=== PATIENT | male | born 1940 | race Caucasian/White ===

== ENCOUNTER 2020-08-13 07:35 | Outpatient (REF) | payer MEDICARE, SELFPAY ==
[2020-08-13 09:31] LABS: INTERNATIONAL NORM RATIO 3.4 (0.9-1.1); Prothrombin Time 40.5 SEC (10.8-13.0)
== END 2020-08-13 07:36 | disposition home or self-care (01) ==
LOC: HO.HSHHMC 07:35
PROVIDERS: Visit Provider Internal Medicine Interventional Cardiology
DX: I48.91 Unspecified atrial fibrillation (principal)
CPT/HCPCS: 36415; 85610

== ENCOUNTER 2020-08-20 06:08 | Outpatient (REF) | payer MEDICARE, SELFPAY ==
[2020-08-20 10:22] LABS: INTERNATIONAL NORM RATIO 3.7 (0.9-1.1); Prothrombin Time 44.4 SEC (10.8-13.0)
== END 2020-08-20 06:09 | disposition home or self-care (01) ==
LOC: HO.HSHHMC 06:08
PROVIDERS: Visit Provider Internal Medicine Interventional Cardiology
DX: I48.91 Unspecified atrial fibrillation (principal)
CPT/HCPCS: 36415; 85610

== ENCOUNTER 2020-08-27 05:54 | Outpatient (REF) | payer MEDICARE, SELFPAY ==
[2020-08-27 09:55] LABS: INTERNATIONAL NORM RATIO 2.1 (0.9-1.1); Prothrombin Time 24.6 SEC (10.8-13.0)
== END 2020-08-27 05:55 | disposition home or self-care (01) ==
LOC: HO.HSHHMC 05:54
PROVIDERS: Visit Provider Internal Medicine Interventional Cardiology
DX: I48.91 Unspecified atrial fibrillation (principal)
CPT/HCPCS: 36415; 85610

== ENCOUNTER 2020-08-31 | Outpatient (REF) | payer MEDICARE, SELFPAY ==
[2020-08-31 09:45] LABS: Prothrombin Time 24.5 SEC (10.8-13.0)
== END 2020-08-31 00:01 | disposition home or self-care (01) ==
LOC: HO.HSHHMC
PROVIDERS: Visit Provider Internal Medicine Interventional Cardiology
DX: I48.91 Unspecified atrial fibrillation (principal)
CPT/HCPCS: 36415; 85610

== ENCOUNTER 2020-09-07 | Outpatient (REF) | payer MEDICARE, SELFPAY ==
[2020-09-07 09:32] LABS: INTERNATIONAL NORM RATIO 2.1 (0.9-1.1); Prothrombin Time 25.5 SEC (10.8-13.0)
== END 2020-09-07 00:01 | disposition home or self-care (01) ==
LOC: HO.HSHHMC
PROVIDERS: Visit Provider Internal Medicine Interventional Cardiology
DX: I48.91 Unspecified atrial fibrillation (principal); Z79.01 Long term (current) use of anticoagulants
CPT/HCPCS: 36415; 85610

== ENCOUNTER 2020-09-14 09:51 | Outpatient (REF) | payer MEDICARE, SELFPAY ==
[2020-09-14 11:03] LABS: INTERNATIONAL NORM RATIO 2.1 (0.9-1.1); Prothrombin Time 24.6 SEC (10.8-13.0)
== END 2020-09-14 09:52 | disposition home or self-care (01) ==
LOC: HO.HSHHMC 09:51
PROVIDERS: Visit Provider Internal Medicine Interventional Cardiology
DX: I48.91 Unspecified atrial fibrillation (principal)
CPT/HCPCS: 36415; 85610

== ENCOUNTER 2020-09-28 07:31 | Outpatient (REF) | payer MEDICARE, SELFPAY ==
[2020-09-28 08:56] LABS: INTERNATIONAL NORM RATIO 2.2 (0.9-1.1); Prothrombin Time 26.9 SEC (10.8-13.0)
== END 2020-09-28 07:32 | disposition home or self-care (01) ==
LOC: HO.HSHHMC 07:31
PROVIDERS: Visit Provider Internal Medicine Interventional Cardiology
DX: I48.91 Unspecified atrial fibrillation (principal)
CPT/HCPCS: 36415; 85610

== ENCOUNTER 2020-10-12 06:06 | Outpatient (REF) | payer MEDICARE, SELFPAY ==
[2020-10-12 10:58] LABS: INTERNATIONAL NORM RATIO 1.9 (0.9-1.1); Prothrombin Time 22.8 SEC (10.8-13.0)
== END 2020-10-12 06:07 | disposition home or self-care (01) ==
LOC: HO.HSHHMC 06:06
PROVIDERS: Visit Provider Internal Medicine Interventional Cardiology
DX: I48.91 Unspecified atrial fibrillation (principal)
CPT/HCPCS: 36415; 85610

== ENCOUNTER 2020-10-19 07:00 | Outpatient (REF) | payer MEDICARE, SELFPAY ==
[2020-10-19 09:14] LABS: INTERNATIONAL NORM RATIO 1.9 (0.9-1.1); Prothrombin Time 22.4 SEC (10.8-13.0)
== END 2020-10-19 07:01 | disposition home or self-care (01) ==
LOC: HO.HSHHMC 07:00
PROVIDERS: Visit Provider Internal Medicine Interventional Cardiology
DX: I48.91 Unspecified atrial fibrillation (principal)
CPT/HCPCS: 36415; 85610

== ENCOUNTER 2020-11-08 06:49 | Outpatient (REF) | payer MEDICARE, SELFPAY ==
[2020-11-08 09:16] LABS: Prothrombin Time 24.4 SEC (10.8-13.0)
== END 2020-11-08 06:50 | disposition home or self-care (01) ==
LOC: HO.HSHHMC 06:49
PROVIDERS: Visit Provider Internal Medicine Interventional Cardiology
DX: I48.91 Unspecified atrial fibrillation (principal)
CPT/HCPCS: 36415; 85610

== ENCOUNTER 2020-11-22 | Outpatient (REF) | payer MEDICARE, SELFPAY ==
[2020-11-22 11:23] LABS: INTERNATIONAL NORM RATIO 2.6 (0.9-1.1)
== END 2020-11-22 00:01 ==
LOC: HO.HSHHMC
PROVIDERS: Visit Provider Internal Medicine Interventional Cardiology
DX: I48.91 Unspecified atrial fibrillation (principal); Z79.01 Long term (current) use of anticoagulants
CPT/HCPCS: 36415; 85610

== ENCOUNTER 2020-11-30 07:15 | Outpatient (REF) | payer MEDICARE, SELFPAY ==
[2020-11-30 09:54] LABS: Prothrombin Time 23.5 SEC (10.8-13.0)
== END 2020-11-30 07:16 | disposition home or self-care (01) ==
LOC: HO.HSHHMC 07:15
PROVIDERS: Visit Provider Internal Medicine Interventional Cardiology
DX: I48.91 Unspecified atrial fibrillation (principal)
CPT/HCPCS: 36415; 85610

== ENCOUNTER 2020-12-14 08:57 | Outpatient (REF) | payer MEDICARE, SELFPAY ==
[2020-12-14 10:57] LABS: INTERNATIONAL NORM RATIO 1.9 (0.9-1.1); Prothrombin Time 22.6 SEC (10.8-13.0)
== END 2020-12-14 08:58 | disposition home or self-care (01) ==
LOC: HO.HSHHMC 08:57
PROVIDERS: Visit Provider Internal Medicine Interventional Cardiology
DX: I48.91 Unspecified atrial fibrillation (principal)
CPT/HCPCS: 36415; 85610

== ENCOUNTER 2020-12-22 07:35 | Outpatient (REF) | payer MEDICARE, SELFPAY ==
[2020-12-22 09:20] LABS: INTERNATIONAL NORM RATIO 2.9 (0.9-1.1); Prothrombin Time 34.6 SEC (10.8-13.0)
== END 2020-12-22 07:36 | disposition home or self-care (01) ==
LOC: HO.HSHHMC 07:35
PROVIDERS: Visit Provider Internal Medicine Interventional Cardiology
DX: I48.91 Unspecified atrial fibrillation (principal)
CPT/HCPCS: 36415; 85610

== ENCOUNTER 2020-12-29 05:53 | Outpatient (REF) | payer MEDICARE, SELFPAY ==
[2020-12-29 09:01] LABS: INTERNATIONAL NORM RATIO 3.2 (0.9-1.1); Prothrombin Time 38.4 SEC (10.8-13.0)
== END 2020-12-29 05:54 | disposition home or self-care (01) ==
LOC: HO.HSHHMC 05:53
PROVIDERS: Visit Provider Internal Medicine Interventional Cardiology
DX: I48.91 Unspecified atrial fibrillation (principal)
CPT/HCPCS: 36415; 85610

== ENCOUNTER 2021-01-05 | Outpatient (REF) | payer MEDICARE, SELFPAY ==
[2021-01-05 12:25] LABS: INTERNATIONAL NORM RATIO 2.5 (0.9-1.1); Prothrombin Time 29.9 SEC (10.8-13.0)
== END 2021-01-05 00:01 | disposition home or self-care (01) ==
LOC: HO.HSHHMC
PROVIDERS: Visit Provider Internal Medicine Interventional Cardiology
DX: I48.91 Unspecified atrial fibrillation (principal)
CPT/HCPCS: 36415; 85610

== ENCOUNTER 2021-01-06 07:05 | Outpatient (REF) | payer MEDICARE, SELFPAY | END 2021-01-06 07:06 | disposition home or self-care (01) | LOC: HO.HSHHMC 07:05 | PROVIDERS: Visit Provider Internal Medicine Interventional Cardiology | DX: Z13.89 Encounter for screening for other disorder (principal) ==

== ENCOUNTER 2021-01-12 05:48 | Outpatient (REF) | payer MEDICARE, SELFPAY ==
[2021-01-12 08:50] LABS: Prothrombin Time 35.9 SEC (10.8-13.0)
== END 2021-01-12 05:49 | disposition home or self-care (01) ==
LOC: HO.HSHHMC 05:48
PROVIDERS: Visit Provider Internal Medicine Interventional Cardiology
DX: I48.91 Unspecified atrial fibrillation (principal)
CPT/HCPCS: 36415; 85610

== ENCOUNTER 2021-01-19 05:42 | Outpatient (REF) | payer MEDICARE, SELFPAY ==
[2021-01-19 09:10] LABS: INTERNATIONAL NORM RATIO 2.4 (0.9-1.1); Prothrombin Time 28.5 SEC (10.8-13.0)
== END 2021-01-19 05:43 | disposition home or self-care (01) ==
LOC: HO.HSHHMC 05:42
PROVIDERS: Visit Provider Internal Medicine Interventional Cardiology
DX: I48.91 Unspecified atrial fibrillation (principal)
CPT/HCPCS: 36415; 85610

== ENCOUNTER 2021-02-02 06:38 | Outpatient (REF) | payer MEDICARE, SELFPAY ==
[2021-02-02 09:18] LABS: INTERNATIONAL NORM RATIO 2.9 (0.9-1.1); Prothrombin Time 34.7 SEC (10.8-13.0)
== END 2021-02-02 06:39 | disposition home or self-care (01) ==
LOC: HO.HSHHMC 06:38
PROVIDERS: Visit Provider Internal Medicine Interventional Cardiology
DX: I48.91 Unspecified atrial fibrillation (principal)
CPT/HCPCS: 36415; 85610

== ENCOUNTER 2021-02-16 07:07 | Outpatient (REF) | payer MEDICARE, SELFPAY ==
[2021-02-16 09:17] LABS: INTERNATIONAL NORM RATIO 3.6 (0.9-1.1); Prothrombin Time 43.3 SEC (10.8-13.0)
== END 2021-02-16 07:08 | disposition home or self-care (01) ==
LOC: HO.HSHHMC 07:07
PROVIDERS: Visit Provider Internal Medicine Interventional Cardiology
DX: I48.91 Unspecified atrial fibrillation (principal)
CPT/HCPCS: 36415; 85610

== ENCOUNTER 2021-02-22 05:51 | Outpatient (REF) | payer MEDICARE, SELFPAY | END 2021-02-22 05:52 | disposition home or self-care (01) | LOC: HO.HSH 05:51 | PROVIDERS: Visit Provider Internal Medicine Interventional Cardiology | DX: Z13.89 Encounter for screening for other disorder (principal) ==

== ENCOUNTER 2021-02-24 07:47 | Outpatient (REF) | payer MEDICARE, SELFPAY ==
[2021-02-24 13:16] LABS: INTERNATIONAL NORM RATIO 3.1 (0.9-1.1); Prothrombin Time 37.5 SEC (10.8-13.0)
== END 2021-02-24 07:48 | disposition home or self-care (01) ==
LOC: HO.LHD 07:47
PROVIDERS: Visit Provider Internal Medicine Interventional Cardiology
DX: I48.91 Unspecified atrial fibrillation (principal)
CPT/HCPCS: 36415; 85610

== ENCOUNTER 2021-03-04 06:50 | Outpatient (REF) | payer MEDICARE, SELFPAY ==
[2021-03-04 11:24] LABS: INTERNATIONAL NORM RATIO 2.6 (0.9-1.1); Prothrombin Time 31.2 SEC (10.8-13.0)
== END 2021-03-04 06:51 | disposition home or self-care (01) ==
LOC: HO.LHD 06:50
PROVIDERS: Visit Provider Internal Medicine Interventional Cardiology
DX: I48.91 Unspecified atrial fibrillation (principal)
CPT/HCPCS: 36415; 85610

== ENCOUNTER 2021-03-18 06:36 | Outpatient (REF) | payer MEDICARE, SELFPAY ==
[2021-03-18 10:10] LABS: INTERNATIONAL NORM RATIO 3.9 (0.9-1.1); Prothrombin Time 47.4 SEC (10.8-13.0)
== END 2021-03-18 06:37 | disposition home or self-care (01) ==
LOC: HO.HSHHMC 06:36
PROVIDERS: Visit Provider Internal Medicine Interventional Cardiology
DX: Z13.89 Encounter for screening for other disorder (principal)
CPT/HCPCS: 36415; 85610

== ENCOUNTER 2021-03-21 07:12 | Outpatient (REF) | payer MEDICARE, SELFPAY ==
[2021-03-21 10:56] LABS: INTERNATIONAL NORM RATIO 3.8 (0.9-1.1); Prothrombin Time 45.9 SEC (10.8-13.0)
== END 2021-03-21 07:13 | disposition home or self-care (01) ==
LOC: HO.LHD 07:12
PROVIDERS: Visit Provider Internal Medicine Interventional Cardiology
DX: I48.91 Unspecified atrial fibrillation (principal); Z79.01 Long term (current) use of anticoagulants
CPT/HCPCS: 36415; 85610

== ENCOUNTER 2021-03-29 01:32 | Outpatient (REF) | payer MEDICARE, SELFPAY ==
[2021-03-29 10:15] LABS: INTERNATIONAL NORM RATIO 4.8 (0.9-1.1); Prothrombin Time 58.2 SEC (10.8-13.0)
== END 2021-03-29 01:33 | disposition home or self-care (01) ==
LOC: HO.LHD 01:32
PROVIDERS: Visit Provider Internal Medicine Interventional Cardiology
DX: I48.91 Unspecified atrial fibrillation (principal)
CPT/HCPCS: 36415; 85610

== ENCOUNTER 2021-03-31 01:05 | Outpatient (REF) | payer MEDICARE, SELFPAY | END 2021-03-31 01:06 | disposition home or self-care (01) | LOC: HO.LHD 01:05 | PROVIDERS: Visit Provider Internal Medicine Interventional Cardiology | DX: Z13.89 Encounter for screening for other disorder (principal) ==

== ENCOUNTER 2021-04-04 06:09 | Outpatient (REF) | payer MEDICARE, SELFPAY ==
[2021-04-04 10:16] LABS: Prothrombin Time 68.2 SEC (10.8-13.0)
[2021-04-04 10:19] LABS: INTERNATIONAL NORM RATIO 5.6 (0.9-1.1)
== END 2021-04-04 06:10 | disposition home or self-care (01) ==
LOC: HO.LHD 06:09
PROVIDERS: Visit Provider Internal Medicine Interventional Cardiology
DX: I48.91 Unspecified atrial fibrillation (principal)
CPT/HCPCS: 36415; 85610

== ENCOUNTER 2021-04-06 07:13 | Outpatient (REF) | payer MEDICARE, SELFPAY ==
[2021-04-06 11:23] LABS: INTERNATIONAL NORM RATIO 3.9 (0.9-1.1); Prothrombin Time 47.2 SEC (10.8-13.0)
== END 2021-04-06 07:14 | disposition home or self-care (01) ==
LOC: HO.LHD 07:13
PROVIDERS: Internal Medicine Interventional Cardiology; Visit Provider Family Medicine
DX: I48.91 Unspecified atrial fibrillation (principal)
CPT/HCPCS: 36415; 85610

== ENCOUNTER 2021-04-08 03:47 | Outpatient (REF) | payer MEDICARE, SELFPAY ==
[2021-04-08 10:42] LABS: INTERNATIONAL NORM RATIO 1.9 (0.9-1.1); Prothrombin Time 23.1 SEC (10.8-13.0)
== END 2021-04-08 03:48 | disposition home or self-care (01) ==
LOC: HO.LHD 03:47
PROVIDERS: Visit Provider Internal Medicine Interventional Cardiology
DX: I48.91 Unspecified atrial fibrillation (principal)
CPT/HCPCS: 36415; 85610

== ENCOUNTER 2021-04-13 00:20 | Outpatient (REF) | payer MEDICARE, SELFPAY ==
[2021-04-13 10:44] LABS: INTERNATIONAL NORM RATIO 1.9 (0.9-1.1); Prothrombin Time 22.7 SEC (10.8-13.0)
== END 2021-04-13 00:21 | disposition home or self-care (01) ==
LOC: HO.LHD 00:20
PROVIDERS: Visit Provider Internal Medicine Interventional Cardiology
DX: I48.91 Unspecified atrial fibrillation (principal)
CPT/HCPCS: 36415; 85610

== ENCOUNTER 2021-04-20 06:20 | Outpatient (REF) | payer MEDICARE, SELFPAY ==
[2021-04-20 09:33] LABS: INTERNATIONAL NORM RATIO 2.5 (0.9-1.1); Prothrombin Time 29.9 SEC (10.8-13.0)
== END 2021-04-20 06:21 | disposition home or self-care (01) ==
LOC: HO.HSHHMC 06:20
PROVIDERS: Visit Provider Internal Medicine Interventional Cardiology
DX: I48.91 Unspecified atrial fibrillation (principal)
CPT/HCPCS: 36415; 85610

== ENCOUNTER 2021-04-27 08:14 | Outpatient (REF) | payer MEDICARE, SELFPAY ==
[2021-04-27 10:38] LABS: INTERNATIONAL NORM RATIO 2.8 (0.9-1.1); Prothrombin Time 33.3 SEC (10.8-13.0)
== END 2021-04-27 08:15 | disposition home or self-care (01) ==
LOC: HO.HSHHMC 08:14
PROVIDERS: Visit Provider Internal Medicine Interventional Cardiology
DX: I48.91 Unspecified atrial fibrillation (principal)
CPT/HCPCS: 36415; 85610

== ENCOUNTER 2021-05-11 | Outpatient (REF) | payer MEDICARE, SELFPAY ==
[2021-05-11 08:36] LABS: INTERNATIONAL NORM RATIO 3.7 (0.9-1.1); Prothrombin Time 44.8 SEC (10.8-13.0)
== END 2021-05-11 00:01 | disposition home or self-care (01) ==
LOC: HO.HSHHMC
PROVIDERS: Visit Provider Internal Medicine Interventional Cardiology
DX: I48.91 Unspecified atrial fibrillation (principal)
CPT/HCPCS: 36415; 85610

== ENCOUNTER 2021-05-18 | Outpatient (REF) | payer MEDICARE, SELFPAY ==
[2021-05-18 08:51] LABS: INTERNATIONAL NORM RATIO 2.8 (0.9-1.1); Prothrombin Time 32.2 SEC (9.9-13.0)
== END 2021-05-18 00:01 | disposition home or self-care (01) ==
LOC: HO.HSHHMC
PROVIDERS: Visit Provider Internal Medicine Interventional Cardiology
DX: I48.91 Unspecified atrial fibrillation (principal)
CPT/HCPCS: 36415; 85610

== ENCOUNTER 2021-05-25 | Outpatient (REF) | payer MEDICARE, SELFPAY ==
[2021-05-25 11:43] LABS: INTERNATIONAL NORM RATIO 2.8 (0.9-1.1); Prothrombin Time 32.8 SEC (9.9-13.0)
== END 2021-05-25 00:01 | disposition home or self-care (01) ==
LOC: HO.HSHHMC
PROVIDERS: Visit Provider Internal Medicine Interventional Cardiology
DX: I48.91 Unspecified atrial fibrillation (principal)
CPT/HCPCS: 36415; 85610

== ENCOUNTER 2021-06-01 | Outpatient (REF) | payer MEDICARE, SELFPAY ==
[2021-06-01 10:55] LABS: INTERNATIONAL NORM RATIO 2.8 (0.9-1.1); Prothrombin Time 32.5 SEC (9.9-13.0)
== END 2021-06-01 00:01 | disposition home or self-care (01) ==
LOC: HO.HSHHMC
PROVIDERS: Visit Provider Internal Medicine Interventional Cardiology
DX: I48.91 Unspecified atrial fibrillation (principal)
CPT/HCPCS: 36415; 85610

== ENCOUNTER 2021-06-15 | Outpatient (REF) | payer MEDICARE, SELFPAY ==
[2021-06-15 11:03] LABS: INTERNATIONAL NORM RATIO 2.9 (0.9-1.1); Prothrombin Time 33.2 SEC (9.9-13.0)
== END 2021-06-15 00:01 | disposition home or self-care (01) ==
LOC: HO.HSHHMC
PROVIDERS: Visit Provider Internal Medicine Interventional Cardiology
DX: I48.91 Unspecified atrial fibrillation (principal)
CPT/HCPCS: 36415; 85610

== ENCOUNTER 2021-06-29 05:00 | Outpatient (REF) | payer MEDICARE, SELFPAY ==
[2021-06-29 11:25] LABS: INTERNATIONAL NORM RATIO 2.7 (0.9-1.1); Prothrombin Time 31.3 SEC (9.9-13.0)
== END 2021-06-29 05:01 | disposition home or self-care (01) ==
LOC: HO.HSHHMC 05:00
PROVIDERS: Visit Provider Internal Medicine Interventional Cardiology
DX: I48.91 Unspecified atrial fibrillation (principal)
CPT/HCPCS: 36415; 85610

== ENCOUNTER 2021-07-13 05:00 | Outpatient (REF) | payer MEDICARE, SELFPAY ==
[2021-07-13 12:02] LABS: INTERNATIONAL NORM RATIO 2.8 (0.9-1.1); Prothrombin Time 32.8 SEC (9.9-13.0)
== END 2021-07-13 05:01 ==
LOC: HO.HSHHMC 05:00
PROVIDERS: Visit Provider Internal Medicine Interventional Cardiology
DX: I48.91 Unspecified atrial fibrillation (principal)
CPT/HCPCS: 36415; 85610

== ENCOUNTER 2021-07-27 11:32 | Outpatient (REF) | payer MEDICARE, SELFPAY ==
[2021-07-27 11:04] LABS: INTERNATIONAL NORM RATIO 2.9 (0.9-1.1)
== END 2021-07-27 11:33 | disposition home or self-care (01) ==
LOC: HO.HSHHMC 11:32
PROVIDERS: Visit Provider Internal Medicine Interventional Cardiology
DX: I48.91 Unspecified atrial fibrillation (principal)
CPT/HCPCS: 36415; 85610

== ENCOUNTER 2021-08-10 13:27 | Outpatient (REF) | payer MEDICARE, SELFPAY ==
[2021-08-10 11:48] LABS: INTERNATIONAL NORM RATIO 2.7 (0.9-1.1); Prothrombin Time 31.4 SEC (9.9-13.0)
== END 2021-08-10 13:28 | disposition home or self-care (01) ==
LOC: HO.LHD 13:27
PROVIDERS: Visit Provider Internal Medicine Interventional Cardiology
DX: I48.91 Unspecified atrial fibrillation (principal)
CPT/HCPCS: 36415; 85610

== ENCOUNTER 2021-08-24 12:21 | Outpatient (REF) | payer MEDICARE, SELFPAY ==
[2021-08-24 11:20] LABS: INTERNATIONAL NORM RATIO 2.7 (0.9-1.1); Prothrombin Time 31.5 SEC (9.9-13.0)
== END 2021-08-24 12:22 | disposition home or self-care (01) ==
LOC: HO.LHD 12:21
PROVIDERS: Visit Provider Internal Medicine Interventional Cardiology
DX: I48.91 Unspecified atrial fibrillation (principal); Z79.01 Long term (current) use of anticoagulants
CPT/HCPCS: 36415; 85610

== ENCOUNTER 2021-09-07 11:27 | Outpatient (REF) | payer MEDICARE, SELFPAY ==
[2021-09-07 11:05] LABS: INTERNATIONAL NORM RATIO 3.1 (0.9-1.1); Prothrombin Time 36.5 SEC (9.9-13.0)
== END 2021-09-07 11:28 | disposition home or self-care (01) ==
LOC: HO.HSHHMC 11:27
PROVIDERS: Visit Provider Internal Medicine Interventional Cardiology
DX: I48.91 Unspecified atrial fibrillation (principal)
CPT/HCPCS: 36415; 85610

== ENCOUNTER 2021-09-14 13:34 | Outpatient (REF) | payer MEDICARE, SELFPAY ==
[2021-09-14 11:03] LABS: INTERNATIONAL NORM RATIO 3.1 (0.9-1.1); Prothrombin Time 36.3 SEC (9.9-13.0)
== END 2021-09-14 13:35 | disposition home or self-care (01) ==
LOC: HO.LHD 13:34
PROVIDERS: Visit Provider Internal Medicine Interventional Cardiology
DX: I48.91 Unspecified atrial fibrillation (principal)
CPT/HCPCS: 36415; 85610

== ENCOUNTER → 2021-09-28 10:16 | Outpatient (BNVA) | payer MEDICARE, SELFPAY | PROVIDERS: PCP Internal Medicine Interventional Cardiology; Visit Provider Internal Medicine | DX: I48.20 Chronic atrial fibrillation, unspecified (principal); Z51.81 Encounter for therapeutic drug level monitoring; Z79.01 Long term (current) use of anticoagulants | CPT/HCPCS: 85610; 99202 ==

== ENCOUNTER → 2021-10-12 09:45 | Outpatient (BNVA) | payer MEDICARE, SELFPAY | PROVIDERS: PCP Internal Medicine Interventional Cardiology; Visit Provider Internal Medicine | DX: I48.20 Chronic atrial fibrillation, unspecified (principal); Z51.81 Encounter for therapeutic drug level monitoring; Z79.01 Long term (current) use of anticoagulants | CPT/HCPCS: 85610; 99211 ==

== ENCOUNTER → 2021-11-01 09:27 | Outpatient (BNVA) | payer MEDICARE, SELFPAY | PROVIDERS: PCP Internal Medicine Interventional Cardiology; Visit Provider Internal Medicine | DX: I48.20 Chronic atrial fibrillation, unspecified (principal); Z51.81 Encounter for therapeutic drug level monitoring; Z79.01 Long term (current) use of anticoagulants | CPT/HCPCS: 85610; 99211 ==

== ENCOUNTER → 2021-11-23 09:27 | Outpatient (BNVA) | payer MEDICARE, SELFPAY | PROVIDERS: PCP Internal Medicine; Visit Provider Internal Medicine | DX: I48.20 Chronic atrial fibrillation, unspecified (principal); Z51.81 Encounter for therapeutic drug level monitoring; Z79.01 Long term (current) use of anticoagulants | CPT/HCPCS: 85610; 99211 ==

== ENCOUNTER → 2021-12-19 09:36 | Outpatient (BNVA) | payer MEDICARE, SELFPAY | PROVIDERS: PCP Internal Medicine; Visit Provider Internal Medicine | DX: I48.20 Chronic atrial fibrillation, unspecified (principal); Z51.81 Encounter for therapeutic drug level monitoring; Z79.01 Long term (current) use of anticoagulants | CPT/HCPCS: 85610; 99211 ==

== ENCOUNTER 2022-01-16 09:29 | Outpatient (REF) | payer MEDICARE, SELFPAY ==
[2022-01-16 09:54] LABS: MANUAL DIFF FLAG NO
[2022-01-16 10:25] LABS: Basophils Absolute Auto 0.1 X10*3/uL (0.0-0.2); Basophils Percent Auto 0.6 % (0-2); Eosinophils Percent Auto 0.5 % (0-4); Hemoglobin 13.7 g/dl (14.0-18.0); Imm Gran Abs Auto 0.03 X10*3/uL (0.00-0.03); Imm Gran Pct Auto 0.4 % (0.0-0.4); Lymphocytes Absolute Auto 1.7 X10*3/uL (1.2-4.9); Lymphocytes Percent Auto 20.7 % (20-40); Mean Corpuscular HGB Conc 34.3 g/dl (31.0-36.0); Mean Corpuscular Hemoglobin 32.3 pg (27.0-33.0); Mean Corpuscular Volume 94.3 fL (80.0-98.0); Mean Platelet Volume 10.5 fL (9.4-12.4); Monocytes Absolute Auto 1.1 X10*3/uL (0.1-1.2); Monocytes Percent Auto 13.5 % (2-11); Neutrophils Absolute Auto 5.2 x10*3/uL (2.0-8.3); Neutrophils Percent Auto 64.3 % (45-73); Platelet Count 225 X10*3/uL (160-400); Red Blood Count 4.24 X10*6/uL (4.60-5.80); White Blood Count 8.2 X10*3/uL (4.8-10.8)
[2022-01-16 10:36] LABS: Estimated Average Glucose 108 mg/dL; Hemoglobin A1c % 5.4 %
[2022-01-16 11:04] LABS: Alanine Aminotransferase 28 U/L (0-40); Albumin Level 4.1 g/dL (3.5-5.0); Alkaline Phosphatase 64 U/L (39-117); Anion Gap 13 (12-20); Aspartate Amino Transferase 27 U/L (5-37); Bilirubin Total 0.8 mg/dL (0.0-1.0); Blood Urea Nitrogen 13 mg/dL (9-16); Calcium 10.1 mg/dL (8.4-10.2); Carbon Dioxide 30 mmol/L (22-29); Chloride 95 mmol/L (96-108); Cholesterol 178 mg/dL; Estimated Glomerular Filt Rate 58; Glucose Random 100 mg/dL (60-115); HDL Cholesterol 83 mg/dL; LDL Cholesterol Calculated 87 mg/dl; Potassium 4.5 mmol/L (3.3-5.1); Sodium 133 mmol/L (135-145); Total Protein 7.1 g/dL (6.5-8.0); Triglycerides 41 mg/dL
[2022-01-16 11:16] LABS: Free T4 (Free Thyroxine) 1.18 ng/dL (0.71-1.85); Thyroid Stimulating Hormone 0.94 uIU/mL (0.32-4.0)
[2022-01-16 11:47] LABS: Folate 6.4 ng/mL (> or = 4.0); Vitamin B12 327 pg/mL (200-900)
== END 2022-01-16 09:30 | disposition home or self-care (01) ==
LOC: HO.LAB 09:29
PROVIDERS: PCP Internal Medicine; Visit Provider Internal Medicine
DX: I48.20 Chronic atrial fibrillation, unspecified (principal); E78.00 Pure hypercholesterolemia, unspecified; I10 Essential (primary) hypertension; R73.02 Impaired glucose tolerance (oral); Z51.81 Encounter for therapeutic drug level monitoring; Z79.01 Long term (current) use of anticoagulants
CPT/HCPCS: 36415; 80053; 80061; 82607; 82746; 83036; 84439; 84443; 85025; 85610; 99211

== ENCOUNTER → 2022-01-30 09:48 | Outpatient (BNVA) | payer MEDICARE, SELFPAY | PROVIDERS: PCP Internal Medicine; Visit Provider Internal Medicine | DX: I48.20 Chronic atrial fibrillation, unspecified (principal); Z79.01 Long term (current) use of anticoagulants; Z51.81 Encounter for therapeutic drug level monitoring | CPT/HCPCS: 85610; 99211 ==

== ENCOUNTER → 2022-03-13 09:36 | Outpatient (BNVA) | payer MEDICARE, SELFPAY | PROVIDERS: PCP Internal Medicine; Visit Provider Internal Medicine | DX: I48.20 Chronic atrial fibrillation, unspecified (principal); Z79.01 Long term (current) use of anticoagulants; Z51.81 Encounter for therapeutic drug level monitoring | CPT/HCPCS: 85610; 99211 ==

== ENCOUNTER 2022-05-24 09:12 | Emergency (ER) | payer MEDICARE, SELFPAY ==
--- NOTE | ~2022-05-24 | XR_ITS ---
EXAMINATION: XR KNEE, LEFT CLINICAL INFORMATION: Pain left knee COMPARISON: None TECHNIQUE: Four views of the left knee. FINDINGS: There is mild reduction in the medial and patellofemoral compartment joint space. Minimal periarticular spurring seen in the medial compartment. There is mild suprapatellar joint effusion. No acute fracture, loose bodies or bony erosive changes seen. 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 Suspect mild suprapatellar joint effusion.
[2022-05-24 09:17] VITALS: BP 165/75; PULSE 86; RESP 16; TEMP 36.8; O2SAT 97; BMI 31.0
--- NOTE | 2022-05-24 10:01 | ED.GENADULT ---
HPI - General Adult General Chief complaint: Extremity Injury, Lower Stated complaint: fall left leg pain Time Seen by Provider: 05/24/22 10:01 Source: patient and family () Mode of arrival: ambulatory Limitations: no limitations History of Present Illness HPI narrative: Patient is an 82 year old male presenting to the emergency department today with left knee pain. Patient states that he fell a week ago and has been having worsening left knee pain ever since. Patient states that he is able to walk on it and move it without issue. Patient denies hitting his head in the incident. Patient denies any loss of consciousness in the incident. Patient denies any numbness, tingling, dizziness, lightheadedness, abdominal pain, nausea, vomiting, fever, chills, blurry vision, double vision, loss of vision, chest pain, difficulty breathing, shortness of breath, back pain, night sweats, pain with urination, increased urinary frequency, increased urinary urgency, blood in his urine or stool, syncope or a near syncopal episode, bowel incontinence, bladder incontinence, bowel retention, bladder retention, or any other complaints at this time. Patient states that he does drink a lot of beer every day. Onset (ago): week(s) (1) Location: left and lower extremity Radiation: non-radiation Severity: mild Severity scale (1-10): 2 Quality: dull Pain Consistency: constant Relieving factors: none Exacerbating factors: none Associated symptoms: denies other symptoms Treatments prior to arrival: none Related Data Home Medications Medication Instructions Recorded Confirmed amlodipine 10 mg tablet 10 mg PO DAILY 09/28/21 04/28/22 benazepril 40 mg tablet 40 mg PO DAILY 09/28/21 04/28/22 chlorthalidone 25 mg tablet 25 mg PO DAILY 09/28/21 04/28/22 Previous Rx's Medication Instructions Recorded warfarin 5 mg tablet 5 mg PO DAILY #90 tabs 09/28/21 Allergies Allergy/AdvReac Type Severity Reaction Status Date / Time No Known Allergies Allergy Mild Verified 04/28/22 10:50 Review of Systems Constitutional: Constitutional: Reports no additional constitutional complaints, Denies chills, Denies fever(s) and Denies night sweats Eyes: Eyes: Reports no additional eye complaints, Denies blurry vision, Denies change in vision, Denies diplopia, Denies eye discharge, Denies loss of vision and Denies eye pain ENT: Denies dizziness Cardiovascular: Cardiovascular: Reports no additional cardiovascular complaints, Denies chest pain, Denies lightheadedness, Denies Loss of Consciousness and Denies dyspnea Respiratory: Respiratory: Reports no additional respiratory complaints and Denies dyspnea Gastrointestinal: Gastrointestinal: Reports no additional gastrointestinal complaints, Denies abdominal pain, Denies melena, Denies hematochezia, Denies change in bowel habits and Denies change in stool character Genitourinary: Genitourinary: Reports no additional male genitourinary complaints, Denies hematuria, Denies oliguria, Denies difficulty urinating, Denies dysuria, Denies urinary frequency, Denies urinary hesitancy, Denies urinary incontinence and Denies urinary urgency Musculoskeletal: Musculoskeletal: Reports no additional musculoskeletal complaints, Denies numbness and Denies tingling Comments: left knee pain Neurologic: Denies dizziness, Denies loss of vision, Denies numbness and Denies tingling Psychiatric: Psychiatric: Reports no additional psychiatric complaints Endocrine: Endocrine: Reports no additional endocrine complaints Hematologic/Lymphatic: Hematologic/Lymphatic: Reports no additional hematologic/lymphatic complaints Allergic/Immunologic: Allergic/Immunologic: Reports no additional allergic/immunologic complaints ON LICENSE OF [facility] Past Medical History Attestation statement: The following information was validated with the patient. Source: old records reviewed Medical History Chronic atrial fibrillation Hypertension Impaired glucose tolerance Obesity (BMI 30.0-34.9) Social History Social History Housing: House Housing Other:: LIVES WITH SPOUSE Alcohol intake: current Alcohol intake frequency: other (DRINKS DAILY/BEER- 8-9 DAILY) Patient Tobacco Use Status: Never used Tobacco e-Cigarette/Vaping Use: Never Used Second Hand Smoke Exposure: No Advance Directives: Yes Advance Directives Information Provided: Yes Advance Directives on File: No Advance Directives Date on File: 08/26/20 Current occupational status: retired Current occupation: RETIRED Current occupational exposures/hazards: No Cognitive needs: No Hearing needs: No Vision needs: Yes Physical Exam ED Vital Signs: Vital Signs - 24 hr 05/24/22 09:17 Temperature 98.2 F Pulse Rate 86 Respiratory Rate 16 Blood Pressure 165/75 H Pulse Oximetry 97 Oxygen Delivery Method Room Air BMI result Body Mass Index 31.0 Const General: cooperative, no acute distress, alert and awake Nutritional Appearance: well nourished Orientation/consciousness: patient oriented x3 Limitations: no limitations HENMT Head: Yes normal to inspection and Yes atraumatic Ears: hearing grossly normal bilaterally and external ears normal General nose exam: Normal external nose present, no nasal discharge noted and no epistaxis Face and sinus: Yes normal facial exam, No abrasion and No laceration Mouth: Normal oral and palatal mucosa present, no drooling and no muffled voice Eyes General: appearance normal, both eyes and all related structures Periorbital: periorbital findings normal Eyelids: Yes eyelids normal Conjunctivae: conjunctivae normal Pupils: Equal, round and reactive pupils present EOM: EOMs intact bilaterally Neck Neck: Yes normal visual inspection, Yes full ROM and Yes no lymphadenopathy Chest Chest palpation & inspection: normal inspection of the chest Resp Effort & Inspection: normal respiratory effort and able to speak in complete sentences Auscultation: clear to auscultation bilaterally Cardio Rate: regular rate Rhythm: regular rhythm GI Inspection: Yes normal to inspection Neuro General: patient oriented x3 and moves all extremities Cranial nerves: Yes Equal, round and reactive pupils present Cognition (Neuro): normal cognition Motor exam (neuro): 5/5 motor strength present throughout Sensory Exam: Normal double simultaneous stimulation for sensation Coordination: [id number] test normal Extrem Other: mild erythema and warmth present to the left knee, no tenderness to palpation, no streaking redness General: Yes full ROM and Yes capillary refill normal Psych Appearance: grossly normal Mental Status: mental status grossly normal Affect: normal affect Attitude: cooperative Thought process: Normal thought process present Thought content: Normal thought content present Insight: Good insight present (Psych) Medical Decision Making [facility] Narrative Medical decision making narrative: Patient is an 82 year old male presenting to the emergency department today with left knee pain. Patient's physical exam showed mild erythema and swelling to the left knee but was otherwise unremarkable. There was no streaking redness. Patient's ROM, circulation, strength, and sensation were present and normal to the left lower extremity. Patient did not have any tenderness to palpation of the knee. Patient's left knee x-ray was negative for any acute fracture. Due to the patient's history of excessive beer drinking and his clinical presentation, I believe this patient is suffering from an acute gout vs. arthritic flare. Patient is currently anticoagulated with warfarin and thus, will not be given or started on NSAIDs. I explained my physical exam findings as well as all test results to the patient and the patient's . I answered all questions asked by the patient and the patient's . I stressed the importance of the patient taking his medication as prescribed. I stressed the importance of the patient following up with his primary care provider. I stressed the importance of the patient returning to the emergency department immediately if his symptoms were to worsen or if he were to develop any dizziness, shortness of breath, difficulty breathing, chest pain, blurry vision, loss of vision, nausea, vomiting, abdominal pain, fever, chills, back pain, or any other complaints. Patient and the patient's verbalized agreement and understanding with this treatment plan and discharge. Differential Diagnosis Differential Diagnosis: gout, arthritis Medical Records Medical records reviewed: Yes I reviewed the patient's medical records. Imaging Data Left knee x-ray: Attestation: I personally reviewed and interpreted this imaging study as follows: My impression: No acute process. Radiologist's impression: EXAMINATION: XR KNEE, LEFT CLINICAL INFORMATION: Pain left knee? COMPARISON: None? TECHNIQUE: Four views of the left knee. FINDINGS: There is mild reduction in the medial and patellofemoral compartment joint space. Minimal periarticular spurring seen in the medial compartment. There is mild suprapatellar joint effusion. No acute fracture, loose bodies or bony erosive changes seen.? 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 ? Suspect mild suprapatellar joint effusion. Dictated By: Marlon Huerta MD Signed By: Electronically signed by Marlon Huerta MD 05/24/22 1021 Discharge Plan Discharge Clinical Impression: Gout Patient Disposition: Home, Self-Care Instructions: Gout (ED) Additional Instructions: Decrease your daily alcohol intake. Follow up with your primary care provider. If pain persists, follow up with an orthopedic provider. Return to the emergency department immediately if your symptoms worsen or if you develop any dizziness, shortness of breath, difficulty breathing, chest pain, blurry vision, loss of vision, nausea, vomiting, abdominal pain, fever, chills, back pain, or any other complaints. Prescriptions: No Action warfarin 5 mg tablet 5 mg PO DAILY Qty: 90 0RF Protocol: Dose Management Condition: Sunday ( One) Dose/Route: 5 mg Instruction: 1 x 5 mg tablet Condition: Sunday Dose/Route: 5 mg Instruction: 1 x 5 mg tablet Condition: Sunday Dose/Route: 5 mg Instruction: 1 x 5 mg tablet Condition: Sunday Dose/Route: 5 mg Instruction: 1 x 5 mg tablet Condition: Dose/Route: 2.5 mg Instruction: 0.5 x 5 mg tablets Condition: Sunday Dose/Route: 5 mg Instruction: 1 x 5 mg tablet Condition: Sunday Dose/Route: 5 mg Instruction: 1 x 5 mg tablet Condition: Sunday ( Two) Dose/Route: 5 mg Instruction: 1 x 5 mg tablet Condition: Sunday Dose/Route: 5 mg Instruction: 1 x 5 mg tablet Condition: Sunday Dose/Route: 5 mg Instruction: 1 x 5 mg tablet Condition: Sunday Dose/Route: 5 mg Instruction: 1 x 5 mg tablet Condition: Dose/Route: 2.5 mg Instruction: 0.5 x 5 mg tablets Condition: Sunday Dose/Route: 5 mg Instruction: 1 x 5 mg tablet Condition: Sunday Dose/Route: 5 mg Instruction: 1 x 5 mg tablet Protocol Text: Adjustment Start Date: Sunday03/13/22 INR Value: 1.8 INR Date: 03/13/22 Recheck Date: 03/27/22 Additional Instructions: INR today is a little low, take 5 mg today and all days except for 2.5mg balance greens and reds in diet amlodipine 10 mg tablet 10 mg PO DAILY benazepril 40 mg tablet 40 mg PO DAILY chlorthalidone 25 mg tablet 25 mg PO DAILY Referrals: [facility] [Provider Group] (If pain persists, follow up with an orthopedic provider. ) Fausto Boogie MD [Primary Care Provider] - (Follow up with your primary care provider. ) Interventions: ED Discharge Assessment Last Done: 05/24/22 10:49 Discharge Date/Time: 05/24/22 10:49 Print Language: French
== END 2022-05-24 10:49 | disposition home or self-care (01) ==
PROVIDERS: Emergency Provider Emergency Medicine; PCP Internal Medicine
DX: M10.9 Gout, unspecified (principal); M25.462 Effusion, left knee; I48.20 Chronic atrial fibrillation, unspecified; I10 Essential (primary) hypertension; E66.9 Obesity, unspecified; Z68.31 Body mass index [BMI] 31.0-31.9, adult; Z79.01 Long term (current) use of anticoagulants
CPT/HCPCS: 73564; 99282; 99283

== ENCOUNTER 2022-08-01 14:09 | Outpatient (REF) | payer MEDICARE, SELFPAY ==
[2022-08-01 14:42] LABS: MANUAL DIFF FLAG NO
[2022-08-01 15:01] LABS: Basophils Absolute Auto 0.1 X10*3/uL (0.0-0.2); Basophils Percent Auto 0.8 % (0-2); Eosinophils Absolute Auto 0.1 X10*3/uL (0.0-0.4); Eosinophils Percent Auto 1.4 % (0-4); Hematocrit 40.3 % (42.0-52.0); Hemoglobin 13.7 g/dl (14.0-18.0); Imm Gran Abs Auto 0.03 X10*3/uL (0.00-0.03); Imm Gran Pct Auto 0.3 % (0.0-0.4); Lymphocytes Absolute Auto 2.2 X10*3/uL (1.2-4.9); Lymphocytes Percent Auto 24.1 % (20-40); Mean Corpuscular Hemoglobin 31.9 pg (27.0-33.0); Mean Corpuscular Volume 93.9 fL (80.0-98.0); Mean Platelet Volume 10.2 fL (9.4-12.4); Monocytes Percent Auto 11.3 % (2-11); Neutrophils Absolute Auto 5.7 x10*3/uL (2.0-8.3); Neutrophils Percent Auto 62.1 % (45-73); Platelet Count 316 X10*3/uL (160-400); Red Blood Count 4.29 X10*6/uL (4.60-5.80); Red Cell Distribution Width 12.5 % (11.0-16.0); White Blood Count 9.2 X10*3/uL (4.8-10.8)
[2022-08-01 15:47] LABS: Alanine Aminotransferase 68 U/L (0-40); Albumin Level 3.8 g/dL (3.5-5.0); Alkaline Phosphatase 114 U/L (39-117); Anion Gap 14 (12-20); Aspartate Amino Transferase 57 U/L (5-37); Bilirubin Total 0.4 mg/dL (0.0-1.0); Blood Urea Nitrogen 22 mg/dL (9-16); Calcium 9.3 mg/dL (8.4-10.2); Carbon Dioxide 27 mmol/L (22-29); Chloride 98 mmol/L (96-108); Estimated Glomerular Filt Rate > 60; Glucose Random 91 mg/dL (60-115); Potassium 4.1 mmol/L (3.3-5.1); Sodium 135 mmol/L (135-145); Total Protein 6.9 g/dL (6.5-8.0); Uric Acid 6.4 mg/dL (3.4-7.0)
== END 2022-08-01 14:10 | disposition home or self-care (01) ==
LOC: HO.LAB 14:09
PROVIDERS: PCP Internal Medicine; Visit Provider Nurse Practitioner Family
DX: M10.9 Gout, unspecified (principal); I10 Essential (primary) hypertension; R79.89 Other specified abnormal findings of blood chemistry; I48.20 Chronic atrial fibrillation, unspecified; Z51.81 Encounter for therapeutic drug level monitoring; Z79.01 Long term (current) use of anticoagulants
CPT/HCPCS: 36415; 80053; 84550; 85025; 85610; 99211

== ENCOUNTER 2022-08-07 12:34 | Outpatient (REF) | payer MEDICARE, SELFPAY ==
[2022-08-07 14:06] LABS: Appearance Urine Clear; Color Urine Yellow; Glucose Urine UA Negative (Negative); Leukocyte Esterase Urine Negative (Negative); Nitrite Urine Negative (Negative); Urine Blood Negative (Negative); Urine Ketones Negative (Negative); Urine Protein Negative (Neg-Trace)
== END 2022-08-07 12:35 | disposition home or self-care (01) ==
LOC: HO.LNP 12:34
PROVIDERS: Visit Provider Nurse Practitioner Family
DX: R35.0 Frequency of micturition (principal)
CPT/HCPCS: 81003

== ENCOUNTER → 2022-08-17 11:12 | Outpatient (BNVA) | payer MEDICARE, SELFPAY | PROVIDERS: PCP Internal Medicine; Visit Provider Internal Medicine | DX: I48.20 Chronic atrial fibrillation, unspecified (principal); Z79.01 Long term (current) use of anticoagulants; Z51.81 Encounter for therapeutic drug level monitoring | CPT/HCPCS: 85610; 99211 ==

== ENCOUNTER 2022-08-24 11:29 | Outpatient (REF) | payer MEDICARE, SELFPAY ==
[2022-08-24 13:27] LABS: Alanine Aminotransferase 16 U/L (0-40); Albumin Level 4.2 g/dL (3.5-5.0); Alkaline Phosphatase 84 U/L (39-117); Aspartate Amino Transferase 16 U/L (5-37); Bilirubin Direct 0.2 mg/dL (0.0-0.5); Bilirubin Total 0.5 mg/dL (0.0-1.0); Total Protein 7.2 g/dL (6.5-8.0)
[2022-08-25 08:30] LABS: HBc Num1 0.06 S/CO (0.00-0.79); HBsAGNum1 0.19 S/CO (0.00-0.99); Hepatitis B Core Antibody Nonreactive (Nonreactive); Hepatitis B Surface Antigen Negative (Negative); ~HepC Num1 0.07 S/CO (0.00-0.79); ~Hepatitis B Surface Antibody NONREACTIVE (Nonreactive); ~Hepatitis C Antibody Nonreactive (Nonreactive)
== END 2022-08-24 11:30 | disposition home or self-care (01) ==
LOC: HO.LAB 11:29
PROVIDERS: Absent Provider Internal Medicine; PCP Internal Medicine; Visit Provider Internal Medicine
DX: I48.20 Chronic atrial fibrillation, unspecified (principal); R79.89 Other specified abnormal findings of blood chemistry; Z51.81 Encounter for therapeutic drug level monitoring; Z79.01 Long term (current) use of anticoagulants
CPT/HCPCS: 36415; 80076; 85610; 86704; 86706; 86803; 87340; 99211

== ENCOUNTER → 2022-09-07 09:53 | Outpatient (BNVA) | payer MEDICARE, SELFPAY | PROVIDERS: PCP Internal Medicine; Visit Provider Internal Medicine | DX: I48.20 Chronic atrial fibrillation, unspecified (principal); Z79.01 Long term (current) use of anticoagulants; Z51.81 Encounter for therapeutic drug level monitoring | CPT/HCPCS: 85610; 99211 ==

== ENCOUNTER 2022-09-08 07:56 | Outpatient (REF) | payer MEDICARE, SELFPAY ==
--- NOTE | ~2022-09-08 | US_ITS ---
EXAMINATION: US ABDOMEN COMPLETE CLINICAL INFORMATION: Other specified abnormal findings of blood chemistry. COMPARISON: None TECHNIQUE: Real-time imaging of the abdominal viscera. FINDINGS: PANCREAS: Obscured by shadowing from overlying bowel gas. ABDOMINAL AORTA: The proximal, mid, and distal segments are normal in caliber. INFERIOR VENA CAVA: Visualized portions are normal. LIVER: Limited evaluation due to high positioning of the liver resulting in shadowing from the adjacent diaphragm/lung. The liver is normal in size. The liver contour is normal. Parenchymal echogenicity is normal. No focal hepatic lesion. There is no intrahepatic biliary duct dilatation seen. GALLBLADDER: Normal. The gallbladder is physiologically distended without evidence of stones, sludge, polyps, wall thickening or pericholecystic fluid. COMMON BILE DUCT: Not visualized due to shadowing from overlying bowel gas. RIGHT KIDNEY: There is a simple cyst in the interpolar region measuring 1.6 cm, for which no imaging follow-up is routinely recommended. No hydronephrosis or renal calculi. The kidney measures 12.1 cm in maximum dimension. LEFT KIDNEY: There is a simple cyst in the interpolar region measuring up to 2.5 cm, for which no imaging follow-up is routinely recommended. No hydronephrosis or renal calculi. The kidney measures 13.4 cm in maximum dimension. SPLEEN: Normal. The spleen measures 9.4 cm in maximum dimension. FREE FLUID: None. US/US abdomen complete IMPRESSION: Limited evaluation as above with no discrete significant abnormality. If clinically deemed appropriate, correlation with cross-sectional imaging could be obtained to further characterize the liver, which is not completely visualized in this examination.
== END 2022-09-08 07:57 | disposition home or self-care (01) ==
LOC: HO.US 07:56
PROVIDERS: PCP Internal Medicine; Visit Provider Internal Medicine
DX: R79.89 Other specified abnormal findings of blood chemistry (principal)
CPT/HCPCS: 76700

== ENCOUNTER → 2022-09-19 10:12 | Outpatient (BNVA) | payer MEDICARE, SELFPAY | PROVIDERS: PCP Internal Medicine; Visit Provider Internal Medicine | DX: I48.20 Chronic atrial fibrillation, unspecified (principal); Z79.01 Long term (current) use of anticoagulants; Z51.81 Encounter for therapeutic drug level monitoring | CPT/HCPCS: 85610; 99211 ==

== ENCOUNTER → 2022-09-20 07:37 | Outpatient (REF) | payer MEDICARE, SELFPAY ==
--- NOTE | 2022-09-20 07:40 | CA_ITS ---
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 Normal LV systolic function with mild LVH 2. At least moderately dilated left atrium 3. [id number] aortic stenosis 4. Moderate mitral calcification with mild mitral regurgitation 5. Moderately dilated ascending aorta at least at 4.7 cm 6. Upper limits of normal RV systolic pressure 7. No gross pericardial effusion Findings Left Ventricle Normal left ventricular size and systolic function. There is mildly increased left ventricular wall thickness. The visually estimated ejection fraction is between 60-65%. Diastolic function is indeterminate on the basis of available data. There is moderate septal asymmetric hypertrophy. Right Ventricle Normal right ventricular cavity size. There is normal right ventricular systolic function. Atria The left atrium is moderately dilated. Interatrial shunt cannot be excluded. The right atrium is mildly dilated. Aortic Valve There is mild calcification of the aortic valve. There is mild thickening of the aortic valve. There is mild to moderate aortic valve stenosis. The mean gradient is 15 mmHg. The aortic valve area is 1.35 cm2. There is no aortic valve regurgitation. Mitral Valve There is moderate anterior and severe posterior mitral leaflet thickening. There is moderate mitral annular calcification. There is mild mitral valve regurgitation. There is no mitral valve stenosis. Pulmonic Valve The pulmonic valve was not well visualized. Tricuspid Valve Likely normal tricuspid valve structure and function. There is mild tricuspid valve regurgitation. The right ventricular systolic pressure is normal. Normal right atrial pressure. There is no evidence of pulmonary hypertension. Great Vessels The pulmonary artery was not well visualized. There is moderate dilatation of the ascending aorta measuring 4.70 cm. Venous The inferior vena cava is normal in size and collapses greater than 50% with inspiration. Pericardium/Pleural There is no evidence of pericardial effusion. Prior Study Comparison Changes noted compared to prior study dated: 01/22/2020. ascending aorta is measured to be moderately dilated on this study. Consider dedicated imaging with chest CTA Measurements 2D Linear Measurements IVSd: 1.56 0.6-0.9/0.6-1.0 cm LVIDd: 4.55 3.9-5.3/4.2-5.9 cm LVIDd Index: 2.23 2.4-3.2/2.2-3.1 cm/m2 LVIDs: 3.41 2.0-3.6 cm LVPWd: 1.25 0.7-1.1 cm LA Diam: 5.60 2.7-3.8/3.0-4.0 cm LAIDs Index: 2.75 1.5-2.3 cm/m2 LV Mass: 316.67 67-162/88-224 g LV Mass Index: 155.23 43-95/49-115 g/m2 LVOT Diam: 2.00 3.0+(-)1.3 cm 2D Systolic Function EF 4C: 67.90 >55% EF 2C: 63.10 >55% EF BiP: 65.10 >55% Mitral Valve MV VTI: 0.43 MV Pk Alok: 1.54 MV Mn Alok: 0.92 MV Pk Grad: 9.00 MV Mn Grad: 4.00 MV Pk E: 1.50 MV Decel Time: 296.00 E'Lateral: 5.11 E'Medial: 4.03 E/E' Med: 37.20 E/E' Lat: 29.40 PHT: 87.00 MVA PHT: 2.53 MVA Continuity: 1.77 Decel Pat[place]: 5.07 Aortic Valve AoV Pk Alok: 2.69 AoV Mn Alok: 1.84 AoV VTI: 0.56 AoV Pk Grad: 29.00 Aov Mn Grad: 15.00 MALENA Cont.VTI: 1.35 MALENA Planim: 1.35 AI Pk Alok: 3.56 AI Patillas: 1.69 LVOT LVOT Pk Alok: 1.09 LVOT Mn Alok: 0.66 LVOT VTI: 0.24 LVOT Pk Grad: 5.00 LVOT Mn Grad: 2.00 LVOT Diam: 2.00 LVOT Area: 3.14 Diastolic Function MV Pk E: 1.50 E'Medial: 4.03 E/E' Med: 37.20 E' Laterial: 5.11 E/E' Lat: 29.40 Right Ventricle TAPSE (mm): 16.90 TVS' Alok: 9.36 Tricuspid Valve TR Pk Alok: 2.97 TR Pk Grad: 35.00 RA Press: 3.00 RVSP: 38.00 Great Vessels Aorta Sinus of Valsalva: 3.94 2.0-3.[address] [place]: 3.25 1.7-3.4 cm Ao Asc: 4.70 2.1-3.4 cm Updated in Other Vendor System with Status of Final Madhav Loredo MD electronically signed on 09/21/2022 9:11:44 AM with status of Final
== END ==
LOC: HO.CARD 07:37
PROVIDERS: Visit Provider Internal Medicine
DX: I48.20 Chronic atrial fibrillation, unspecified (principal)
CPT/HCPCS: 93306

== ENCOUNTER → 2022-10-04 10:42 | Outpatient (BNVA) | payer MEDICARE, SELFPAY | PROVIDERS: PCP Internal Medicine; Visit Provider Internal Medicine | DX: I48.20 Chronic atrial fibrillation, unspecified (principal); Z79.01 Long term (current) use of anticoagulants; Z51.81 Encounter for therapeutic drug level monitoring | CPT/HCPCS: 85610; 99211 ==

== ENCOUNTER 2022-10-18 11:00 | Outpatient (RCR) | payer MEDICARE, SELFPAY ==
--- NOTE | 2022-11-15 15:17 | MHC.PT.DC ---
[facility] [place] Office [place] Office [place] Office [address] Maranda Moore [address] [phone] F: [phone] F: [phone] F: [phone] F: [phone] Physical Therapy Discharge Report Diagnosis: UNSTEADINESS ON FEET Date of Surgery: Date of Evaluation: 09/07/22 Date of Discharge: 10/20/22 Treatments to Date: 7 Cancellations to Date: 0 No Shows to Date: 0 Discharge Status: Improved Function Independent with HEP Discharge Summary: At this time, Paul feels that he has made good gains in PT and is independent with his HEP. His gait has improved although he still ambulates with wide FARRUKH and shortened stride length. There are moments especially after sit to stand where he does demonstrate LOB and if symptoms were to worsen I would recommend possible assistive deice. Electronically signed by: Eve Scott PT DPT Please sign and return to therapist. Thank you for your referral.
== END 2022-11-15 15:16 | disposition home or self-care (01) ==
LOC: HO.PT 11:00
PROVIDERS: PCP Internal Medicine; Visit Provider Nurse Practitioner Family
DX: R26.81 Unsteadiness on feet (principal)
CPT/HCPCS: 97110; 97112; 97162; 97530

== ENCOUNTER → 2022-10-19 09:53 | Outpatient (BNVA) | payer MEDICARE, SELFPAY | PROVIDERS: PCP Internal Medicine; Visit Provider Internal Medicine | DX: I48.20 Chronic atrial fibrillation, unspecified (principal); Z79.01 Long term (current) use of anticoagulants; Z51.81 Encounter for therapeutic drug level monitoring | CPT/HCPCS: 85610; 99211 ==

== ENCOUNTER 2022-10-24 13:48 | Outpatient (REF) | payer MEDICARE, SELFPAY ==
--- NOTE | ~2022-10-24 | XR_ITS ---
EXAMINATION: XR hand LT min 3V CLINICAL INFORMATION: Gout COMPARISON: None TECHNIQUE: 4 views of the hand FINDINGS: No fracture or dislocation. Degenerative changes of the first interphalangeal and distal interphalangeal joints worst involving the fifth interphalangeal joint where there is moderate loss of joint space. Nonspecific change in the lunate and distal ulna. Possible subtle periarticular cortical erosion along the base of the first proximal phalanx. Atherosclerotic vascular calcification. XR/XR hand LT min 3V IMPRESSION: Possible subtle periarticular cortical erosion along the base of the first proximal phalanx, which can be seen in the setting of erosive arthropathy such as gout. Degenerative changes of the first interphalangeal and distal interphalangeal joints worst involving the fifth interphalangeal joint where there is moderate loss of joint space. Nonspecific change in the lunate and distal ulna.
== END 2022-10-24 13:49 | disposition home or self-care (01) ==
LOC: HO.XRAY 13:48
PROVIDERS: Absent Provider Internal Medicine; PCP Internal Medicine; Visit Provider Internal Medicine
DX: R07.2 Precordial pain (principal); M19.032 Primary osteoarthritis, left wrist; I48.20 Chronic atrial fibrillation, unspecified; I35.0 Nonrheumatic aortic (valve) stenosis; I34.81 Nonrheumatic mitral (valve) annulus calcification; I77.810 Thoracic aortic ectasia; I10 Essential (primary) hypertension; I25.10 Atherosclerotic heart disease of native coronary artery without angina pectoris; M10.9 Gout, unspecified
CPT/HCPCS: 73130; 93005; 99202

== ENCOUNTER → 2022-11-02 10:00 | Outpatient (BNVA) | payer MEDICARE, SELFPAY | PROVIDERS: PCP Internal Medicine; Visit Provider Internal Medicine | DX: I48.20 Chronic atrial fibrillation, unspecified (principal); Z79.01 Long term (current) use of anticoagulants; Z51.81 Encounter for therapeutic drug level monitoring | CPT/HCPCS: 85610; 99211 ==

== ENCOUNTER → 2022-11-09 09:26 | Outpatient (REF) | payer MEDICARE, SELFPAY ==
--- NOTE | ~2022-11-09 | NM_ITS ---
Myocardial perfusion study Indication: Precordial chest pain to evaluate for myocardial ischemia Technique: The patient was brought in for a Lexiscan perfusion study on 11/09/2022. Patient performed low-level exercise and was injected 0.4 mg of Lexiscan intravenously. Within a minute of injection, 30 mCi of sestamibi was given intravenously. Images were obtained using the SPECT gamma camera interlaced with the gating device. Images were obtained in supine position. Resting perfusion study was performed on 11/10/2022. Patient was administered 30 mCi of sestamibi intravenously at rest. Images were then obtained in supine position. Images obtained with and without CT attenuation. Total DLP 96 mGy-cm. Images were processed with the software and compared side to side in short axis, horizontal long axis and vertical long axis views. Findings: The stress perfusion study showed non attenuated images show minimal thinning of the basal inferior wall of the LV myocardium otherwise normal myocardial perfusion. Attenuation corrected images show normal uptake of radiotracer in all segments of LV myocardium. The gated study shows normal LV systolic function with calculated LVEF of 74%. LV cavity is normal in size. The gated study shows normal systolic wall thickening and contraction of segments. Resting study shows non attenuated images show mildly reduced uptake in the basal inferior and basal inferior wall of the LV myocardium. Attenuation corrected images show normal uptake of radiotracer in all segments of LV myocardium. Gating at rest reveals normal systolic wall motion with ejection fraction at 74%. The findings are consistent with normal myocardial perfusion. NM/NM cardiolite stress test Impression: 1. Myocardial perfusion imaging study shows normal myocardial perfusion 2. Gated LVEF is 74% 3. Transient ischemic dilatation not present EKG is nondiagnostic for ischemia
--- NOTE | 2022-11-09 10:10 | HM_ITS ---
* Total monitoring time 3 days. * Underlying rhythm is atrial fibrillation. Average ventricular rate 64/Min. Range 42 to 92/min. * About 6% the time, rate less than 60/Min. No tachycardia episodes. * Occasional PVCs with minimal burden. * Two episodes of NSVT; longest 10 beats. * No AV blocks. * No patient marker. No clear symptoms mentioned in diary. MTDD
--- NOTE | 2022-11-09 10:38 | CA_ITS ---
Acquisition Time: 2022-11-09 09:46:58 Total Exercise Time: 00:02:00 Test Indications: AFIB Medications: SEE CHART Protocol: LEXISCAN Max HR: 077 BPM 55% of Pred: 138 BPM Max BP: 142/070 mmHG Max Work Load: 1.0 METS Pharmacological stress test with Lexiscan injection, while sitting and kicking his legs, without anginal symptoms, without arrythmia, with normotensive response to injection, with nondiagnostic EKG for ischemia. Nuclear images pending. Test reviewed with Dr Loredo. Referred By: Gregg Major Overread By: NURYS PARK
== END ==
LOC: HO.CARD 09:26
PROVIDERS: PCP Internal Medicine; Visit Provider Internal Medicine
DX: R07.2 Precordial pain (principal); I48.20 Chronic atrial fibrillation, unspecified
CPT/HCPCS: 78452; 93017; 93242; A9500; J0280; J2785

== ENCOUNTER → 2022-11-16 09:49 | Outpatient (BNVA) | payer MEDICARE, SELFPAY | PROVIDERS: PCP Internal Medicine; Visit Provider Internal Medicine | DX: I48.20 Chronic atrial fibrillation, unspecified (principal); Z79.01 Long term (current) use of anticoagulants; Z51.81 Encounter for therapeutic drug level monitoring | CPT/HCPCS: 85610; 99211 ==

== ENCOUNTER → 2022-11-30 09:47 | Outpatient (BNVA) | payer MEDICARE, SELFPAY | PROVIDERS: PCP Internal Medicine; Visit Provider Internal Medicine | DX: I48.20 Chronic atrial fibrillation, unspecified (principal); Z79.01 Long term (current) use of anticoagulants; Z51.81 Encounter for therapeutic drug level monitoring | CPT/HCPCS: 85610; 99211 ==

== ENCOUNTER → 2022-12-08 16:21 | Outpatient (BNVA) | payer MEDICARE, SELFPAY | PROVIDERS: PCP Internal Medicine; Visit Provider Internal Medicine | DX: Z79.01 Long term (current) use of anticoagulants (principal) ==

== ENCOUNTER → 2022-12-21 10:00 | Outpatient (BNVA) | payer MEDICARE, SELFPAY | PROVIDERS: PCP Internal Medicine; Visit Provider Internal Medicine | DX: I48.20 Chronic atrial fibrillation, unspecified (principal); Z79.01 Long term (current) use of anticoagulants; Z51.81 Encounter for therapeutic drug level monitoring | CPT/HCPCS: 85610; 99211 ==

== ENCOUNTER → 2023-01-04 10:07 | Outpatient (BNVA) | payer MEDICARE, SELFPAY | PROVIDERS: PCP Internal Medicine; Visit Provider Internal Medicine | DX: I48.20 Chronic atrial fibrillation, unspecified (principal); Z79.01 Long term (current) use of anticoagulants; Z51.81 Encounter for therapeutic drug level monitoring | CPT/HCPCS: 85610; 99211 ==

== ENCOUNTER 2023-01-18 07:17 | Outpatient (REF) | payer MEDICARE, SELFPAY ==
[2023-01-18 07:29] LABS: MANUAL DIFF FLAG NO
[2023-01-18 07:40] LABS: Basophils Absolute Auto 0.1 X10*3/uL (0.0-0.2); Basophils Percent Auto 0.6 % (0-2); Eosinophils Absolute Auto 0.2 X10*3/uL (0.0-0.4); Eosinophils Percent Auto 1.9 % (0-4); Hematocrit 42.2 % (42.0-52.0); Hemoglobin 14.4 g/dl (14.0-18.0); Imm Gran Abs Auto 0.05 X10*3/uL (0.00-0.03); Imm Gran Pct Auto 0.6 % (0.0-0.4); Lymphocytes Absolute Auto 2.3 X10*3/uL (1.2-4.9); Lymphocytes Percent Auto 26.6 % (20-40); Mean Corpuscular HGB Conc 34.1 g/dl (31.0-36.0); Mean Corpuscular Hemoglobin 32.1 pg (27.0-33.0); Monocytes Absolute Auto 0.9 X10*3/uL (0.1-1.2); Monocytes Percent Auto 10.9 % (2-11); Neutrophils Absolute Auto 5.1 x10*3/uL (2.0-8.3); Neutrophils Percent Auto 59.4 % (45-73); Platelet Count 207 X10*3/uL (160-400); Red Blood Count 4.49 X10*6/uL (4.60-5.80); Red Cell Distribution Width 14.4 % (11.0-16.0); White Blood Count 8.6 X10*3/uL (4.8-10.8)
[2023-01-18 08:20] LABS: Alanine Aminotransferase 12 U/L (0-40); Albumin Level 4.1 g/dL (3.5-5.0); Alkaline Phosphatase 54 U/L (39-117); Anion Gap 11 (12-20); Aspartate Amino Transferase 15 U/L (5-37); Bilirubin Total 0.7 mg/dL (0.0-1.0); Blood Urea Nitrogen 27 mg/dL (9-16); Calcium 9.2 mg/dL (8.4-10.2); Carbon Dioxide 27 mmol/L (22-29); Chloride 104 mmol/L (96-108); Cholesterol 230 mg/dL; Estimated Glomerular Filt Rate 50; Glucose Random 98 mg/dL (60-115); HDL Cholesterol 62 mg/dL; LDL Cholesterol Calculated 154 mg/dl; Potassium 4.2 mmol/L (3.3-5.1); Sodium 138 mmol/L (135-145); Total Protein 6.8 g/dL (6.5-8.0); Triglycerides 72 mg/dL
[2023-01-18 08:50] LABS: Folate 7.3 ng/mL (> or = 4.0); Free T4 (Free Thyroxine) 1.18 ng/dL (0.71-1.85); Thyroid Stimulating Hormone 1.53 uIU/mL (0.32-4.0); Vitamin B12 254 pg/mL (200-900)
[2023-01-18 09:37] LABS: Estimated Average Glucose 111 mg/dL; Hemoglobin A1c % 5.5 %
== END 2023-01-18 07:18 | disposition home or self-care (01) ==
LOC: HO.LAB 07:17
PROVIDERS: PCP Internal Medicine; Visit Provider Internal Medicine
DX: R73.02 Impaired glucose tolerance (oral) (principal); E78.00 Pure hypercholesterolemia, unspecified
CPT/HCPCS: 36415; 80053; 80061; 82607; 82746; 83036; 84439; 84443; 85025

== ENCOUNTER → 2023-01-25 09:55 | Outpatient (BNVA) | payer MEDICARE, SELFPAY | PROVIDERS: PCP Internal Medicine; Visit Provider Internal Medicine | DX: I48.20 Chronic atrial fibrillation, unspecified (principal); Z79.01 Long term (current) use of anticoagulants; Z51.81 Encounter for therapeutic drug level monitoring | CPT/HCPCS: 85610; 99211 ==

== ENCOUNTER → 2023-02-22 09:06 | Outpatient (BNVA) | payer MEDICARE, SELFPAY | PROVIDERS: PCP Internal Medicine; Visit Provider Internal Medicine | DX: I48.20 Chronic atrial fibrillation, unspecified (principal); Z51.81 Encounter for therapeutic drug level monitoring; Z79.01 Long term (current) use of anticoagulants | CPT/HCPCS: 85610; 99211 ==

== ENCOUNTER → 2023-03-15 12:42 | Outpatient (BNVA) | payer MEDICARE, SELFPAY | PROVIDERS: PCP Internal Medicine; Referring Provider Internal Medicine; Visit Provider Internal Medicine | DX: I48.20 Chronic atrial fibrillation, unspecified (principal); I77.810 Thoracic aortic ectasia; I35.0 Nonrheumatic aortic (valve) stenosis; I34.81 Nonrheumatic mitral (valve) annulus calcification; I10 Essential (primary) hypertension; Z79.01 Long term (current) use of anticoagulants; Z79.899 Other long term (current) drug therapy | CPT/HCPCS: 99212 ==

== ENCOUNTER → 2023-03-22 13:27 | Outpatient (BNVA) | payer MEDICARE, SELFPAY | PROVIDERS: PCP Internal Medicine; Visit Provider Internal Medicine | DX: I48.20 Chronic atrial fibrillation, unspecified (principal); Z79.01 Long term (current) use of anticoagulants; Z51.81 Encounter for therapeutic drug level monitoring | CPT/HCPCS: 85610; 99211 ==

== ENCOUNTER → 2023-03-29 08:02 | Outpatient (REF) | payer MEDICARE, SELFPAY ==
--- NOTE | 2023-03-29 08:05 | CA_ITS ---
Transthoracic Echocardiogram Patient (Last, First, Middle): Paul Grande C Gender: Male Date of : 1940 Age: 83 Procedure Date: 03/29/2023 Procedure Type: Transthoracic Echocardiogram Location: OP Height: 175.26 cm Weight: 89.81 kg BSA: 2.06 m2 Heart Rate: bpm BP: 140 / 78 mmHg Md Do Resident [facility]: TO Referring MD: Gregg Major MD Symptoms: I77.810 - Thoracic aortic ectasia Study Quality: Fair ECG Rhythm: Atrial Fibrillation Conclusions: - The left ventricular systolic function is normal. The calculated ejection fraction is 67% by biplane method. - There is severely increased left ventricular wall thickness. - The left atrium is severely dilated. - There is mild to moderate aortic valve stenosis. - There is severe mitral annular calcification. - There is moderate dilatation of the ascending aorta measuring 4.70 cm. Findings Left Ventricle Normal left ventricular cavity size. There is severely increased left ventricular wall thickness. The left ventricular systolic function is normal. The calculated ejection fraction is 67% by biplane method. There is no evidence of regional wall motion abnormalities. Diastolic function is indeterminate on the basis of available data. Right Ventricle Normal right ventricular cavity size. There is mildly decreased right ventricular systolic function. Atria The left atrium is severely dilated. The right atrium is normal in size. Aortic Valve There is moderate calcification of the aortic valve. There is mild to moderate aortic valve stenosis. The peak aortic velocity is 3.18 m/s with a calculated peak gradient of 40 mmHg. The mean gradient is 23 mmHg. The aortic valve area is 1.44 cm2. There is mild aortic valve regurgitation. Mitral Valve There is severe mitral annular calcification. There is no mitral valve regurgitation. Possible mild mitral stenosis. Pulmonic Valve The pulmonic valve is likely normal. Tricuspid Valve There is mild tricuspid valve regurgitation. There is no evidence of pulmonary hypertension. Great Vessels The aortic arch is normal in size. There is moderate dilatation of the ascending aorta measuring 4.70 cm. Venous The inferior vena cava is normal in size and collapses greater than 50% with inspiration. Pericardium/Pleural There is no evidence of pericardial effusion. Prior Study Comparison No significant change compared to prior study dated: 09/20/2022. Measurements 2D Linear Measurements IVSd: 2.36 0.6-0.9/0.6-1.0 cm LVIDd: 3.69 3.9-5.3/4.2-5.9 cm LVIDd Index: 1.79 2.4-3.2/2.2-3.1 cm/m2 LVIDs: 2.42 2.0-3.6 cm LVPWd: 1.55 0.7-1.1 cm LV Mass: 404.28 67-162/88-224 g LV Mass Index: 196.25 43-95/49-115 g/m2 LVOT Diam: 2.40 3.0+(-)1.3 cm 2D Systolic Function EF 4C: 67.90 >55% EF 2C: 67.00 >55% EF BiP: 66.70 >55% Mitral Valve MV Pk E: 1.72 MV Decel Time: 284.00 E'Lateral: 4.13 E'Medial: 3.81 E/E' Med: 45.10 E/E' Lat: 41.60 PHT: 83.00 MVA PHT: 2.65 Decel Ziebach: 6.05 Aortic Valve AoV Pk Alok: 3.18 AoV Mn Alok: 2.23 AoV VTI: 0.73 AoV Pk Grad: 40.00 Aov Mn Grad: 23.00 MALENA Cont.VTI: 1.44 AI Pk Alok: 4.11 AI Ziebach: 2.76 LVOT LVOT Pk Alok: 1.00 LVOT Mn Alok: 0.67 LVOT VTI: 0.23 LVOT Pk Grad: 4.00 LVOT Mn Grad: 2.00 LVOT Diam: 2.40 LVOT Area: 4.52 Diastolic Function MV Pk E: 1.72 E'Medial: 3.81 E/E' Med: 45.10 E' Laterial: 4.13 E/E' Lat: 41.60 Right Ventricle TAPSE (mm): 14.20 TVS' Alok: 8.74 Tricuspid Valve TR Pk Alok: 2.69 TR Pk Grad: 29.00 RA Press: 3.00 RVSP: 32.00 Great Vessels Aorta Sinus of Valsalva: 4.09 2.0-3.[address] Ridge: 2.99 1.7-3.4 cm Ao Asc: 4.70 2.1-3.4 cm Ao Arch: 3.20 Updated in Other Vendor System with Status of Final Gregg Major MD electronically signed on 03/29/2023 2:04:07 PM with status of Final
== END ==
LOC: HO.CARD 08:02
PROVIDERS: PCP Internal Medicine; Visit Provider Internal Medicine
DX: I77.810 Thoracic aortic ectasia (principal)
CPT/HCPCS: 93306

== ENCOUNTER → 2023-04-06 10:52 | Outpatient (BNVA) | payer MEDICARE, SELFPAY | PROVIDERS: PCP Internal Medicine; Visit Provider Internal Medicine | DX: I48.20 Chronic atrial fibrillation, unspecified (principal); Z79.01 Long term (current) use of anticoagulants; Z51.81 Encounter for therapeutic drug level monitoring | CPT/HCPCS: 85610; 99211 ==

== ENCOUNTER → 2023-05-03 09:56 | Outpatient (BNVA) | payer MEDICARE, SELFPAY | PROVIDERS: PCP Internal Medicine; Visit Provider Internal Medicine | DX: I48.20 Chronic atrial fibrillation, unspecified (principal); Z79.01 Long term (current) use of anticoagulants; Z51.81 Encounter for therapeutic drug level monitoring | CPT/HCPCS: 85610; 99211 ==

== ENCOUNTER 2023-05-31 09:58 | Outpatient (AMB) | payer MEDICARE, SELFPAY ==
[2023-05-31 10:04] LABS: Prothrombin Time Whole Bld POC 39.3 sec (11.1-13.5); ~PT, ~INR - Anti Coag Clinic 3.3 (0.9-1.1)
--- NOTE | 2023-05-31 10:10 | MHC.OFFVISCO ---
Intake Intake Visit Reasons: Anticoagulation Allergies No Known Allergies Allergy (Mild, Verified 05/31/23 09:58) Medication List - Last Reconciled 05/31/23 by Claire Ha RN amlodipine 10 mg PO DAILY benazepril 40 mg PO DAILY 90 days chlorthalidone 25 mg PO DAILY 90 days colchicine 0.6 mg PO DAILY gabapentin 200 mg (2 x 100 mg) PO BEDTIME 90 days warfarin 5 mg See Protocol PO DAILY Nursing Note Amb to ACS accomp by , feeling well Medications and supplements reviewed No changes in health, diet, medications, or supplements Denies any unusual signs and symptoms of bruising, bleeding Denies any new Chest pain, SOB, or clotting INR:3.3 above therapeutic range Nutritional guidance given: greens today then balance greens and reds in diet Dose: already took warfarin today so decrease dose tomorrow to 2.5mg then continue usual dosing on Sunday ( 2.5mg x 2 days and 5mg x 5 days) F/U INR: 4 weeks Patient verbalizes understanding of instructions given with accurate read back/ teach back of dosing Anti-Coag Initial Assessment Social Hx Patient Tobacco Use Status: Never used Tobacco alcohol intake: current Alcohol intake frequency: 0-2 drinks per day (DRINKS DAILY/BEER- 8-9 DAILY) Cardiovascular Hx: HTN and Arrhythmias Cancer HX: No Psych. 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
== END 2023-05-31 10:17 | disposition home or self-care (01) ==
LOC: HO.ACS 09:58
PROVIDERS: PCP Internal Medicine; Visit Provider Internal Medicine
DX: Z79.01 Long term (current) use of anticoagulants (principal)

== ENCOUNTER → 2023-05-31 09:58 | Outpatient (BNVA) | payer MEDICARE, SELFPAY | PROVIDERS: PCP Internal Medicine; Visit Provider Internal Medicine | DX: I48.20 Chronic atrial fibrillation, unspecified (principal); Z79.01 Long term (current) use of anticoagulants; Z51.81 Encounter for therapeutic drug level monitoring | CPT/HCPCS: 85610; 99211 ==

== ENCOUNTER 2023-06-28 10:04 | Outpatient (AMB) | payer MEDICARE, SELFPAY ==
--- NOTE | 2023-06-28 10:20 | MHC.OFFVISCO ---
Intake Intake Visit Reasons: Anticoagulation Allergies No Known Allergies Allergy (Mild, Verified 06/28/23 10:11) Medication List - Last Reconciled 06/28/23 by Ni Link RN amlodipine 10 mg PO DAILY benazepril 40 mg PO DAILY 90 days chlorthalidone 25 mg PO DAILY 90 days colchicine (gout) 0.6 mg PO DAILY warfarin 5 mg See Protocol PO DAILY Nursing Note INR: 3.0 in therapeutic range Medications and supplements reviewed No changes in health, diet, medications, or supplements, Denies any signs and symptoms of bleeding or bruising or clotting. Bleeding, bruising, clotting discussed Nutritional guidance given keep eating a mix - may need more greens while eating more reds Dose: 2.5mg x 2 days/ 5mg x 5 days F/U INR: 1 month Patient verbalizes understanding of instructions given Anti-Coag Initial Assessment Social Hx Patient Tobacco Use Status: Never used Tobacco alcohol intake: current Alcohol intake frequency: 0-2 drinks per day (DRINKS DAILY/BEER- 8-9 DAILY) Cardiovascular Hx: HTN and Arrhythmias Cancer HX: No Psych. 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
[2023-06-28 10:27] LABS: Prothrombin Time Whole Bld POC 36.3 sec (11.1-13.5)
== END 2023-06-28 10:24 | disposition home or self-care (01) ==
LOC: HO.ACS 10:04
PROVIDERS: PCP Internal Medicine; Visit Provider Internal Medicine
DX: Z79.01 Long term (current) use of anticoagulants (principal)

== ENCOUNTER → 2023-06-28 10:04 | Outpatient (BNVA) | payer MEDICARE, SELFPAY | PROVIDERS: PCP Internal Medicine; Visit Provider Internal Medicine | DX: I48.20 Chronic atrial fibrillation, unspecified (principal); Z79.01 Long term (current) use of anticoagulants; Z51.81 Encounter for therapeutic drug level monitoring | CPT/HCPCS: 85610; 99211 ==

== ENCOUNTER 2023-07-25 11:00 | Outpatient (RCR) | payer MEDICARE, SELFPAY ==
--- NOTE | 2023-07-25 14:49 | MHC.PT.EP ---
[facility] [place] [facility] [place] Office [place] Office [address] Maranda Moore [address] [phone] F: [phone] F: [phone] F: [phone] F: [phone] Physical Therapy Plan of Care Date of Evaluation: 07/25/23 Date of Surgery: n/a Diagnosis: Pain in left ankle and joints of left foot Pain in unspecified ankle and joints of unspecified foot Assessment: Pt is a pleasant 83yo M who presents to PT with B foot pain and unsteadiness on feet. He reports he feels his foot pain is related to his toenails. Upon assessment, pts toe nails are very overgrown and I strongly encouraged him to follow up with a high school music director. Pt presents to PT with current impairments in pain, decreased LE strength, decreased balance/proprioception, and impaired gait. He is limited functionally by prolonged standing, prolonged walking, and stair navigation. He is an excellent candidate for skilled PT to address current impairments to facilitate return to PLOF. He is recommended to be seen 2x/week for 4 weeks and will be reassessed at that time. Frequency and Duration: The patient will be seen 2x/week for 4 weeks Short Term Goals: Pt will be I with HEP to promote self management of symptoms Pt will improve B quad strength to at least 4+/5 B Retirement Goals: Pt will achieve full knee extension strength B to assist with standing and walking Pt will tolerate standing and walking > 20 min with improved gait mechanics without LOB Pt will demonstrate improvements in function as evidenced by statistically significant improvement in LEFI outcome measure Treatment Plan: Modalities to reduce pain, spasms and effusion. Manual therapy to restore motion and function. Therapeutic exercise to improve strength and flexibility. Neuromuscular re-education for posture and balance. Therapeutic activities to return to functional activities of daily living. Electronically signed by: Simi Murrieta, PT, DPT Please sign and return to therapist. Thank you for your referral.
--- NOTE | 2023-08-28 16:35 | MHC.PT.DC ---
[facility] [place] Office [place] Office [place] Office [address] Maranda Moore [address] [phone] F: [phone] F: [phone] F: [phone] F: [phone] Physical Therapy Discharge Report Diagnosis: Pain in left ankle and joints of left foot Pain in unspecified ankle and joints of unspecified foot Date of Surgery: n/a Date of Evaluation: 07/25/23 Date of Discharge: 08/28/23 Treatments to Date: 1 Cancellations to Date: No Shows to Date: Discharge Status: Discharge Summary: Pt was evaluated on 07/25/23. At PT evaluation, pt reported he felt like his foot pain was related to his toe nails. Upon assessment on initial PT evaluation, pts toe nails were very overgrown and I strongly encouraged him to follow up with a desktop publishing specialist. Pts called after initial PT evaluation cancelling his physical therapy appointments until he sees the doctor for his foot. Pt is being D/C from skilled PT as he has not attended or called to schedule in > 30 days. Pt current level of function unknown at this time Electronically signed by: Simi Murrieta, PT, DPT Please sign and return to therapist. Thank you for your referral.
== END 2023-08-28 16:35 | disposition home or self-care (01) ==
LOC: HO.PT 11:00
PROVIDERS: PCP Internal Medicine; Visit Provider Internal Medicine
DX: M25.572 Pain in left ankle and joints of left foot (principal)
CPT/HCPCS: 97162

== ENCOUNTER 2023-07-26 11:29 | Outpatient (AMB) | payer MEDICARE, SELFPAY ==
[2023-07-26 11:35] LABS: Prothrombin Time Whole Bld POC 45.3 sec (11.1-13.5); ~PT, ~INR - Anti Coag Clinic 3.8 (0.9-1.1)
--- NOTE | 2023-07-26 11:43 | MHC.OFFVISCO ---
Intake Intake Visit Reasons: Anticoagulation Allergies No Known Allergies Allergy (Mild, Verified 07/26/23 11:29) Medication List - Last Reconciled 07/26/23 by Ni Link RN amlodipine 10 mg PO DAILY benazepril 40 mg PO DAILY 90 days chlorthalidone 25 mg PO DAILY 90 days colchicine (gout) 0.6 mg PO DAILY warfarin 5 mg See Protocol PO DAILY Nursing Note INR 3.9 out of therapeutic range HAS BEEN TRENDING HIGHER ? SUMMER DIET Medications and supplements reviewed Patient status: WELL NO CHANGES Medications or supplements: NO CHANGES Diet: HAS BEEN EATING TOMATOES AND SUMMER FOODS THAT RAISE THE INR Denies any signs and symptoms of bleeding or clotting or unusual bruising Bleeding, bruising, clotting discussed Nutritional guidance given: GREENS TODAY AND WEEKLY Dose: DECREASE FOR NOW - ALREADY TOOK TODAY DECREASE TOMORROW 2.5MG THEN 2.5MG MWF/ 5MG X 4 DAYS F/U INR Date : 2 WEEKS TO SEE FULL RESULT ?? Patient verbalizing understanding of instructions given. Anti-Coag Initial Assessment Social Hx Patient Tobacco Use Status: Never used Tobacco alcohol intake: current Alcohol intake frequency: 0-2 drinks per day (DRINKS DAILY/BEER- 8-9 DAILY) Cardiovascular Hx: HTN and Arrhythmias Cancer HX: No Psych. Illness/Depression: No Coding Level of Care Code Est Patient Level 1 Diagnoses Current use of anticoagulant therapy Z79.01 Results AMB INR Fingerstick AMB INR Fingerstick 3.9 Last Edit by Ni Link RN on 07/26/23 11:38 MANUAL ENTRY Assessment & Plan Assessment & Plan (1) Current use of anticoagulant therapy: Code(s): Z79.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
== END 2023-07-26 11:45 | disposition home or self-care (01) ==
LOC: HO.ACS 11:29
PROVIDERS: PCP Internal Medicine; Visit Provider Internal Medicine
DX: Z79.01 Long term (current) use of anticoagulants (principal)

== ENCOUNTER → 2023-07-26 11:29 | Outpatient (BNVA) | payer MEDICARE, SELFPAY | PROVIDERS: PCP Internal Medicine; Visit Provider Internal Medicine | DX: I48.20 Chronic atrial fibrillation, unspecified (principal); Z79.01 Long term (current) use of anticoagulants; Z51.81 Encounter for therapeutic drug level monitoring | CPT/HCPCS: 85610; 99211 ==

== ENCOUNTER 2023-08-09 09:41 | Outpatient (AMB) | payer MEDICARE, SELFPAY ==
--- NOTE | 2023-08-09 09:46 | MHC.OFFVISCO ---
Intake Intake Visit Reasons: Anticoagulation Allergies No Known Allergies Allergy (Mild, Verified 08/09/23 09:42) Medication List - Last Reconciled 08/09/23 by Aislinn Gutierrez RN amlodipine 10 mg PO DAILY benazepril 40 mg PO DAILY 90 days chlorthalidone 25 mg PO DAILY 90 days colchicine (gout) 0.6 mg PO DAILY warfarin 5 mg See Protocol PO DAILY Nursing Note INR 3.1-? out of therapeutic range Medications and supplements reviewed Patient status: no c.o Medications or supplements: no changes Diet: same Denies any signs and symptoms of bleeding or clotting or unusual bruising Bleeding, bruising, clotting discussed Nutritional guidance given: eat greens to lower inr pt present for visit. consistent greens 2-3 times per week enc Dose: 2.5mg x3, 5mg x 4 F/U INR Date : pt req 3 weeks? Patient verbalizing understanding of instructions given. Anti-Coag Initial Assessment Social Hx Patient Tobacco Use Status: Never used Tobacco alcohol intake: current Alcohol intake frequency: 0-2 drinks per day (DRINKS DAILY/BEER- 8-9 DAILY) Cardiovascular Hx: HTN and Arrhythmias Cancer HX: No Psych. Illness/Depression: No Coding Level of Care Code Est Patient Level 1 Diagnoses Current use of anticoagulant therapy Z79.01 Assessment & Plan Assessment & Plan (1) Current use of anticoagulant therapy: Code(s): Z79.01 - half-way (current) use of anticoagulants Category: Medical
[2023-08-09 09:47] LABS: Prothrombin Time Whole Bld POC 37.7 sec (11.1-13.5); ~PT, ~INR - Anti Coag Clinic 3.1 (0.9-1.1)
== END 2023-08-09 09:53 | disposition home or self-care (01) ==
LOC: HO.ACS 09:41
PROVIDERS: PCP Internal Medicine; Visit Provider Internal Medicine
DX: Z79.01 Long term (current) use of anticoagulants (principal)

== ENCOUNTER → 2023-08-09 09:41 | Outpatient (BNVA) | payer MEDICARE, SELFPAY | PROVIDERS: PCP Internal Medicine; Visit Provider Internal Medicine | DX: I48.20 Chronic atrial fibrillation, unspecified (principal); Z79.01 Long term (current) use of anticoagulants; Z51.81 Encounter for therapeutic drug level monitoring | CPT/HCPCS: 85610; 99211 ==

== ENCOUNTER 2023-08-30 10:03 | Outpatient (AMB) | payer MEDICARE, SELFPAY ==
--- NOTE | 2023-08-30 10:10 | MHC.OFFVISCO ---
Intake Intake Visit Reasons: Anticoagulation Allergies No Known Allergies Allergy (Mild, Verified 08/30/23 10:04) Medication List - Last Reconciled 08/30/23 by Aislinn Gutierrez RN amlodipine 10 mg PO DAILY benazepril 40 mg PO DAILY 90 days chlorthalidone 25 mg PO DAILY 90 days colchicine (gout) 0.6 mg PO DAILY warfarin 5 mg See Protocol PO DAILY Nursing Note INR: 2.4- in therapeutic range 2-3 Medications and supplements reviewed- no changes No changes in health, diet, medications, or supplements, Denies any signs and symptoms of bleeding or bruising or clotting. Bleeding, bruising, clotting discussed Nutritional guidance given Dose: 2.5mg x 3, 5mg x 4 F/U INR: 4 weeks Patient and verbalizes understanding of instructions given Anti-Coag Initial Assessment Social Hx Patient Tobacco Use Status: Never used Tobacco alcohol intake: current Alcohol intake frequency: 0-2 drinks per day (DRINKS DAILY/BEER- 8-9 DAILY) Cardiovascular Hx: HTN and Arrhythmias Cancer HX: No Psych. Illness/Depression: No Coding Level of Care Code Est Patient Level 1 Diagnoses Current use of anticoagulant therapy Z79.01 Assessment & Plan Assessment & Plan (1) Current use of anticoagulant therapy: Code(s): Z79.01 - retirement (current) use of anticoagulants Category: Medical
[2023-08-30 10:11] LABS: Prothrombin Time Whole Bld POC 28.2 sec (11.1-13.5); ~PT, ~INR - Anti Coag Clinic 2.4 (0.9-1.1)
== END 2023-08-30 10:23 | disposition home or self-care (01) ==
LOC: HO.ACS 10:03
PROVIDERS: PCP Internal Medicine; Visit Provider Internal Medicine
DX: Z79.01 Long term (current) use of anticoagulants (principal)

== ENCOUNTER → 2023-08-30 10:03 | Outpatient (BNVA) | payer MEDICARE, SELFPAY | PROVIDERS: PCP Internal Medicine; Visit Provider Internal Medicine | DX: I48.20 Chronic atrial fibrillation, unspecified (principal); Z79.01 Long term (current) use of anticoagulants; Z51.81 Encounter for therapeutic drug level monitoring | CPT/HCPCS: 85610; 99211 ==

== ENCOUNTER 2023-09-27 09:45 | Outpatient (AMB) | payer MEDICARE, SELFPAY ==
--- NOTE | 2023-09-27 09:50 | MHC.OFFVISCO ---
Intake Intake Visit Reasons: Anticoagulation Allergies No Known Allergies Allergy (Mild, Verified 09/27/23 09:47) Medication List - Last Reconciled 09/27/23 by Aislinn Gutierrez RN amlodipine 10 mg PO DAILY benazepril 40 mg PO DAILY 90 days chlorthalidone 25 mg PO DAILY 90 days colchicine (gout) 0.6 mg PO DAILY warfarin 5 mg See Protocol PO DAILY Nursing Note INR: 2.3- in therapeutic range of 2-3 Medications and supplements reviewed- no changes No changes in health, diet, medications, or supplements, Denies any signs and symptoms of bleeding or bruising or clotting. Bleeding, bruising, clotting discussed Nutritional guidance given Dose: 2.5mg x 3, 5mg x 4 F/U INR: 4 weeks Patient verbalizes understanding of instructions given Anti-Coag Initial Assessment Social Hx Patient Tobacco Use Status: Never used Tobacco alcohol intake: current Alcohol intake frequency: 0-2 drinks per day (DRINKS DAILY/BEER- 8-9 DAILY) Cardiovascular Hx: HTN and Arrhythmias Cancer HX: No Psych. 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
[2023-09-27 13:35] LABS: Prothrombin Time Whole Bld POC 28.1 sec (11.1-13.5); ~PT, ~INR - Anti Coag Clinic 2.3 (0.9-1.1)
== END 2023-09-27 10:06 | disposition home or self-care (01) ==
LOC: HO.ACS 09:45
PROVIDERS: PCP Internal Medicine; Visit Provider Internal Medicine
DX: Z79.01 Long term (current) use of anticoagulants (principal)

== ENCOUNTER → 2023-09-27 09:45 | Outpatient (BNVA) | payer MEDICARE, SELFPAY | PROVIDERS: PCP Internal Medicine; Visit Provider Internal Medicine | DX: I48.20 Chronic atrial fibrillation, unspecified (principal); Z79.01 Long term (current) use of anticoagulants; Z51.81 Encounter for therapeutic drug level monitoring | CPT/HCPCS: 85610; 99211 ==

== ENCOUNTER 2023-10-03 07:39 | Outpatient (REF) | payer MEDICARE, SELFPAY ==
[2023-10-03 08:19] LABS: Estimated Average Glucose 105 mg/dL; Hemoglobin A1c % 5.3 % (<6.0)
[2023-10-03 08:57] LABS: Alanine Aminotransferase 14 U/L (0-40); Albumin Level 4.1 g/dL (3.5-5.0); Alkaline Phosphatase 60 U/L (39-117); Anion Gap 12 (12-20); Aspartate Amino Transferase 15 U/L (5-37); Bilirubin Total 0.5 mg/dL (0.0-1.0); Blood Urea Nitrogen 12 mg/dL (9-16); Calcium 9.6 mg/dL (8.4-10.2); Carbon Dioxide 28 mmol/L (22-29); Chloride 100 mmol/L (96-108); Cholesterol 196 mg/dL (<200); Estimated Glomerular Filt Rate > 60; Glucose Random 85 mg/dL (60-115); HDL Cholesterol 70 mg/dL (>40); LDL Cholesterol Calculated 114 mg/dL (<100); Sodium 136 mmol/L (135-145); Total Protein 7.3 g/dL (6.5-8.0); Triglycerides 64 mg/dL (<150); Uric Acid 7.5 mg/dL (3.4-7.0)
[2023-10-03 09:18] LABS: Folate 9.3 ng/mL (> or = 4.0); Vitamin B12 620 pg/mL (200-900)
== END 2023-10-03 07:40 | disposition home or self-care (01) ==
LOC: HO.LAB 07:39
PROVIDERS: PCP Internal Medicine; Visit Provider Internal Medicine
DX: I25.10 Atherosclerotic heart disease of native coronary artery without angina pectoris (principal); N28.9 Disorder of kidney and ureter, unspecified; R73.02 Impaired glucose tolerance (oral); E78.00 Pure hypercholesterolemia, unspecified
CPT/HCPCS: 36415; 80053; 80061; 82607; 82746; 83036; 84550

== ENCOUNTER 2023-10-25 09:42 | Outpatient (AMB) | payer MEDICARE, SELFPAY ==
--- NOTE | 2023-10-25 09:57 | MHC.OFFVISCO ---
Intake Intake Visit Reasons: Anticoagulation Allergies No Known Allergies Allergy (Mild, Verified 10/25/23 09:45) Medication List - Last Reconciled 10/25/23 by Ni Link RN amlodipine 10 mg PO DAILY benazepril 40 mg PO DAILY 90 days chlorthalidone 25 mg PO DAILY 90 days colchicine 0.6 mg PO DAILY warfarin 5 mg See Protocol PO DAILY Nursing Note INR: 1.6 OUT OF therapeutic range Medications and supplements reviewed HAD COVID AND HE MAY HAVE MISSED A DOSE , Denies any signs and symptoms of bleeding or bruising or clotting. Bleeding, bruising, clotting discussed Nutritional guidance given - AVOID GREENS X 2 DAYS Dose: BOOSTER DOSE X 1 DAY - 5MG X 5 DAYS THIS WEEK THEN RESUME USUAL DOSE 5MG X 4 DAYS/ 2.5MG X 3 DAYS F/U INR: 2 WEEKS Patient verbalizes understanding of instructions given Anti-Coag Initial Assessment Social Hx Patient Tobacco Use Status: Never used Tobacco alcohol intake: current Alcohol intake frequency: 0-2 drinks per day (DRINKS DAILY/BEER- 8-9 DAILY) Cardiovascular Hx: HTN and Arrhythmias Cancer HX: No Psych. 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
[2023-10-25 10:19] LABS: ~PT, ~INR - Anti Coag Clinic 1.6 (0.9-1.1)
== END 2023-10-25 09:59 | disposition home or self-care (01) ==
LOC: HO.ACS 09:42
PROVIDERS: PCP Internal Medicine; Visit Provider Internal Medicine
DX: Z79.01 Long term (current) use of anticoagulants (principal)

== ENCOUNTER → 2023-10-25 09:42 | Outpatient (BNVA) | payer MEDICARE, SELFPAY | PROVIDERS: PCP Internal Medicine; Visit Provider Internal Medicine | DX: I25.10 Atherosclerotic heart disease of native coronary artery without angina pectoris (principal); I35.0 Nonrheumatic aortic (valve) stenosis; I77.810 Thoracic aortic ectasia; I48.20 Chronic atrial fibrillation, unspecified; Z79.01 Long term (current) use of anticoagulants; Z51.81 Encounter for therapeutic drug level monitoring | CPT/HCPCS: 85610; 93005; 99211; 99212 ==

== ENCOUNTER 2023-10-25 12:56 | Outpatient (AMB) | payer MEDICARE, SELFPAY ==
--- NOTE | 2023-10-25 12:59 | A.OFFVIS_ITS ---
Intake Vital Signs 10/25/23 13:00 Height 5 ft 9 in Weight 188 lb 4.396 oz BMI 27.8 BP 110/60 Blood Pressure Location Lt brachial Position Sitting Intake Visit Reasons: R/S 7 month follow up Intake Note: 7 mth f/up pt its feeling fine Recreation Activities Coordinator Required: No Accompanied by: Spouse Allergies No Known Allergies Allergy (Mild, Verified 10/25/23 09:45) Medication List - Last Reconciled 10/25/23 by Isa Pineda NP amlodipine 10 mg PO DAILY benazepril 40 mg PO DAILY 90 days chlorthalidone 25 mg PO DAILY 90 days warfarin 5 mg See Protocol PO DAILY HPI HPI Comments History of Present Illness Details 83-year-old male presents today for a fo llow-up. He has a medical history of aortic stenosis, HTN, atrial fibrillation, and ASCVD. He reports he has been doing well. He still drinks about 4 beers. He denies any chest pain, shortess of breath, bleeding issues, palpitations, headache, syncope, or swelling. [facility] Medical History Gout Impaired glucose tolerance Obesity (BMI 30.0-34.9) Chronic atrial fibrillation Hypertension Surgical History No pertinent past surgical history Family History Father No problems noted. Mother No problems noted. Social History Housing: House Housing Other:: LIVES WITH SPOUSE Alcohol intake: current Alcohol intake frequency: 3 or more drinks per day (DRINKS DAILY/BEER- 8-9 DAILY) Comment: 4/day Patient Tobacco Use Status: Never used Tobacco e-Cigarette/Vaping Use: Never Used Second Hand Smoke Exposure: No Advance Directives Date on File: 08/26/20 Current occupational status: retired Current occupation: RETIRED Current occupational exposures/hazards: No Cognitive needs: No Hearing needs: No Vision needs: Yes Review of Systems Const Denies chills, Denies fatigue, Denies fever(s), Denies frequent falls, Denies weakness, Denies weight gain and Denies weight loss ENT Denies dizziness Card Denies chest pain, Denies leg edema, Denies lightheadedness, Denies palpitations, Denies dyspnea and Denies dyspnea on exertion Resp Denies cough, Denies dyspnea and Denies dyspnea on exertion GI Denies hematochezia Musc Denies abnormal gait, Denies muscle weakness, Denies numbness, Denies radiating pain into limb and Denies tingling Neuro Denies abnormal gait, Denies dizziness, Denies frequent falls, Denies numbness, Denies tingling and Denies weakness Endo Denies fatigue and Denies palpitations Physical Exam Vital Signs: Last Vital Signs BP 110/60 10/25/23 13:00 BMI result Body Mass Index 27.8 Const General: healthy appearing and no acute distress Orientation/consciousness: patient oriented x3 HEENT Other: Unremarkable Head: Yes normal to inspection Eyes General: appearance normal, both eyes and all related structures Neck Neck: Yes normal visual inspection Chest Chest palpation & inspection: normal inspection of the chest Resp Effort & Inspection: normal respiratory effort Auscultation: clear to auscultation bilaterally Cardio Jugular venous distension: no JVD Palpation: normal PMI Rate: regular rate Rhythm: regular rhythm Heart sounds: S1 normal heart sound present, no click, no gallops, Murmur heart sound present systolic at the right sternal border and no rubs GI Inspection: Yes normal to inspection Palpation (GI): Soft to palpation Back/Spine/Pelvis Other: unremarkable Skin General skin exam: no rashes or lesions noted Neuro General: patient oriented x3 Extrem General: Yes normal to inspection Psych Appearance: grossly normal Mental Status: mental status grossly normal Office Procedures EKG Details: EKG today atrial fibrillation rate 77 bpm. LVH. cannot exclude old septal infarct; lateral infarct downsloping ST with T inversion.No significant changes [id number], Complete Results AMB INR Fingerstick AMB INR Fingerstick 1.6 Last Edit by Ni Link RN on 10/25/23 09:52 MANUAL ENTRY Assessment & Plan Assessment & Plan (1) Atherosclerotic cardiovascular disease: Code(s): I25.10 - Atherosclerotic heart disease of [place] coronary artery without angina pectoris (2) Aortic stenosis: Comment: Echocardiogram September 2022 1.35 sq cm March 2023 1.44 Code(s): I35.0 - Nonrheumatic aortic (valve) stenosis (3) Ascending aorta dilatation: Comment: September 2022 4.7 cm March 2023 4.7 Code(s): I77.810 - Thoracic aortic ectasia Plan Will update echocardiogram to assess aortic stenosis and ascending aortic dilatation. Blood pressure within goal. Continue medications as presently prescribed. Report any new or worsening symptoms. Orders: Orders CA echo transthoracic complete Today I34.81 - Nonrheumatic mitral (valve) annulus calcification, I35.0 - Nonrheumatic aortic (valve) stenosis, I77.810 - Thoracic aortic ectasia Coding Level of Care Code Est Pt Level 3 (96943) Diagnoses Atherosclerotic cardiovascular disease I25.10 Aortic stenosis I35.0 Ascending aorta dilatation I77.810 CPT Codes EKG - CPT: [id number], Complete ([id number])
[2023-10-25 13:00] VITALS: BP 110/60; BMI 27.8
== END 2023-10-25 13:38 | disposition home or self-care (01) ==
PROVIDERS: PCP Internal Medicine; Visit Provider Nurse Practitioner
DX: I25.10 Atherosclerotic heart disease of native coronary artery without angina pectoris (principal); I35.0 Nonrheumatic aortic (valve) stenosis; I77.810 Thoracic aortic ectasia
CPT/HCPCS: 93010; 99213

== ENCOUNTER 2023-11-01 15:43 | Outpatient (AMB) | payer MEDICARE, SELFPAY ==
[2023-11-01 15:48] VITALS: BP 122/68; PULSE 79; O2SAT 99; BMI 27.8
--- NOTE | 2023-11-01 15:48 | A.OFFPC_ITS ---
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 Patient was just seen by the central communications specialist advise repeat echocardiogram for both the aortic stenosis and ascending aorta dilatation good blood pressure continue with medication [facility] Medical History (Updated 11/01/23 @ 16:29 by Fausto Boogie MD) Urinary frequency Hypercholesterolemia Gout Impaired glucose tolerance Obesity (BMI 30.0-34.9) Chronic atrial fibrillation Hypertension Surgical History No pertinent past surgical history Family History Father No problems noted. Mother No problems noted. Social History Housing: House Housing Other:: LIVES WITH SPOUSE Alcohol intake: current Alcohol intake frequency: 3 or more drinks per day (DRINKS DAILY/BEER- 8-9 DAILY) Comment: 4/day Patient Tobacco Use Status: Never used Tobacco e-Cigarette/Vaping Use: Never Used Second Hand Smoke Exposure: No Advance Directives Date on File: 08/26/20 Current occupational status: retired Current occupation: RETIRED Current occupational exposures/hazards: No Cognitive needs: No Hearing needs: No Vision needs: Yes Questionnaire Thrive Questionnaire Date Thrive assessed: 01/05/23 AUDIT C Alcohol Use Questionnaire (AUDIT-C) 1. How often do you have a drink containing alcohol?: 4 or more times a week 2. How many drinks containing alcohol do you have on a typical day when you are drinking?: 7 to 9 3. How often do you have six or more drinks on one occasion?: Weekly Total Score: 10 Score Reviewed/Action Taken: Yes BLAS-7 AMB Questionnaire BLAS-7 Date BLAS - 7 assessed: 01/05/23 Source: Developed by Drs. Carlos Schwarz, Mary Anne Benson, Bal Duron and colleagues, with an educational aakash from [employer]. Physical exam (Primary Care) Vital Signs: Last Vital Signs Pulse 79 11/01/23 15:48 BP 122/68 11/01/23 15:48 Pulse Ox 99 11/01/23 15:48 Oxygen Delivery Method Room Air 11/01/23 15:48 BMI result Body Mass Index 27.8 Tobacco/Smoking Status: Tobacco use Status Tobacco use date assessed 11/01/23 11/01/23 15:49 Patient Tobacco Use Status Never used Tobacco 11/01/23 15:49 e-Cigarette/Vaping Use Never Used 11/01/23 15:49 Thrive Assessment: Date of Thrive Assessment Date Thrive assessed 01/05/23 11/01/23 15:49 Const General: alert; No acute distress Eyes Conjunctivae: conjunctivae normal Resp Auscultation: clear to auscultation bilaterally Cardio Other: Systolic blowing murmur noted Rate: regular rate Rhythm: regular rhythm GI Inspection: Yes normal to inspection Extrem General: Yes normal to inspection and No edema Assessment and Plan Assessment & Plan (1) Hypertension: Code(s): I10 - Essential (primary) hypertension Plan: Continue with blood pressure medication. Decrease salt intake and exercise patient on amlodipine 10 mg once a day benazepril 40 mg a day and chlorthalidone 25 mg once a day (2) Chronic atrial fibrillation: Code(s): I48.20 - Chronic atrial fibrillation, unspecified Plan: Continue with anticoagulation (3) Impaired glucose tolerance: Code(s): R73.02 - Impaired glucose tolerance (oral) Plan: Decrease the amount of carbohydrate intake, pasta, bread, rice and potatoes are all sugar and that is aside from all the sweet stuff, remember that fruits are good but they are Sweet also. (4) Overweight (BMI 25.0-29.9): Code(s): E66.3 - Overweight Plan: Diet and exercise (5) Ascending aorta dilatation: Comment: September 2022 4.7 cm March 2023 4.7 Code(s): I77.810 - Thoracic aortic ectasia Plan: New echocardiogram requested by Cardiology (6) Aortic stenosis: Comment: Echocardiogram September 2022 1.35 sq cm March 2023 1.44 Code(s): I35.0 - Nonrheumatic aortic (valve) stenosis Plan: You echocardiogram requested by Cardiology (7) Atherosclerotic cardiovascular disease: Code(s): I25.10 - Atherosclerotic heart disease of [place] coronary artery without angina pectoris Plan: Control the cholesterol, weight, blood pressure, on anticoagulation presently (8) Hypercholesterolemia: Code(s): E78.00 - Pure hypercholesterolemia, unspecified (9) Hypercholesterolemia: Code(s): E78.00 - Pure hypercholesterolemia, unspecified (10) Urinary frequency: Code(s): R35.0 - Frequency of micturition Orders: Orders Comprehensive Met. Panel 3 Months E78.00 - Pure hypercholesterolemia, unspecified US bladder Today R35.0 - Frequency of micturition Lipid Panel 3 Months E78.00 - Pure hypercholesterolemia, unspecified UA CC w/rflx Micro + Cult Today R30.0 - Dysuria, R35.0 - Frequency of micturition Medications: New atorvastatin 10 mg PO DAILY 30 tabs 0RF E78.00 - Pure hypercholesterolemia, unspecified Coding Level of Care Code Est Pt Level 4 (11339) Diagnoses Hypertension I10 Chronic atrial fibrillation I48.20 Impaired glucose tolerance R73.02 Overweight (BMI 25.0-29.9) E66.3 Ascending aorta dilatation I77.810 Aortic stenosis I35.0 Atherosclerotic cardiovascular disease I25.10 Hypercholesterolemia E78.00 Urinary frequency R35.0
== END 2023-11-01 16:34 | disposition home or self-care (01) ==
PROVIDERS: PCP Internal Medicine; Visit Provider Internal Medicine
DX: I10 Essential (primary) hypertension (principal); I48.20 Chronic atrial fibrillation, unspecified; I77.810 Thoracic aortic ectasia; R73.02 Impaired glucose tolerance (oral); E66.3 Overweight; I35.0 Nonrheumatic aortic (valve) stenosis; I25.10 Atherosclerotic heart disease of native coronary artery without angina pectoris; E78.00 Pure hypercholesterolemia, unspecified; R35.0 Frequency of micturition
CPT/HCPCS: 99214

== ENCOUNTER 2023-11-08 09:31 | Outpatient (AMB) | payer MEDICARE, SELFPAY ==
--- NOTE | 2023-11-08 09:40 | MHC.OFFVISCO ---
Intake Intake Visit Reasons: Anticoagulation Allergies No Known Allergies Allergy (Mild, Verified 11/08/23 09:36) Medication List - Last Reconciled 11/08/23 by Aislinn Gutierrez RN amlodipine 10 mg PO DAILY atorvastatin 10 mg PO DAILY benazepril 40 mg PO DAILY 90 days chlorthalidone 25 mg PO DAILY 90 days warfarin 5 mg See Protocol PO DAILY Nursing Note INR 1.8-?? out of therapeutic range of 2-3 Medications and supplements reviewed Patient status: no c.o, denies missed dose Medications or supplements: atorvastatin 10mg daily- no interaction with warfarin per micromedex Diet: same Denies any signs and symptoms of bleeding or clotting or unusual bruising Bleeding, bruising, clotting discussed Nutritional guidance given: no greens for 2 days, eat a red today Dose: already took 5mg today, take 5mg tomm then increase weekly dose 2.5mg x 2, 5mg x 5 F/U INR Date : 2 weeks?? Patient verbalizing understanding of instructions given. Anti-Coag Initial Assessment Social Hx Patient Tobacco Use Status: Never used Tobacco alcohol intake: current Alcohol intake frequency: 3 or more drinks per day (DRINKS DAILY/BEER- 8-9 DAILY) Cardiovascular Hx: HTN and Arrhythmias Cancer HX: No Psych. Illness/Depression: No Coding Level of Care Code Est Patient Level 1 Diagnoses Current use of anticoagulant therapy Z79.01 Assessment & Plan Assessment & Plan (1) Current use of anticoagulant therapy: Code(s): Z79.01 - long-term (current) use of anticoagulants Category: Medical
[2023-11-08 09:41] LABS: Prothrombin Time Whole Bld POC 22.2 sec (11.1-13.5); ~PT, ~INR - Anti Coag Clinic 1.8 (0.9-1.1)
== END 2023-11-08 09:46 | disposition home or self-care (01) ==
LOC: HO.ACS 09:31
PROVIDERS: PCP Internal Medicine; Visit Provider Internal Medicine
DX: Z79.01 Long term (current) use of anticoagulants (principal)

== ENCOUNTER → 2023-11-08 09:31 | Outpatient (BNVA) | payer MEDICARE, SELFPAY | PROVIDERS: PCP Internal Medicine; Visit Provider Internal Medicine | DX: I48.20 Chronic atrial fibrillation, unspecified (principal); Z51.81 Encounter for therapeutic drug level monitoring; Z79.01 Long term (current) use of anticoagulants | CPT/HCPCS: 85610; 99211 ==

== ENCOUNTER → 2023-11-22 08:00 | Outpatient (REF) | payer MEDICARE, SELFPAY ==
--- NOTE | 2023-11-22 08:03 | CA_ITS ---
Transthoracic Echocardiogram Patient (Last, First, Middle): Paul Grande C Gender: Male Date of : 1940 Age: 83 Procedure Date: 11/22/2023 Procedure Type: Transthoracic Echocardiogram Location: OP Height: 175.26 cm Weight: 85.28 kg BSA: 2.01 m2 Heart Rate: 79 bpm BP: 124 / 70 mmHg Bead Wrapper: SB Referring MD: Isa Pineda [employer]ANT SUPERINTENDENT Binder Sorter: Madhav Loredo MD Symptoms: I35.0 - Nonrheumatic aortic (valve) stenosis Study Quality: Fair but adequate ECG Rhythm: Atrial Fibrillation Conclusions: - 1. Normal LV ejection fraction of 60-65% with mild LVH with elevated filling pressures 2. At least moderately dilated left atrium 3. Moderate aortic stenosis 4. Upper limits of normal RV systolic pressure 5. Moderately dilated ascending aorta at 4.6 cm 6. No gross pericardial effusion Findings Left Ventricle Normal left ventricular size and systolic function. There is mildly increased left ventricular wall thickness. The visually estimated ejection fraction is between 60-65%. Elevated filling pressures. there is severe focal hypertrophy of the basal septum Right Ventricle Mildly increased right ventricular cavity size. Atria The left atrium is moderately dilated. Interatrial shunt cannot be excluded. The right atrium is mildly dilated. Aortic Valve There is moderate calcification of the aortic valve. There is moderate aortic valve stenosis. The peak aortic gradient is 35 mmHg.The mean gradient is 19 mmHg. The aortic valve area is 1.35 cm2. Mitral Valve There is moderate anterior and posterior mitral leaflet thickening. There is moderate anterior and moderate posterior mitral annular calcification. There is moderate mitral annular calcification. There is trace mitral valve regurgitation. There is no mitral valve stenosis. Pulmonic Valve The pulmonic valve was not well visualized. Tricuspid Valve Likely normal tricuspid valve structure and function. There is mild tricuspid valve regurgitation. The right ventricular systolic pressure is 35 mmHg. Normal right atrial pressure. There is no evidence of pulmonary hypertension. Great Vessels The pulmonary artery was not well visualized. There is moderate dilatation of the ascending aorta measuring 4.60 cm. Venous The inferior vena cava is normal in size and collapses greater than 50% with inspiration. Pericardium/Pleural There is no evidence of pericardial effusion. Prior Study Comparison Changes noted compared to prior study dated: 03/29/2023. Aortic stenosis is of moderate severity Measurements 2D Linear Measurements IVSd: 1.45 0.6-0.9/0.6-1.0 cm LVIDd: 5.16 3.9-5.3/4.2-5.9 cm LVIDd Index: 2.57 2.4-3.2/2.2-3.1 cm/m2 LVPWd: 1.14 0.7-1.1 cm LA Diam: 5.40 2.7-3.8/3.0-4.0 cm LAIDs Index: 2.69 1.5-2.3 cm/m2 LV Mass: 341.22 67-162/88-224 g LV Mass Index: 169.76 43-95/49-115 g/m2 LVOT Diam: 2.20 3.0+(-)1.3 cm 2D Systolic Function EF 4C: 70.70 >55% EF 2C: 54.80 >55% EF BiP: 63.10 >55% Mitral Valve MV VTI: 0.38 MV Pk Alok: 1.59 MV Mn Alok: 1.09 MV Pk Grad: 10.00 MV Mn Grad: 5.00 MV Pk E: 1.62 MV Decel Time: 248.00 E'Lateral: 4.85 E'Medial: 3.93 E/E' Med: 41.20 E/E' Lat: 33.40 PHT: 73.00 MVA PHT: 3.01 MVA Continuity: 2.27 Decel [place]: 6.59 Aortic Valve AoV Pk Alok: 2.96 AoV Mn Alok: 2.03 AoV VTI: 0.57 AoV Pk Grad: 35.00 Aov Mn Grad: 19.00 MALENA Cont.VTI: 1.35 AI Pk Alok: 4.29 AI [place]: 3.32 LVOT LVOT Pk Alok: 1.05 LVOT Mn Alok: 0.72 LVOT VTI: 0.23 LVOT Pk Grad: 4.00 LVOT Mn Grad: 2.00 LVOT Diam: 2.20 LVOT Area: 3.80 Diastolic Function MV Pk E: 1.62 E'Medial: 3.93 E/E' Med: 41.20 E' Laterial: 4.85 E/E' Lat: 33.40 Right Ventricle TAPSE (mm): 11.20 Tricuspid Valve TR Pk Alok: 2.83 TR Pk Grad: 32.00 RA Press: 3.00 RVSP: 35.00 Great Vessels Aorta Sinus of Valsalva: 3.90 2.0-3.5 cm Ao Asc: 4.60 2.1-3.4 cm Pulmonary Valve PV Pk Alok: 1.12 Peak PV Grad: 5.00 Updated in Other Vendor System with Status of Final Madhav Loredo MD electronically signed on 11/22/2023 2:44:01 PM with status of Final
== END ==
LOC: HO.CARD 08:00
PROVIDERS: PCP Internal Medicine; Visit Provider Nurse Practitioner
DX: I48.20 Chronic atrial fibrillation, unspecified (principal); I35.0 Nonrheumatic aortic (valve) stenosis; I34.81 Nonrheumatic mitral (valve) annulus calcification; I77.810 Thoracic aortic ectasia; Z51.81 Encounter for therapeutic drug level monitoring; Z79.01 Long term (current) use of anticoagulants
CPT/HCPCS: 85610; 93306; 99211

== ENCOUNTER → 2023-11-22 08:03 | Outpatient (BNV) | payer MEDICARE, SELFPAY | PROVIDERS: PCP Internal Medicine; Visit Provider Internal Medicine Cardiovascular Disease | DX: I35.0 Nonrheumatic aortic (valve) stenosis (principal) | CPT/HCPCS: 93306 ==

== ENCOUNTER 2023-11-22 08:56 | Outpatient (AMB) | payer MEDICARE, SELFPAY ==
--- NOTE | 2023-11-22 09:35 | MHC.OFFVISCO ---
Intake Intake Visit Reasons: Anticoagulation Allergies No Known Allergies Allergy (Mild, Verified 11/22/23 09:30) Medication List - Last Reconciled 11/22/23 by Aislinn Gutierrez RN amlodipine 10 mg PO DAILY atorvastatin 10 mg PO DAILY benazepril 40 mg PO DAILY 90 days chlorthalidone 25 mg PO DAILY 90 days warfarin 5 mg See Protocol PO DAILY Nursing Note INR 1.6-?? out of therapeutic range of 2-3, pt denies missed dose Medications and supplements reviewed Patient status: pt states drinking less etoh Medications or supplements: no changes Diet: appetite good Denies any signs and symptoms of bleeding or clotting or unusual bruising Bleeding, bruising, clotting discussed Nutritional guidance given: no greens for 2 days, no reds for 2 days Dose: take 5mg today , increase weekly dosing F/U INR Date : 1 week? Patient verbalizing understanding of instructions given. Anti-Coag Initial Assessment Social Hx Patient Tobacco Use Status: Never used Tobacco alcohol intake: current Alcohol intake frequency: 3 or more drinks per day (DRINKS DAILY/BEER- 8-9 DAILY) Cardiovascular Hx: HTN and Arrhythmias Cancer HX: No Psych. 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
[2023-11-23 08:52] LABS: Prothrombin Time Whole Bld POC 19.5 sec (11.1-13.5); ~PT, ~INR - Anti Coag Clinic 1.6 (0.9-1.1)
== END 2023-11-22 10:28 | disposition home or self-care (01) ==
LOC: HO.ACS 08:56
PROVIDERS: PCP Internal Medicine; Visit Provider Internal Medicine
DX: Z79.01 Long term (current) use of anticoagulants (principal)

== ENCOUNTER 2023-11-30 14:40 | Outpatient (AMB) | payer MEDICARE, SELFPAY ==
[2023-11-30 14:51] LABS: Prothrombin Time Whole Bld POC 29.4 sec (11.1-13.5); ~PT, ~INR - Anti Coag Clinic 2.4 (0.9-1.1)
--- NOTE | 2023-11-30 14:54 | MHC.OFFVISCO ---
Intake Intake Visit Reasons: Anticoagulation Allergies No Known Allergies Allergy (Mild, Verified 11/30/23 14:44) Medication List - Last Reconciled 11/30/23 by Ni Link RN amlodipine 10 mg PO DAILY atorvastatin 10 mg PO DAILY benazepril 40 mg PO DAILY 90 days chlorthalidone 25 mg PO DAILY 90 days warfarin 5 mg See Protocol PO DAILY Nursing Note INR: 2.4 in therapeutic range Medications and supplements reviewed stopped drinking ETOH - he verbalized it himself No changes in health, diet, medications, or supplements, Denies any signs and symptoms of bleeding or bruising or clotting. Bleeding, bruising, clotting discussed Nutritional guidance given Dose: 5mg x 6 days/ 2.5mg x 1 day F/U INR: 1 week Patient verbalizes understanding of instructions given Anti-Coag Initial Assessment Social Hx Patient Tobacco Use Status: Never used Tobacco alcohol intake: current Alcohol intake frequency: 3 or more drinks per day (DRINKS DAILY/BEER- 8-9 DAILY) Cardiovascular Hx: HTN and Arrhythmias Cancer HX: No Psych. Illness/Depression: No Coding Level of Care Code Est Patient Level 1 Diagnoses Current use of anticoagulant therapy Z79.01 Results AMB INR Fingerstick AMB INR Fingerstick 2.4 Last Edit by Ni Link RN on 11/30/23 14:51 manual entry Assessment & Plan Assessment & Plan (1) Current use of anticoagulant therapy: Code(s): Z79.01 - residential (current) use of anticoagulants Category: Medical
== END 2023-11-30 14:58 | disposition home or self-care (01) ==
LOC: HO.ACS 14:40
PROVIDERS: PCP Internal Medicine; Visit Provider Internal Medicine
DX: Z79.01 Long term (current) use of anticoagulants (principal)

== ENCOUNTER → 2023-11-30 14:40 | Outpatient (BNVA) | payer MEDICARE, SELFPAY | PROVIDERS: PCP Internal Medicine; Visit Provider Internal Medicine | DX: I48.20 Chronic atrial fibrillation, unspecified (principal); Z79.01 Long term (current) use of anticoagulants; Z51.81 Encounter for therapeutic drug level monitoring | CPT/HCPCS: 85610; 99211 ==

== ENCOUNTER 2023-12-05 08:17 | Outpatient (AMB) | payer MEDICARE, SELFPAY ==
[2023-12-05 08:35] LABS: Prothrombin Time Whole Bld POC 32.9 sec (11.1-13.5); ~PT, ~INR - Anti Coag Clinic 2.7 (0.9-1.1)
--- NOTE | 2023-12-05 08:49 | MHC.OFFVISCO ---
Intake Intake Visit Reasons: Anticoagulation Allergies No Known Allergies Allergy (Mild, Verified 12/05/23 08:32) Medication List - Last Reconciled 12/05/23 by Kaye Busch RN amlodipine 10 mg PO DAILY atorvastatin 10 mg PO DAILY benazepril 40 mg PO DAILY 90 days chlorthalidone 25 mg PO DAILY 90 days warfarin 5 mg See Protocol PO DAILY Nursing Note NO CP,SOB,DIET/MED CHANGES,FALLS OR SX OF BLEEDING. CONTINUE PRESENT DOSE AND FOLLOW-UP ON 12/20. GOOD UNDERSTANDING OF DOSINJG INSTR. Anti-Coag Initial Assessment Social Hx Patient Tobacco Use Status: Never used Tobacco alcohol intake: current Alcohol intake frequency: 3 or more drinks per day (DRINKS DAILY/BEER- 8-9 DAILY) Cardiovascular Hx: HTN and Arrhythmias Cancer HX: No Psych. Illness/Depression: No Coding Level of Care Code Est Patient Level 1 Diagnoses Current use of anticoagulant therapy Z79.01 Results AMB INR Fingerstick AMB INR Fingerstick 2.7 Last Edit by Kaye Busch RN on 12/05/23 08:35 Assessment & Plan Assessment & Plan (1) Current use of anticoagulant therapy: Code(s): Z79.01 - buttermaker (current) use of anticoagulants Category: Medical
== END 2023-12-05 08:51 | disposition home or self-care (01) ==
LOC: HO.ACS 08:17
PROVIDERS: PCP Internal Medicine; Visit Provider Internal Medicine
DX: Z79.01 Long term (current) use of anticoagulants (principal)

== ENCOUNTER → 2023-12-05 08:17 | Outpatient (BNVA) | payer MEDICARE, SELFPAY | PROVIDERS: PCP Internal Medicine; Visit Provider Internal Medicine | DX: I48.20 Chronic atrial fibrillation, unspecified (principal); Z79.01 Long term (current) use of anticoagulants; Z51.81 Encounter for therapeutic drug level monitoring | CPT/HCPCS: 85610; 99211 ==

== ENCOUNTER 2023-12-20 13:01 | Outpatient (AMB) | payer MEDICARE, SELFPAY ==
[2023-12-20 13:10] LABS: Prothrombin Time Whole Bld POC 39.2 sec (11.1-13.5); ~PT, ~INR - Anti Coag Clinic 3.3 (0.9-1.1)
--- NOTE | 2023-12-20 13:11 | MHC.OFFVISCO ---
Intake Intake Visit Reasons: Anticoagulation Allergies No Known Allergies Allergy (Mild, Verified 12/20/23 13:04) Medication List - Last Reconciled 12/20/23 by Ni Link RN amlodipine 10 mg PO DAILY atorvastatin 10 mg PO DAILY benazepril 40 mg PO DAILY 90 days chlorthalidone 25 mg PO DAILY 90 days warfarin 5 mg See Protocol PO DAILY Nursing Note INR: 3.3 in therapeutic range Medications and supplements reviewed pt was away for a week, while away he had a few beers, and ate differently and now has possible gout flare up to call with name of med- only takes prn gout - not on med list currently Denies any signs and symptoms of bleeding or bruising or clotting. Bleeding, bruising, clotting discussed Nutritional guidance given - cooked greens today Dose: keep same 2.5mg thur/ 5mg x 6 days F/U INR: 1 week due to possible gout med Patient verbalizes understanding of instructions given Anti-Coag Initial Assessment Social Hx Patient Tobacco Use Status: Never used Tobacco alcohol intake: current Alcohol intake frequency: 3 or more drinks per day (DRINKS DAILY/BEER- 8-9 DAILY) Cardiovascular Hx: HTN and Arrhythmias Cancer HX: No Psych. 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
== END 2023-12-20 13:43 | disposition home or self-care (01) ==
LOC: HO.ACS 13:01
PROVIDERS: PCP Internal Medicine; Visit Provider Internal Medicine
DX: Z79.01 Long term (current) use of anticoagulants (principal)

== ENCOUNTER → 2023-12-20 13:01 | Outpatient (BNVA) | payer MEDICARE, SELFPAY | PROVIDERS: PCP Internal Medicine; Visit Provider Internal Medicine | DX: I48.20 Chronic atrial fibrillation, unspecified (principal); Z79.01 Long term (current) use of anticoagulants; Z51.81 Encounter for therapeutic drug level monitoring | CPT/HCPCS: 85610; 99211 ==

== ENCOUNTER 2023-12-27 09:13 | Outpatient (AMB) | payer MEDICARE, SELFPAY ==
--- NOTE | 2023-12-27 09:20 | MHC.OFFVISCO ---
Intake Intake Visit Reasons: Anticoagulation Allergies No Known Allergies Allergy (Mild, Verified 12/27/23 09:15) Medication List - Last Reconciled 12/27/23 by Claire Posada RN amlodipine 10 mg PO DAILY atorvastatin 10 mg PO DAILY benazepril 40 mg PO DAILY 90 days chlorthalidone 25 mg PO DAILY 90 days warfarin 5 mg See Protocol PO DAILY Nursing Note INR: 2.3 in therapeutic range Medications and supplements reviewed No changes in health, diet, medications, or supplements, Denies any signs and symptoms of bleeding or bruising or clotting. Bleeding, bruising, clotting discussed Nutritional guidance given Dose: CONT SAME 2.5MG x1 DAY AND 5MG ALL OTHER DAYS F/U INR: 1 MONTH Patient verbalizes understanding of instructions given Anti-Coag Initial Assessment Social Hx Patient Tobacco Use Status: Never used Tobacco alcohol intake: current Alcohol intake frequency: 3 or more drinks per day (DRINKS DAILY/BEER- 8-9 DAILY) Cardiovascular Hx: HTN and Arrhythmias Cancer HX: No Psych. Illness/Depression: No Questionnaires HAS-BLED Does the patient had uncontrolled Hypertension?: No Does the patient have renal disease?: No Does the patient have liver disease?: No Does the patient have a history of stroke?: No Has the patient had major bleeding or predisposition to bleeding?: No Does the patient have labile INRs?: No Is the patient over 65 years of age?: Yes Is the patient on medications that gives them a predisposition to bleeding?: Yes Does the patient use alcohol?: No HAS-BLED Score: 2 CHADSVASC Age: 75 or over Gender: Male Does the patient have a history of CHF?: Yes Does the patient have a history of Hypertension?: Yes Does the patient have a history of Stroke/TIA/Thromboembolism?: No Does the patient have a history of Vascular Disease (prior HI, PAD or aortic plaque)?: Yes Does the patient have a history of Diabetes?: No CHADS VACS Score: 5 [place] Prediction Score Rsk VTE Active Cancer: No Previous VTE, excluding superficial vein thrombosis: No Reduced mobility: No Already known Thrombophilic Condition: Yes With-in last month Trauma and/or Surgery: No Elderly 70 year or older: Yes Heart and/or Respiratory Failure: Yes Acute Myocardial infarction and/or Ischemic Stroke: No Acute Infection and/or Rheumatologic Disorder: No Obesity (BMI 30 or greater): Yes Ongoing Hormonal Treatment: No Score: 6 [place] Score less than 4; Low Risk of VTE [place] Score 4 or greater; High Risk of VTE Coding Level of Care Code Est Patient Level 1 Diagnoses Current use of anticoagulant therapy Z79.01 Results AMB INR Fingerstick AMB INR Fingerstick 2.3 Last Edit by Claire Posada RN on 12/27/23 09:19 INTERFACE DELAY Assessment & Plan Assessment & Plan (1) Current use of anticoagulant therapy: Code(s): Z79.01 - prison (current) use of anticoagulants Category: Medical
[2024-01-01 07:52] LABS: ~PT, ~INR - Anti Coag Clinic 2.3 (0.9-1.1)
== END 2023-12-27 09:49 | disposition home or self-care (01) ==
LOC: HO.ACS 09:13
PROVIDERS: PCP Internal Medicine; Visit Provider Internal Medicine
DX: Z79.01 Long term (current) use of anticoagulants (principal)

== ENCOUNTER → 2023-12-27 09:13 | Outpatient (BNVA) | payer MEDICARE, SELFPAY | PROVIDERS: PCP Internal Medicine; Visit Provider Internal Medicine | DX: I48.20 Chronic atrial fibrillation, unspecified (principal); Z79.01 Long term (current) use of anticoagulants; Z51.81 Encounter for therapeutic drug level monitoring | CPT/HCPCS: 85610; 99211 ==

== ENCOUNTER 2024-01-03 10:51 | Outpatient (REF) | payer MEDICARE, SELFPAY ==
--- NOTE | ~2024-01-03 | US_ITS ---
EXAMINATION: US PELVIS LIMITED (BLADDER) CLINICAL INFORMATION: Frequency of micturition. COMPARISON: Ultrasound abdomen complete 09/08/2022. TECHNIQUE: Real-time imaging of the bladder. FINDINGS: BLADDER: Well distended. Bilateral ureteral jets are demonstrated. Prevoid bladder volume is 436.5 mL. Postvoid bladder volume is 206 mL. ADDITIONAL FINDINGS: Diffuse thickening and irregularity of the bladder wall. Small right bladder diverticulum. Enlarged prostate with volume approximately 33 mL. US/US bladder IMPRESSION: Small right bladder diverticulum. Diffuse thickening and irregularity of the bladder wall. Enlarged prostate.
== END 2024-01-03 10:52 | disposition home or self-care (01) ==
LOC: HO.US 10:51
PROVIDERS: PCP Internal Medicine; Visit Provider Internal Medicine
DX: R35.0 Frequency of micturition (principal)
CPT/HCPCS: 76857

== ENCOUNTER 2024-01-17 13:15 | Outpatient (AMB) | payer MEDICARE, SELFPAY ==
--- NOTE | 2024-01-17 13:17 | MHC.OFFVIS ---
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: Demonstrator Knitting Present Allergies No Known Allergies Allergy (Mild, Verified 01/17/24 13:20) Medication List - Last Reconciled 01/17/24 by Giovanna Batista NP-C amlodipine 10 mg PO DAILY atorvastatin 10 mg PO DAILY benazepril 40 mg PO DAILY 90 days hydrochlorothiazide 25 mg PO DAILY tamsulosin 0.4 mg PO BEDTIME warfarin 5 mg See Protocol PO DAILY HPI 2 month f/u after ECHO HPI Details Harjinder is an 83-year-old male with past medical history of hypertension, chronic AFib, CAD, aortic stenosis, mitral regurgitation, thoracic aorta ectasia who presents for follow-up after recent echocardiogram. Today he reports he has been feeling well with no concerning symptoms. He denies chest discomfort at rest or with activity. No shortness of breath, palpitations, lightheadedness, presyncope, syncope, PND, orthopnea or edema. He did have a fall for unknown reason but does recall hitting the floor and did not sustained any injuries. He does not believe he lost consciousness. is present. [facility] Medical History Urinary frequency Hypercholesterolemia Gout Impaired glucose tolerance Obesity (BMI 30.0-34.9) Chronic atrial fibrillation Hypertension Surgical History No pertinent past surgical history Family History Father No problems noted. Mother No problems noted. Social History Housing: House Housing Other:: LIVES WITH SPOUSE Alcohol intake: current Alcohol intake frequency: 3 or more drinks per day (DRINKS DAILY/BEER- 8-9 DAILY) Comment: 4/day Patient Tobacco Use Status: Never used Tobacco e-Cigarette/Vaping Use: Never Used Second Hand Smoke Exposure: No Advance Directives Date on File: 10/15/20 Current occupational status: retired Current occupation: RETIRED Current occupational exposures/hazards: No Cognitive needs: No Hearing needs: No Vision needs: Yes Review of Systems Const All systems reviewed & are unremarkable except as noted in HPI and below ENT Denies dizziness Card Denies chest pain, Denies chest pain at rest, Denies chest pain with activity, Denies rapid heart rate, Denies pedal edema, Denies edema, Denies leg edema, Denies lightheadedness, Denies palpitations, Denies dyspnea, Denies dyspnea on exertion and Denies orthopnea Resp Denies cough, Denies dyspnea and Denies dyspnea on exertion GI Denies hematochezia and Denies change in stool character Musc Denies abnormal gait, Denies limited range of motion, Denies muscle cramps, Denies muscle weakness, Denies numbness, Denies radiating pain into limb, Denies stiffness and Denies tingling Neuro Denies abnormal gait, Denies dizziness, Denies numbness and Denies tingling Endo Denies palpitations Physical Exam Vital Signs: Last Vital Signs Pulse 75 01/17/24 13:18 BP 114/64 01/17/24 13:18 BMI result Body Mass Index 28.5 Const General: cooperative, healthy appearing, comfortable and no acute distress Orientation/consciousness: patient oriented x3 Neck Neck: Yes normal visual inspection Resp Effort & Inspection: normal respiratory effort Auscultation: clear to auscultation bilaterally, no crackles, no rales, no rhonchi and no wheezes Cardio Jugular venous distension: no JVD Rate: regular rate Rhythm: regular rhythm Heart sounds: S1 normal heart sound present, Murmur heart sound present (holosystolic murmur, 3/6 right and left sternal border) and no rubs Neuro General: patient oriented x3 Extrem General: Yes normal to inspection, No no pedal edema and No calf tenderness Psych Appearance: grossly normal Mental Status: mental status grossly normal Speech and movement: Normal speech and movement present Assessment & Plan Assessment & Plan (1) Aortic stenosis: Comment: Echocardiogram September 2022 1.35 sq cm March 2023 1.44 Code(s): I35.0 - Nonrheumatic aortic (valve) stenosis Plan: Known history of aortic stenosis, dilated ascending aorta. Echocardiogram done 11/22/2023 shows moderate aortic stenosis with mean gradient 19 mmHg, aortic valve area 1.35 centimeter sq. He does have a loud systolic murmur on examination which does sound like it could be severe. He has no cardinal signs of severe aortic stenosis. He did have 1 fall for unclear reason. will call if he has any recurrent episodes. Diagnosis of aortic stenosis reviewed with them in detail and they state understanding. Plan for repeat echocardiogram in 6 months followed by cardiology follow-up visit. (2) Ascending aorta dilatation: Comment: September 2022 4.7 cm March 2023 4.7 Code(s): I77.810 - Thoracic aortic ectasia Plan: History of thoracic aorta ectasia. Echocardiogram done 03/29/2023 shows ascending aorta 4.7 cm. Echocardiogram done 11/22/2023 shows ascending aorta 4.6 cm. Repeat echo being planned for evaluation of his aortic valve. Will recheck ascending aorta at that time. Continue with good blood pressure control. (3) Mitral annular calcification: Code(s): I34.81 - Nonrheumatic mitral (valve) annulus calcification Plan: Recent echo does show moderate anterior and posterior mitral leaflet thickening and calcification. Moderate mitral annular calcification. Trace MR and no mitral stenosis. Reviewed with patient (4) Atherosclerotic cardiovascular disease: Code(s): I25.10 - Atherosclerotic heart disease of [place] coronary artery without angina pectoris Plan: Reported history of atherosclerotic cardiovascular disease. No reports of anginal sounding symptoms. Nuclear stress test done 11/09/2022 showed normal myocardial perfusion imaging. Recent echo as above with no reported wall motion abnormality and with normal EF. Continue atorvastatin and he is not on aspirin as he is on Coumadin. (5) Hypertension: Code(s): I10 - Essential (primary) hypertension Plan: Well controlled at this time. No med changes made (6) Hypercholesterolemia: Code(s): E78.00 - Pure hypercholesterolemia, unspecified Plan: Watson LDL goal less than 70. Labs done on 10/03/2023 shows LDL 114. It looks like atorvastatin 10 mg daily was ordered in November. Being followed by his PCP. (7) Chronic atrial fibrillation: Code(s): I48.20 - Chronic atrial fibrillation, unspecified Plan: History of chronic atrial fibrillation. Heart rate is controlled at this time. He denies any issues with heart palpitations. He has not requiring rate slowing medications. He is on Coumadin for anticoagulation. INR goal 2-3. He follows with the [facility] anticoagulation [facility]. (8) Current use of anticoagulant therapy: Code(s): Z79.01 - prison (current) use of anticoagulants Plan: On Coumadin Plan Time spent on chart review, documentation, interview and assessment Orders: Orders CA echo transthoracic complete 07/14/24 I34.81 - Nonrheumatic mitral (valve) annulus calcification, I35.0 - Nonrheumatic aortic (valve) stenosis, I77.810 - Thoracic aortic ectasia Coding Level of Care Code Est Pt Level 4 (32707) Diagnoses Aortic stenosis I35.0 Ascending aorta dilatation I77.810 Mitral annular calcification I34.81 Atherosclerotic cardiovascular disease I25.10 Hypertension I10 Hypercholesterolemia E78.00 Chronic atrial fibrillation I48.20 Current use of anticoagulant therapy Z79.01 Time Spent (min) 30
[2024-01-17 13:18] VITALS: BP 114/64; PULSE 75; BMI 28.5
== END 2024-01-17 14:21 | disposition home or self-care (01) ==
PROVIDERS: PCP Internal Medicine; Visit Provider Nurse Practitioner Family
DX: I35.0 Nonrheumatic aortic (valve) stenosis (principal); I77.810 Thoracic aortic ectasia; I34.81 Nonrheumatic mitral (valve) annulus calcification; I25.10 Atherosclerotic heart disease of native coronary artery without angina pectoris; I10 Essential (primary) hypertension; E78.00 Pure hypercholesterolemia, unspecified; I48.20 Chronic atrial fibrillation, unspecified; Z79.01 Long term (current) use of anticoagulants
CPT/HCPCS: 99214

== ENCOUNTER → 2024-01-17 13:15 | Outpatient (BNVA) | payer MEDICARE, SELFPAY | PROVIDERS: PCP Internal Medicine; Visit Provider Nurse Practitioner Family | DX: I35.0 Nonrheumatic aortic (valve) stenosis (principal); I77.810 Thoracic aortic ectasia; I34.81 Nonrheumatic mitral (valve) annulus calcification; I25.10 Atherosclerotic heart disease of native coronary artery without angina pectoris; I10 Essential (primary) hypertension; I48.20 Chronic atrial fibrillation, unspecified; E78.00 Pure hypercholesterolemia, unspecified; Z79.01 Long term (current) use of anticoagulants | CPT/HCPCS: 99212 ==

== ENCOUNTER 2024-01-24 09:20 | Outpatient (AMB) | payer MEDICARE, SELFPAY ==
--- NOTE | 2024-01-24 09:37 | MHC.OFFVISCO ---
Intake Intake Visit Reasons: Anticoagulation Allergies No Known Allergies Allergy (Mild, Verified 01/24/24 09:25) Medication List - Last Reconciled 01/24/24 by Ni Link RN amlodipine 10 mg PO DAILY atorvastatin 10 mg PO DAILY benazepril 40 mg PO DAILY 90 days hydrochlorothiazide 25 mg PO DAILY tamsulosin 0.4 mg PO BEDTIME warfarin 5 mg See Protocol PO DAILY Nursing Note INR: 2.1 in therapeutic range Medications and supplements reviewed No changes in health, diet, medications, or supplements, Denies any signs and symptoms of bleeding or bruising or clotting. Bleeding, bruising, clotting discussed Nutritional guidance given Dose: 2.5MG X 1 DAY/ 5MG X 6 DAYS F/U INR: 1 MONTH Patient verbalizes understanding of instructions given Anti-Coag Initial Assessment Social Hx Patient Tobacco Use Status: Never used Tobacco alcohol intake: current Alcohol intake frequency: 3 or more drinks per day (DRINKS DAILY/BEER- 8-9 DAILY) Cardiovascular Hx: HTN and Arrhythmias Cancer HX: No Psych. 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
[2024-01-24 10:30] LABS: ~PT, ~INR - Anti Coag Clinic 2.1 (0.9-1.1)
== END 2024-01-24 09:39 | disposition home or self-care (01) ==
LOC: HO.ACS 09:20
PROVIDERS: PCP Internal Medicine; Visit Provider Internal Medicine
DX: Z79.01 Long term (current) use of anticoagulants (principal)

== ENCOUNTER → 2024-01-24 09:20 | Outpatient (BNVA) | payer MEDICARE, SELFPAY | PROVIDERS: PCP Internal Medicine; Visit Provider Internal Medicine | DX: I48.20 Chronic atrial fibrillation, unspecified (principal); Z79.01 Long term (current) use of anticoagulants; Z51.81 Encounter for therapeutic drug level monitoring | CPT/HCPCS: 85610; 99211 ==

== ENCOUNTER 2024-02-07 09:41 | Outpatient (AMB) | payer MEDICARE, SELFPAY ==
[2024-02-07 09:45] VITALS: BP 110/62; PULSE 82; O2SAT 98; BMI 28.2
--- NOTE | 2024-02-07 09:45 | A.OFFPC_ITS ---
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: No Allergies No Known Allergies Allergy (Mild, Verified 02/07/24 09:46) Tobacco use date assessed: 02/07/24 Fall risk assessment: No Falls in past year Last assessed Fall Risk: 02/07/24 Dental Screening Dental Screen Date: 02/07/24 Did you have a dental visit in the last 12 months?: No Did you have a dental problem in the last 6 months where you did not have access to dental care?: No HPI 3mth f/u HPI Details 83-year-old overweight male with atrial fibrillation hypertension impaired glucose tolerance ascending aorta dilatation aortic stenosis coronary artery disease hypercholesterolemia coming in for follow-up. Last seen in October 2023. Aortic stenosis last echocardiogram March 2023 left atrium severely dilated moderate aortic stenosis and ascending aorta dilatation. Patient recently seen by cardiology January 16 moderate aortic stenosis at 1.35 sq cm no signs had 1 fall recently repeat echocardiogram in 6 months. And so will monitor also the for the ascending aorta dilatation. Nuclear stress test October 2022 normal myocardial perfusion. LDL ideal less than 70. September blood work 114 patient has had frequency and the ultrasound of the bladder done showing enlarged prostate to 33 cc and a large post void bladder volume. 12/2023 passed out - , no signs , no cp, no sob PFSH Medical History Urinary frequency Hypercholesterolemia Gout Impaired glucose tolerance Obesity (BMI 30.0-34.9) Chronic atrial fibrillation Hypertension Surgical History No pertinent past surgical history Family History Father No problems noted. Mother No problems noted. Social History Housing: House Housing Other:: LIVES WITH SPOUSE Alcohol intake: current Alcohol intake frequency: 3 or more drinks per day (DRINKS DAILY/BEER- 8-9 DAILY) Comment: 4/day Patient Tobacco Use Status: Never used Tobacco e-Cigarette/Vaping Use: Never Used Second Hand Smoke Exposure: No Advance Directives Date on File: 08/26/20 Current occupational status: retired Current occupation: RETIRED Current occupational exposures/hazards: No Cognitive needs: No Hearing needs: No Vision needs: Yes Questionnaire Thrive Questionnaire Date Thrive assessed: 02/07/24 I am a: Patient What is your living situation today?: I have a steady place to live Within the past 12 months, did the food you bought not last and you didn't have the money to get more?: Never true Within the past 12 months, did you worry whether your food would run out before you got money to buy more?: Never true Do you have trouble paying for medicines?: No Do you have trouble getting transportation to medical appointments?: No Do you have trouble paying your heating and electricity bill?: No Do you have trouble taking care of your child, family member or friend?: No Do you have trouble with day-to-day activities such as bathing, preparing meals, shopping, managing finances, etc.?: No Are you currently unemployed and looking for a job?: No Are you interested in more education?: No Please select the resources that you would like help with: None Currently or been in a relationship where the following occur: no concerns reported THRIVE Score: 0 AUDIT C Alcohol Use Questionnaire (AUDIT-C) 1. How often do you have a drink containing alcohol?: 4 or more times a week 2. How many drinks containing alcohol do you have on a typical day when you are drinking?: 7 to 9 3. How often do you have six or more drinks on one occasion?: Weekly Total Score: 10 Score Reviewed/Action Taken: Yes BLAS-7 AMB Questionnaire BLAS-7 Date BLAS - 7 assessed: 02/07/24 Source: Developed by Drs. Carlos Schwarz, Mary Anne Benson, Bal Duron and colleagues, with an educational aakash from [employer]. Physical exam (Primary Care) Vital Signs: Last Vital Signs Pulse 82 02/07/24 09:45 BP 110/62 02/07/24 09:45 Pulse Ox 98 02/07/24 09:45 Oxygen Delivery Method Room Air 02/07/24 09:45 BMI result Body Mass Index 28.2 Tobacco/Smoking Status: Tobacco use Status Tobacco use date assessed 02/07/24 02/07/24 09:46 Patient Tobacco Use Status Never used Tobacco 02/07/24 09:46 e-Cigarette/Vaping Use Never Used 02/07/24 09:46 Thrive Assessment: Date of Thrive Assessment Date Thrive assessed 02/07/24 02/07/24 09:46 Currently or been in a relationship where the following occur: no concerns reported Const General: alert; No acute distress Eyes Conjunctivae: conjunctivae normal Resp Auscultation: clear to auscultation bilaterally Cardio Rate: regular rate Rhythm: regular rhythm GI Inspection: Yes normal to inspection Extrem General: Yes normal to inspection and No edema Assessment and Plan Assessment & Plan (1) BPH (benign prostatic hyperplasia): Comment: December 2023 Code(s): N40.0 - Benign prostatic hyperplasia without lower urinary tract symptoms Plan: Patient has tamsulosin for the urinary retention for BPH and has a schedule with Urology in February (2) Hypercholesterolemia: Code(s): E78.00 - Pure hypercholesterolemia, unspecified Plan: Avoid fried foods, chicken skin, eggs, butter margarine, pastries and meat. Be it pork or beef they have a lot of cholesterol on atorvastatin 10 LDL goal of less than 70.. Will increase atorvastatin 20 mg once a day and retest cholesterol in 3 months (3) Atherosclerotic cardiovascular disease: Code(s): I25.10 - Atherosclerotic heart disease of [place] coronary artery without angina pectoris Plan: Control the cholesterol, weight, blood pressure, continue with anticoagulation (4) Aortic stenosis: Comment: Echocardiogram September 2022 1.35 sq cm March 2023 1.November 1.35 Code(s): I35.0 - Nonrheumatic aortic (valve) stenosis Plan: Patient is being followed up for aortic stenosis echocardiogram requested in 6 months (5) Ascending aorta dilatation: Comment: September 2022 4.7 cm March 2023 4.18 November 2023 4.6 Code(s): I77.810 - Thoracic aortic ectasia Plan: Echocardiogram in 6 months (6) Overweight (BMI 25.0-29.9): Code(s): E66.3 - Overweight Plan: Diet and exercise (7) Impaired glucose tolerance: Code(s): R73.02 - Impaired glucose tolerance (oral) Plan: Decrease the amount of carbohydrate intake, pasta, bread, rice and potatoes are all sugar and that is aside from all the sweet stuff, remember that fruits are good but they are Sweet also. (8) Chronic atrial fibrillation: Code(s): I48.20 - Chronic atrial fibrillation, unspecified Plan: Continue with anticoagulation patient has had Holter done last 2021 (9) Hypertension: Code(s): I10 - Essential (primary) hypertension Plan: Continue with blood pressure medication. Decrease salt intake and exercise presently on amlodipine 10 mg once a day benazepril 40 mg once a day and hydr ochlorothiazide 25 mg once a day (10) Syncope: Comment: ? TIA Code(s): R55 - Syncope and collapse Plan: Aortic stenosis and ascending aorta dilatation being monitored. Will order for carotid ultrasound. Orders: Orders Comprehensive Met. Panel 3 Months E78.00 - Pure hypercholesterolemia, unspecified Lipid Panel 3 Months E78.00 - Pure hypercholesterolemia, unspecified US carotid duplex BI Today R55 - Syncope and collapse Medications: Changed From atorvastatin 10 mg PO DAILY 30 tabs 3RF E78.00 - Pure hypercholesterolemia, unspecified To atorvastatin 20 mg PO DAILY 30 tabs 3RF E78.00 - Pure hypercholesterolemia, unspecified Coding Level of Care Code Est Pt Level 4 (97313) Diagnoses BPH (benign prostatic hyperplasia) N40.0 Hypercholesterolemia E78.00 Atherosclerotic cardiovascular disease I25.10 Aortic stenosis I35.0 Ascending aorta dilatation I77.810 Overweight (BMI 25.0-29.9) E66.3 Impaired glucose tolerance R73.02 Chronic atrial fibrillation I48.20 Hypertension I10 Syncope R55
== END 2024-02-07 10:53 | disposition home or self-care (01) ==
PROVIDERS: PCP Internal Medicine; Visit Provider Internal Medicine
DX: N40.0 Benign prostatic hyperplasia without lower urinary tract symptoms (principal); I77.810 Thoracic aortic ectasia; I48.20 Chronic atrial fibrillation, unspecified; E78.00 Pure hypercholesterolemia, unspecified; I25.10 Atherosclerotic heart disease of native coronary artery without angina pectoris; I35.0 Nonrheumatic aortic (valve) stenosis; E66.3 Overweight; R73.02 Impaired glucose tolerance (oral); I10 Essential (primary) hypertension; R55 Syncope and collapse
CPT/HCPCS: 99214

== ENCOUNTER 2024-02-21 09:16 | Outpatient (AMB) | payer MEDICARE, SELFPAY ==
[2024-02-21 09:38] LABS: Prothrombin Time Whole Bld POC 37.5 sec (11.1-13.5); ~PT, ~INR - Anti Coag Clinic 3.1 (0.9-1.1)
--- NOTE | 2024-02-21 09:42 | MHC.OFFVISCO ---
Intake Intake Visit Reasons: Anticoagulation Allergies No Known Allergies Allergy (Mild, Verified 02/21/24 09:31) Medication List - Last Reconciled 02/21/24 by Ni Link RN amlodipine 10 mg PO DAILY atorvastatin 20 mg PO DAILY benazepril 40 mg PO DAILY 90 days colchicine PO hydrochlorothiazide 25 mg PO DAILY tamsulosin 0.4 mg PO BEDTIME warfarin 5 mg See Protocol PO DAILY Nursing Note INR: 3.1 ALMOST in therapeutic range Medications and supplements reviewed No changes in health, diet, medications, or supplements, Denies any signs and symptoms of bleeding or bruising or clotting. Bleeding, bruising, clotting discussed Nutritional guidance given- REMEMBER WEEKLY GREENS - HAVING CABBAGE TODAY Dose: 2.5MG THUR/ 5MG X 6 DAYS F/U INR: 4 WEEKS Patient verbalizes understanding of instructions given Anti-Coag Initial Assessment Social Hx Patient Tobacco Use Status: Never used Tobacco alcohol intake: current Alcohol intake frequency: 3 or more drinks per day (DRINKS DAILY/BEER- 8-9 DAILY) Cardiovascular Hx: HTN and Arrhythmias Cancer HX: No Psych. Illness/Depression: No Coding Level of Care Code Est Patient Level 1 Diagnoses Current use of anticoagulant therapy Z79.01 Assessment & Plan Assessment & Plan (1) Current use of anticoagulant therapy: Code(s): Z79.01 - roasterman (current) use of anticoagulants Category: Medical
== END 2024-02-21 09:44 | disposition home or self-care (01) ==
LOC: HO.ACS 09:16
PROVIDERS: PCP Internal Medicine; Visit Provider Internal Medicine
DX: Z79.01 Long term (current) use of anticoagulants (principal)

== ENCOUNTER → 2024-02-21 09:16 | Outpatient (BNVA) | payer MEDICARE, SELFPAY | PROVIDERS: PCP Internal Medicine; Visit Provider Internal Medicine | DX: I48.20 Chronic atrial fibrillation, unspecified (principal); Z79.01 Long term (current) use of anticoagulants; Z51.81 Encounter for therapeutic drug level monitoring | CPT/HCPCS: 85610; 99211 ==

== ENCOUNTER 2024-02-28 10:33 | Outpatient (REF) | payer MEDICARE, SELFPAY ==
--- NOTE | ~2024-02-28 | US_ITS ---
EXAMINATION: US EXTRACRANIAL CAROTID DUPLEX, BILATERAL CLINICAL INFORMATION: Syncope and collapse COMPARISON: None available. TECHNIQUE: Real-time ultrasound and Doppler techniques (integrating B-mode 2-D vascular images, Doppler spectral analysis and color-flow Doppler imaging) were utilized to interrogate the extracranial carotid arteries, the vertebral arteries and proximal subclavian arteries bilaterally. The degree of stenosis is determined by criteria similar to NASCET. FINDINGS: Right Side: 1. There is moderate atherosclerotic plaque seen in the bifurcation/proximal ICA region. 2. The common carotid artery PSV proximally is 63 cm/s and distally 74 cm/s. 3. The proximal internal carotid artery velocities are 67 cm/s systolic and 8 cm/s diastolic. 4. The proximal external carotid artery PSV is 90 cm/s. 5. The vertebral artery shows antegrade flow. 6. The subclavian artery waveforms are normal. Left Side: 1. There is mild atherosclerotic plaque seen in the bifurcation/proximal ICA region. 2. The common carotid artery PSV proximally is 86 cm/s and distally 71 cm/s. 3. The proximal internal carotid artery velocities are 41 cm/s systolic and 10 cm/s diastolic. 4. The proximal external carotid artery PSV is 74 cm/s. 5. The vertebral artery shows antegrade flow. 6. The subclavian artery waveforms are normal. US/US carotid duplex BI IMPRESSION: 1. RIGHT: Minimal, non-hemodynamically significant stenosis of the proximal right internal carotid artery corresponding to a 0-49% stenosis by velocity criteria. 2. LEFT: Minimal, non-hemodynamically significant stenosis of the proximal left internal carotid artery corresponding to a 0-49% stenosis by velocity criteria.
== END 2024-02-28 10:34 | disposition home or self-care (01) ==
LOC: HO.US 10:33
PROVIDERS: PCP Internal Medicine; Visit Provider Internal Medicine
DX: R55 Syncope and collapse (principal)
CPT/HCPCS: 93880

== ENCOUNTER 2024-03-06 10:59 | Outpatient (AMB) | payer MEDICARE, SELFPAY ==
--- NOTE | 2024-03-06 11:11 | A.OFFVIS_ITS ---
Intake Visit Reasons: BPH w/out LUTS Intake Note: NEW Patient presents today to established treatment for BPH: Meds- Tamsulosin Allergies to Antibiotic- No Known Allergies Blood Thinner- None Post Void Residual: 185 mL Boarding House Manager Required: No Accompanied by: Significant Other Allergies No Known Allergies Allergy (Mild, Verified 03/27/24 10:41) Medication List - Last Reconciled 03/06/24 by Refugio Sepulveda MD amlodipine 10 mg PO DAILY atorvastatin 20 mg PO DAILY benazepril 40 mg PO DAILY 90 days colchicine PO hydrochlorothiazide 25 mg PO DAILY tamsulosin 0.4 mg PO BEDTIME warfarin 5 mg See Protocol PO DAILY HPI Comments Details: Harjinder is an 84-year-old male who is here as a new patient evaluation due to obstructive BPH symptoms. He complains of urinary frequency and hesitancy. His PCP ordered a bladder ultrasound on 01/03/24 which noted a large postvoid residual and diffuse bladder wall thickening, right bladder diverticulum. Estimated prostate volume 33 mL. The patient is on tamsulosin. I have discussed office cystoscopy and evaluation of upper tracts with renal ultrasound. Urinalysis: Leukocytes negative blood negative. Bladder scan Post Void Residual: 185 mL 01/03/2024--pelvic/bladder ultrasound--Prevoid bladder volume is 436.5 mL. Postvoid bladder volume is 206 mL. Diffuse thickening and irregularity of the bladder wall. Small right bladder diverticulum. Enlarged prostate with volume approximately 33 mL. [facility] Medical History Urinary frequency Hypercholesterolemia Gout Impaired glucose tolerance Obesity (BMI 30.0-34.9) Chronic atrial fibrillation Hypertension Surgical History No pertinent past surgical history Family History Father No problems noted. Mother No problems noted. Social History Housing: House Housing Other:: LIVES WITH SPOUSE Alcohol intake: current Alcohol intake frequency: 3 or more drinks per day (DRINKS DAILY/BEER- 8-9 DAILY) Comment: 4/day Patient Tobacco Use Status: Never used Tobacco e-Cigarette/Vaping Use: Never Used Second Hand Smoke Exposure: No Advance Directives Date on File: 08/26/20 Current occupational status: retired Current occupation: RETIRED Current occupational exposures/hazards: No Cognitive needs: No Hearing needs: No Vision needs: Yes Review of Systems Const All systems reviewed & are unremarkable except as noted in HPI and below Reports no additional complaints Eyes Reports no additional complaints ENT Reports no additional complaints Card Reports no additional complaints Resp Reports no additional complaints GI Reports no additional complaints Reports as per HPI Musc Reports no additional complaints Skin/Breast Reports system reviewed and no additional complaints, except as documented Neuro Reports no additional complaints Psych Reports no additional complaints Endo Reports no additional complaints Charlie/Lymph Reports no additional complaints Aller/Immun Reports no additional complaints Physical Exam Const General: healthy appearing, no acute distress and well developed Orientation/consciousness: patient oriented x3 HEENT Head: Yes normocephalic and Yes atraumatic Eyes Conjunctivae: conjunctivae normal Neck Neck: Yes normal visual inspection Chest Chest palpation & inspection: normal inspection of the chest Resp Effort & Inspection: normal respiratory effort Cardio Rate: regular rate GI Inspection: Yes normal to inspection Palpation (GI): Soft to palpation Skin General skin exam: no rashes or lesions noted Neuro General: patient oriented x3 Extrem General: No pedal edema Psych Appearance: grossly normal Affect: normal affect Office Procedures Post Void Residual Post Residual Void Post Void Residual (PVR): 185 [id number] Void Residual by ultrasound Results AMB Urinalysis, Automated UA Leukoctes 0 Don/uL Last Edit by ELBERT Moeller on 03/06/24 11:15 UA Nitrite Negative Last Edit by ELBERT Moeller on 03/06/24 11:15 UA Urobilinogen 0.2 mg/dL Last Edit by ELBERT Moeller on 03/06/24 11:1 5 UA Protein 0 mg/dL Last Edit by ELBETR Moeller on 03/06/24 11:15 UA pH 6.0 Last Edit by Ana Ireland, A on 03/06/24 11:15 UA Blood 0 Surjit/uL Last Edit by Ana Ireland, A on 03/06/24 11:15 UA Specific [place] 1.010 Last Edit by Ana Ireland, RMA on 03/06/24 11: 15 UA Ketone Negative Last Edit by Ana Ireland, A on 03/06/24 11:15 UA Bilirubin 0 mg/dL Last Edit by Ana Ireland, A on 03/06/24 11:15 UA Glucose 0 mg/dL Last Edit by Ana Ireland, A on 03/06/24 11:15 Results Reviewed Results Reviewed: Laboratory Last Values Urine pH (Auto) 6.0 03/06/24 11:02 Specific [place] (Auto) 1.010 03/06/24 11:02 Urine Protein (Auto) 0 mg/dL 03/06/24 11:02 Glucose (UA)(Auto) 0 mg/dL 03/06/24 11:02 Urine Ketones (Auto) Negative 03/06/24 11:02 Urine Blood (Auto) 0 Surjit/uL 03/06/24 11:02 Urine Nitrite (Auto) Negative 03/06/24 11:02 Urine Bilirubin (Auto) 0 mg/dL 03/06/24 11:02 Urine Urobilinogen (Auto) 0.2 mg/dL 03/06/24 11:02 Leukocyte Esterase (Auto) 0 Don/uL 03/06/24 11:02 Date of Service: 01/03/24 EXAMINATION: US PELVIS LIMITED (BLADDER) CLINICAL INFORMATION: Frequency of micturition. COMPARISON: Ultrasound abdomen complete 09/08/2022. TECHNIQUE: Real-time imaging of the bladder. FINDINGS: BLADDER: Well distended. Bilateral ureteral jets are demonstrated. Prevoid bladder volume is 436.5 mL. Postvoid bladder volume is 206 mL. ADDITIONAL FINDINGS: Diffuse thickening and irregularity of the bladder wall. Small right bladder diverticulum. Enlarged prostate with volume approximately 33 mL. IMPRESSION: Small right bladder diverticulum. Diffuse thickening and irregularity of the bladder wall. Enlarged prostate. Assessment & Plan Assessment & Plan (1) Urinary frequency: Code(s): R35.0 - Frequency of micturition Category: Medical (2) BPH (benign prostatic hyperplasia): Code(s): N40.0 - Benign prostatic hyperplasia without lower urinary tract symptoms Category: Medical (3) Incomplete bladder emptying: Code(s): R33.9 - Retention of urine, unspecified Category: Medical Plan fu office cystoscopy,renal ultrasound prior Orders: Orders AMB Post Void Residual by ultrasound 03/06/24 N39.8 - Other specified disorders of urinary system AMB Urinalysis Automated 03/06/24 Z13.9 - Encounter for screening, unspecified Patient Instructions: The patient had an opportunity to ask questions regarding treatment plan. The patient expressed understanding and agreement with the above treatment plan. The patient is aware they should contact our office by phone for worsening of their current condition or the appearance of new symptoms. Compliance is encouraged with any medications and followup testing that is ordered. It is a privilege to be allowed the opportunity to participate in the urologic care of your patient. If you have any questions or concerns regarding treatment for the above conditions please do not hesitate to contact me. The office telephone contact is [phone]. This note is constructed in part using voice recognition software. While every effort has been made to ensure accuracy offset duplicating machine operator errors may have been included. Yours sincerely, Refugio Sepulveda MD Coding Level of Care Code New Pt Level 4 (71113) Diagnoses Urinary frequency R35.0 BPH (benign prostatic hyperplasia) N40.0 Incomplete bladder emptying R33.9 CPT Codes Post Residual Void - PVR CPT Code: 16935-Pygi Void Residual by ultrasound ([id number])
== END 2024-03-06 11:44 | disposition home or self-care (01) ==
PROVIDERS: PCP Internal Medicine; Visit Provider Urology
DX: R35.0 Frequency of micturition (principal); N40.0 Benign prostatic hyperplasia without lower urinary tract symptoms; R33.9 Retention of urine, unspecified
CPT/HCPCS: 99204

== ENCOUNTER → 2024-03-06 10:59 | Outpatient (BNVA) | payer MEDICARE, SELFPAY | PROVIDERS: PCP Internal Medicine; Visit Provider Urology | DX: N40.1 Benign prostatic hyperplasia with lower urinary tract symptoms (principal); R35.0 Frequency of micturition; R33.8 Other retention of urine; N39.8 Other specified disorders of urinary system | CPT/HCPCS: 51798; 81003; 99202 ==

== ENCOUNTER 2024-03-20 09:14 | Outpatient (AMB) | payer MEDICARE, SELFPAY ==
[2024-03-20 09:22] LABS: Prothrombin Time Whole Bld POC 48.5 sec (11.1-13.5)
--- NOTE | 2024-03-20 09:45 | MHC.OFFVISCO ---
Intake Intake Visit Reasons: Anticoagulation Allergies No Known Allergies Allergy (Mild, Verified 03/20/24 09:16) Medication List - Last Reconciled 03/20/24 by Claire Posada RN amlodipine 10 mg PO DAILY atorvastatin 20 mg PO DAILY benazepril 40 mg PO DAILY 90 days colchicine PO hydrochlorothiazide 25 mg PO DAILY tamsulosin 0.4 mg PO BEDTIME warfarin 5 mg See Protocol PO DAILY Nursing Note INR 4.0?out of therapeutic range of 2-3 Medications and supplements reviewed: no changes Patient status: well Medications or supplements: no changes Diet: pt's usual diet Denies any signs and symptoms of bleeding or clotting or unusual bruising Bleeding, bruising, clotting discussed Nutritional guidance given: to have a serving of greens today to Lower the INR Dose: hold tomorrow's dose (pt already took today's dose), then resume usual dose of 5mg X 6 days and 2.5mg X 1 day F/U INR Date : 1 week?? Patient verbalizing understanding of instructions given. Anti-Coag Initial Assessment Social Hx Patient Tobacco Use Status: Never used Tobacco alcohol intake: current Alcohol intake frequency: 3 or more drinks per day (DRINKS DAILY/BEER- 8-9 DAILY) Cardiovascular Hx: HTN and Arrhythmias Cancer HX: No Psych. Illness/Depression: No Coding Level of Care Code Est Patient Level 1 Diagnoses Current use of anticoagulant therapy Z79.01 Results AMB INR Fingerstick AMB INR Fingerstick 4.0 Last Edit by Claire Posada RN on 03/20/24 09:22 interface delay Assessment & Plan Assessment & Plan (1) Current use of anticoagulant therapy: Code(s): Z79.01 - retirement (current) use of anticoagulants Category: Medical
== END 2024-03-20 09:48 | disposition home or self-care (01) ==
LOC: HO.ACS 09:14
PROVIDERS: PCP Internal Medicine; Visit Provider Internal Medicine
DX: Z79.01 Long term (current) use of anticoagulants (principal)

== ENCOUNTER → 2024-03-20 09:14 | Outpatient (BNVA) | payer MEDICARE, SELFPAY | PROVIDERS: PCP Internal Medicine; Visit Provider Internal Medicine | DX: I48.20 Chronic atrial fibrillation, unspecified (principal); Z79.01 Long term (current) use of anticoagulants; Z51.81 Encounter for therapeutic drug level monitoring | CPT/HCPCS: 85610; 99211 ==

== ENCOUNTER 2024-03-27 10:41 | Outpatient (AMB) | payer MEDICARE, SELFPAY ==
[2024-03-27 10:46] LABS: Prothrombin Time Whole Bld POC 29.9 sec (11.1-13.5); ~PT, ~INR - Anti Coag Clinic 2.5 (0.9-1.1)
--- NOTE | 2024-03-27 10:47 | MHC.OFFVISCO ---
Intake Intake Visit Reasons: Anticoagulation Allergies No Known Allergies Allergy (Mild, Verified 03/27/24 10:41) Medication List - Last Reconciled 03/27/24 by Claire Ha RN amlodipine 10 mg PO DAILY atorvastatin 20 mg PO DAILY benazepril 40 mg PO DAILY 90 days colchicine PO hydrochlorothiazide 25 mg PO DAILY tamsulosin 0.4 mg PO BEDTIME warfarin 5 mg See Protocol PO DAILY Nursing Note Amb to [facility] accomp by , feeling well, had elevateted INR last week (4.0 unknown cause) Medications and supplements reviewed No changes in health, diet, medications, or supplements, Denies any signs and symptoms of bleeding or bruising or clotting. INR: 2.5 in therapeutic range continue usual dosing 5mg x 6 days and 2.5mg x 1 day Nutritional guidance given balance greens and reds in diet and be consistent F/U INR: as scheduled 04/17/24 Patient and verbalizes understanding of instructions given Anti-Coag Initial Assessment Social Hx Patient Tobacco Use Status: Never used Tobacco alcohol intake: current Alcohol intake frequency: 3 or more drinks per day (DRINKS DAILY/BEER- 8-9 DAILY) Cardiovascular Hx: HTN and Arrhythmias Cancer HX: No Psych. Illness/Depression: No Coding Level of Care Code Est Patient Level 1 Diagnoses Current use of anticoagulant therapy Z79.01 Time Spent (min) 15 Assessment & Plan Assessment & Plan (1) Current use of anticoagulant therapy: Code(s): Z79.01 - nursing home (current) use of anticoagulants Category: Medical
== END 2024-03-27 10:54 | disposition home or self-care (01) ==
LOC: HO.ACS 10:41
PROVIDERS: PCP Internal Medicine; Visit Provider Internal Medicine
DX: Z79.01 Long term (current) use of anticoagulants (principal)

== ENCOUNTER → 2024-03-27 10:41 | Outpatient (BNVA) | payer MEDICARE, SELFPAY | PROVIDERS: PCP Internal Medicine; Visit Provider Internal Medicine | DX: I48.20 Chronic atrial fibrillation, unspecified (principal); Z51.81 Encounter for therapeutic drug level monitoring; Z79.01 Long term (current) use of anticoagulants | CPT/HCPCS: 85610; 99211 ==

== ENCOUNTER 2024-04-17 08:57 | Outpatient (AMB) | payer MEDICARE, SELFPAY ==
--- NOTE | 2024-04-17 09:16 | MHC.OFFVISCO ---
Intake Intake Visit Reasons: Anticoagulation Allergies No Known Allergies Allergy (Mild, Verified 04/17/24 09:26) Medication List - Last Reconciled 04/17/24 by Ni Link RN amlodipine 10 mg PO DAILY atorvastatin 20 mg PO DAILY benazepril 40 mg PO DAILY 90 days colchicine PO hydrochlorothiazide 25 mg PO DAILY tamsulosin 0.4 mg PO BEDTIME warfarin 5 mg See Protocol PO DAILY Nursing Note INR: 2.5 in therapeutic range Medications and supplements reviewed No changes in health, diet, medications, or supplements, Denies any signs and symptoms of bleeding or bruising or clotting. Bleeding, bruising, clotting discussed Nutritional guidance given Dose: KEEP SAME DOSE 2.5MG X 1 DAY/ 5MG X 6 DAYS F/U INR: 4 WEEKS Patient verbalizes understanding of instructions given Anti-Coag Initial Assessment Social Hx Patient Tobacco Use Status: Never used Tobacco alcohol intake: current Alcohol intake frequency: 3 or more drinks per day (DRINKS DAILY/BEER- 8-9 DAILY) Cardiovascular Hx: HTN and Arrhythmias Cancer HX: No Psych. Illness/Depression: No Coding Level of Care Code Est Patient Level 1 Diagnoses Current use of anticoagulant therapy Z79.01 Results AMB INR Fingerstick AMB INR Fingerstick 2.5 Last Edit by Ni Link RN on 04/17/24 09:28 MANUAL ENTRY Assessment & Plan Assessment & Plan (1) Current use of anticoagulant therapy: Code(s): Z79.01 - keno terminal operator (current) use of anticoagulants Category: Medical
[2024-04-17 09:25] LABS: Prothrombin Time Whole Bld POC 30.3 sec (11.1-13.5); ~PT, ~INR - Anti Coag Clinic 2.5 (0.9-1.1)
== END 2024-04-17 09:37 | disposition home or self-care (01) ==
LOC: HO.ACS 08:57
PROVIDERS: PCP Internal Medicine; Visit Provider Internal Medicine
DX: Z79.01 Long term (current) use of anticoagulants (principal)

== ENCOUNTER → 2024-04-17 08:57 | Outpatient (BNVA) | payer MEDICARE, SELFPAY | PROVIDERS: PCP Internal Medicine; Visit Provider Internal Medicine | DX: I48.20 Chronic atrial fibrillation, unspecified (principal); Z79.01 Long term (current) use of anticoagulants; Z51.81 Encounter for therapeutic drug level monitoring | CPT/HCPCS: 85610; 99211 ==

== ENCOUNTER 2024-04-24 09:01 | Outpatient (REF) | payer MEDICARE, SELFPAY ==
--- NOTE | ~2024-04-24 | US_ITS ---
EXAMINATION: US RETROPERITONEAL LIMITED (RENAL ONLY) CLINICAL INFORMATION: Benign prostatic hyperplasia without lower urinary tract symptoms. COMPARISON: Ultrasound abdomen 09/08/2022. TECHNIQUE: Real-time imaging of the kidneys. FINDINGS: RIGHT KIDNEY: 11.7 x 5.1 x 5.5 cm (SAG x AP x TRV). The kidney is normal in size, contour, and echogenicity. Renal cortical thickness is normal. No renal calculi or hydronephrosis. A benign 1.0 cm Bosniak class I renal cyst is noted which requires no additional imaging or follow up. No solid renal masses are seen. LEFT KIDNEY: 13.2 x 5.5 x 5.1 cm (SAG x AP x TRV). The kidney is normal in size, contour, and echogenicity. Renal cortical thickness is normal. No renal calculi or hydronephrosis. A benign 2.9 cm septated Bosniak class II renal cyst is noted which requires no additional imaging or follow up. No solid renal masses are seen. US/US renal BI IMPRESSION: Negative exam.
== END 2024-04-24 09:02 | disposition home or self-care (01) ==
LOC: HO.US 09:01
PROVIDERS: PCP Internal Medicine; Visit Provider Urology
DX: N40.0 Benign prostatic hyperplasia without lower urinary tract symptoms (principal); R35.0 Frequency of micturition
CPT/HCPCS: 76775

== ENCOUNTER 2024-05-08 10:33 | Outpatient (AMB) | payer MEDICARE, SELFPAY ==
--- NOTE | 2024-05-08 10:36 | A.OFFVIS_ITS ---
Intake Visit Reasons: cysto/US Intake Note: Paul is a 84 year old male who presents today for a cysto/US. Allergies No Known Allergies Allergy (Mild, Verified 05/08/24 10:36) HPI Comments Details: 05/08/24--Here for cystoscopy. Cystoscopy findings enlarged prostate trilobar, multiple diverticuli, no suspicious bladder lesions. We will start finasteride 5 mg daily. continue tamsulosin. Renal US reviewed--04/24/24. Review of chart: 03/06/24--Harjinder is an 84-year-old male who is here as a new patient evaluation due to obstructive BPH symptoms. He complains of urinary frequency and hesitancy. His PCP ordered a bladder ultrasound on 01/03/24 which noted a large postvoid residual and diffuse bladder wall thickening, right bladder diverticulum. Estimated prostate volume 33 mL. The patient is on tamsulosin. I have discussed office cystoscopy and evaluation of upper tracts with renal ultrasound. Urinalysis: Leukocytes negative blood negative. Bladder scan Post Void Residual: 185 mL 01/03/2024--pelvic/bladder ultrasound--Prevoid bladder volume is 436.5 mL. Postvoid bladder volume is 206 mL. Diffuse thickening and irregularity of the bladder wall. Small right bladder diverticulum. Enlarged prostate with volume approximately 33 mL. [facility] Medical History Urinary frequency Hypercholesterolemia Gout Impaired glucose tolerance Obesity (BMI 30.0-34.9) Chronic atrial fibrillation Hypertension Surgical History No pertinent past surgical history Family History Father No problems noted. Mother No problems noted. Social History Housing: House Housing Other:: LIVES WITH SPOUSE Alcohol intake: current Alcohol intake frequency: 3 or more drinks per day (DRINKS DAILY/BEER- 8-9 DAILY) Comment: 4/day Patient Tobacco Use Status: Never used Tobacco e-Cigarette/Vaping Use: Never Used Second Hand Smoke Exposure: No Advance Directives Date on File: 08/26/20 Current occupational status: retired Current occupation: RETIRED Current occupational exposures/hazards: No Cognitive needs: No Hearing needs: No Vision needs: Yes Review of Systems Const All systems reviewed & are unremarkable except as noted in HPI and below Reports no additional complaints Eyes Reports no additional complaints ENT Reports no additional complaints Card Reports no additional complaints Resp Reports no additional complaints GI Reports no additional complaints Reports as per HPI Musc Reports no additional complaints Skin/Breast Reports system reviewed and no additional complaints, except as documented Neuro Reports no additional complaints Psych Reports no additional complaints Endo Reports no additional complaints Charlie/Lymph Reports no additional complaints Aller/Immun Reports no additional complaints Office Procedures Cystoscopy Consent Discussed risk and benefit or proposed procedure with the patient. Information consent for procedure given to the patient. Discussed technical aspects, risks, benefits and alternatives in full. Addressed all of the patient's questions and concerns regarding the procedure. The patient demonstrated knowledge and understanding. They wish to proceed with this procedure. Preparation The patient was prepped in the usual manner. A catalogue compiler was present and in the room. Genitalia was prepped with betadine solution in a sterile manner. Lidocaine Jelly 2% was placed into the urethra and 16Fr flexible Olympus cystoscope was inserted into the meatus after adequate lubrication. Procedure Time out per protocol performed. Bladder Inspection Bladder Inspection: The bladder was inspected in its entirety with utilization retroflexion displaying: Tumor(s): no suspicious lesions noted Trabeculation: present, moderate, multiple diverticuli Mucosal Erthema: NA Orifices: normal shape and position Urethra: normal Cystoscopy findings: prostatic urethra -trilobar obstruction, bulbous urethra WNL, no suspicious bladder lesions visualized [id number] DISPOSABLE SCOPE URO-G FLEXIBLE SCOPE Procedure code (CPT) selection complete Office Meds lidocaine HCl 2 % mucosal jelly in applicator Performing Provider: Refugio Sepulveda MD Performing Location: [facility] Administered by: Ethan Yung RN on 05/08/24 11:00 Dose Route Admin Location Dispensed Lot Number Expiration Date [facility] Pipe Stripper 10 mL intra-urethral 10 mL naproxen 500 mg tablet Performing Provider: Refugio Sepulveda MD Performing Location: [facility] Administered by: Ethan Yung RN on 05/08/24 11:00 Dose Route Admin Location Dispensed Lot Number Expiration Date [employer]DC Pipe Stripper 500 mg PO 1 tab ciprofloxacin HCl 500 mg tablet Performing Provider: Refugio Sepulveda MD [facility] Administered by: Ethan Yung RN on 05/08/24 11:06 Dose Route Admin Location Dispensed Lot Number Expiration Date NDC Pipe Stripper 500 mg PO 1 tab Results AMB Urinalysis, Automated UA Leukoctes 0 Don/uL Last Edit by [employer] on 05/08/24 11:46 UA Nitrite Negative Last Edit by [employer] on 05/08/24 11:46 UA Urobilinogen 0.2 mg/dL Last Edit by [employer] on 05/08/24 11:46 UA Protein 0 mg/dL Last Edit by [employer] on 05/08/24 11:46 UA pH 6.0 Last Edit by Brandyce Bress on 05/08/24 11:46 UA Blood 0 Surjit/uL Last Edit by [employer] on 05/08/24 11:46 UA Specific [place] 1.020 Last Edit by [employer] on 05/08/24 11:46 UA Ketone Negative Last Edit by [employer] on 05/08/24 11:46 UA Bilirubin 0 mg/dL Last Edit by [employer] on 05/08/24 11:46 UA Glucose 250 mg/dL Last Edit by Brandyce Bress on 05/08/24 11:46 Results Reviewed Results Reviewed: Laboratory Last Values Urine pH (Auto) 6.0 05/08/24 11:45 Specific [place] (Auto) 1.020 05/08/24 11:45 Urine Protein (Auto) 0 mg/dL 05/08/24 11:45 Glucose (UA)(Auto) 250 mg/dL 05/08/24 11:45 Urine Ketones (Auto) Negative 05/08/24 11:45 Urine Blood (Auto) 0 Surjit/uL 05/08/24 11:45 Urine Nitrite (Auto) Negative 05/08/24 11:45 Urine Bilirubin (Auto) 0 mg/dL 05/08/24 11:45 Urine Urobilinogen (Auto) 0.2 mg/dL 05/08/24 11:45 Leukocyte Esterase (Auto) 0 Don/uL 05/08/24 11:45 Reviewed Renal US films: 04/24/24--bilateral renal cysts, official inspector watch assembly pending. Date of Service: 01/03/24 EXAMINATION: US PELVIS LIMITED (BLADDER) CLINICAL INFORMATION: Frequency of micturition. COMPARISON: Ultrasound abdomen complete 09/08/2022. TECHNIQUE: Real-time imaging of the bladder. FINDINGS: BLADDER: Well distended. Bilateral ureteral jets are demonstrated. Prevoid bladder volume is 436.5 mL. Postvoid bladder volume is 206 mL. ADDITIONAL FINDINGS: Diffuse thickening and irregularity of the bladder wall. Small right bladder diverticulum. Enlarged prostate with volume approximately 33 mL. IMPRESSION: Small right bladder diverticulum. Diffuse thickening and irregularity of the bladder wall. Enlarged prostate. Assessment & Plan Assessment & Plan (1) Urinary frequency: Code(s): R35.0 - Frequency of micturition Category: Medical (2) BPH (benign prostatic hyperplasia): Code(s): N40.0 - Benign prostatic hyperplasia without lower urinary tract symptoms Category: Medical (3) Incomplete bladder emptying: Code(s): R33.9 - Retention of urine, unspecified Category: Medical Plan Continue tamsulosin, start proscar 5 mg daily Orders: Orders AMB Cystoscopy Today N40.0 - Benign prostatic hyperplasia without lower urinary tract symptoms, R33.9 - Retention of urine, unspecified AMB Urinalysis Automated Today Z13.9 - Encounter for screening, unspecified Medications: New finasteride (Proscar) 5 mg PO DAILY 90 days 90 tabs 3RF for enlarged prostate Refilled tamsulosin 0.4 mg PO BEDTIME 90 caps 2RF Patient Instructions: The patient had an opportunity to ask questions regarding treatment plan. The patient expressed understanding and agreement with the above treatment plan. The patient is aware they should contact our office by phone for worsening of their current condition or the appearance of new symptoms. Compliance is encouraged with any medications and followup testing that is ordered. It is a privilege to be allowed the opportunity to participate in the urologic care of your patient. If you have any questions or concerns regarding treatment for the above conditions please do not hesitate to contact me. The office telephone contact is [phone]. This note is constructed in part using voice recognition software. While every effort has been made to ensure accuracy inspector watch assembly errors may have been included. Yours sincerely, Refugio Sepulveda MD Coding Level of Care Code Est Pt Level 4 (75466) Diagnoses Urinary frequency R35.0 BPH (benign prostatic hyperplasia) N40.0 Incomplete bladder emptying R33.9 CPT Codes Cystoscopy - CPT: 72548-Vtskoxbrod ([id number])
== END 2024-05-08 11:23 | disposition home or self-care (01) ==
PROVIDERS: PCP Internal Medicine; Visit Provider Urology
DX: R35.0 Frequency of micturition (principal); N40.0 Benign prostatic hyperplasia without lower urinary tract symptoms; R33.9 Retention of urine, unspecified; Z13.9 Encounter for screening, unspecified
CPT/HCPCS: 52000; 99214

== ENCOUNTER → 2024-05-08 10:33 | Outpatient (BNVA) | payer MEDICARE, SELFPAY | PROVIDERS: PCP Internal Medicine; Visit Provider Urology | DX: R35.0 Frequency of micturition (principal); N40.0 Benign prostatic hyperplasia without lower urinary tract symptoms; N32.3 Diverticulum of bladder; R33.9 Retention of urine, unspecified | CPT/HCPCS: 52000; 81003; 99212 ==

== ENCOUNTER 2024-05-14 15:58 | Observation (INO) | payer MEDICARE, SELFPAY ==
--- NOTE | ~2024-05-14 | CT_ITS ---
EXAMINATION: CT ANGIOGRAM CHEST CLINICAL INFORMATION: Chest pain. Aneurysm follow-up COMPARISON: None. TECHNIQUE: Multiple axial images were obtained through the chest after the administration of 70 mL of intravenous Omnipaque. Images were evaluated on independent dedicated 3-D workstation and 3-D images were reconstructed with concurrent radiologist supervision and subsequently interpreted. This CT examination was performed using dose optimization techniques as appropriate, variously including the following: *Automated exposure control. *Adjustment of mA and/or kV according to patient size (this includes techniques or standardized protocols for targeted exams where dose is matched to indication/reason for exam, i.e., extremities or head). *Use of iterative reconstruction technique. DLP: 356 mGy-cm. FINDINGS: VASCULAR: Thoracic Aorta: The ascending aorta is enlarged measuring 4.7 x 4.9 cm on this nongated study. Atherosclerotic plaque is prominent in the distal aortic arch and descending thoracic aorta. Subclavian Arteries: Patent Carotid and Vertebral Arteries: Patent and normal in caliber Abdominal Aorta: Normal in caliber. Extensive atherosclerotic plaque. Pulmonary arteries: Patent, normal caliber without evidence of large, central pulmonary embolus All vascular measurements obtained from 3-D reconstructed images are detailed in PACS. NON-VASCULAR: Lungs: The lungs are clear with no evidence of inflammation or nodules. Mediastinum: Small pericardial effusion. Thrombus within the left atrial appendage. Severe coronary artery calcification. At the inferior apex of the left ventricle is a hyperenhancing structure measuring 1.2 x 0.9 cm. Chest Wall/Axilla: Unremarkable. Upper Abdomen: Unremarkable Osseous Structures: Multilevel degenerative changes throughout the thoracic spine. CT/CT angio chest aorta IMPRESSION: 1. Ascending aortic aneurysm measuring 4.7 x 4.9 cm. 2. Thrombus within the left atrial appendage. 3. At the inferior apex of the left ventricle is a hyperenhancing structure measuring 1.2 x 0.9 cm. This could represent a focal left ventricular aneurysm or a coronary artery pseudoaneurysm. Motion artifact on this nongated study makes evaluation difficult. Recommend cardiac CTA with noncon, arterial, and venous phases or cardiac MRI for further evaluation. 4. Severe coronary artery calcification. This critical result was discussed with Dr. West on 05/15/2024 5:03 PM, and it was ascertained that the content and urgency of the report was understood at the time of direct communication.
--- NOTE | ~2024-05-14 | XR_ITS ---
EXAMINATION: XR CHEST CLINICAL INFORMATION: Chest pain COMPARISON: None available. TECHNIQUE: Frontal view of the chest was obtained. FINDINGS: Lungs clear. Heart and pulmonary vessels are normal. No congestive change. XR/XR chest 1V IMPRESSION: No active disease.
--- NOTE | 2024-05-14 16:01 | ECG_ITS ---
Test Reason : CHEST PAIN Blood Pressure : / mmHG Vent. Rate : 075 BPM Atrial Rate : 086 BPM P-R Int : 000 ms QRS Dur : 148 ms QT Int : 438 ms P-R-T Axes : 000 -43 094 degrees QTc Int : 489 ms Atrial fibrillation Left axis deviation Right bundle branch block Abnormal ECG When compared with ECG of 22-JUL-2013 15:28, Right bundle branch block is now Present Criteria for Septal infarct are no longer Present Referred By: Generic ED Physician Electronically Signed By:ELMER HUSTON
[2024-05-14 16:06] VITALS: BP 136/75; PULSE 75; RESP 20; TEMP 36.4; O2SAT 99; BMI 27.9
--- NOTE | 2024-05-14 16:06 | ED_ITS ---
HPI - General Adult General Chief complaint: Chest Pain Stated complaint: Chest pain Time Seen by Provider: 05/14/24 17:07 History of Present Illness ED Provider: Dr. Min HPI narrative: 84 y/o M patient; PMH atrial fibrillation on Warfarin, HTN, gout, ascending aorta 4.7cm, mild to moderate aortic stenosis; presents from home reporting 3 - 4 days of constant non-radiating left-sided chest pain without associated symptoms such as difficulty breathing, lightheadedness/dizziness, syncope. The patient denies prior similar symptoms. He states nothing changed today but his returned home for the week and on learning his symptoms brought him to the emergency department. He denies change with exertion. He reports mild non- productive coughing but otherwise denies any other symptoms. Cardiology: Dr. Major ECHO 11/2023: Normal EF 60 - 65%, mild LVH with elevated filling pressures, moderately dilated left atrium, moderate aortic stenosis, moderately dilated ascending aorta 4.6cm Related Data Home Medications ?Medication ?Instructions ?Recorded ?Confirmed colchicine PO 01/24/24 04/17/24 Previous Rx's ?Medication ?Instructions ?Recorded warfarin 5 mg tablet 5 mg PO DAILY #90 tabs 04/02/23 benazepril 40 mg tablet 40 mg PO DAILY 90 days #90 tabs 01/13/24 hydrochlorothiazide 25 mg tablet 25 mg PO DAILY #90 tabs 01/15/24 atorvastatin 20 mg tablet 20 mg PO DAILY #30 tabs 02/07/24 amlodipine 10 mg tablet 10 mg PO DAILY #90 tabs 03/15/24 finasteride 5 mg tablet (Proscar) 5 mg PO DAILY for enlarged 05/08/24 prostate 90 days #90 tabs tamsulosin 0.4 mg capsule 0.4 mg PO BEDTIME #90 caps 05/08/24 Allergies Allergy/AdvReac Type Severity Reaction Status Date / Time No Known Allergies Allergy Mild Verified 05/14/24 16:09 Review of Systems 2 Review of Systems: Yes all other systems are reviewed and are negative Neurologic: Denies Sensory deficit (Neuro) [facility] Past Medical History Attestation statement: The following information was validated with the patient. Source: old records reviewed Medical History Urinary frequency Hypercholesterolemia Gout Impaired glucose tolerance Obesity (BMI 30.0-34.9) Chronic atrial fibrillation Hypertension Surgical History No pertinent past surgical history Family History Family History Father No problems noted. Mother No problems noted. Social History Social History Housing: House Housing Other:: LIVES WITH SPOUSE Alcohol intake: current Alcohol intake frequency: 3 or more drinks per day Alcohol type: beer Comment: 4/day Patient Tobacco Use Status: Never used Tobacco Smoked in Last 30 Days: No e-Cigarette/Vaping Use: Never Used Second Hand Smoke Exposure: No Use of substances other than those prescribed or required for medical reasons: No Any prior treatment program specific to substance use: No Advance Directives: Yes Advance Directives on File: Yes Advance Directives Date on File: 08/26/20 Current occupational status: retired Current occupation: RETIRED Current occupational exposures/hazards: No Cognitive needs: No Hearing needs: No Vision needs: Yes Physical Exam ED Vital Signs: Vital Signs - 24 hr 05/14/24 16:06 05/14/24 17:37 05/14/24 19:40 Temperature 97.5 F 98.0 F Pulse Rate 75 82 67 Respiratory Rate 20 17 17 Blood Pressure 136/75 149/73 H 125/68 Pulse Oximetry 99 98 96 Oxygen Delivery Method Room Air Room Air Room Air BMI result Body Mass Index 27.9 Patient is afebrile and hemodynamically stable. Const General: cooperative Orientation/consciousness: patient oriented x3 HENMT Head: Yes normal to inspection and Yes atraumatic Eyes General: appearance normal, both eyes and all related structures Pupils: Equal, round and reactive pupils present EOM: EOMs intact bilaterally Neck Neck: Yes normal visual inspection, Yes full ROM, Yes supple and No tender Chest Chest palpation & inspection: normal inspection of the chest and normal palpation of entire chest wall Resp Effort & Inspection: normal respiratory effort, able to speak in complete sentences, no cough and no respiratory distress Auscultation: clear to auscultation bilaterally Cardio Rate: regular rate Rhythm: abnormal rhythm Peripheral pulses: Peripheral pulses 2+ throughout GI Inspection: Yes normal to inspection, No Abdominal wall edema and No distended Palpation (GI): Soft to palpation, not firm, nontender, no guarding and not rigid Auscultation: normal bowel sounds General: Yes no CVA tenderness Back/Spine/Pelvis Back: no CVA tenderness Neuro General: patient oriented x3 Cranial nerves: Yes Equal, round and reactive pupils present Motor exam (neuro): 5/5 motor strength present throughout Sensory Exam: No Sensory deficit (Neuro) Course Course Course Narrative: This is an RME done by BRUCE Navarro: Additional HPI, ROS, PE not included below will be deferred to primary provider. 84 yo m hx of BPH, afib on warfarin, renal insufficiency, HTN presents w/ left sided constant cp X 3 days. Patient denies radiation of pain. Patient doesnt have dizziness, sob, nausea, vomiting, fevers, chills. Last INR 5 weeks ago 2.5' Appearance: Alert.? Oriented X3.? No acute cardiopulmonary distress distress.? Head: Normocephalic, atraumatic, no step-offs or deformities CVS: Pulses normal.? Respiratory: No respiratory distress.? Abdomen: Soft and nontender.? Skin: ? Normal skin color. Extremities: 5/5 strength to bilateral upper and lower extremities Back: No midline tenderness, no C-spine tenderness, full range of motion, No CVA tenderness bilaterally Neuro: Oriented X 3.? No motor deficit.? No sensory deficit. Reevaluation(s) Reevaluation #1: Patient is afebrile and hemodynamically stable. CXR unremarkable. Initial troponin negative. BNP 279 - no prior available for comparison. Repeat troponin flat. Patient still endorsing active chest pain. Discussed with cardiology who recommend admission. Provided ASA 324mg PO. Plan: Admit to hospitalist Condition: Stable Medical Decision Making Lab Data 05/14/24 17:35 05/14/24 17:00 Labs: Lab Results 05/14/24 05/14/24 05/14/24 Range/Units 16:59 17:00 17:35 WBC 11.9 H (4.8-10.8) X10*3/uL RBC 4.28 L (4.60-5.80) X10*6/uL Hgb 13.7 L (14.0-18.0) g/dl Hct 38.7 L (42.0-52.0) % MCV 90.4 (80.0-98.0) fL MCH 32.0 (27.0-33.0) pg MCHC 35.4 (31.0-36.0) g/dl RDW 13.2 (11.0-16.0) % Plt Count 149 L D (160-400) X10*3/uL MPV 11.4 (9.4-12.4) fL Immature Gran % (Auto) 0.3 (0.0-0.4) % Neut % (Auto) 82.5 H (45-73) % Lymph % (Auto) 10.0 L (20-40) % [place] % (Auto) 6.5 (2-11) % Eos % (Auto) 0.4 (0-4) % Baso % (Auto) 0.3 (0-2) % Lymph # (Auto) 1.2 (1.2-4.9) X10*3/uL [place] # (Auto) 0.8 (0.1-1.2) X10*3/uL Eos # (Auto) 0.1 (0.0-0.4) X10*3/uL Baso # (Auto) 0.0 (0.0-0.2) X10*3/uL Abs Immat Gran (auto) 0.04 H (0.00-0.03) X10*3/uL Absolute Neuts (auto) 9.8 H (2.0-8.3) x10*3/uL Absolute Nucleated RBC 0.000 (0.0-0.012) X10*3/uL Nucleated RBC % (auto) 0.0 (0.0-0.2) /100WBC PT 37.1 H (11.1-13.3) SEC INR 3.0 H (0.9-1.1) Sodium 134 L (135-145) mmol/L Potassium 5.0 (3.3-5.1) mmol/L Chloride 102 (96-108) mmol/L Carbon Dioxide 25 (22-29) mmol/L Anion Gap 12 (12-20) BUN 20 H (9-16) mg/dL Creatinine 1.13 (0.5-1.4) mg/dL Estim Creat Clear Calc 52.8 Estimated GFR > 60 Random Glucose 128 H (60-115) mg/dL Calcium 10.1 (8.4-10.2) mg/dL Magnesium 2.2 (1.6-2.6) mg/dL Total Bilirubin 0.6 (0.0-1.0) mg/dL AST 19 (5-37) U/L ALT 18 (0-40) U/L Alkaline Phosphatase 75 (39-117) U/L Troponin I High Sens 4.8 (<3.5-35.0) ng/L B-Natriuretic Peptide 279 H (<100) pg/mL Total Protein 7.3 (6.5-8.0) g/dL Albumin 4.3 (3.5-5.0) g/dL Lipase 16 (8-78) U/L Influenza Type A (PCR) (Negative) Influenza Type B (PCR) (Negative) RSV RNA Qual (PCR) (Negative) SARS-CoV-2 RNA (RT-PCR) (Negative) 05/14/24 05/14/24 Range/Units 18:09 19:02 WBC (4.8-10.8) X10*3/uL RBC (4.60-5.80) X10*6/uL Hgb (14.0-18.0) g/dl Hct (42.0-52.0) % MCV (80.0-98.0) fL MCH (27.0-33.0) pg MCHC (31.0-36.0) g/dl RDW (11.0-16.0) % Plt Count (160-400) X10*3/uL MPV (9.4-12.4) fL Immature Gran % (Auto) (0.0-0.4) % Neut % (Auto) (45-73) % Lymph % (Auto) (20-40) % [place] % (Auto) (2-11) % Eos % (Auto) (0-4) % Baso % (Auto) (0-2) % Lymph # (Auto) (1.2-4.9) X10*3/uL [place] # (Auto) (0.1-1.2) X10*3/uL Eos # (Auto) (0.0-0.4) X10*3/uL Baso # (Auto) (0.0-0.2) X10*3/uL Abs Immat Gran (auto) (0.00-0.03) X10*3/uL Absolute Neuts (auto) (2.0-8.3) x10*3/uL Absolute Nucleated RBC (0.0-0.012) X10*3/uL Nucleated RBC % (auto) (0.0-0.2) /100WBC PT (11.1-13.3) SEC INR (0.9-1.1) Sodium (135-145) mmol/L Potassium (3.3-5.1) mmol/L Chloride (96-108) mmol/L Carbon Dioxide (22-29) mmol/L Anion Gap (12-20) BUN (9-16) mg/dL Creatinine (0.5-1.4) mg/dL Estim Creat Clear Calc Estimated GFR Random Glucose (60-115) mg/dL Calcium (8.4-10.2) mg/dL Magnesium (1.6-2.6) mg/dL Total Bilirubin (0.0-1.0) mg/dL AST (5-37) U/L ALT (0-40) U/L Alkaline Phosphatase (39-117) U/L Troponin I High Sens 5.4 (<3.5-35.0) ng/L B-Natriuretic Peptide (<100) pg/mL Total Protein (6.5-8.0) g/dL Albumin (3.5-5.0) g/dL Lipase (8-78) U/L Influenza Type A (PCR) NEGATIVE (Negative) Influenza Type B (PCR) NEGATIVE (Negative) RSV RNA Qual (PCR) NEGATIVE (Negative) SARS-CoV-2 RNA (RT-PCR) NEGATIVE (Negative) Independent Interpretation I performed an independent interpretation of an: EKG Interpretation: A fib 75BPM with RBBB, new since 10/2023. Radiology Impression Discussion of test interpretation with radiology: I have reviewed the radiologist's reading. Radiologist Impression: EXAMINATION: XR CHEST CLINICAL INFORMATION: Chest pain COMPARISON: None available. TECHNIQUE: Frontal view of the chest was obtained. FINDINGS: Lungs clear. Heart and pulmonary vessels are normal. No congestive change. XR/XR chest 1V IMPRESSION: No active disease. Discharge Plan Discharge Clinical Impression: Chest pain Patient Disposition: Admitted As Inpatient Prescriptions: No Action warfarin 5 mg tablet 5 mg PO DAILY Qty: 90 3RF Protocol: Dose Management Condition: Sunday (Week One) Dose/Route: 5 mg Instruction: 1 x 5 mg tablet Condition: Sunday Dose/Route: 5 mg Instruction: 1 x 5 mg tablet Condition: Sunday Dose/Route: 5 mg Instruction: 1 x 5 mg tablet Condition: Sunday Dose/Route: 5 mg Instruction: 1 x 5 mg tablet Condition: Dose/Route: 2.5 mg Instruction: 0.5 x 5 mg tablets Condition: Sunday Dose/Route: 5 mg Instruction: 1 x 5 mg tablet Condition: Sunday Dose/Route: 5 mg Instruction: 1 x 5 mg tablet Condition: Sunday (Week Two) Dose/Route: 5 mg Instruction: 1 x 5 mg tablet Condition: Sunday Dose/Route: 5 mg Instruction: 1 x 5 mg tablet Condition: Sunday Dose/Route: 5 mg Instruction: 1 x 5 mg tablet Condition: Sunday Dose/Route: 5 mg Instruction: 1 x 5 mg tablet Condition: Dose/Route: 2.5 mg Instruction: 0.5 x 5 mg tablets Condition: Sunday Dose/Route: 5 mg Instruction: 1 x 5 mg tablet Condition: Sunday Dose/Route: 5 mg Instruction: 1 x 5 mg tablet Protocol Text: Adjustment Start Date: 04/17/24 INR Value: 2.5 INR Date: 03/27/24 Recheck Date: 05/17/24 Additional Instructions: REVIEW FOOD LIST WEEKLY, EAT A MIX OF FRUITS AND VEGETABLES benazepril 40 mg tablet 40 mg PO DAILY 90 Days Qty: 90 2RF hydrochlorothiazide 25 mg tablet 25 mg PO DAILY Qty: 90 2RF amlodipine 10 mg tablet 10 mg PO DAILY Qty: 90 0RF atorvastatin 20 mg tablet 20 mg PO DAILY Qty: 30 3RF colchicine PO Patient Comments: pt states he takes if prn gout flare up finasteride [Proscar] 5 mg tablet 5 mg PO DAILY 90 Days Qty: 90 3RF tamsulosin 0.4 mg capsule 0.4 mg PO BEDTIME Qty: 90 2RF Print Language: [place]
[2024-05-14 17:24] LABS: Alanine Aminotransferase 18 U/L (0-40); Albumin Level 4.3 g/dL (3.5-5.0); Alkaline Phosphatase 75 U/L (39-117); Anion Gap 12 (12-20); Aspartate Amino Transferase 19 U/L (5-37); Bilirubin Total 0.6 mg/dL (0.0-1.0); Blood Urea Nitrogen 20 mg/dL (9-16); Calcium 10.1 mg/dL (8.4-10.2); Carbon Dioxide 25 mmol/L (22-29); Chloride 102 mmol/L (96-108); Creatinine Clr Calc Pharmacy 52.8; Estimated Glomerular Filt Rate > 60; Glucose Random 128 mg/dL (60-115); Magnesium 2.2 mg/dL (1.6-2.6); Sodium 134 mmol/L (135-145); Total Protein 7.3 g/dL (6.5-8.0)
[2024-05-14 17:28] LABS: Troponin-I High Sensitivity 4.8 ng/L (<3.5-35.0)
[2024-05-14 17:37] VITALS: BP 149/73; PULSE 82; RESP 17; O2SAT 98
[2024-05-14 17:48] LABS: Basophils Percent Auto 0.3 % (0-2); Eosinophils Absolute Auto 0.1 X10*3/uL (0.0-0.4); Eosinophils Percent Auto 0.4 % (0-4); Hematocrit 38.7 % (42.0-52.0); Hemoglobin 13.7 g/dl (14.0-18.0); Imm Gran Abs Auto 0.04 X10*3/uL (0.00-0.03); Imm Gran Pct Auto 0.3 % (0.0-0.4); Lymphocytes Absolute Auto 1.2 X10*3/uL (1.2-4.9); Mean Corpuscular HGB Conc 35.4 g/dl (31.0-36.0); Mean Corpuscular Volume 90.4 fL (80.0-98.0); Mean Platelet Volume 11.4 fL (9.4-12.4); Monocytes Absolute Auto 0.8 X10*3/uL (0.1-1.2); Monocytes Percent Auto 6.5 % (2-11); Neutrophils Absolute Auto 9.8 x10*3/uL (2.0-8.3); Neutrophils Percent Auto 82.5 % (45-73); Platelet Count 149 X10*3/uL (160-400); Red Blood Count 4.28 X10*6/uL (4.60-5.80); Red Cell Distribution Width 13.2 % (11.0-16.0); White Blood Count 11.9 X10*3/uL (4.8-10.8)
[2024-05-14 17:55] LABS: Lipase 16 U/L (8-78)
[2024-05-14 18:12] LABS: B Type Natriuretic Peptide 279 pg/mL (<100)
[2024-05-14 18:23] LABS: Prothrombin Time 37.1 SEC (11.1-13.3)
[2024-05-14 18:56] LABS: Influenza A PCR NEGATIVE (Negative); Influenza B PCR NEGATIVE (Negative); Resp Syncy Virus RNA Qual PCR NEGATIVE (Negative); SARS COV2 PCR INHOUSE NEGATIVE (Negative)
[2024-05-14 19:30] LABS: Troponin-I High Sensitivity 5.4 ng/L (<3.5-35.0)
[2024-05-14 19:40] VITALS: BP 125/68; PULSE 67; RESP 17; TEMP 36.7; O2SAT 96
--- NOTE | 2024-05-14 19:45 | PC.NURSE ---
this rn assumed care of pt, pt a&ox4, respirations even and unlabored. pt denies chest pain at this time. no acute distress noted. pt normal sinus on tele 68-72 bpm.
[2024-05-14 20:00] VITALS: BP 125/68; PULSE 71; RESP 17; TEMP 36.7; O2SAT 98
[2024-05-14] MEDS: Aspirin 81 MG TAB.CHEW 324 MG PO (20:04)
--- NOTE | 2024-05-14 20:05 | PC.NURSE ---
Gali BARRERA at bedside, pt medicated per mar tolerated well.
--- NOTE | 2024-05-14 20:26 | PHA.MEDREC ---
Pharmacy Consult ? Medication Reconciliation Pharmacy has completed the medication reconciliation. Confirmed medications with PA at bedside. She confirmed the patients warfarin 5mg dose at once daily and she stated he took it this morning.
--- NOTE | 2024-05-14 20:44 | PM.IMHP ---
History of Present Illness Date of Service: 05/14/24 Attending physician on admission: Gerard Sosa Chief Complaint: chest pain 84-year-old male with history of chronic atrial fibrillation anticoagulated with Coumadin, hyperlipidemia, hypertension, BPH, gait instability presented to the ED earlier today for evaluation of nonradiating left-sided chest pain occurring both at rest but slightly worse with exertion that started earlier today. He also states that for the last few days, has had dyspnea on exertion. Denies any lightheadedness, palpitations, near-syncope, syncope. He feels the pain is musculoskeletal in nature but the pain is not reproducible to palpation. Denies any recent illness, fevers, chills, abdominal pain, nausea, vomiting, diarrhea. Does have chronic dry cough at baseline that has not worsened. Since arrival, vital signs are stable. He has a mild leukocytosis of 11.9, mild normocytic anemia with H/H 13.7/38.7%. PT 30 7.1, INR 3.0. Renal function baseline, electrolyte levels normal except for mild hyponatremia of 134. BNP 279. Initial troponin 4.8, repeat 5.4. Negative for COVID-19, RSV, influenza. Chest x-ray unremarkable. EKG shows atrial fibrillation, rate 75 with right bundle branch block, no acute ischemic changes. In the ED, has been given 324 mg aspirin. Review of Systems Review of Systems: Yes all other systems are reviewed and are negative [facility] Medical History Urinary frequency Hypercholesterolemia Gout Impaired glucose tolerance Obesity (BMI 30.0-34.9) Chronic atrial fibrillation Hypertension Family History Father No problems noted. Mother No problems noted. Surgical History No pertinent past surgical history Social History Housing: House Housing Other:: LIVES WITH SPOUSE Alcohol intake: current Alcohol intake frequency: 3 or more drinks per day Alcohol type: beer Comment: 4/day Patient Tobacco Use Status: Never used Tobacco Smoked in Last 30 Days: No e-Cigarette/Vaping Use: Never Used Second Hand Smoke Exposure: No Use of substances other than those prescribed or required for medical reasons: No Any prior treatment program specific to substance use: No Advance Directives: Yes Advance Directives on File: Yes Advance Directives Date on File: 08/26/20 Current occupational status: retired Current occupation: RETIRED Current occupational exposures/hazards: No Cognitive needs: No Hearing needs: No Vision needs: Yes Meds Allergies Allergy/AdvReac Type Severity Reaction Status Date / Time No Known Allergies Allergy Mild Verified 05/14/24 16:09 Home Medications ?Medication ?Instructions ?Recorded ?Confirmed ?Last Taken ?Type colchicine 0.6 mg tablet 0.6 mg PO NEEDED PRN Gout Attack 05/14/24 05/14/24 Unknown History cyanocobalamin (vitamin B-12) 1,000 mcg PO DAILY 05/14/24 05/14/24 05/14/24 History 1,000 mcg tablet (Vitamin B-12) Physical Exam Vital Signs and Narrative: Vital Signs: Last Vital Signs Temp 98.1 F 05/14/24 20:00 Pulse 71 05/14/24 20:00 Resp 17 05/14/24 20:00 BP 125/68 05/14/24 20:00 Pulse Ox 98 05/14/24 20:00 O2 Del Method Room Air 05/14/24 20:00 BMI result Body Mass Index 27.9 Constitutional - Awake and Alert, No apparent distress Eyes - PERRLA, EOMI Cardiovascular - S1S2, irregulaly irregular, normal rate, loud V/ systolic murmur, No edema Respiratory - Normal lung expansion, Normal respiratory effort, No respiratory distress, CTA bilaterally Gastrointestinal - NT / ND; +BS; No rebound or guarding Extremities - no calf tenderness bilaterally, no swelling Skin - Warm/Dry Neurological - Alert & oriented x3 Psychological - Appropriate affect Results Labs 05/14/24 17:35 05/14/24 17:00 Labs: Laboratory Results - last 24 hr 05/14/24 05/14/24 05/14/24 16:59 17:00 17:35 MCV 90.4 MCH 32.0 MCHC 35.4 RDW 13.2 Plt Count 149 L D MPV 11.4 Immature Gran % (Auto) 0.3 Neut % (Auto) 82.5 H Lymph % (Auto) 10.0 L [place] % (Auto) 6.5 Eos % (Auto) 0.4 Baso % (Auto) 0.3 Lymph # (Auto) 1.2 [place] # (Auto) 0.8 Eos # (Auto) 0.1 Baso # (Auto) 0.0 Abs Immat Gran (auto) 0.04 H Absolute Neuts (auto) 9.8 H Absolute Nucleated RBC 0.000 Nucleated RBC % (auto) 0.0 PT 37.1 H INR 3.0 H Anion Gap 12 Estim Creat Clear Calc 52.8 Estimated GFR > 60 Random Glucose 128 H Calcium 10.1 Magnesium 2.2 Total Bilirubin 0.6 AST 19 ALT 18 Alkaline Phosphatase 75 Troponin I High Sens 4.8 B-Natriuretic Peptide 279 H Total Protein 7.3 Albumin 4.3 Lipase 16 Influenza Type A (PCR) Influenza Type B (PCR) RSV RNA Qual (PCR) SARS-CoV-2 RNA (RT-PCR) 05/14/24 05/14/24 18:09 19:02 MCV MCH MCHC RDW Plt Count MPV Immature Gran % (Auto) Neut % (Auto) Lymph % (Auto) [place] % (Auto) Eos % (Auto) Baso % (Auto) Lymph # (Auto) [place] # (Auto) Eos # (Auto) Baso # (Auto) Abs Immat Gran (auto) Absolute Neuts (auto) Absolute Nucleated RBC Nucleated RBC % (auto) PT INR Anion Gap Estim Creat Clear Calc Estimated GFR Random Glucose Calcium Magnesium Total Bilirubin AST ALT Alkaline Phosphatase Troponin I High Sens 5.4 B-Natriuretic Peptide Total Protein Albumin Lipase Influenza Type A (PCR) NEGATIVE Influenza Type B (PCR) NEGATIVE RSV RNA Qual (PCR) NEGATIVE SARS-CoV-2 RNA (RT-PCR) NEGATIVE Imaging Radiologist's Impressions: Impressions Chest X-Ray 05/14/24 16:14 IMPRESSION: No active disease. Assessment and Plan (1) Chest pain: Status: Acute (2) Aortic stenosis: Status: Acute Plan 84-year-old male with history of chronic atrial fibrillation anticoagulated with Coumadin, hyperlipidemia, hypertension, BPH, gait instability to be observed for chest pain #Acute chest pain w/ [place] -Trops WNL and flat, EKG without acute ischemic changes. No evidence of acute volume overload -?stable angina with ?severe aortic stenosis -last echo 12/05 showed normal LV systolic function with EF 60-65% with mild LVH and elevated filling pressures. There is moderate aortic stenosis at that time an upper limit of normal RV systolic pressure with moderately dilated ascending aorta at 4.6 cm -given ASA 324 mg in the ED, continue 81 mg daily -continue coumadin -repeat echo ordered -cardiology consult -monitor on telemetry #Chronic atrial fibrillation-rate controlled -continue Coumadin, INR therapeutic. Monitor daily -not on rate control medication # hypertension -continue hydrochlorothiazide, benazepril, amlodipine -he does have chronic cough, ACEI may need to be reevalauted outpt #HLD -statin #BPH -continue finasteride DVT prophylaxis-Coumadin Quality Stroke Does the patient have a stroke diagnosis?: No VTE Prior VTE?: No VTE Risk Level:: Medical - moderate - high VTE Device Contraindication: Treatment Not Indicated VTE Drug Contraindication: N/A - Med Ordered
[2024-05-14] MEDS: Tamsulosin HCL 0.4 MG CAPSULE PO (21:42)
--- NOTE | 2024-05-14 21:43 | PC.NURSE ---
pt medicated per mar, tolerated well with water.
[2024-05-14 22:00] VITALS: BP 116/67; PULSE 71; RESP 12; TEMP 36.6; O2SAT 95
--- NOTE | 2024-05-14 22:38 | MHC.EDTECH ---
vital signs checked, pt sleeping, call within reach.
[2024-05-14 23:54] VITALS: BP 139/72; PULSE 61; RESP 20; TEMP 36.4; O2SAT 98
[2024-05-15] VITALS: BMI 27.6
--- NOTE | 2024-05-15 02:49 | PC.NURSE ---
pt in possession of $359 dollars per belongings list. pt acknowledges money in his possession and states he wishes to keep the money in the pocket of his shorts that he chooses to wear instead of hospital pants
[2024-05-15 04:00] VITALS: BP 117/58; PULSE 70; RESP 20; TEMP 36.3; O2SAT 96
[2024-05-15 06:51] LABS: MANUAL DIFF FLAG NO
[2024-05-15 06:59] LABS: Basophils Percent Auto 0.4 % (0-2); Eosinophils Absolute Auto 0.1 X10*3/uL (0.0-0.4); Eosinophils Percent Auto 1.6 % (0-4); Hematocrit 39.3 % (42.0-52.0); Hemoglobin 13.7 g/dl (14.0-18.0); Imm Gran Abs Auto 0.04 X10*3/uL (0.00-0.03); Imm Gran Pct Auto 0.4 % (0.0-0.4); Lymphocytes Absolute Auto 1.3 X10*3/uL (1.2-4.9); Lymphocytes Percent Auto 14.9 % (20-40); Mean Corpuscular HGB Conc 34.9 g/dl (31.0-36.0); Mean Corpuscular Hemoglobin 31.6 pg (27.0-33.0); Mean Corpuscular Volume 90.8 fL (80.0-98.0); Mean Platelet Volume 10.6 fL (9.4-12.4); Monocytes Absolute Auto 0.9 X10*3/uL (0.1-1.2); Monocytes Percent Auto 10.3 % (2-11); Neutrophils Absolute Auto 6.5 x10*3/uL (2.0-8.3); Neutrophils Percent Auto 72.4 % (45-73); Platelet Count 142 X10*3/uL (160-400); Red Blood Count 4.33 X10*6/uL (4.60-5.80); Red Cell Distribution Width 13.1 % (11.0-16.0)
[2024-05-15 07:04] LABS: INTERNATIONAL NORM RATIO 2.8 (0.9-1.1); Prothrombin Time 33.5 SEC (11.1-13.3)
[2024-05-15 07:32] LABS: Troponin-I High Sensitivity 6.7 ng/L (<3.5-35.0)
[2024-05-15 07:41] VITALS: BP 140/73; PULSE 72; RESP 18; TEMP 36.1; O2SAT 94
[2024-05-15 08:02] LABS: Anion Gap 13 (12-20); Blood Urea Nitrogen 16 mg/dL (9-16); Calcium 9.1 mg/dL (8.4-10.2); Carbon Dioxide 26 mmol/L (22-29); Chloride 103 mmol/L (96-108); Creatinine Clr Calc Pharmacy 53.3; Estimated Glomerular Filt Rate > 60; Glucose Random 100 mg/dL (60-115); Sodium 138 mmol/L (135-145)
[2024-05-15] MEDS: hydroCHLOROthiazide 25 MG TABLET PO (08:29)
[2024-05-15] MEDS: Cyanocobalamin (Vitamin B-12) 1,000 MCG TABLET 1000 MCG PO (08:29)
[2024-05-15] MEDS: Finasteride 5 MG TABLET PO (08:29)
[2024-05-15] MEDS: Atorvastatin Calcium 20 MG TABLET PO (08:29)
[2024-05-15] MEDS: 0.9 % Sodium Chloride Flush 3 ML SYRINGE IVFLUSH ×3 (08:29→19:23)
[2024-05-15] MEDS: Aspirin Enteric Coated 81 MG TABLET.DR PO (08:29)
[2024-05-15] MEDS: lisinopriL 40 MG TABLET PO (08:29)
[2024-05-15] MEDS: amLODIPine Besylate 10 MG TABLET PO (08:29)
[2024-05-15 08:42] LABS: Potassium 3.8 mmol/L (3.3-5.1)
--- NOTE | 2024-05-15 09:12 | MHC.CM.PN ---
JEYSON 05/15/24, EMR REVIEWED, PT ADMITTED TO OBS W/CHEST PAIN, CM MET W/PT AND PT'S AT BEDSIDE, PT A&O AND ANSWERS ALL QUESTIONS, PT IS INDEP W/CARE, DENIES USE OF DME/SERVICES, PT'S GOAL FOR DC IS HOME, PT OPEN TO [facility] IF NEEDED. PT VERIFIES PCP ON FILE IS CORRECT AND HCP IS PT'S [facility] [phone] AND CM HAS REQUESTED [facility] COPY IN PRIOR TO PT'S DC.
--- NOTE | 2024-05-15 09:57 | P.PNIM_ITS ---
Subjective Subjective Date of Service: 05/15/24 Interval History: chest pain reproducible Physical Exam 2 Vital Signs: Vital Signs: Last Vital Signs Temp 97.0 F 05/15/24 07:41 Pulse 72 05/15/24 07:41 Resp 18 05/15/24 07:41 BP 140/73 H 05/15/24 07:41 Pulse Ox 94 05/15/24 07:41 O2 Del Method Room Air 05/15/24 07:41 BMI result Body Mass Index 27.6 General: AO X 3, no acute distress Resp: CTA bilateral, no accessory muscles used CVS: S1,S2,RRR, murmur GI: soft, non tender, non distended Neuro: motor grossly intact, alert Psych: appropriate affect, appropriate insight Objective Data Active Medications Acetaminophen (Acetaminophen 325 Mg Tablet) 650 mg PO Q6H PRN PRN Reason: Pain, Mild (Pain Scale 1-3), fever or headache Amlodipine Besylate (Amlodipine Besylate 10 Mg Tablet) 10 mg PO DAILY [facility]; Protocol Last Admin: 05/15/24 08:29 Dose: 10 mg Documented By: MARKUS Aspirin (Aspirin Enteric Coated 81 Mg Tablet.) 81 mg PO DAILY [facility] Last Admin: 05/15/24 08:29 Dose: 81 mg Documented By: MARKUS Atorvastatin Calcium (Atorvastatin Calcium 20 Mg Tablet) 20 mg PO DAILY [facility] Last Admin: 05/15/24 08:29 Dose: 20 mg Documented By: MARKUS Calcium Carbonate (Calcium Carbonate 750 Mg Tab.Chew) 750 mg PO Q4H PRN PRN Reason: Heartburn Colchicine (Colchicine 0.6 Mg Tablet) 0.6 mg PO BID PRN PRN Reason: Gout Attack Cyanocobalamin (Cyanocobalamin (Vitamin B-12) 1,000 Mcg Tablet) 1,000 mcg PO DAILY [facility] Last Admin: 05/15/24 08:29 Dose: 1,000 mcg Documented By: MARKUS Finasteride (Finasteride 5 Mg Tablet) 5 mg PO DAILY [facility] Last Admin: 05/15/24 08:29 Dose: 5 mg Documented By: MARKUS Hydrochlorothiazide (Hydrochlorothiazide 25 Mg Tablet) 25 mg PO DAILY [facility]; Protocol Last Admin: 05/15/24 08:29 Dose: 25 mg Documented By: MARKUS Lisinopril (Lisinopril 40 Mg Tablet) 40 mg PO DAILY [facility] Last Admin: 05/15/24 08:29 Dose: 40 mg Documented By: MARKUS Magnesium Hydroxide (Milk Of Magnesia 30 Ml Oral.Susp) 30 ml PO DAILY PRN PRN Reason: Constipation Melatonin (Melatonin 3 Mg Tablet) 6 mg PO BEDTIME PRN PRN Reason: Insomnia Sodium Chloride (0.9 % Sodium Chloride Flush 3 Ml Syringe) 3 ml IVFLUSH QSHIFT [facility] Last Admin: 05/15/24 08:29 Dose: 3 ml Documented By: MARKUS Tamsulosin HCl (Tamsulosin Hcl 0.4 Mg Capsule) 0.4 mg PO BEDTIME [facility] Last Admin: 05/14/24 21:42 Dose: 0.4 mg Documented By: JOSY Warfarin Sodium (Warfarin Sodium 5 Mg Tablet) 5 mg PO DAILY@1800 [facility] Labs 05/15/24 06:33 05/15/24 06:33 Labs: Laboratory Results - last 24 hr 05/14/24 05/14/24 05/14/24 16:59 17:00 17:35 MCV 90.4 MCH 32.0 MCHC 35.4 RDW 13.2 Plt Count 149 L D MPV 11.4 Immature Gran % (Auto) 0.3 Neut % (Auto) 82.5 H Lymph % (Auto) 10.0 L [place] % (Auto) 6.5 Eos % (Auto) 0.4 Baso % (Auto) 0.3 Lymph # (Auto) 1.2 [place] # (Auto) 0.8 Eos # (Auto) 0.1 Baso # (Auto) 0.0 Abs Immat Gran (auto) 0.04 H Absolute Neuts (auto) 9.8 H Absolute Nucleated RBC 0.000 Nucleated RBC % (auto) 0.0 PT 37.1 H INR 3.0 H Anion Gap 12 Estim Creat Clear Calc 52.8 Estimated GFR > 60 Random Glucose 128 H Calcium 10.1 Magnesium 2.2 Total Bilirubin 0.6 AST 19 ALT 18 Alkaline Phosphatase 75 Troponin I High Sens 4.8 B-Natriuretic Peptide 279 H Total Protein 7.3 Albumin 4.3 Lipase 16 Influenza Type A (PCR) Influenza Type B (PCR) RSV RNA Qual (PCR) SARS-CoV-2 RNA (RT-PCR) 05/14/24 05/14/24 05/15/24 18:09 19:02 06:33 MCV 90.8 MCH 31.6 MCHC 34.9 RDW 13.1 Plt Count 142 L MPV 10.6 Immature Gran % (Auto) 0.4 Neut % (Auto) 72.4 Lymph % (Auto) 14.9 L [place] % (Auto) 10.3 Eos % (Auto) 1.6 Baso % (Auto) 0.4 Lymph # (Auto) 1.3 [place] # (Auto) 0.9 Eos # (Auto) 0.1 Baso # (Auto) 0.0 Abs Immat Gran (auto) 0.04 H Absolute Neuts (auto) 6.5 Absolute Nucleated RBC 0.000 Nucleated RBC % (auto) 0.0 PT 33.5 H INR 2.8 H Anion Gap 13 Estim Creat Clear Calc 53.3 Estimated GFR > 60 Random Glucose 100 Calcium 9.1 D Magnesium Total Bilirubin AST ALT Alkaline Phosphatase Troponin I High Sens 5.4 6.7 B-Natriuretic Peptide Total Protein Albumin Lipase Influenza Type A (PCR) NEGATIVE Influenza Type B (PCR) NEGATIVE RSV RNA Qual (PCR) NEGATIVE SARS-CoV-2 RNA (RT-PCR) NEGATIVE Assessment and Plan (1) Chest pain: Status: Acute Plan 84M PMH chronic afib, hld, htn, bph, , aortic anuerysm, presented with chest pain Acute chest pain Likely musculoskeletal, due to history of dilated ascending aortic aneurysm will check CT angio of aorta Cardiology following Follow-up echo to evaluate aortic stenosis Chronic atrial fibrillation Continue Coumadin Hypotension Amlodipine, KIMI inhibitor, hydrochlorothiazide BPH Finasteride dvt prophylaxis - coumadin full code reason for continued hospitalization: echo pending Quality Stroke Does the patient have a stroke diagnosis?: No VTE Prior VTE?: No VTE Risk Level:: Medical - moderate - high VTE Device Contraindication: Treatment Not Indicated VTE Drug Contraindication: N/A - Med Ordered
--- NOTE | 2024-05-15 10:21 | PM.CNCAR ---
History of Present Illness History of Present Illness Date of Service: 05/15/24 Chief complaint: chest pain Narrative: This is a cardiology consultation regarding chest pain. Patient is generally followed up in our clinic. He has a history of chronic atrial fibrillation, ascending aortic aneurysm and aortic stenosis. Not known to have any coronary disease myocardial infarction. 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 Since that time, the pain has been consistent and essentially ongoing for the last 4 days with no changes. Nothing clearly exertional and he states when he walks at does stairs it just feels the same. No other symptoms. He has been admitted for further evaluation because of comorbidities. Review of Systems Review of Systems: Yes all other systems are reviewed and are negative Constitutional: Constitutional: Reports as per HPI and Reports no additional constitutional complaints Eyes: Eyes: Reports as per HPI and Denies no additional eye complaints ENT: Denies system reviewed and no additional complaints, except as documented and Reports as per HPI Cardiovascular: Cardiovascular: Reports as per HPI, Reports no additional cardiovascular complaints, Denies acrocyanosis, Denies cool extremities, Reports chest pain, Denies leg edema, Denies lightheadedness, Denies palpitations and Denies dyspnea Respiratory: Respiratory: Reports as per HPI, Denies no additional respiratory complaints and Denies dyspnea Gastrointestinal: Gastrointestinal: Reports as per HPI and Denies no additional gastrointestinal complaints Genitourinary: Genitourinary: Reports no additional male genitourinary complaints and Reports as per HPI Musculoskeletal: Musculoskeletal: Reports no additional musculoskeletal complaints and Reports as per HPI Integumentary/Breasts: Skin/Breast: Reports system reviewed and no additional complaints, except as docu Neurologic: Reports system reviewed and no additional complaints, except as documented and Reports as per HPI Psychiatric: Psychiatric: Reports no additional psychiatric complaints and Reports as per HPI Endocrine: Endocrine: Reports no additional endocrine complaints, Reports as per HPI and Denies palpitations Hematologic/Lymphatic: Hematologic/Lymphatic: Reports no additional hematologic/lymphatic complaints and Reports as per HPI Allergic/Immunologic: Allergic/Immunologic: Reports no additional allergic/immunologic complaints and Reports as per HPI [facility] Past Medical History Medical History Urinary frequency Hypercholesterolemia Gout Impaired glucose tolerance Obesity (BMI 30.0-34.9) Chronic atrial fibrillation Hypertension Family History Family History Father No problems noted. Mother No problems noted. Surgical History Surgical History No pertinent past surgical history Social History Social History Household Members: Spouse Housing: House Housing Other:: LIVES WITH SPOUSE Alcohol intake: current Alcohol intake frequency: 3 or more drinks per day Alcohol type: beer Comment: 4/day Patient Tobacco Use Status: Never used Tobacco e-Cigarette/Vaping Use: Never Used Second Hand Smoke Exposure: No Advance Directives Date on File: 08/26/20 service: Yes Current occupational status: retired Current occupation: RETIRED Current occupational exposures/hazards: No Cognitive needs: No Hearing needs: No Vision needs: Yes Meds Allergies Allergy/AdvReac Type Severity Reaction Status Date / Time No Known Allergies Allergy Mild Verified 05/14/24 16:09 Active Medications: Current Medications Acetaminophen (Acetaminophen 325 Mg Tablet) 650 mg PO Q6H PRN PRN Reason: Pain, Mild (Pain Scale 1-3), fever or headache Amlodipine Besylate (Amlodipine Besylate 10 Mg Tablet) 10 mg PO DAILY [facility]; Protocol Last Admin: 05/15/24 08:29 Dose: 10 mg Aspirin (Aspirin Enteric Coated 81 Mg Tablet.) 81 mg PO DAILY [facility] Last Admin: 05/15/24 08:29 Dose: 81 mg Atorvastatin Calcium (Atorvastatin Calcium 20 Mg Tablet) 20 mg PO DAILY [facility] Last Admin: 05/15/24 08:29 Dose: 20 mg Calcium Carbonate (Calcium Carbonate 750 Mg Tab.Chew) 750 mg PO Q4H PRN PRN Reason: Heartburn Colchicine (Colchicine 0.6 Mg Tablet) 0.6 mg PO BID PRN PRN Reason: Gout Attack Cyanocobalamin (Cyanocobalamin (Vitamin B-12) 1,000 Mcg Tablet) 1,000 mcg PO DAILY [facility] Last Admin: 05/15/24 08:29 Dose: 1,000 mcg Finasteride (Finasteride 5 Mg Tablet) 5 mg PO DAILY [facility] Last Admin: 05/15/24 08:29 Dose: 5 mg Hydrochlorothiazide (Hydrochlorothiazide 25 Mg Tablet) 25 mg PO DAILY [facility]; Protocol Last Admin: 05/15/24 08:29 Dose: 25 mg Lisinopril (Lisinopril 40 Mg Tablet) 40 mg PO DAILY [facility] Last Admin: 05/15/24 08:29 Dose: 40 mg Magnesium Hydroxide (Milk Of Magnesia 30 Ml Oral.Susp) 30 ml PO DAILY PRN PRN Reason: Constipation Melatonin (Melatonin 3 Mg Tablet) 6 mg PO BEDTIME PRN PRN Reason: Insomnia Sodium Chloride (0.9 % Sodium Chloride Flush 3 Ml Syringe) 3 ml IVFLUSH QSHIFT [facility] Last Admin: 05/15/24 08:29 Dose: 3 ml Tamsulosin HCl (Tamsulosin Hcl 0.4 Mg Capsule) 0.4 mg PO BEDTIME [facility] Last Admin: 05/14/24 21:42 Dose: 0.4 mg Warfarin Sodium (Warfarin Sodium 5 Mg Tablet) 5 mg PO DAILY@1800 [facility] Home Medications ?Medication ?Instructions ?Recorded ?Confirmed ?Last Taken ?Type colchicine 0.6 mg tablet 0.6 mg PO NEEDED PRN Gout Attack 05/14/24 05/14/24 Unknown History cyanocobalamin (vitamin B-12) 1,000 mcg PO DAILY 05/14/24 05/14/24 05/14/24 History 1,000 mcg tablet (Vitamin B-12) Physical Exam Vital Signs: Vital Signs: Last Vital Signs Temp 97.0 F 05/15/24 07:41 Pulse 72 05/15/24 07:41 Resp 18 05/15/24 07:41 BP 140/73 H 05/15/24 07:41 Pulse Ox 94 05/15/24 07:41 O2 Del Method Room Air 05/15/24 07:41 BMI result Body Mass Index 27.6 Const: General: comfortable and no acute distress Orientation/consciousness: patient oriented x3 HEENT: Other: Unremarkable Head: Yes normal to inspection Neck: Neck: Yes normal visual inspection Chest: Chest palpation & inspection: normal inspection of the chest Resp: Auscultation: clear to auscultation bilaterally Cardio: Palpation: normal PMI Heart sounds: S1 normal heart sound present, S2 abnormal, no gallops, Murmur heart sound present systolic III/ and at the right sternal border and no rubs GI: Palpation (GI): Soft to palpation Back/Spine/Pelvis: Other: unremarkable Skin: General skin exam: no rashes or lesions noted Neuro: General: patient oriented x3 Extrem: General: Yes normal to inspection Psych: Mental Status: mental status grossly normal Objective Labs and Meds 05/15/24 06:33 05/15/24 06:33 Lab results: Laboratory Results - last 24 hr 05/14/24 05/14/24 05/14/24 16:59 17:00 17:35 WBC 11.9 H RBC 4.28 L Hgb 13.7 L Hct 38.7 L MCV 90.4 MCH 32.0 MCHC 35.4 RDW 13.2 Plt Count 149 L D MPV 11.4 Immature Gran % (Auto) 0.3 Neut % (Auto) 82.5 H Lymph % (Auto) 10.0 L [place] % (Auto) 6.5 Eos % (Auto) 0.4 Baso % (Auto) 0.3 Lymph # (Auto) 1.2 [place] # (Auto) 0.8 Eos # (Auto) 0.1 Baso # (Auto) 0.0 Abs Immat Gran (auto) 0.04 H Absolute Neuts (auto) 9.8 H Absolute Nucleated RBC 0.000 Nucleated RBC % (auto) 0.0 PT 37.1 H INR 3.0 H Sodium 134 L Potassium 5.0 Chloride 102 Carbon Dioxide 25 Anion Gap 12 BUN 20 H Creatinine 1.13 Estim Creat Clear Calc 52.8 Estimated GFR > 60 Random Glucose 128 H Calcium 10.1 Magnesium 2.2 Total Bilirubin 0.6 AST 19 ALT 18 Alkaline Phosphatase 75 Troponin I High Sens 4.8 B-Natriuretic Peptide 279 H Total Protein 7.3 Albumin 4.3 Lipase 16 Influenza Type A (PCR) Influenza Type B (PCR) RSV RNA Qual (PCR) SARS-CoV-2 RNA (RT-PCR) 05/14/24 05/14/24 05/15/24 18:09 19:02 06:33 WBC 9.0 RBC 4.33 L Hgb 13.7 L Hct 39.3 L MCV 90.8 MCH 31.6 MCHC 34.9 RDW 13.1 Plt Count 142 L MPV 10.6 Immature Gran % (Auto) 0.4 Neut % (Auto) 72.4 Lymph % (Auto) 14.9 L [place] % (Auto) 10.3 Eos % (Auto) 1.6 Baso % (Auto) 0.4 Lymph # (Auto) 1.3 [place] # (Auto) 0.9 Eos # (Auto) 0.1 Baso # (Auto) 0.0 Abs Immat Gran (auto) 0.04 H Absolute Neuts (auto) 6.5 Absolute Nucleated RBC 0.000 Nucleated RBC % (auto) 0.0 PT 33.5 H INR 2.8 H Sodium 138 Potassium 3.8 D Chloride 103 Carbon Dioxide 26 Anion Gap 13 BUN 16 Creatinine 1.03 Estim Creat Clear Calc 53.3 Estimated GFR > 60 Random Glucose 100 Calcium 9.1 D Magnesium Total Bilirubin AST ALT Alkaline Phosphatase Troponin I High Sens 5.4 6.7 B-Natriuretic Peptide Total Protein Albumin Lipase Influenza Type A (PCR) NEGATIVE Influenza Type B (PCR) NEGATIVE RSV RNA Qual (PCR) NEGATIVE SARS-CoV-2 RNA (RT-PCR) NEGATIVE ECG Interpretation: EKG with atrial fibrillation with the right bundle-branch block pattern. Leftward axis. In previous EKG, right bundle-branch block is not seen. Of note, ST changes look better compared to last EKG. Imaging Radiologist's impression: Impressions Chest X-Ray 05/14/24 16:14 IMPRESSION: No active disease. Assessment and Plan (1) Chest pain: Status: Acute (2) Aortic stenosis: Status: Acute (3) Ascending aortic aneurysm: Status: Acute (4) Chronic atrial fibrillation: Status: Acute Plan Unremarkable troponin levels. Last echocardiogram from November with LVEF of 60-65%; moderate aortic stenosis with moderate ascending aortic aneurysm at 4.6 cm. Myocardial perfusion imaging study from 2021 was unremarkable. Overall, somewhat atypical sounding chest pain but known cardiac issues as discussed above. Obtain chest CTA to assess aortic aneurysm. Repeat echocardiogram. Plan after the above are reviewed. Discussed with Dr. West. Procedures Date of Service Date of Service: 05/15/24
[2024-05-15] MEDS: iohexoL 350 MG/ML 100 ML INFUS..BTL 70 ML IV (11:27)
[2024-05-15 11:44] VITALS: BP 109/59; PULSE 76; RESP 18; TEMP 36.2; O2SAT 97
[2024-05-15 15:29] VITALS: BP 111/59; PULSE 77; RESP 20; TEMP 36.3; O2SAT 96
[2024-05-15] MEDS: Warfarin Sodium 5 MG TABLET PO (17:41)
[2024-05-15] MEDS: Tamsulosin HCL 0.4 MG CAPSULE PO (19:22)
[2024-05-15 19:30] VITALS: BP 120/68; PULSE 73; RESP 19; TEMP 36.6; O2SAT 97
[2024-05-15 23:27] VITALS: BP 98/61; PULSE 82; RESP 19; TEMP 36.6; O2SAT 98
[2024-05-16 04:00] VITALS: BP 113/61; PULSE 71; RESP 19; TEMP 36.3; O2SAT 96
[2024-05-16 06:35] LABS: INTERNATIONAL NORM RATIO 2.7 (0.9-1.1); Prothrombin Time 33.4 SEC (11.1-13.3)
--- NOTE | 2024-05-16 07:00 | CA_ITS ---
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 The visually estimated ejection fraction is >70%. - There is severe septal asymmetric hypertrophy. - The left atrium is severely dilated. - There is moderate to severe aortic valve stenosis. Findings Left Ventricle Normal left ventricular cavity size. The left ventricular systolic function is hyperdynamic. The visually estimated ejection fraction is >70%. There is no evidence of regional wall motion abnormalities. Diastolic function is indeterminate on the basis of available data. There is severe septal asymmetric hypertrophy. Right Ventricle Mildly increased right ventricular cavity size. There is normal right ventricular systolic function. Atria The left atrium is severely dilated. The right atrium is mildly dilated. Aortic Valve There is severe calcification of the aortic valve. There is moderate to severe aortic valve stenosis. The peak aortic velocity is 3.70 m/s with a calculated peak gradient of 55 mmHg. The mean gradient is 33 mmHg. The aortic valve area is 1.05 cm2. There is mild aortic valve regurgitation. Mitral Valve There is mild mitral annular calcification. There is trace mitral valve regurgitation. There is no mitral valve stenosis. Pulmonic Valve The pulmonic valve is likely normal. Tricuspid Valve There is mild tricuspid valve regurgitation. There is no evidence of pulmonary hypertension. Great Vessels There is moderate dilatation of the ascending aorta measuring 4.50 cm. Venous The inferior vena cava is normal in size and collapses greater than 50% with inspiration. Pericardium/Pleural There is a small loculated pericardial effusion overlying the left ventricle. Prior Study Comparison Changes noted compared to prior study dated: 11/22/2023. Progression of aortic stenosis. Measurements 2D Linear Measurements IVSd: 1.54 0.6-0.9/0.6-1.0 cm LVIDd: 4.33 3.9-5.3/4.2-5.9 cm LVIDd Index: 2.17 2.4-3.2/2.2-3.1 cm/m2 LVIDs: 2.63 2.0-3.6 cm LVPWd: 1.08 0.7-1.1 cm LV Mass: 264.70 67-162/88-224 g LV Mass Index: 132.35 43-95/49-115 g/m2 LVOT Diam: 2.20 3.0+(-)1.3 cm 2D Systolic Function EF 4C: 72.10 >55% Mitral Valve MV VTI: 0.46 MV Pk Alok: 1.57 MV Mn Alok: 0.78 MV Pk Grad: 10.00 MV Mn Grad: 4.00 MV Pk E: 1.47 MV Decel Time: 281.00 E'Lateral: 5.12 E'Medial: 4.06 E/E' Med: 36.20 E/E' Lat: 28.70 PHT: 82.00 MVA PHT: 2.68 MVA Continuity: 1.85 Decel Finney: 5.26 Aortic Valve AoV Pk Alok: 3.70 AoV Mn Alok: 2.69 AoV VTI: 0.80 AoV Pk Grad: 55.00 Aov Mn Grad: 33.00 MALENA Cont.VTI: 1.05 AI Pk Alok: 3.74 AI Finney: 2.26 LVOT LVOT Pk Alok: 1.00 LVOT Mn Alok: 0.68 LVOT VTI: 0.22 LVOT Pk Grad: 4.00 LVOT Mn Grad: 2.00 LVOT Diam: 2.20 LVOT Area: 3.80 Diastolic Function MV Pk E: 1.47 E'Medial: 4.06 E/E' Med: 36.20 E' Laterial: 5.12 E/E' Lat: 28.70 Right Ventricle TAPSE (mm): 13.50 TVS' Alok: 9.25 Tricuspid Valve TR Pk Alok: 2.55 TR Pk Grad: 26.00 RA Press: 3.00 RVSP: 29.00 Great Vessels Aorta Sinus of Valsalva: 3.98 2.0-3.5 cm Ao Asc: 4.50 2.1-3.4 cm Ao Arch: 3.50 Updated in Other Vendor System with Status of Final Gregg Major MD electronically signed on 05/16/2024 3:06:46 PM with status of Final
[2024-05-16 07:29] VITALS: BP 121/65; PULSE 74; RESP 18; TEMP 36.1; O2SAT 97
[2024-05-16] MEDS: Cyanocobalamin (Vitamin B-12) 1,000 MCG TABLET 1000 MCG PO (07:50)
[2024-05-16] MEDS: 0.9 % Sodium Chloride Flush 3 ML SYRINGE IVFLUSH (07:50)
[2024-05-16] MEDS: Aspirin Enteric Coated 81 MG TABLET.DR PO (07:51)
[2024-05-16] MEDS: Atorvastatin Calcium 20 MG TABLET PO (07:51)
[2024-05-16] MEDS: hydroCHLOROthiazide 25 MG TABLET PO (07:52)
[2024-05-16] MEDS: Finasteride 5 MG TABLET PO (07:53)
[2024-05-16] MEDS: lisinopriL 40 MG TABLET PO (07:53)
[2024-05-16] MEDS: amLODIPine Besylate 10 MG TABLET PO (07:53)
--- NOTE | 2024-05-16 10:03 | PM.PNCARD ---
Subjective Subjective Date of Service: 05/16/24 Interval history: He states he is feeling better. Overall feels okay. Review of Systems Review of Systems Yes all other systems are reviewed and are negative Constitutional: Reports as per HPI and Reports no additional constitutional complaints Eyes: Reports as per HPI and Denies no additional eye complaints Denies system reviewed and no additional complaints, except as documented and Reports as per HPI Cardiovascular: Reports as per HPI, Reports no additional cardiovascular complaints, Denies acrocyanosis, Denies cool extremities, Denies chest pain, Denies leg edema, Denies lightheadedness, Denies palpitations and Denies dyspnea Respiratory: Reports as per HPI, Denies no additional respiratory complaints and Denies dyspnea Gastrointestinal: Reports as per HPI and Denies no additional gastrointestinal complaints Genitourinary: Reports no additional male genitourinary complaints and Reports as per HPI Musculoskeletal: Reports no additional musculoskeletal complaints and Reports as per HPI Skin/Breast: Reports system reviewed and no additional complaints, except as docu Reports system reviewed and no additional complaints, except as documented and Reports as per HPI Psychiatric: Reports no additional psychiatric complaints and Reports as per HPI Endocrine: Reports no additional endocrine complaints, Reports as per HPI and Denies palpitations Hematologic/Lymphatic: Reports no additional hematologic/lymphatic complaints and Reports as per HPI Allergic/Immunologic: Reports no additional allergic/immunologic complaints and Reports as per HPI Physical Exam Vital Signs: Last Vital Signs Temp 97.0 F 05/16/24 07:29 Pulse 74 05/16/24 07:29 Resp 18 05/16/24 07:29 BP 121/65 05/16/24 07:29 Pulse Ox 97 05/16/24 07:29 O2 Del Method Room Air 05/16/24 07:29 BMI result Body Mass Index 27.6 Const General: comfortable and no acute distress Orientation/consciousness: patient oriented x3 HEENT Other: Unremarkable Head: Yes normal to inspection Neck Neck: Yes normal visual inspection Chest Chest palpation & inspection: normal inspection of the chest Resp Auscultation: clear to auscultation bilaterally Cardio Palpation: normal PMI Heart sounds: S1 normal heart sound present, S2 abnormal, no gallops, Murmur heart sound present systolic III/ and at the right sternal border and no rubs GI Palpation (GI): Soft to palpation Back/Spine/Pelvis Other: unremarkable Skin General skin exam: no rashes or lesions noted Neuro General: patient oriented x3 Extrem General: Yes normal to inspection Psych Mental Status: mental status grossly normal Objective Labs and Meds 05/15/24 06:33 05/15/24 06:33 Lab results: Laboratory Results - last 24 hr 05/16/24 06:14 Hold Purple Top SEE NOTE PT 33.4 H INR 2.7 H Imaging Radiologist's impression: Impressions Chest CTA 05/15/24 11:30 IMPRESSION: 1. Ascending aortic aneurysm measuring 4.7 x 4.9 cm. 2. Thrombus within the left atrial appendage. 3. At the inferior apex of the left ventricle is a hyperenhancing structure measuring 1.2 x 0.9 cm. This could represent a focal left ventricular aneurysm or a coronary artery pseudoaneurysm. Motion artifact on this nongated study makes evaluation difficult. Recommend cardiac CTA with noncon, arterial, and venous phases or cardiac MRI for further evaluation. 4. Severe coronary artery calcification. This critical result was discussed with Dr. West on 05/15/2024 5:03 PM, and it was ascertained that the content and urgency of the report was understood at the time of direct communication. Progress Note: A&P Assessment and plan (1) Chest pain: Status: Acute (2) Aortic stenosis: Status: Acute (3) Ascending aortic aneurysm: Status: Acute (4) Chronic atrial fibrillation: Status: Acute Plan Unremarkable troponin levels. Last echocardiogram from November with LVEF of 60-65%; moderate aortic stenosis with moderate ascending aortic aneurysm at 4.6 cm. Myocardial perfusion imaging study from [address] completed yesterday. Ascending aortic size 4.7/4.9 cm. Description of thrombus in the left atrial appendage. 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 Coronary artery calcifications. There is no acute aortic pathology to explain the chest pain. With regard to the question of left atrial appendage thrombus, he is already on adequate anticoagulation and do not think there is anything else to do. The small LV aneurysm itself again does not have any specific clinical implication at this time. He is again on anticoagulation and that may be continued. Await echocardiogram. Will follow-up. Time Spent With Patient Time: Total time managing care of this patient today ____ minutes. Progress Note: Quality Stroke Does the patient have a stroke diagnosis?: No Procedures Date of Service Date of Service: 05/16/24
--- NOTE | 2024-05-16 10:33 | P.DS_ITS ---
DS: Providers Provider Date of Service: 05/16/24 Date of admission: 05/14/24 20:49 Primary care physician: Fausto Boogie MD Consults: 05/14/24 20:49 Consult to Cardiology Routine Consulting Provider: [facility] [place] [facility] Reason for consultation: chest pain, V/ systolic murmur DS: Diagnosis Discharge Diagnosis (1) Chest pain: Status: Acute (2) Aortic stenosis: Status: Acute (3) Ascending aortic aneurysm: Status: Acute (4) Chronic atrial fibrillation: Status: Acute DS: Summary Hospital Course Hospital Course: from initial hpi: 84-year-old male with history of chronic atrial fibrillation anticoagulated with Coumadin, hyperlipidemia, hypertension, BPH, gait instability presented to the ED earlier today for evaluation of nonradiating left-sided chest pain occurring both at rest but slightly worse with exertion that started earlier today. He also states that for the last few days, has had dyspnea on exertion. Denies any lightheadedness, palpitations, near-syncope, syncope. He feels the pain is musculoskeletal in nature but the pain is not reproducible to palpation. Denies any recent illness, fevers, chills, abdominal pain, nausea, vomiting, diarrhea. Does have chronic dry cough at baseline that has not worsened. Since arrival, vital signs are stable. He has a mild leukocytosis of 11.9, mild normocytic anemia with H/H 13.7/38.7%. PT 30 7.1, INR 3.0. Renal function baseline, electrolyte levels normal except for mild hyponatremia of 134. BNP 279. Initial troponin 4.8, repeat 5.4. Negative for COVID-19, RSV, influenza. Chest x-ray unremarkable. EKG shows atrial fibrillation, rate 75 with right bundle branch block, no acute ischemic changes. In the ED, has been given 324 mg aspirin. hospital course: Patient was admitted for chest pain, likely musculoskeletal, was seen by Cardiology recommended CT angiogram of the aorta which showed known aneurysm of 4.7 cm x 4.9 cm, also showed left atrial appendage thrombus, and left apical abnormality, possible ventricular or coronary aneurysm, echo was done which showed normal EF, stable anuerysm, mod-severe , plan is from cardiac cath early next week, will need to hold coumadin and bridge with lovenox. For chronic atrial fibrillation was continued on Coumadin, for hypertension was continued on amlodipine, KIMI inhibitor, hydrochlorothiazide. For BPH was continued on finasteride. Patient is feeling better will be discharged home. Time Attestation Discharge Coordination Time (in mins): 33 Quality: Safe Use of Opioids Does Pt have an Active Cancer Diagnosis on the Problem List?: No Quality: Stroke Does the patient have a stroke diagnosis?: No Physical Exam Vital Signs: Vital Signs: Last Vital Signs Temp 97.0 F 05/16/24 07:29 Pulse 74 05/16/24 07:29 Resp 18 05/16/24 07:29 BP 121/65 05/16/24 07:29 Pulse Ox 97 05/16/24 07:29 O2 Del Method Room Air 05/16/24 07:29 BMI result Body Mass Index 27.6 Const: General: comfortable and no acute distress Orientation/consciousness: patient oriented x3 HEENT: Other: Unremarkable Head: Yes normal to inspection Neck: Neck: Yes normal visual inspection Chest: Chest palpation & inspection: normal inspection of the chest Resp: Auscultation: clear to auscultation bilaterally Cardio: Palpation: normal PMI Heart sounds: S1 normal heart sound present, S2 abnormal, no gallops, Murmur heart sound present systolic III/ and at the right sternal border and no rubs GI: Palpation (GI): Soft to palpation Back/Spine/Pelvis: Other: unremarkable Skin: General skin exam: no rashes or lesions noted Neuro: General: patient oriented x3 Extrem: General: Yes normal to inspection Psych: Mental Status: mental status grossly normal DS: Data Data Completed and Pending Labs on day of discharge: Laboratory Results - last 24 hr 05/16/24 06:14 Hold Purple Top SEE NOTE PT 33.4 H INR 2.7 H Discharge Plan Discharge Anticipated Discharge Date/Time: 05/16/24 10:32 Patient Disposition: Home, Self-Care Discharge Diagnosis: chest pain (likely muscoloskeletal), aortic aneurysm, left atrial appendage thrombus, aortic stenosis Referrals: Po,Fausto Spears MD [Primary Care Provider] - 1 Week Discharge Medications: New enoxaparin 80 mg/0.8 mL syringe 80 mg subcut Q12H Qty: 8 1RF Rx Instructions: start when directed by hide and skin classer based on INR findings on 05/19/24, hold morning of catheterization Continued benazepril 40 mg tablet 40 mg PO DAILY 90 Days Qty: 90 2RF hydrochlorothiazide 25 mg tablet 25 mg PO DAILY Qty: 90 2RF amlodipine 10 mg tablet 10 mg PO DAILY Qty: 90 0RF colchicine 0.6 mg Tablet 0.6 mg PO NEEDED PRN (Reason: Gout Attack) cyanocobalamin (vitamin B-12) [Vitamin B-12] 1,000 mcg Tablet 1,000 mcg PO DAILY atorvastatin 20 mg tablet 20 mg PO DAILY Qty: 30 3RF finasteride [Proscar] 5 mg tablet 5 mg PO DAILY 90 Days Qty: 90 3RF tamsulosin 0.4 mg capsule 0.4 mg PO BEDTIME Qty: 90 2RF Held warfarin 5 mg tablet 5 mg PO DAILY Qty: 90 3RF Hold Instructions: Resume on 05/20/24. Protocol: Dose Management Condition: Sunday (Week One) Dose/Route: 5 mg Instruction: 1 x 5 mg tablet Condition: Sunday Dose/Route: 5 mg Instruction: 1 x 5 mg tablet Condition: Sunday Dose/Route: 5 mg Instruction: 1 x 5 mg tablet Condition: Sunday Dose/Route: 5 mg Instruction: 1 x 5 mg tablet Condition: Dose/Route: 2.5 mg Instruction: 0.5 x 5 mg tablets Condition: Sunday Dose/Route: 5 mg Instruction: 1 x 5 mg tablet Condition: Sunday Dose/Route: 5 mg Instruction: 1 x 5 mg tablet Condition: Sunday (Week Two) Dose/Route: 5 mg Instruction: 1 x 5 mg tablet Condition: Sunday Dose/Route: 5 mg Instruction: 1 x 5 mg tablet Condition: Sunday Dose/Route: 5 mg Instruction: 1 x 5 mg tablet Condition: Sunday Dose/Route: 5 mg Instruction: 1 x 5 mg tablet Condition: Dose/Route: 2.5 mg Instruction: 0.5 x 5 mg tablets Condition: Sunday Dose/Route: 5 mg Instruction: 1 x 5 mg tablet Condition: Sunday Dose/Route: 5 mg Instruction: 1 x 5 mg tablet Protocol Text: Adjustment Start Date: 04/17/24 INR Value: 2.5 INR Date: 03/27/24 Recheck Date: 05/17/24 Additional Instructions: REVIEW FOOD LIST WEEKLY, EAT A MIX OF FRUITS AND VEGETABLES Discharge Orders: Discharge Order (Routine); Ordered 05/16/24 Ordered By: Sajan West Diet: Advance to usual diet Activity on Discharge: As tolerated Stand Alone Forms: Patient Portal Discharge page Print Language: Greek Other Ambulatory Orders: ~PT, ~INR - Anti Coag Clinic (Routine) Timeframe: 20240519 Location: None Selected Ordered By: Sajan West Prothrombin Time INR (Routine) Timeframe: 20240519 Facility: [facility] - Location: Laboratory Ordered By: Sajan West Care Plan Goals: follow anuerysm and aortic valve Health Concerns: anuerysm, aortic valve stenosis, left atrial appendage thrombus Plan of Treatment: plan for cardiac cath next week stop coumadin for now. get INR on sunday morning (walk in) based on results likely to start bridging with lovenox injections on sunday will also need to bridge back onto coumadin after catheterization Assessment: see above
[2024-05-16 11:11] VITALS: BP 134/70; PULSE 83; RESP 20; TEMP 36.1; O2SAT 99
[2024-05-16 15:52] VITALS: BP 110/66; PULSE 83; RESP 16; TEMP 36.6; O2SAT 98
--- NOTE | 2024-05-16 15:52 | MHC.CM.PN ---
Pt is medically cleared for discharge home self-care, pts will transport him home.
== END 2024-05-16 16:24 | disposition home or self-care (01) ==
LOC: HO.ED 19:58 → HO.EDOVER 20:54 → HO.IMC 22:34
PROVIDERS: Physician Assistant; Student in an Organized Health Care Education/Training Program; Admitting Provider Physician Assistant; Emergency Provider Emergency Medicine; PCP Internal Medicine; Visit Provider Internal Medicine
DX: I71.21 Aneurysm of the ascending aorta, without rupture (principal); I51.3 Intracardiac thrombosis, not elsewhere classified; I35.0 Nonrheumatic aortic (valve) stenosis; I48.20 Chronic atrial fibrillation, unspecified; M10.9 Gout, unspecified; I10 Essential (primary) hypertension; E78.5 Hyperlipidemia, unspecified; N40.0 Benign prostatic hyperplasia without lower urinary tract symptoms; R07.9 Chest pain, unspecified; R06.00 Dyspnea, unspecified; I95.9 Hypotension, unspecified; Z79.01 Long term (current) use of anticoagulants; Z79.899 Other long term (current) drug therapy; Z03.818 Encounter for observation for suspected exposure to other biological agents ruled out
CPT/HCPCS: 0241U; 36415; 71045; 71275; 80048; 80053; 83690; 83735; 83880; 84484; 85025; 85610; 93005; 93306; 99222; 99285; Q9957; Q9967

== ENCOUNTER 2024-05-14 20:49 | Outpatient (BNV) | payer MEDICARE, SELFPAY | END 2024-05-16 07:00 | PROVIDERS: Admitting Provider Physician Assistant; Emergency Provider Emergency Medicine; PCP Internal Medicine; Visit Provider Internal Medicine | DX: I35.2 Nonrheumatic aortic (valve) stenosis with insufficiency (principal); I35.8 Other nonrheumatic aortic valve disorders; I42.2 Other hypertrophic cardiomyopathy | CPT/HCPCS: 93306 ==

== ENCOUNTER → 2024-05-14 20:49 | Outpatient (BNV) | payer MEDICARE, SELFPAY | PROVIDERS: Admitting Provider Physician Assistant; Emergency Provider Emergency Medicine; PCP Internal Medicine; Visit Provider Physician Assistant | DX: R07.9 Chest pain, unspecified (principal); I35.0 Nonrheumatic aortic (valve) stenosis | CPT/HCPCS: 99223; 99232; 99239 ==

== ENCOUNTER → 2024-05-14 20:49 | Outpatient (BNV) | payer MEDICARE, SELFPAY | PROVIDERS: Admitting Provider Physician Assistant; Emergency Provider Emergency Medicine; PCP Internal Medicine; Visit Provider Internal Medicine | DX: R07.9 Chest pain, unspecified (principal); I35.0 Nonrheumatic aortic (valve) stenosis; I71.21 Aneurysm of the ascending aorta, without rupture; I48.20 Chronic atrial fibrillation, unspecified | CPT/HCPCS: 93010; 99223; 99233 ==

== ENCOUNTER 2024-05-19 08:31 | Outpatient (REF) | payer MEDICARE, SELFPAY ==
[2024-05-19 09:06] LABS: Prothrombin Time 24.7 SEC (11.1-13.3); Prothrombin Time 24.9 SEC (11.1-13.3)
== END 2024-05-19 08:32 | disposition home or self-care (01) ==
LOC: HO.LAB 08:31
PROVIDERS: PCP Internal Medicine; Referring Provider Internal Medicine; Visit Provider Internal Medicine
DX: Z79.01 Long term (current) use of anticoagulants (principal); I25.10 Atherosclerotic heart disease of native coronary artery without angina pectoris
CPT/HCPCS: 36415; 85610

== ENCOUNTER 2024-05-21 10:39 | Outpatient (AMB) | payer MEDICARE, SELFPAY ==
--- NOTE | 2024-05-21 10:55 | MHC.OFFVISCO ---
Intake Intake Visit Reasons: Anticoagulation Allergies No Known Allergies Allergy (Mild, Verified 05/21/24 10:41) Medication List - Last Reconciled 05/21/24 by Ni Link RN amlodipine 10 mg PO DAILY atorvastatin 20 mg PO DAILY benazepril 40 mg PO DAILY 90 days colchicine 0.6 mg PO NEEDED PRN cyanocobalamin (vitamin B-12) (Vitamin B-12) 1,000 mcg PO DAILY enoxaparin 80 mg (0.8 mL) subcut Q12H finasteride (Proscar) 5 mg PO DAILY 90 days hydrochlorothiazide 25 mg PO DAILY tamsulosin 0.4 mg PO BEDTIME warfarin 5 mg See Protocol PO DAILY Nursing Note FROM 05/19/24 T/C with Dr Major regarding pt Admitted for chest pain, somewhat atypical but he has multiple findings-aortic aneurysm, aortic stenosis, coronary disease, appendage thrombus he was going to have a cardiac cath and warfarin was held x 2 days but due to his condition the procedure will be done at a later time- possibly 1-[address] Major INR 2.0 today, his warfarin was held x 2 days and starting on lovneox today. he will be on lovenox today and tomorrow and will stop lovenox when INR greater than 2.0, resuming warfarin at usual dose and recheck INR wed 05/21/24 can stop lovenox when INR greater than 2.0. Call to pt Anna regarding plan of care and instructions she verbalizes understanding of instructions given. Pt is on lovenox due to his cardiac condition and to make sure INR remains 2.0 or greater. INR: 2.9 in therapeutic range Medications and supplements reviewed will stop lovenox and f/u INR 1 week, pt states level of pain is 1 feels it more when he coughs Denies any signs and symptoms of bleeding or bruising or clotting. Bleeding, bruising, clotting discussed Nutritional guidance given -resume usual diet a mix of fruits and vegetables Dose: 2.5mg x 1 day/ 5mg x 6 days F/U INR: 1 week Patient verbalizes understanding of instructions given Anti-Coag Initial Assessment Social Hx Patient Tobacco Use Status: Never used Tobacco alcohol intake: current Alcohol intake frequency: 3 or more drinks per day Cardiovascular Hx: HTN and Arrhythmias Cancer HX: No Psych. Illness/Depression: No Coding Level of Care Code Est Patient Level 1 Diagnoses Current use of anticoagulant therapy Z79.01 Results AMB INR Fingerstick AMB INR Fingerstick 2.9 Last Edit by Ni Link RN on 05/21/24 10:52 MANUAL ENTRY NO INTERFACING Assessment & Plan Assessment & Plan (1) Current use of anticoagulant therapy: Code(s): Z79.01 - [facility] (current) use of anticoagulants Category: Medical Medications: Discontinued enoxaparin start when directed by rail car repairman based on INR findings on 05/19/24, hold morning of catheterization Discontinued Reason: Patient Completed Course 80 mg See Protocol subcut Q12H 8 mL 1RF
[2024-05-21 11:03] LABS: Prothrombin Time Whole Bld POC 35.1 sec (11.1-13.5); ~PT, ~INR - Anti Coag Clinic 2.9 (0.9-1.1)
== END 2024-05-21 10:59 | disposition home or self-care (01) ==
LOC: HO.ACS 10:39
PROVIDERS: PCP Internal Medicine; Visit Provider Internal Medicine
DX: Z79.01 Long term (current) use of anticoagulants (principal)

== ENCOUNTER → 2024-05-21 10:39 | Outpatient (BNVA) | payer MEDICARE, SELFPAY | PROVIDERS: PCP Internal Medicine; Visit Provider Internal Medicine | DX: I48.20 Chronic atrial fibrillation, unspecified (principal); Z79.01 Long term (current) use of anticoagulants; Z51.81 Encounter for therapeutic drug level monitoring | CPT/HCPCS: 85610; 99211 ==

== ENCOUNTER 2024-05-28 09:01 | Outpatient (AMB) | payer MEDICARE, SELFPAY ==
--- NOTE | 2024-05-28 09:02 | MHC.OFFVIS ---
Vital Signs 05/28/24 09:04 Height 5 ft 9 in Weight 183 lb 6.793 oz BMI 27.1 BP 104/52 L Blood Pressure Location Lt brachial Position Sitting Pulse 62 Pulse Source Pulse Oximeter Intake Visit Reasons: [facility] [place] discharge follow up Title Vehicle Service Attendant Required: No Accompanied by: Spouse Allergies No Known Allergies Allergy (Mild, Verified 05/21/24 10:41) Medication List - Last Reconciled 05/28/24 by Gregg Major MD amlodipine 10 mg PO DAILY atorvastatin 20 mg PO DAILY benazepril 40 mg PO DAILY 90 days colchicine 0.6 mg PO NEEDED PRN cyanocobalamin (vitamin B-12) (Vitamin B-12) 1,000 mcg PO DAILY finasteride (Proscar) 5 mg PO DAILY 90 days hydrochlorothiazide 25 mg PO DAILY tamsulosin 0.4 mg PO BEDTIME warfarin 5 mg See Protocol PO DAILY HPI Comments Details: Paul returns for follow-up regarding various issues including aortic aneurysm, atrial fibrillation among others. He was recently admitted to the hospital with chest pain that happened in the setting of cutting some bushes. Not clear if it is musculoskeletal. Nothing clearly exertional. Any case, he underwent a CT chest and that showed ascending aortic aneurysm as well as a question of left atrial appendage thrombus. I discussed with the radiologist who reported it and he stated that he needs another more dedicated CT to clarify this issue. Patient himself states he feels fine. He still gets some random chest pains but nothing clearly exertional. Overall, very atypical for angina. With regard to the atrial fibrillation, longstanding issue and he does not really feel anything. He has not on any specific medications for that. Only anticoagulation. Of note, on discussing with INRs clinic, he has really not had any major subtherapeutic levels. Hence not clear if the appendage thrombus issue is even true or not. [facility] Medical History Urinary frequency Hypercholesterolemia Gout Impaired glucose tolerance Obesity (BMI 30.0-34.9) Chronic atrial fibrillation Hypertension Surgical History No pertinent past surgical history Family History Father No problems noted. Mother No problems noted. Social History Household Members: Spouse Housing: House Housing Other:: LIVES WITH SPOUSE Alcohol intake: current Alcohol intake frequency: 3 or more drinks per day Alcohol type: beer Comment: 4/day Patient Tobacco Use Status: Never used Tobacco e-Cigarette/Vaping Use: Never Used Second Hand Smoke Exposure: No Advance Directives Date on File: 08/26/20 service: Yes Current occupational status: retired Current occupation: RETIRED Current occupational exposures/hazards: No Cognitive needs: No Hearing needs: No Vision needs: Yes Review of Systems Const Denies chills, Denies fatigue, Denies fever(s), Denies weight gain and Denies weight loss ENT Denies dizziness Card Denies chest pain, Denies leg edema, Denies lightheadedness, Denies palpitations, Denies dyspnea on exertion, Denies orthopnea and Denies other Resp Denies cough and Denies dyspnea on exertion GI Denies hematochezia and Denies change in stool character Musc Denies abnormal gait, Denies muscle weakness, Denies numbness, Denies radiating pain into limb and Denies tingling Neuro Denies abnormal gait, Denies dizziness, Denies numbness and Denies tingling Endo Denies fatigue and Denies palpitations Physical Exam Vital Signs: Last Vital Signs Pulse 62 05/28/24 09:04 BP 104/52 L 05/28/24 09:04 BMI result Body Mass Index 27.1 Const General: comfortable and no acute distress Orientation/consciousness: patient oriented x3 HEENT Other: Unremarkable Head: Yes normal to inspection Neck Neck: Yes normal visual inspection Chest Chest palpation & inspection: normal inspection of the chest Resp Auscultation: clear to auscultation bilaterally Cardio Palpation: normal PMI Heart sounds: S1 normal heart sound present, S2 abnormal, no gallops, Murmur heart sound present systolic III/ and at the right sternal border and no rubs GI Palpation (GI): Soft to palpation Back/Spine/Pelvis Other: unremarkable Skin General skin exam: no rashes or lesions noted Neuro General: patient oriented x3 Extrem General: Yes normal to inspection Psych Mental Status: mental status grossly normal Assessment & Plan Assessment & Plan (1) Chronic atrial fibrillation: Code(s): I48.20 - Chronic atrial fibrillation, unspecified Category: Medical Plan: Stable. Not on any rate or rhythm control medications. Otherwise, continue warfarin. (2) Ascending aorta dilatation: Comment: Code(s): I77.810 - Thoracic aortic ectasia Category: Medical Plan: In the chest CT, measurement is 4.7/4.9 cm. We discussed about the findings today. (3) Aortic stenosis: Comment: Echocardiogram September 2022 1.35 sq cm March 2023 1.November 1.35 Code(s): I35.0 - Nonrheumatic aortic (valve) stenosis Category: Medical Qualifiers: Cardiac valve disease etiology: nonrheumatic Qualified Code(s): I35.0 - Nonrheumatic aortic (valve) stenosis Plan: In the echocardiogram, mean gradient across aortic valve 33 mm Hg, peak 55 mm Hg and calculated valve area 1.05 sq cm. Hyperdynamic LVEF. Severe septal hypertrophy. Overall, thought to be moderate to severe aortic stenosis. No overt symptoms. Eventually, TAVR. (4) Hypertension: Code(s): I10 - Essential (primary) hypertension Category: Medical Plan: Stable. On amlodipine and benazepril. (5) Thrombus of left atrial appendage: Code(s): I51.3 - Intracardiac thrombosis, not elsewhere classified Category: Medical Plan: Discussed with Dr. Massey, over the CTA. He recommends a more dedicated study to assess this further including arterial/delayed phases. Plan Overall, plan is to proceed with a diagnostic catheterization once the left atrial appendage thrombus issue resolved. For this reason, we will obtain a CT scan above as recommended. Then potentially diagnostic catheterization. Upon discussing with Dr. Rivas, issue isstroke risk from interruption of anticoagulation. In that case, we will keep him on Lovenox till the previous night and probably do with the case as 1st case in the morning and then resume anticoagulation as soon as possible with Lovenox bridge. That may be the safest option and we discussed this issue in depth today with patient . Stroke risk from the procedure extensively discussed. Any case, we will await the CT chest before any further plans about catheterization. The chest pain itself is very atypical and seems very random. Orders: Orders Basic Metabolic Panel Today I51.3 - Intracardiac thrombosis, not elsewhere classified CT angio chest aorta Today I51.3 - Intracardiac thrombosis, not elsewhere classified Coding Level of Care Code Est Pt Level 4 (43919) Diagnoses Chronic atrial fibrillation I48.20 Ascending aorta dilatation I77.810 Nonrheumatic aortic valve stenosis I35.0 Cardiac valve disease etiology: nonrheumatic Hypertension I10 Thrombus of left atrial appendage I51.3
[2024-05-28 09:04] VITALS: BP 104/52; PULSE 62; BMI 27.1
== END 2024-05-28 09:42 | disposition home or self-care (01) ==
PROVIDERS: PCP Internal Medicine; Visit Provider Internal Medicine
DX: I48.20 Chronic atrial fibrillation, unspecified (principal); I77.810 Thoracic aortic ectasia; I35.0 Nonrheumatic aortic (valve) stenosis; I10 Essential (primary) hypertension; I51.3 Intracardiac thrombosis, not elsewhere classified
CPT/HCPCS: 99214

== ENCOUNTER → 2024-05-28 09:01 | Outpatient (BNVA) | payer MEDICARE, SELFPAY | PROVIDERS: PCP Internal Medicine; Visit Provider Internal Medicine | DX: I48.20 Chronic atrial fibrillation, unspecified (principal); I77.810 Thoracic aortic ectasia; I35.0 Nonrheumatic aortic (valve) stenosis; I10 Essential (primary) hypertension; I51.3 Intracardiac thrombosis, not elsewhere classified; Z79.01 Long term (current) use of anticoagulants; Z79.899 Other long term (current) drug therapy | CPT/HCPCS: 99212 ==

== ENCOUNTER 2024-06-12 09:58 | Outpatient (AMB) | payer MEDICARE, SELFPAY ==
--- NOTE | 2024-06-12 10:01 | A.OFFPC_ITS ---
Vital Signs 06/12/24 10:02 Height 5 ft 9 in Weight 185 lb 0.8 oz BMI 27.3 BP 100/58 L Blood Pressure Location Lt brachial Position Sitting Pulse 63 Pulse Source Pulse Oximeter Pulse Oximetry (%) 98 Oxygen Delivery Method Room Air Intake Visit Reasons: Cholesterol Allergies No Known Allergies Allergy (Mild, Verified 06/12/24 10:05) Medication List - Last Reconciled 06/12/24 by Melissa Lovett PA-C amlodipine 10 mg PO DAILY atorvastatin 20 mg PO DAILY benazepril 40 mg PO DAILY 90 days colchicine 0.6 mg PO NEEDED PRN cyanocobalamin (vitamin B-12) (Vitamin B-12) 1,000 mcg PO DAILY finasteride (Proscar) 5 mg PO DAILY 90 days hydrochlorothiazide 25 mg PO DAILY tamsulosin 0.4 mg PO BEDTIME warfarin 5 mg See Protocol PO DAILY Tobacco use date assessed: 02/07/24 Fall risk assessment: No Falls in past year Last assessed Fall Risk: 06/12/24 Dental Screening Dental Screen Date: 02/07/24 HPI Cholesterol HPI Details 84-year-old male with past medical histo ry of atrial fibrillation on anticoagulation, impaired glucose tolerance, aortic stenosis, BPH last seen by Dr. Boogie 01/2024 coming in for follow up on cholesterol.? At his last visit his cholesterol was found to be elevated and atorvastatin was increased from 10 mg to 20 mg.? In review of the notes, patient was seen by Cardiology 05/2024 who recommended a diagnostic catheterization once left atrial thrombus resolved we will need to obtain a CT angio.?Patient was seen as [facility] 05/14/2024 for chest pain found to have left atrial appendage thrombus consulted Cardiology and discharged home. Patient states he is doing well today and has no acute concerns. Has a CT angio scheduled for Sunday for better visualization of possible clot versus artifact on previous imaging. He is scheduled to follow up with Cardiology after this imaging is completed. He has not completed his blood work for his cholesterol levels. [facility] Medical History Urinary frequency Hypercholesterolemia Gout Impaired glucose tolerance Obesity (BMI 30.0-34.9) Chronic atrial fibrillation Hypertension Surgical History No pertinent past surgical history Family History Father No problems noted. Mother No problems noted. Social History Household Members: Spouse Housing: House Housing Other:: LIVES WITH SPOUSE Alcohol intake: current Alcohol intake frequency: 3 or more drinks per day Alcohol type: beer Comment: 4/day Patient Tobacco Use Status: Never used Tobacco e-Cigarette/Vaping Use: Never Used Second Hand Smoke Exposure: No Advance Directives Date on File: 08/26/20 service: Yes Current occupational status: retired Current occupation: RETIRED Current occupational exposures/hazards: No Cognitive needs: No Hearing needs: No Vision needs: Yes Questionnaire Thrive Questionnaire Date Thrive assessed: 05/15/24 AUDIT C Alcohol Use Questionnaire (AUDIT-C) 1. How often do you have a drink containing alcohol?: 4 or more times a week 2. How many drinks containing alcohol do you have on a typical day when you are drinking?: 7 to 9 3. How often do you have six or more drinks on one occasion?: Weekly Total Score: 10 Score Reviewed/Action Taken: Yes BLAS-7 AMB Questionnaire BLAS-7 Date BLAS - 7 assessed: 02/07/24 Source: Developed by Drs. Carlos Schwarz, Mary Anne Benson, Bal Duron and colleagues, with an educational aakash from [employer]. Review of Systems Const Denies body aches, Denies chills, Denies fever(s), Denies headache(s) and Denies poor appetite Eyes Reports no additional complaints ENT Denies dysphagia, Denies dizziness, Denies headache(s) and Denies odynophagia Card Denies chest pain, Denies syncope, Denies edema, Denies irregular heart rhythm, Denies lightheadedness and Denies dyspnea Resp Denies cough and Denies dyspnea GI Denies abdominal pain, Denies constipation, Denies dysphagia, Denies diarrhea, Denies nausea, Denies odynophagia and Denies vomiting Reports no additional complaints Musc Reports no additional complaints and Denies abnormal gait Skin/Breast Reports system reviewed and no additional complaints, except as documented Neuro Denies abnormal gait, Denies dizziness, Denies syncope and Denies headache(s) Psych Reports no additional complaints Physical exam (Primary Care) Vital Signs: Last Vital Signs Pulse 63 06/12/24 10:02 BP 100/58 L 06/12/24 10:02 Pulse Ox 98 06/12/24 10:02 Oxygen Delivery Method Room Air 06/12/24 10:02 BMI result Body Mass Index 27.3 Tobacco/Smoking Status: Tobacco use Status Tobacco use date assessed 02/07/24 06/12/24 10:06 Patient Tobacco Use Status Never used Tobacco 06/12/24 10:06 e-Cigarette/Vaping Use Never Used 06/12/24 10:06 Thrive Assessment: Date of Thrive Assessment Date Thrive assessed 05/15/24 06/12/24 10:06 Const General: cooperative, healthy appearing, comfortable and no acute distress Orientation/consciousness: patient oriented x3 HENMT Head: Yes normocephalic Ears: hearing grossly normal bilaterally General nose exam: Normal external nose present Eyes General: appearance normal, both eyes and all related structures Conjunctivae: conjunctivae normal Neck Neck: Yes full ROM and Yes no lymphadenopathy Resp Effort & Inspection: normal respiratory effort Auscultation: clear to auscultation bilaterally, no crackles, no rales, no rhonchi and no wheezes Cardio Rate: regular rate Rhythm: regular rhythm Skin General skin exam: no rashes or lesions noted Neuro General: patient oriented x3 Gait exam (Neuro): Normal gait present Extrem General: Yes normal to inspection, Yes full ROM and No edema Psych Affect: normal affect Attitude: cooperative Insight: Good insight present (Psych) Judgement: Good judgement present (Psych) Assessment and Plan Assessment & Plan (1) Hypercholesterolemia: Code(s): E78.00 - Pure hypercholesterolemia, unspecified Plan: Avoid fried foods, chicken skin, eggs, butter margarine, pastries and meat. Be it pork or beef they have a lot of cholesterol on atorvastatin 10 LDL goal of less than 70. Presently on atorvastatin 20 mg. Cholesterol labs were not done and patient was reminded to have these done. We will follow up in 3 months for annual wellness visit and re-evaluate lipids of the time or sooner if levels are elevated. (2) Atherosclerotic cardiovascular disease: Code(s): I25.10 - Atherosclerotic heart disease of [place] coronary artery without angina pectoris Plan: Control the cholesterol, weight, blood pressure, and continue with anticoagulation (3) Impaired glucose tolerance: Code(s): R73.02 - Impaired glucose tolerance (oral) Plan: Decrease the amount of carbohydrates such as pasta, bread, rice, and potatoes and limit the amount of sweets. Although fruits are generally healthy they should be eaten in moderation as they are still high in sugar. (4) Chronic atrial fibrillation: Code(s): I48.20 - Chronic atrial fibrillation, unspecified Plan: Continue with anticoagulation patient has had Holter done last 2021 and continue to follow up with Cardiology. (5) Hypertension: Code(s): I10 - Essential (primary) hypertension Plan: Continue with blood pressure medication. Decrease salt intake and exercise presently on amlodipine 10 mg once a day benazepril 40 mg once a day and hydrochlorothiazide 25 mg once a day Plan This note was constructed using voice recognition software. While every effort has been made to ensure accuracy and restaurant cashier, still areas may have been included sometimes these areas may affect the content or meeting of the given symptoms. Total time spent caring for the patient today was 30 minutes. This includes time spent before the visit reviewing the chart, time spent during the visit, and time spent after the visit and documentation. Orders: Orders Vitamin B12 and Folate Today Z00.00 - Encounter for general adult medical examination without abnormal findings Vitamin D 25-OH (D2 and D3) Today Z00.00 - Encounter for general adult medical examination without abnormal findings TSH reflex Free T4 Today Z00.00 - Encounter for general adult medical examination without abnormal findings Lipid Panel Today E78.00 - Pure hypercholesterolemia, unspecified Comprehensive Met. Panel Today E78.00 - Pure hypercholesterolemia, unspecified Free T4 (Free Thyroxine) Today Z00.00 - Encounter for general adult medical examination without abnormal findings Coding Level of Care Code Est Pt Level 4 (30559) Diagnoses Hypercholesterolemia E78.00 Atherosclerotic cardiovascular disease I25.10 Impaired glucose tolerance R73.02 Chronic atrial fibrillation I48.20 Hypertension I10
[2024-06-12 10:02] VITALS: BP 100/58; PULSE 63; O2SAT 98; BMI 27.3
== END 2024-06-12 10:23 | disposition home or self-care (01) ==
PROVIDERS: PCP Internal Medicine
DX: E78.00 Pure hypercholesterolemia, unspecified (principal); I25.10 Atherosclerotic heart disease of native coronary artery without angina pectoris; R73.02 Impaired glucose tolerance (oral); I48.20 Chronic atrial fibrillation, unspecified; I10 Essential (primary) hypertension
CPT/HCPCS: 99214

== ENCOUNTER 2024-06-17 13:52 | Outpatient (REF) | payer MEDICARE, SELFPAY ==
--- NOTE | ~2024-06-17 | CT_ITS ---
EXAMINATION: CT ANGIOGRAM CHEST CLINICAL INFORMATION: Intracardiac thrombus COMPARISON: CT 05/15/2024 TECHNIQUE: Multiple axial images were obtained through the chest after the administration of 65 mL of Omnipaque 350 intravenous contrast in arterial and delayed venous phases. Extensive vascular post-processing including two-dimensional and three-dimensional reformatted images were created and reviewed on an independent workstation. This CT examination was performed using dose optimization techniques as appropriate, variously including the following: *Automated exposure control *Adjustment of mA and/or kV according to patient size (this includes techniques or standardized protocols for targeted exams where dose is matched to indication/reason for exam; i.e. extremities or head) *Use of iterative reconstruction technique DLP: 325 mGy-cm FINDINGS: Redemonstration of aneurysmal dilation of the ascending thoracic aorta up to 4.6 x 4.7 cm. No evidence of dissection or other acute aortic syndrome. The aorta tapers towards the arch vessels and measures 3.9 x 4 cm cm at the distal thoracic aorta. At the mid arch the aorta measures 3.2 x 3.3 cm. The descending thoracic aorta is normal in caliber and has relatively extensive eccentric atherosclerotic calcification. There is a three-vessel branching pattern of the aortic arch. The origins of the arch vessels are patent. There is a calcified plaque within the origin of the left subclavian which projects intraluminally, resulting in only mild narrowing. Visualized segments of the arch vessels are otherwise patent. The visualized portion of the abdominal aorta is nonaneurysmal. There is calcific plaque at the origins of the celiac and superior mesenteric arteries with mild narrowing at the origin of the celiac. There is dense calcification at the origins of the renal arteries, though no apparent stenosis is seen. The pulmonary arteries are nondilated in the central venous structures of the chest are unremarkable. Heart is not enlarged. The left atrium is well opacified. Within the left atrial appendage there is a 1.8 x 1.2 cm low-attenuation structure which persists on delayed images compatible with thrombus. Overall similar extent to the prior. Incidental note is made of an accessory left atrial appendage projecting superiorly near the ostium of the right superior pulmonary vein. At the inferior aspect of the left ventricular apex there is myocardial thinning and a 9 mm projection of contrast protruding beyond the margin of the myocardium to the epicardial surface most compatible with a apical aneurysm. The aortic valve is trileaflet and there is dense thickening and calcification of the aortic valve leaflets. The coronary arteries arise from their expected cusps and again there is extensive atherosclerotic calcification of the coronary arteries. The lungs are well expanded. There is no discrete suspicious pulmonary nodule, mass, consolidation, groundglass attenuation seen. Central and peripheral airways are patent and normal appearing. No pleural effusion or pleural nodularity. There is no pericardial effusion. No pathologically enlarged thoracic lymph nodes are seen. No axillary lymphadenopathy seen. There are several old healed rib fractures. No acute or aggressive bony abnormalities are present. The incompletely visualized upper abdomen is unremarkable for any significant abnormality. CT/CT angio chest aorta IMPRESSION: Filling defect within the left atrial appendage compatible with atrial thrombus, similar to prior CT. 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 Trileaflet aortic valve with thickening and calcification of the valve leaflets. Fleischner guidelines were CT 05/15/2024 followed.
[2024-06-17] MEDS: iohexoL 350 MG/ML 100 ML INFUS..BTL IV (14:24)
== END 2024-06-17 13:53 | disposition home or self-care (01) ==
LOC: HO.CT 13:52
PROVIDERS: PCP Internal Medicine; Visit Provider Internal Medicine
DX: I51.3 Intracardiac thrombosis, not elsewhere classified (principal)
CPT/HCPCS: 71275; Q9967

== ENCOUNTER 2024-06-20 09:27 | Outpatient (REF) | payer MEDICARE, SELFPAY ==
[2024-06-20 11:08] LABS: Alanine Aminotransferase 22 U/L (0-40); Albumin Level 4.2 g/dL (3.5-5.0); Alkaline Phosphatase 80 U/L (39-117); Anion Gap 11 (12-20); Aspartate Amino Transferase 19 U/L (5-37); Bilirubin Total 0.6 mg/dL (0.0-1.0); Blood Urea Nitrogen 19 mg/dL (9-16); Calcium 9.7 mg/dL (8.4-10.2); Carbon Dioxide 26 mmol/L (22-29); Chloride 106 mmol/L (96-108); Cholesterol 145 mg/dL (<200); Estimated Glomerular Filt Rate > 60; Glucose Random 95 mg/dL (60-115); HDL Cholesterol 65 mg/dL (>40); LDL Cholesterol Calculated 72 mg/dL (<100); Sodium 139 mmol/L (135-145); Total Protein 7.3 g/dL (6.5-8.0); Triglycerides 42 mg/dL (<150)
[2024-06-20 11:12] LABS: Appearance Urine Clear; Color Urine Yellow; Glucose Urine UA Negative (Negative); Leukocyte Esterase Urine Negative (Negative); Nitrite Urine Negative (Negative); Urine Blood Negative (Negative); Urine Ketones Negative (Negative); Urine Protein Negative (Neg-Trace)
[2024-06-20 11:27] LABS: Free T4 (Free Thyroxine) 1.08 ng/dL (0.71-1.85); TSH reflex Free T4 0.68 uIU/mL (0.32-4.0)
[2024-06-20 11:41] LABS: Folate 8.3 ng/mL (> or = 4.0); Vitamin B12 1049 pg/mL (200-900)
[2024-06-26 13:08] LABS: Vitamin D 25-OH, D2 <4 ng/mL; Vitamin D 25-OH, D3 21 ng/mL; Vitamin D 25-OH, Total 21 ng/mL (30-100)
== END 2024-06-20 09:28 | disposition home or self-care (01) ==
LOC: HO.LAB 09:27
PROVIDERS: PCP Internal Medicine
DX: Z00.00 Encounter for general adult medical examination without abnormal findings (principal); E78.00 Pure hypercholesterolemia, unspecified; R30.0 Dysuria; R35.0 Frequency of micturition; I48.20 Chronic atrial fibrillation, unspecified; Z51.81 Encounter for therapeutic drug level monitoring; Z79.01 Long term (current) use of anticoagulants
CPT/HCPCS: 36415; 80053; 80061; 81003; 82306; 82607; 82746; 84439; 84443; 85610; 99211

== ENCOUNTER 2024-06-20 09:50 | Outpatient (AMB) | payer MEDICARE, SELFPAY ==
[2024-06-20 10:14] LABS: Prothrombin Time Whole Bld POC 37.8 sec (11.1-13.5); ~PT, ~INR - Anti Coag Clinic 3.1 (0.9-1.1)
--- NOTE | 2024-06-20 10:20 | MHC.OFFVISCO ---
Intake Intake Visit Reasons: Anticoagulation Allergies No Known Allergies Allergy (Mild, Verified 06/20/24 10:08) Medication List - Last Reconciled 06/20/24 by Claire Posada RN amlodipine 10 mg PO DAILY atorvastatin 20 mg PO DAILY benazepril 40 mg PO DAILY 90 days colchicine 0.6 mg PO NEEDED PRN cyanocobalamin (vitamin B-12) (Vitamin B-12) 1,000 mcg PO DAILY finasteride (Proscar) 5 mg PO DAILY 90 days hydrochlorothiazide 25 mg PO DAILY tamsulosin 0.4 mg PO BEDTIME warfarin 5 mg See Protocol PO DAILY Nursing Note Pt to ACS accompanied by . INR 3.1?out of therapeutic range of 2-3 Medications and supplements reviewed Patient status: feels well Medications or supplements: no changes Diet: usual diet for pt Denies any signs and symptoms of bleeding or clotting or unusual bruising Bleeding, bruising, clotting discussed Nutritional guidance given: to have a serving of greens today Dose: continue same dose of 5mg X 6 days and 2.5mg X 1 day F/U INR Date : 2 weeks?? Patient verbalizing understanding of instructions given. Anti-Coag Initial Assessment Social Hx Patient Tobacco Use Status: Never used Tobacco alcohol intake: current Alcohol intake frequency: 3 or more drinks per day Cardiovascular Hx: HTN and Arrhythmias Cancer HX: No Psych. 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
== END 2024-06-20 10:22 | disposition home or self-care (01) ==
LOC: HO.ACS 09:50
PROVIDERS: PCP Internal Medicine; Visit Provider Internal Medicine
DX: Z79.01 Long term (current) use of anticoagulants (principal)

== ENCOUNTER 2024-07-03 | Outpatient (REF) | payer MEDICARE, SELFPAY | END 2024-07-03 00:01 | disposition home or self-care (01) | LOC: CF | PROVIDERS: PCP Internal Medicine; Visit Provider Internal Medicine | DX: I48.20 Chronic atrial fibrillation, unspecified (principal); Z51.81 Encounter for therapeutic drug level monitoring; Z79.01 Long term (current) use of anticoagulants | CPT/HCPCS: 85610; 99211 ==

== ENCOUNTER 2024-07-03 08:28 | Outpatient (AMB) | payer MEDICARE, SELFPAY ==
[2024-07-03 08:55] LABS: Prothrombin Time Whole Bld POC 41.7 sec (11.1-13.5); ~PT, ~INR - Anti Coag Clinic 3.5 (0.9-1.1)
--- NOTE | 2024-07-03 09:18 | MHC.OFFVISCO ---
Intake Intake Visit Reasons: Anticoagulation Allergies No Known Allergies Allergy (Mild, Verified 07/03/24 08:44) Medication List - Last Reconciled 07/03/24 by Ni Link RN amlodipine 10 mg PO DAILY atorvastatin 20 mg PO DAILY benazepril 40 mg PO DAILY 90 days cholecalciferol (vitamin D3) 25 mcg PO DAILY colchicine 0.6 mg PO NEEDED PRN cyanocobalamin (vitamin B-12) (Vitamin B-12) 1,000 mcg PO DAILY finasteride (Proscar) 5 mg PO DAILY 90 days hydrochlorothiazide 25 mg PO DAILY tamsulosin 0.4 mg PO BEDTIME warfarin 5 mg See Protocol PO DAILY Nursing Note INR: 3.5 OUT OF therapeutic range, QUESTION OF DIET CHANGES RAISING THE INR- EATING MORE SUMMER FOODS THAT CAN RAISE THE INR Medications and supplements reviewed No changes in health, diet, medications, or supplements, Denies any signs and symptoms of bleeding or bruising or clotting. Bleeding, bruising, clotting discussed Nutritional guidance given - MORE GREENS WITH SUMMER FOODS Dose: ALREADY TOOK TODAY'S DOSE 2.5MG TOMORROW( DUE TO HX OF ANEURYSM) THEN RESUME 2.5MG X 1 DAY/ 5MG X 6 DAYS F/U INR: 2 WEEKS Patient verbalizes understanding of instructions given Anti-Coag Initial Assessment Social Hx Patient Tobacco Use Status: Never used Tobacco alcohol intake: current Alcohol intake frequency: 3 or more drinks per day Cardiovascular Hx: HTN and Arrhythmias Cancer HX: No Psych. Illness/Depression: No Coding Level of Care Code Est Patient Level 1 Diagnoses Current use of anticoagulant therapy Z79.01 Results AMB INR Fingerstick AMB INR Fingerstick 3.5 Last Edit by Ni Link RN on 07/03/24 08:56 manual entry Assessment & Plan Assessment & Plan (1) Current use of anticoagulant therapy: Code(s): Z79.01 - alf (current) use of anticoagulants Category: Medical Medications: Resumed warfarin 5 mg See Protocol PO DAILY 90 tabs 3RF
== END 2024-07-03 09:20 | disposition home or self-care (01) ==
LOC: HO.ACS 08:28
PROVIDERS: PCP Internal Medicine; Visit Provider Internal Medicine
DX: Z79.01 Long term (current) use of anticoagulants (principal)

== ENCOUNTER 2024-07-17 09:12 | Outpatient (AMB) | payer MEDICARE, SELFPAY ==
--- NOTE | 2024-07-17 09:33 | MHC.OFFVISCO ---
Intake Intake Visit Reasons: Anticoagulation Allergies No Known Allergies Allergy (Mild, Verified 07/17/24 09:21) Medication List - Last Reconciled 07/17/24 by Aislinn Gutierrez RN amlodipine 10 mg PO DAILY atorvastatin 20 mg PO DAILY benazepril 40 mg PO DAILY 90 days cholecalciferol (vitamin D3) 25 mcg PO DAILY colchicine 0.6 mg PO NEEDED PRN cyanocobalamin (vitamin B-12) (Vitamin B-12) 1,000 mcg PO DAILY enoxaparin (Lovenox) 80 mg (0.8 mL) subcut Q12H finasteride (Proscar) 5 mg PO DAILY 90 days hydrochlorothiazide 25 mg PO DAILY tamsulosin 0.4 mg PO BEDTIME warfarin 5 mg See Protocol PO DAILY Nursing Note INR: 2.0- in therapeutic range of 2-3 Medications and supplements reviewed- vit d- no interaction with warfarin No changes in health, diet, medications, or supplements, Denies any signs and symptoms of bleeding or bruising or clotting. Bleeding, bruising, clotting discussed Nutritional guidance given Dose: 5mg x 6, 2.5mg x 1 F/U INR: fri 07/25/24 prior to warfarin hold Patient verbalizes understanding of instructions given pt to acs with spouse, pt to have cardiac cath on 07/31/24- warfarin hold and lovenox bridge instructions per composed note cardiology Anti-Coag Initial Assessment Social Hx Patient Tobacco Use Status: Never used Tobacco alcohol intake: current Alcohol intake frequency: 3 or more drinks per day Cardiovascular Hx: HTN and Arrhythmias Cancer HX: No Psych. Illness/Depression: No Coding Level of Care Code Est Patient Level 1 Diagnoses Current use of anticoagulant therapy Z79.01 Assessment & Plan Assessment & Plan (1) Current use of anticoagulant therapy: Code(s): Z79.01 - alf (current) use of anticoagulants Category: Medical
[2024-07-17 09:34] LABS: Prothrombin Time Whole Bld POC 23.7 sec (11.1-13.5)
== END 2024-07-17 10:04 | disposition home or self-care (01) ==
LOC: HO.ACS 09:12
PROVIDERS: PCP Internal Medicine; Visit Provider Internal Medicine
DX: Z79.01 Long term (current) use of anticoagulants (principal)

== ENCOUNTER 2024-07-17 10:04 | Outpatient (REF) | payer MEDICARE, SELFPAY ==
[2024-07-17 11:44] LABS: Hematocrit 41.3 % (42.0-52.0); Hemoglobin 13.9 g/dl (14.0-18.0); Mean Corpuscular HGB Conc 33.7 g/dl (31.0-36.0); Mean Corpuscular Hemoglobin 31.7 pg (27.0-33.0); Mean Corpuscular Volume 94.1 fL (80.0-98.0); Mean Platelet Volume 11.7 fL (9.4-12.4); Platelet Count 147 X10*3/uL (160-400); Red Blood Count 4.39 X10*6/uL (4.60-5.80); Red Cell Distribution Width 13.6 % (11.0-16.0); White Blood Count 6.6 X10*3/uL (4.8-10.8)
[2024-07-17 12:13] LABS: Anion Gap 12 (12-20); Blood Urea Nitrogen 25 mg/dL (9-16); Calcium 9.7 mg/dL (8.4-10.2); Carbon Dioxide 27 mmol/L (22-29); Chloride 102 mmol/L (96-108); Estimated Glomerular Filt Rate 58; Glucose Random 94 mg/dL (60-115); Sodium 137 mmol/L (135-145)
== END 2024-07-17 10:05 | disposition home or self-care (01) ==
LOC: HO.LAB 10:04
PROVIDERS: PCP Internal Medicine; Visit Provider Internal Medicine
DX: I51.3 Intracardiac thrombosis, not elsewhere classified (principal); I25.10 Atherosclerotic heart disease of native coronary artery without angina pectoris; Z79.01 Long term (current) use of anticoagulants
CPT/HCPCS: 36415; 80048; 85027; 85610; 99211

== ENCOUNTER 2024-07-25 13:04 | Outpatient (AMB) | payer MEDICARE, SELFPAY ==
[2024-07-25 13:12] LABS: Prothrombin Time Whole Bld POC 37.6 sec (11.1-13.5); ~PT, ~INR - Anti Coag Clinic 3.1 (0.9-1.1)
--- NOTE | 2024-07-25 13:40 | MHC.OFFVISCO ---
Intake Intake Visit Reasons: Anticoagulation Allergies No Known Allergies Allergy (Mild, Verified 07/17/24 09:21) Nursing Note Pt to ACS accompanied by his INR 3.1?out of therapeutic range of 2-3 Pt scheduled for cardiac cath on 07/31/24. LD of warfarin was to be on Sat 07/26 but since INR high, 3.1, then 07/25 will be last day. Medications and supplements reviewed: no changes Patient status: no changes Medications or supplements: no changes Diet: usual for pt Denies any signs and symptoms of bleeding or clotting or unusual bruising Bleeding, bruising, clotting discussed Nutritional guidance given: to avoid greens when restarting warfarin after the procedure until INR >2.0 Dose: held now for procedure but when ok to restart then take 5mg, then 7.5mg then 5mg and return to ACS for retesting on 08/04/24. Pt and instructed to restart warfarin when surgeon says it's ok and that it will be either 1 to 2 days after procedure. F/U INR Date : 08/04/24?? Patient and verbalizing understanding of instructions given. Anti-Coag Initial Assessment Social Hx Patient Tobacco Use Status: Never used Tobacco alcohol intake: current Alcohol intake frequency: 3 or more drinks per day Cardiovascular Hx: HTN and Arrhythmias Cancer HX: No Psych. 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
== END 2024-07-25 13:49 | disposition home or self-care (01) ==
LOC: HO.ACS 13:04
PROVIDERS: PCP Internal Medicine; Visit Provider Internal Medicine
DX: Z79.01 Long term (current) use of anticoagulants (principal)

== ENCOUNTER → 2024-07-25 13:04 | Outpatient (BNVA) | payer MEDICARE, SELFPAY | PROVIDERS: PCP Internal Medicine; Visit Provider Internal Medicine | DX: I48.20 Chronic atrial fibrillation, unspecified (principal); Z79.01 Long term (current) use of anticoagulants; Z51.81 Encounter for therapeutic drug level monitoring | CPT/HCPCS: 85610; 99211 ==

== ENCOUNTER → 2024-07-31 23:59 | Outpatient (BNV) | payer MEDICARE, SELFPAY | PROVIDERS: PCP Internal Medicine; Visit Provider Internal Medicine Cardiovascular Disease | DX: I35.0 Nonrheumatic aortic (valve) stenosis (principal); R07.9 Chest pain, unspecified | CPT/HCPCS: 93458; 99152 ==

== ENCOUNTER 2024-08-04 09:15 | Outpatient (AMB) | payer MEDICARE, SELFPAY ==
--- NOTE | 2024-08-04 09:30 | MHC.OFFVISCO ---
Intake Intake Visit Reasons: Anticoagulation Allergies No Known Allergies Allergy (Mild, Verified 08/04/24 09:23) Medication List - Last Reconciled 08/04/24 by Aislinn Gutierrez RN amlodipine 10 mg PO DAILY atorvastatin 20 mg PO DAILY benazepril 40 mg PO DAILY 90 days cholecalciferol (vitamin D3) 25 mcg PO DAILY colchicine 0.6 mg PO NEEDED PRN cyanocobalamin (vitamin B-12) (Vitamin B-12) 1,000 mcg PO DAILY enoxaparin (Lovenox) 80 mg See Protocol subcut Q12H finasteride (Proscar) 5 mg PO DAILY 90 days hydrochlorothiazide 25 mg PO DAILY tamsulosin 0.4 mg PO BEDTIME warfarin 5 mg See Protocol PO DAILY Nursing Note INR 1.5-?? out of therapeutic range of 2-3 Medications and supplements reviewed Patient status: pt s/p cardiac cath on 07/31/24 with 5 day hold of warfarin and lovenox bridging pre/post proc Medications or supplements: no changes Diet: appetite is good Denies any signs and symptoms of bleeding or clotting or unusual bruising Bleeding, bruising, clotting discussed Nutritional guidance given: no greens eat -reds to raise Dose: 7.5mg today, then 5mg sun- cont lovenox until inr therapeutic F/U INR Date : 08/07/24? Patient and spouse verbalizing understanding of instructions given. pcp dr riley notified of low inr/dosing and f/u appt. spoke to elmira at 1045. aware pt had cardiac cath 07/31/24 with 5 day hold of warfarin and lovenox pre/post proc composed note written pcp and cardiology Anti-Coag Initial Assessment Social Hx Patient Tobacco Use Status: Never used Tobacco alcohol intake: current Alcohol intake frequency: 3 or more drinks per day Cardiovascular Hx: HTN and Arrhythmias Cancer HX: No Psych. 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
[2024-08-04 09:38] LABS: Prothrombin Time Whole Bld POC 18.3 sec (11.1-13.5); ~PT, ~INR - Anti Coag Clinic 1.5 (0.9-1.1)
== END 2024-08-04 11:00 | disposition home or self-care (01) ==
LOC: HO.ACS 09:15
PROVIDERS: PCP Internal Medicine; Visit Provider Internal Medicine
DX: Z79.01 Long term (current) use of anticoagulants (principal)

== ENCOUNTER → 2024-08-04 09:15 | Outpatient (BNVA) | payer MEDICARE, SELFPAY | PROVIDERS: PCP Internal Medicine; Visit Provider Internal Medicine | DX: I48.20 Chronic atrial fibrillation, unspecified (principal); Z79.01 Long term (current) use of anticoagulants; Z51.81 Encounter for therapeutic drug level monitoring | CPT/HCPCS: 85610; 99212 ==

== ENCOUNTER 2024-08-07 08:27 | Outpatient (AMB) | payer MEDICARE, SELFPAY ==
[2024-08-07 08:36] LABS: Prothrombin Time Whole Bld POC 28.6 sec (11.1-13.5); ~PT, ~INR - Anti Coag Clinic 2.4 (0.9-1.1)
--- NOTE | 2024-08-07 08:45 | MHC.OFFVISCO ---
Intake Intake Visit Reasons: Anticoagulation Allergies No Known Allergies Allergy (Mild, Verified 08/07/24 08:31) Medication List - Last Reconciled 08/07/24 by Claire Posada RN amlodipine 10 mg PO DAILY atorvastatin 20 mg PO DAILY benazepril 40 mg PO DAILY 90 days cholecalciferol (vitamin D3) 25 mcg PO DAILY colchicine 0.6 mg PO NEEDED PRN cyanocobalamin (vitamin B-12) (Vitamin B-12) 1,000 mcg PO DAILY enoxaparin (Lovenox) 80 mg See Protocol subcut Q12H finasteride (Proscar) 5 mg PO DAILY 90 days hydrochlorothiazide 25 mg PO DAILY tamsulosin 0.4 mg PO BEDTIME warfarin 5 mg See Protocol PO DAILY Nursing Note Pt to ACS accompanied by . Pt s/p cardica cath on 07/31/24 with warfarin hold and lovenox bridge. Remains on lovenox up to this visit. INR: 2.4 in therapeutic range of 2-3. Medications and supplements reviewed No changes in health, diet, medications, or supplements, Denies any signs and symptoms of bleeding or bruising or clotting. Bleeding, bruising, clotting discussed Nutritional guidance given to balance 'greens and reds Dose: resume usual dose of 5mg X 6 days and 2.5mg X 1 day () Pt and instructed to stop lovenox today. F/U INR: 3 weeks Patient verbalizes understanding of instructions given Anti-Coag Initial Assessment Social Hx Patient Tobacco Use Status: Never used Tobacco alcohol intake: current Alcohol intake frequency: 3 or more drinks per day Cardiovascular Hx: HTN and Arrhythmias Cancer HX: No Psych. 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
== END 2024-08-07 08:50 | disposition home or self-care (01) ==
LOC: HO.ACS 08:27
PROVIDERS: PCP Internal Medicine; Visit Provider Internal Medicine
DX: Z79.01 Long term (current) use of anticoagulants (principal)

== ENCOUNTER → 2024-08-07 08:27 | Outpatient (BNVA) | payer MEDICARE, SELFPAY | PROVIDERS: PCP Internal Medicine; Visit Provider Internal Medicine | DX: I48.20 Chronic atrial fibrillation, unspecified (principal); Z79.01 Long term (current) use of anticoagulants; Z51.81 Encounter for therapeutic drug level monitoring | CPT/HCPCS: 85610; 99211 ==

== ENCOUNTER 2024-08-14 12:42 | Outpatient (AMB) | payer MEDICARE, SELFPAY ==
[2024-08-14 12:44] VITALS: BP 110/58; PULSE 64; BMI 27.9
--- NOTE | 2024-08-14 12:44 | MHC.OFFVIS ---
Vital Signs 08/14/24 12:44 Height 5 ft 9 in Weight 189 lb 2.506 oz BMI 27.9 BP 110/58 L Blood Pressure Location Lt brachial Position Sitting Pulse 64 Pulse Source Palpation Intake Visit Reasons: Follow up post cardiac cath Credit Specialist Required: No Accompanied by: Spouse Allergies No Known Allergies Allergy (Mild, Verified 08/07/24 08:31) Medication List - Last Reconciled 08/14/24 by Gregg Major MD amlodipine 10 mg PO DAILY atorvastatin 20 mg PO DAILY benazepril 40 mg PO DAILY 90 days cholecalciferol (vitamin D3) 25 mcg PO DAILY colchicine 0.6 mg PO NEEDED PRN cyanocobalamin (vitamin B-12) (Vitamin B-12) 1,000 mcg PO DAILY finasteride (Proscar) 5 mg PO DAILY 90 days hydrochlorothiazide 25 mg PO DAILY tamsulosin 0.4 mg PO BEDTIME warfarin 5 mg See Protocol PO DAILY HPI Comments Details: Paul returns for follow-up regarding various issues including atrial fibrillation, aortic aneurysm as well as aortic stenosis. Overall, he states he feels fine. No specific symptoms. [facility] Medical History (Updated 05/28/24 @ 10:13 by Gregg Major MD) Urinary frequency Hypercholesterolemia Gout Impaired glucose tolerance Obesity (BMI 30.0-34.9) Chronic atrial fibrillation Hypertension Surgical History (Updated 08/14/24 @ 12:50 by Merry Adan CMA) History of cardiac cath Family History Father No problems noted. Mother No problems noted. Social History Household Members: Spouse Housing: House Housing Other:: LIVES WITH SPOUSE Alcohol intake: current Alcohol intake frequency: 3 or more drinks per day Alcohol type: beer Comment: 4/day Patient Tobacco Use Status: Never used Tobacco e-Cigarette/Vaping Use: Never Used Second Hand Smoke Exposure: No Advance Directives Date on File: 08/26/20 service: Yes Current occupational status: retired Current occupation: RETIRED Current occupational exposures/hazards: No Cognitive needs: No Hearing needs: No Vision needs: Yes Review of Systems Const Denies chills, Denies fatigue, Denies fever(s), Denies weight gain and Denies weight loss ENT Denies dizziness Card Denies chest pain, Denies leg edema, Denies lightheadedness, Denies palpitations, Denies dyspnea on exertion, Denies orthopnea and Denies other Resp Denies cough and Denies dyspnea on exertion GI Denies hematochezia and Denies change in stool character Musc Denies abnormal gait, Denies muscle weakness, Denies numbness, Denies radiating pain into limb and Denies tingling Neuro Denies abnormal gait, Denies dizziness, Denies numbness and Denies tingling Endo Denies fatigue and Denies palpitations Physical Exam Vital Signs: Last Vital Signs Pulse 64 08/14/24 12:44 BP 110/58 L 08/14/24 12:44 BMI result Body Mass Index 27.9 Const General: comfortable and no acute distress Orientation/consciousness: patient oriented x3 HEENT Other: Unremarkable Head: Yes normal to inspection Neck Neck: Yes normal visual inspection Chest Chest palpation & inspection: normal inspection of the chest Resp Auscultation: clear to auscultation bilaterally Cardio Palpation: normal PMI Heart sounds: S1 normal heart sound present, S2 abnormal (soft), no gallops, Murmur heart sound present systolic III/ and at the right sternal border and no rubs GI Palpation (GI): Soft to palpation Back/Spine/Pelvis Other: unremarkable Skin General skin exam: no rashes or lesions noted Neuro General: patient oriented x3 Extrem General: Yes normal to inspection Psych Mental Status: mental status grossly normal Assessment & Plan Assessment & Plan (1) Chronic atrial fibrillation: Code(s): I48.20 - Chronic atrial fibrillation, unspecified Category: Medical Plan: Stable. Not on any rate or rhythm control medications. Otherwise, continue warfarin. (2) Ascending aorta dilatation: Comment: Code(s): I77.810 - Thoracic aortic ectasia Category: Medical Plan: In the chest CT, measurement is 4.7/4.9 cm. Will need to be followed. (3) Aortic stenosis: Comment: Echocardiogram September 2022 1.35 sq cm March 2023 1.November 1.35 Code(s): I35.0 - Nonrheumatic aortic (valve) stenosis Category: Medical Qualifiers: Cardiac valve disease etiology: nonrheumatic Qualified Code(s): I35.0 - Nonrheumatic aortic (valve) stenosis Plan: Suspected moderate to severe aortic stenosis. Clinically no symptoms at this time. We will recheck echocardiogram in 6 months. Eventually, TAVR candidate. (4) Hypertension: Code(s): I10 - Essential (primary) hypertension Category: Medical Plan: Stable. On amlodipine and benazepril. (5) Thrombus of left atrial appendage: Code(s): I51.3 - Intracardiac thrombosis, not elsewhere classified Category: Medical Plan: I am not clear if it is a chronic thrombus. His INR is mostly therapeutic. No changes. Plan Discussed with . Orders: Orders CA echo transthoracic complete 6 Months I35.0 - Nonrheumatic aortic (valve) stenosis Coding Level of Care Code Est Pt Level 4 (65017) Diagnoses Chronic atrial fibrillation I48.20 Ascending aorta dilatation I77.810 Nonrheumatic aortic valve stenosis I35.0 Cardiac valve disease etiology: nonrheumatic Hypertension I10 Thrombus of left atrial appendage I51.3
== END 2024-08-14 13:05 | disposition home or self-care (01) ==
PROVIDERS: PCP Internal Medicine; Visit Provider Internal Medicine
DX: I48.20 Chronic atrial fibrillation, unspecified (principal); I77.810 Thoracic aortic ectasia; I35.0 Nonrheumatic aortic (valve) stenosis; I10 Essential (primary) hypertension; I51.3 Intracardiac thrombosis, not elsewhere classified
CPT/HCPCS: 99214

== ENCOUNTER → 2024-08-14 12:42 | Outpatient (BNVA) | payer MEDICARE, SELFPAY | PROVIDERS: PCP Internal Medicine; Visit Provider Internal Medicine | DX: I48.20 Chronic atrial fibrillation, unspecified (principal); I77.810 Thoracic aortic ectasia; I35.0 Nonrheumatic aortic (valve) stenosis; I10 Essential (primary) hypertension; I51.3 Intracardiac thrombosis, not elsewhere classified | CPT/HCPCS: 99212 ==

== ENCOUNTER 2024-08-28 09:13 | Outpatient (AMB) | payer MEDICARE, SELFPAY ==
[2024-08-28 09:33] LABS: Prothrombin Time Whole Bld POC 34.5 sec (11.1-13.5); ~PT, ~INR - Anti Coag Clinic 2.9 (0.9-1.1)
--- NOTE | 2024-08-28 09:35 | MHC.OFFVISCO ---
Intake Intake Visit Reasons: Anticoagulation Allergies No Known Allergies Allergy (Mild, Verified 08/28/24 09:28) Medication List - Last Reconciled 08/28/24 by Ni Link RN amlodipine 10 mg PO DAILY atorvastatin 20 mg PO DAILY benazepril 40 mg PO DAILY 90 days cholecalciferol (vitamin D3) 25 mcg PO DAILY colchicine 0.6 mg PO NEEDED PRN cyanocobalamin (vitamin B-12) (Vitamin B-12) 1,000 mcg PO DAILY finasteride (Proscar) 5 mg PO DAILY 90 days hydrochlorothiazide 25 mg PO DAILY tamsulosin 0.4 mg PO BEDTIME warfarin 5 mg See Protocol PO DAILY Nursing Note INR: 2.9 in therapeutic range Medications and supplements reviewed No changes in health, diet, medications, or supplements, Denies any signs and symptoms of bleeding or bruising or clotting. Bleeding, bruising, clotting discussed Nutritional guidance given - EAT A MIX OF FRUITS AND VEGETABLES F, REVIEW SEASONAL FOODS Dose: KEEP SAME 2.5MG X 1 DAY/ 5MG X 6 DAYS F/U INR: 1 MONTH Patient verbalizes understanding of instructions given Anti-Coag Initial Assessment Social Hx Patient Tobacco Use Status: Never used Tobacco alcohol intake: current Alcohol intake frequency: 3 or more drinks per day Cardiovascular Hx: HTN and Arrhythmias Cancer HX: No Psych. Illness/Depression: No Coding Level of Care Code Est Patient Level 1 Diagnoses Current use of anticoagulant therapy Z79.01 Assessment & Plan Assessment & Plan (1) Current use of anticoagulant therapy: Code(s): Z79.01 - prison (current) use of anticoagulants Category: Medical
== END 2024-08-28 09:42 | disposition home or self-care (01) ==
LOC: HO.ACS 09:13
PROVIDERS: PCP Internal Medicine; Visit Provider Internal Medicine
DX: Z79.01 Long term (current) use of anticoagulants (principal)

== ENCOUNTER → 2024-08-28 09:13 | Outpatient (BNVA) | payer MEDICARE, SELFPAY | PROVIDERS: PCP Internal Medicine; Visit Provider Internal Medicine | DX: I48.20 Chronic atrial fibrillation, unspecified (principal); Z79.01 Long term (current) use of anticoagulants; Z51.81 Encounter for therapeutic drug level monitoring | CPT/HCPCS: 85610; 99211 ==

== ENCOUNTER 2024-09-18 08:55 | Outpatient (AMB) | payer MEDICARE, SELFPAY ==
[2024-09-18 08:58] VITALS: BP 120/62; PULSE 69; O2SAT 99; BMI 27.2
--- NOTE | 2024-09-18 08:58 | AM.OFFVISMDC ---
Intake Vital Signs 09/18/24 08:58 Height 5 ft 9 in Weight 184 lb 0.8 oz BMI 27.2 BP 120/62 Blood Pressure Location Lt brachial Position Sitting Pulse 69 Pulse Source Pulse Oximeter Pulse Oximetry (%) 99 Oxygen Delivery Method Room Air Intake Visit Reasons: AWV [id number] Allergies No Known Allergies Allergy (Mild, Verified 09/18/24 09:14) Medication List - Last Reconciled 09/18/24 by Melissa Lovett PA-C amlodipine 10 mg PO DAILY atorvastatin 20 mg PO DAILY benazepril 40 mg PO DAILY 90 days cholecalciferol (vitamin D3) 25 mcg PO DAILY colchicine 0.6 mg PO NEEDED PRN cyanocobalamin (vitamin B-12) (Vitamin B-12) 1,000 mcg PO DAILY finasteride (Proscar) 5 mg PO DAILY 90 days hydrochlorothiazide 25 mg PO DAILY tamsulosin 0.4 mg PO BEDTIME warfarin 5 mg See Protocol PO DAILY HPI AWV G0438 HPI Details 84-year-old male with past medical history of atrial fibrillation on anticoagulation, impaired glucose tolerance, aortic stenosis, BPH last seen 06/2024 coming in for annual wellness visit. In review of the notes, patient was seen by [facility] Cardiology 08/14/2024 for follow up on atrial fibrillation advised to continue on warfarin was found to have ascending aorta dilation on chest CT and advised repeat echocardiogram and ultrasound. Follows with eye doctor in [place]. Follows with Urology for BPH. He has no acute concerns today. COUNTS INCLUDE 234 BEDS AT THE [facility] Medical History Urinary frequency Hypercholesterolemia Gout Impaired glucose tolerance Obesity (BMI 30.0-34.9) Chronic atrial fibrillation Hypertension Surgical History History of cardiac cath Family History Father No problems noted. Mother No problems noted. Social History Household Members: Spouse Housing: House Housing Other:: LIVES WITH SPOUSE Alcohol intake: current Alcohol intake frequency: 3 or more drinks per day Alcohol type: beer Comment: 4/day Patient Tobacco Use Status: Never used Tobacco e-Cigarette/Vaping Use: Never Used Second Hand Smoke Exposure: No Advance Directives Date on File: 08/26/20 service: Yes Current occupational status: retired Current occupation: RETIRED Current occupational exposures/hazards: No Cognitive needs: No Hearing needs: No Vision needs: Yes Questionnaire Medicare Wellness Checkup What is your age?: 80 or older What gender do you identify with?: male During the past 4 weeks, how much have you been bothered by emotional problems such as feeling anxious, depressed, irritable, sad or downhearted, and blue?: not at all During the past 4 weeks, has your physical & emotional health limited your social activities with family, friends, neighbors, or groups?: not at all During the past 4 weeks, how much bodily pain have you generally had?: no pain During the past 4 weeks, was someone available to help you if you needed & wanted help?: yes, as much as I wanted During the past 4 weeks, what was the hardest physical activity you could do for at least 2 minutes?: moderate Can you get to places out of walking distance without help? (For eg., can you travel alone on buses, taxis or drive your car?): No Can you go shopping for groceries or clothes without someone's help?: Yes Can you prepare your own meals?: No Can you do your housework without help?: No Because of any health problems, do you need the help of another person with your personal care needs such as eating, bathing, dressing or getting around the house?: No Can you handle your own money without help?: Yes During the past 4 weeks, how would you rate your health in general?: very good During the past 4 weeks how have things been going for you?: pretty well Are you having difficulties driving your car?: not applicable, I don't use a car Do you always fasten your seat belt when you are in a car?: yes, usually During past 4 weeks, have you been bothered by the following: never: Sexual problems?, Trouble eating well?, Teeth or denture problems?, Problems using the telephone? and Tiredness or fatigue? and seldom: Falling or dizzy when standing up Have you fallen 2 or more times in the past year?: No Are you afraid of falling?: No Are you a smoker?: no During the past 4 weeks, how many drinks of wine, beer, or other alcoholic beverages did you have?: 10 or more per week Do you exercise for about 20 minutes 3 or more times a week?: no, I usually do not exercise this much Have you been given information to help with the following?: yes: Hazards in your house that might hurt you? and yes: Keeping track of your medications? How often do you have trouble taking medicines the way you have been told to take them?: I always take medicine as prescribed How confident are you that you can control & manage most of your health problems?: very confident What is your race?: White PHQ-9 Over the last 2 weeks, how often have you been bothered by any of the following problems? 1. Little interest or pleasure in doing things: not at all 2. Feeling down, depressed, or hopeless: not at all 3. Trouble falling or staying asleep, or sleeping too much: not at all 4. Feeling tired or having little energy: not at all 5. Poor appetite or overeating: not at all 6. Feeling bad about yourself - or that you are a failure or have let yourself or your family down: not at all 7. Trouble concentrating on things, such as reading the newspaper or watching television: not at all 8. Moving or speaking so slowly that other people could have noticed. Or the opposite - being so fidgety or restless that you have been moving around a lot more than usual: not at all 9. Thoughts that you would be better off or of hurting yourself in some way: not at all Total score: 0 Depression Screening Interpretation: Negative Depression Screening Done: Yes 21151 - PHQ-9 Billing: Yes Source: Developed by Drs. Carlos Schwarz, Mary Anne Benson, Bal Duron and colleagues, with an educational aakash from [employer]. Review of Systems Const Denies body aches, Denies fatigue, Denies fever(s), Denies frequent falls, Denies headache(s) and Denies weakness Eyes Reports no additional complaints and Denies change in vision ENT Denies dysphagia, Denies dizziness, Denies facial pain, Denies headache(s), Denies nasal congestion and Denies odynophagia Card Denies chest pain, Denies syncope, Denies irregular heart rhythm, Denies leg edema, Denies lightheadedness and Denies dyspnea Resp Denies cough and Denies dyspnea GI Denies constipation, Denies dysphagia, Denies dyspepsia, Denies diarrhea, Denies nausea, Denies odynophagia and Denies vomiting Denies dysuria, Denies urinary frequency, Denies urinary hesitancy and Denies urinary urgency Musc Denies back pain and Denies myalgias Skin/Breast Reports system reviewed and no additional complaints, except as documented Neuro Denies dizziness, Denies syncope, Denies frequent falls, Denies headache(s) and Denies weakness Psych Reports no additional complaints Endo Denies fatigue Physical Exam Vital Signs: Last Vital Signs Pulse 69 09/18/24 08:58 BP 120/62 09/18/24 08:58 Pulse Ox 99 09/18/24 08:58 Oxygen Delivery Method Room Air 09/18/24 08:58 BMI result Body Mass Index 27.2 Const General: cooperative, healthy appearing, comfortable and no acute distress Orientation/consciousness: patient oriented x3 HEENT Head: Yes normocephalic Ears: hearing grossly normal bilaterally, external ears normal, TM's normal bilaterally and EAC's normal General nose exam: Normal external nose present Face and sinus: Yes normal facial exam and Yes sinuses nontender Mouth: Normal oral and palatal mucosa present and tongue normal Throat: Yes posterior oropharynx normal Eyes General: appearance normal, both eyes and all related structures Conjunctivae: conjunctivae normal Pupils: Equal, round and reactive pupils present EOM: EOMs intact bilaterally and No Nystagmus present Neck Neck: Yes normal visual inspection, Yes full ROM and Yes no lymphadenopathy Chest Chest palpation & inspection: normal inspection of the chest Resp Effort & Inspection: normal respiratory effort Auscultation: clear to auscultation bilaterally, no crackles, no rales, no rhonchi, no wheezes and breath sounds present Cardio Rate: regular rate Rhythm: regular rhythm Peripheral pulses: radial pulses present and dorsalis pedis present GI Inspection: Yes normal to inspection and No Abdominal wall edema Palpation (GI): Soft to palpation, not firm and nontender Auscultation: normal bowel sounds Rectal Exam - Male: Yes deferred General: Yes no CVA tenderness Back/Spine/Pelvis Back: no CVA tenderness Skin General skin exam: no rashes or lesions noted Neuro General: patient oriented x3 Cranial nerves: Yes Equal, round and reactive pupils present, Yes Midline tongue present, Yes Ability to bilaterally elevate shoulders present and No Nystagmus present Gait exam (Neuro): Normal gait present Extrem General: Yes normal to inspection, Yes full ROM, No no pedal edema and No edema Psych Speech and movement: Normal speech and movement present Affect: normal affect Insight: Good insight present (Psych) Judgement: Good judgement present (Psych) Immunizations tetanus-diphtheria toxoids-Td 2 Lf unit-2 Lf unit/0.5 mL IM suspension Performing Provider: Melissa Lovett PA-C [facility] Administered by: ELBERT Dotson on 09/18/24 09:46 Dose Route Admin Location Dispensed Lot Number Expiration Date NDC Force Variation Equipment Tender 0.5 mL IM Left Deltoid 0.5 mL [id number] 12/22/24 [address]-4 [employer] VIS Given Date VIS Provided VIS Publication Date 09/18/24 Single Vaccine 21 Eligibility Eligibility Date Funding Source Not [facility] Eligible 09/18/24 [facility] Assessment & Plan Assessment & Plan (1) Ascending aortic aneurysm: Comment: 05/2024 CT angiogram of the aorta which showed known aneurysm of 4.7 cm x 4.9 cm, also showed left atrial appendage thrombus, Code(s): I71.21 - Aneurysm of the ascending aorta, without rupture Plan: Cardiology advised to continue monitoring with serial imaging and will have ultrasound scheduled prior to next cardiology visit. (2) BPH (benign prostatic hyperplasia): Code(s): N40.0 - Benign prostatic hyperplasia without lower urinary tract symptoms Plan: Continue on Tamsulosin and continue to follow with Urology. (3) Hypercholesterolemia: Code(s): E78.00 - Pure hypercholesterolemia, unspecified Plan: Avoid foods that are high in cholesterol such as red meat, fried foods, eggs and baked goods. Triglyceride goal of less than 150 and LDL goal of less than 100. Continue on Atorvastatin 20mg (4) Atherosclerotic cardiovascular disease: Code(s): I25.10 - Atherosclerotic heart disease of [place] coronary artery without angina pectoris Plan: Advised tight control of blood pressure, cholesterol and blood sugar. (5) Aortic stenosis: Comment: Echocardiogram September 2022 1.35 sq cm March 2023 1.November 1.35 Code(s): I35.0 - Nonrheumatic aortic (valve) stenosis Qualifiers: Cardiac valve disease etiology: nonrheumatic Qualified Code(s): I35.0 - Nonrheumatic aortic (valve) stenosis Plan: Per Cardiology most likely moderate to severe aortic stenosis, recheck echocardiogram in 6 months and follow up with Cardiology and potentially a TAVR candidate. (6) Overweight (BMI 25.0-29.9): Code(s): E66.3 - Overweight Plan: Healthy diet and regular exercise is encouraged. (7) Impaired glucose tolerance: Code(s): R73.02 - Impaired glucose tolerance (oral) Plan: Decrease the amount of carbohydrates such as pasta, bread, rice, and potatoes and limit the amount of sweets. Although fruits are generally healthy they should be eaten in moderation as they are still high in sugar. Hemoglobin A1c goal of 7% (8) Chronic atrial fibrillation: Code(s): I48.20 - Chronic atrial fibrillation, unspecified Plan: Continue on warfarin continue to follow with Cardiology. (9) Hypertension: Code(s): I10 - Essential (primary) hypertension Plan: Continue on current blood pressure medication. Avoid salt intake and encourage healthy diet and regular exercise. Blood pressure at goal today (10) Current use of anticoagulant therapy: Code(s): Z79.01 - intermediate (current) use of anticoagulants Plan: Continue on warfarin. (11) Annual wellness visit: Code(s): Z00.00 - Encounter for general adult medical examination without abnormal findings Plan: Patient is up-to-date on all recommended routine screenings and vaccinations for his age. [place] of care was reviewed with patient patient was provided with a written screening schedule. MOL[facility] forms were reviewed with patient patient advised to bring completed forms to office to be scanned to chart Plan This note was constructed using voice recognition software. While every effort has been made to ensure accuracy and biological scientist, still areas may have been included sometimes these areas may affect the content or meeting of the given symptoms. Total time spent caring for the patient today was 30 minutes. This includes time spent before the visit reviewing the chart, time spent during the visit, and time spent after the visit and documentation. Orders: Orders Td State Immunization Today Z23 - Encounter for immunization Quality Reporting (2019) Depression/Bipolar (159/160/161/177) PHQ-9: Total score: 0 Coding Level of Care Code Medicare Subsequent (G0439) Diagnoses Ascending aortic aneurysm I71.21 BPH (benign prostatic hyperplasia) N40.0 Hypercholesterolemia E78.00 Atherosclerotic cardiovascular disease I25.10 Nonrheumatic aortic valve stenosis I35.0 Cardiac valve disease etiology: nonrheumatic Overweight (BMI 25.0-29.9) E66.3 Impaired glucose tolerance R73.02 Chronic atrial fibrillation I48.20 Hypertension I10 Current use of anticoagulant therapy Z79.01 Annual wellness visit Z00.00 Additional Codes PHQ-9 - 96769 - PHQ-9 Billing: Yes ([id number])
== END 2024-09-18 09:46 | disposition home or self-care (01) ==
LOC: HO.HMCH 08:56
PROVIDERS: PCP Internal Medicine
DX: Z00.00 Encounter for general adult medical examination without abnormal findings (principal); I71.21 Aneurysm of the ascending aorta, without rupture; I48.20 Chronic atrial fibrillation, unspecified; N40.0 Benign prostatic hyperplasia without lower urinary tract symptoms; E78.00 Pure hypercholesterolemia, unspecified; I25.10 Atherosclerotic heart disease of native coronary artery without angina pectoris; I35.0 Nonrheumatic aortic (valve) stenosis; E66.3 Overweight; R73.02 Impaired glucose tolerance (oral); I10 Essential (primary) hypertension; Z79.01 Long term (current) use of anticoagulants; Z23 Encounter for immunization

== ENCOUNTER → 2024-09-18 08:55 | Outpatient (BNVA) | payer MEDICARE, SELFPAY | PROVIDERS: PCP Internal Medicine | DX: Z00.00 Encounter for general adult medical examination without abnormal findings (principal); Z23 Encounter for immunization; I71.21 Aneurysm of the ascending aorta, without rupture; N40.0 Benign prostatic hyperplasia without lower urinary tract symptoms; E78.00 Pure hypercholesterolemia, unspecified; I25.10 Atherosclerotic heart disease of native coronary artery without angina pectoris; I35.0 Nonrheumatic aortic (valve) stenosis; E66.3 Overweight; R73.02 Impaired glucose tolerance (oral); I48.20 Chronic atrial fibrillation, unspecified; I10 Essential (primary) hypertension; Z79.01 Long term (current) use of anticoagulants | CPT/HCPCS: 90471; 90714; 96127 ==

== ENCOUNTER 2024-09-25 09:10 | Outpatient (AMB) | payer MEDICARE, SELFPAY ==
[2024-09-25 09:40] LABS: ~PT, ~INR - Anti Coag Clinic 2.9 (0.9-1.1)
--- NOTE | 2024-09-25 09:47 | MHC.OFFVISCO ---
Intake Intake Visit Reasons: Anticoagulation Allergies No Known Allergies Allergy (Mild, Verified 09/25/24 09:22) Medication List - Last Reconciled 09/25/24 by Ni Link RN amlodipine 10 mg PO DAILY atorvastatin 20 mg PO DAILY benazepril 40 mg PO DAILY 90 days cholecalciferol (vitamin D3) 25 mcg PO DAILY colchicine 0.6 mg PO NEEDED PRN cyanocobalamin (vitamin B-12) (Vitamin B-12) 1,000 mcg PO DAILY finasteride (Proscar) 5 mg PO DAILY 90 days hydrochlorothiazide 25 mg PO DAILY tamsulosin 0.4 mg PO BEDTIME warfarin 5 mg See Protocol PO DAILY Nursing Note INR: 2.9 in therapeutic range Medications and supplements reviewed No changes in health, diet, medications, or supplements, Denies any signs and symptoms of bleeding or bruising or clotting. Bleeding, bruising, clotting discussed Nutritional guidance given Dose: 2.5MG THURSDAYS/ 5MG X 6 DAYS F/U INR: 1 MONTH Patient verbalizes understanding of instructions given Anti-Coag Initial Assessment Social Hx Patient Tobacco Use Status: Never used Tobacco alcohol intake: current Alcohol intake frequency: 3 or more drinks per day Cardiovascular Hx: HTN and Arrhythmias Cancer HX: No Psych. Illness/Depression: No Coding Level of Care Code Est Patient Level 1 Diagnoses Current use of anticoagulant therapy Z79.01 Results AMB INR Fingerstick AMB INR Fingerstick 2.9 Last Edit by Ni Link RN on 09/25/24 09:30 manual entry Assessment & Plan Assessment & Plan (1) Current use of anticoagulant therapy: Code(s): Z79.01 - penitentiary (current) use of anticoagulants Category: Medical
== END 2024-09-25 09:48 | disposition home or self-care (01) ==
LOC: HO.ACS 09:10
PROVIDERS: PCP Internal Medicine; Visit Provider Internal Medicine
DX: Z79.01 Long term (current) use of anticoagulants (principal)

== ENCOUNTER → 2024-09-25 09:10 | Outpatient (BNVA) | payer MEDICARE, SELFPAY | PROVIDERS: PCP Internal Medicine; Visit Provider Internal Medicine | DX: I48.20 Chronic atrial fibrillation, unspecified (principal); Z79.01 Long term (current) use of anticoagulants; Z51.81 Encounter for therapeutic drug level monitoring | CPT/HCPCS: 85610; 99211 ==

== ENCOUNTER 2024-10-23 09:16 | Outpatient (AMB) | payer MEDICARE, SELFPAY ==
[2024-10-23 09:35] LABS: Prothrombin Time Whole Bld POC 35.1 sec (11.1-13.5); ~PT, ~INR - Anti Coag Clinic 2.9 (0.9-1.1)
--- NOTE | 2024-10-23 09:37 | MHC.OFFVISCO ---
Intake Intake Visit Reasons: Anticoagulation Allergies No Known Allergies Allergy (Mild, Verified 10/23/24 09:28) Medication List - Last Reconciled 10/23/24 by Claire Posada, RN amlodipine 10 mg PO DAILY atorvastatin 20 mg PO DAILY benazepril 40 mg PO DAILY 90 days cholecalciferol (vitamin D3) 25 mcg PO DAILY colchicine 0.6 mg PO NEEDED PRN cyanocobalamin (vitamin B-12) (Vitamin B-12) 1,000 mcg PO DAILY finasteride (Proscar) 5 mg PO DAILY 90 days hydrochlorothiazide 25 mg PO DAILY tamsulosin 0.4 mg PO BEDTIME warfarin 5 mg See Protocol PO DAILY Nursing Note INR: 2.9 in therapeutic range of 2-3 Medications and supplements reviewed No changes in health, diet, medications, or supplements, Denies any signs and symptoms of bleeding or bruising or clotting. Bleeding, bruising, clotting discussed Nutritional guidance given Dose: 5mg X 6 days and 2.5mg X 1 day F/U INR: 4 weeks Patient verbalizes understanding of instructions given Anti-Coag Initial Assessment Social Hx Patient Tobacco Use Status: Never used Tobacco alcohol intake: current Alcohol intake frequency: 3 or more drinks per day Cardiovascular Hx: HTN and Arrhythmias Cancer HX: No Psych. Illness/Depression: No Coding Level of Care Code Est Patient Level 1 Diagnoses Current use of anticoagulant therapy Z79.01 Assessment & Plan Assessment & Plan (1) Current use of anticoagulant therapy: Code(s): Z79.01 - correction (current) use of anticoagulants Category: Medical
== END 2024-10-23 09:39 | disposition home or self-care (01) ==
LOC: HO.ACS 09:16
PROVIDERS: Visit Provider Internal Medicine
DX: Z79.01 Long term (current) use of anticoagulants (principal)

== ENCOUNTER → 2024-10-23 09:16 | Outpatient (BNVA) | payer MEDICARE, SELFPAY | PROVIDERS: Visit Provider Internal Medicine | DX: I48.20 Chronic atrial fibrillation, unspecified (principal); Z79.01 Long term (current) use of anticoagulants; Z51.81 Encounter for therapeutic drug level monitoring | CPT/HCPCS: 85610; 99211 ==

== ENCOUNTER 2024-11-20 09:13 | Outpatient (AMB) | payer MEDICARE, SELFPAY ==
--- NOTE | 2024-11-20 09:42 | MHC.OFFVISCO ---
Intake Intake Visit Reasons: Anticoagulation Allergies No Known Allergies Allergy (Mild, Verified 11/20/24 09:39) Medication List - Last Reconciled 11/20/24 by Ni Link RN amlodipine 10 mg PO DAILY atorvastatin 20 mg PO DAILY benazepril 40 mg PO DAILY 90 days cholecalciferol (vitamin D3) 25 mcg PO DAILY colchicine 0.6 mg PO NEEDED PRN cyanocobalamin (vitamin B-12) (Vitamin B-12) 1,000 mcg PO DAILY finasteride (Proscar) 5 mg PO DAILY 90 days hydrochlorothiazide 25 mg PO DAILY tamsulosin 0.4 mg PO BEDTIME warfarin 5 mg See Protocol PO DAILY Nursing Note INR: 2.8 in therapeutic range Medications and supplements reviewed No changes in health, diet, medications, or supplements, Denies any signs and symptoms of bleeding or bruising or clotting. Bleeding, bruising, clotting discussed Nutritional guidance given- MAKE SURE TO FOLLOW DIET WHILE AWAY ON VACATION Dose: SAME F/U INR: 1 MONTH Patient verbalizes understanding of instructions given Anti-Coag Initial Assessment Social Hx Patient Tobacco Use Status: Never used Tobacco alcohol intake: current Alcohol intake frequency: 3 or more drinks per day Cardiovascular Hx: HTN and Arrhythmias Cancer HX: No Psych. 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
[2024-11-20 09:57] LABS: Prothrombin Time Whole Bld POC 33.1 sec (11.1-13.5); ~PT, ~INR - Anti Coag Clinic 2.8 (0.9-1.1)
== END 2024-11-20 09:53 | disposition home or self-care (01) ==
LOC: HO.ACS 09:13
PROVIDERS: Visit Provider Internal Medicine
DX: Z79.01 Long term (current) use of anticoagulants (principal)

== ENCOUNTER → 2024-11-20 09:13 | Outpatient (BNVA) | payer MEDICARE, SELFPAY | PROVIDERS: Visit Provider Internal Medicine | DX: I48.20 Chronic atrial fibrillation, unspecified (principal); Z79.01 Long term (current) use of anticoagulants; Z51.81 Encounter for therapeutic drug level monitoring; N40.1 Benign prostatic hyperplasia with lower urinary tract symptoms; R35.0 Frequency of micturition; R33.8 Other retention of urine; R39.11 Hesitancy of micturition; Z79.899 Other long term (current) drug therapy | CPT/HCPCS: 81003; 85610; 99211; 99212 ==

== ENCOUNTER 2024-11-20 11:47 | Outpatient (AMB) | payer MEDICARE, SELFPAY ==
--- NOTE | 2024-11-20 11:49 | MHC.OFFVIS ---
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 He complains of urinary frequency and hesitancy. Currently on flomax and proscar. urinary symptoms improv 05/08/24--Here for cystoscopy. Cystoscopy findings enlarged prostate trilobar, multiple diverticuli, no suspicious bladder lesions. We will start finasteride 5 mg daily. continue tamsulosin. Renal US reviewed--04/24/24. Review of chart: 03/06/24--Harjinder is an 84-year-old male who is here as a new patient evaluation due to obstructive BPH symptoms. He complains of urinary frequency and hesitancy. His PCP ordered a bladder ultrasound on 01/03/24 which noted a large postvoid residual and diffuse bladder wall thickening, right bladder diverticulum. Estimated prostate volume 33 mL. The patient is on tamsulosin. I have discussed office cystoscopy and evaluation of upper tracts with renal ultrasound. Urinalysis: Leukocytes negative blood negative. Bladder scan Post Void Residual: 185 mL 01/03/2024--pelvic/bladder ultrasound--Prevoid bladder volume is 436.5 mL. Postvoid bladder volume is 206 mL. Diffuse thickening and irregularity of the bladder wall. Small right bladder diverticulum. Enlarged prostate with volume approximately 33 mL. [facility] Medical History Urinary frequency Hypercholesterolemia Gout Impaired glucose tolerance Obesity (BMI 30.0-34.9) Chronic atrial fibrillation Hypertension Surgical History History of cardiac cath Family History Father No problems noted. Mother No problems noted. Social History Household Members: Spouse Housing: House Housing Other:: LIVES WITH SPOUSE Alcohol intake: current Alcohol intake frequency: 3 or more drinks per day Alcohol type: beer Comment: 4/day Patient Tobacco Use Status: Never used Tobacco e-Cigarette/Vaping Use: Never Used Second Hand Smoke Exposure: No Advance Directives Date on File: 08/26/20 service: Yes Current occupational status: retired Current occupation: RETIRED Current occupational exposures/hazards: No Cognitive needs: No Hearing needs: No Vision needs: Yes Review of Systems Const All systems reviewed & are unremarkable except as noted in HPI and below Reports no additional complaints Eyes Reports no additional complaints ENT Reports no additional complaints Card Reports no additional complaints Resp Reports no additional complaints GI Reports no additional complaints Reports as per HPI Musc Reports no additional complaints Skin/Breast Reports system reviewed and no additional complaints, except as documented Neuro Reports no additional complaints Psych Reports no additional complaints Endo Reports no additional complaints Charlie/Lymph Reports no additional complaints Aller/Immun Reports no additional complaints Results AMB INR Fingerstick AMB INR Fingerstick 2.8 Last Edit by Ni Link RN on 11/20/24 09:48 manual entry AMB Urinalysis, Automated UA Leukoctes 0 Don/uL Last Edit by Natalie Monterroso on 11/20/24 12:01 UA Nitrite Negative Last Edit by Natalie Monterroso on 11/20/24 12:01 UA Urobilinogen 3.5 mg/dL Last Edit by Natalie Monterroso on 11/20/24 12:01 UA Protein 0 mg/dL Last Edit by Natalie Monterroso on 11/20/24 12:01 UA pH 6.0 Last Edit by Natalie Monterroso on 11/20/24 12:01 UA Blood 0 Surjit/uL Last Edit by Natalie Monterroso on 11/20/24 12:01 UA Specific Farrar 1.015 Last Edit by Natalie Monterroso on 11/20/24 12:01 UA Ketone Negative Last Edit by Natalie Monterroso on 11/20/24 12:01 UA Bilirubin 0 mg/dL Last Edit by Natalie Monterroso on 11/20/24 12:01 UA Glucose 0 mg/dL Last Edit by Natalie Monterroso on 11/20/24 12:01 Results Reviewed Results Reviewed: Laboratory Last Values Urine pH (Auto) 6.0 11/20/24 11:52 Specific Farrar (Auto) 1.015 11/20/24 11:52 Urine Protein (Auto) 0 mg/dL 11/20/24 11:52 Glucose (UA)(Auto) 0 mg/dL 11/20/24 11:52 Urine Ketones (Auto) Negative 11/20/24 11:52 Urine Blood (Auto) 0 Surjit/uL 11/20/24 11:52 Urine Nitrite (Auto) Negative 11/20/24 11:52 Urine Bilirubin (Auto) 0 mg/dL 11/20/24 11:52 Urine Urobilinogen (Auto) 3.5 mg/dL 11/20/24 11:52 Leukocyte Esterase (Auto) 0 Don/uL 11/20/24 11:52 Assessment & Plan Assessment & Plan Orders: Orders AMB Urinalysis Automated Today Z13.9 - Encounter for screening, unspecified Coding
== END 2024-11-20 12:16 | disposition home or self-care (01) ==
PROVIDERS: PCP Internal Medicine; Visit Provider Urology
DX: Z13.9 Encounter for screening, unspecified (principal)

== ENCOUNTER 2024-12-25 09:10 | Outpatient (AMB) | payer MEDICARE, SELFPAY ==
[2024-12-25 09:36] LABS: Prothrombin Time Whole Bld POC 46.5 sec (11.1-13.5); ~PT, ~INR - Anti Coag Clinic 3.9 (0.9-1.1)
--- NOTE | 2024-12-25 09:42 | MHC.OFFVISCO ---
Intake Intake Visit Reasons: Anticoagulation Allergies No Known Allergies Allergy (Mild, Verified 12/25/24 09:30) Medication List - Last Reconciled 12/25/24 by Kaye Busch RN amlodipine 10 mg PO DAILY atorvastatin 20 mg PO DAILY benazepril 40 mg PO DAILY 90 days cholecalciferol (vitamin D3) 25 mcg PO DAILY colchicine 0.6 mg PO NEEDED PRN cyanocobalamin (vitamin B-12) (Vitamin B-12) 1,000 mcg PO DAILY finasteride (Proscar) 5 mg PO DAILY hydrochlorothiazide 25 mg PO DAILY tamsulosin 0.4 mg PO BEDTIME warfarin 5 mg See Protocol PO DAILY Nursing Note NO CP,SOB,DIET/MED CHANGES, FALLS OR SX OF BLEEDING. HOLD WARFARIN TOMORROW(TOOK 2.5MGM TODAY) THEN RESUME USUAL DOSE AND FOLLOW-UP IN 2 WEEKS WILL BE SURE TO HAVE DARK GREENS TODAY AND TOMORROW. GOOD UNDERSTANDING OF DOSING INSTR Anti-Coag Initial Assessment Social Hx Patient Tobacco Use Status: Never used Tobacco alcohol intake: current Alcohol intake frequency: 3 or more drinks per day Cardiovascular Hx: HTN and Arrhythmias Cancer HX: No Psych. 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
== END 2024-12-25 09:44 | disposition home or self-care (01) ==
LOC: HO.ACS 09:10
PROVIDERS: Visit Provider Internal Medicine
DX: Z79.01 Long term (current) use of anticoagulants (principal)

== ENCOUNTER → 2024-12-25 09:10 | Outpatient (BNVA) | payer MEDICARE, SELFPAY | PROVIDERS: Visit Provider Internal Medicine | DX: I48.20 Chronic atrial fibrillation, unspecified (principal); Z79.01 Long term (current) use of anticoagulants; Z51.81 Encounter for therapeutic drug level monitoring | CPT/HCPCS: 85610; 99211 ==

== ENCOUNTER 2025-01-08 09:39 | Outpatient (AMB) | payer MEDICARE, SELFPAY ==
[2025-01-08 09:44] LABS: Prothrombin Time Whole Bld POC 40.1 sec (11.1-13.5); ~PT, ~INR - Anti Coag Clinic 3.3 (0.9-1.1)
--- NOTE | 2025-01-08 09:46 | MHC.OFFVISCO ---
Intake Intake Visit Reasons: Anticoagulation Allergies No Known Allergies Allergy (Mild, Verified 01/08/25 09:39) Medication List - Last Reconciled 01/08/25 by Claire Posada RN amlodipine 10 mg PO DAILY atorvastatin 20 mg PO DAILY benazepril 40 mg PO DAILY 90 days cholecalciferol (vitamin D3) 25 mcg PO DAILY colchicine 0.6 mg PO NEEDED PRN cyanocobalamin (vitamin B-12) (Vitamin B-12) 1,000 mcg PO DAILY finasteride (Proscar) 5 mg PO DAILY hydrochlorothiazide 25 mg PO DAILY tamsulosin 0.4 mg PO BEDTIME warfarin 5 mg See Protocol PO DAILY Nursing Note INR: 3.3?out of therapeutic range of 2-3 Medications and supplements reviewed Patient status: well Medications or supplements: no changes Diet: usual diet for pt Denies any signs and symptoms of bleeding or clotting or unusual bruising Bleeding, bruising, clotting discussed Nutritional guidance given: pt to have a serving of greens today Dose: hold today's dose of 2.5mg then 5mg X 6 days and 2.5mg X 1 day F/U INR Date : 2 weeks?? Patient verbalizing understanding of instructions given. Anti-Coag Initial Assessment Social Hx Patient Tobacco Use Status: Never used Tobacco alcohol intake: current Alcohol intake frequency: 3 or more drinks per day Cardiovascular Hx: HTN and Arrhythmias Cancer HX: No Psych. 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
== END 2025-01-08 09:49 | disposition home or self-care (01) ==
LOC: HO.ACS 09:39
PROVIDERS: Visit Provider Internal Medicine
DX: Z79.01 Long term (current) use of anticoagulants (principal)

== ENCOUNTER → 2025-01-08 09:39 | Outpatient (BNVA) | payer MEDICARE, SELFPAY | PROVIDERS: Visit Provider Internal Medicine | DX: I48.20 Chronic atrial fibrillation, unspecified (principal); Z79.01 Long term (current) use of anticoagulants; Z51.81 Encounter for therapeutic drug level monitoring | CPT/HCPCS: 85610; 99211 ==

== ENCOUNTER 2025-01-22 09:29 | Outpatient (AMB) | payer MEDICARE, SELFPAY ==
--- NOTE | 2025-01-22 09:36 | MHC.OFFVISCO ---
Intake Intake Visit Reasons: Anticoagulation Allergies No Known Allergies Allergy (Mild, Verified 01/22/25 09:29) Medication List - Last Reconciled 01/22/25 by Claire Posada RN amlodipine 10 mg PO DAILY atorvastatin 20 mg PO DAILY benazepril 40 mg PO DAILY 90 days cholecalciferol (vitamin D3) 25 mcg PO DAILY colchicine 0.6 mg PO NEEDED PRN cyanocobalamin (vitamin B-12) (Vitamin B-12) 1,000 mcg PO DAILY finasteride (Proscar) 5 mg PO DAILY hydrochlorothiazide 25 mg PO DAILY tamsulosin 0.4 mg PO BEDTIME warfarin 5 mg See Protocol PO DAILY Nursing Note INR: 2.1 in therapeutic range 2-3 Medications and supplements reviewed No changes in health, diet, medications, or supplements, Denies any signs and symptoms of bleeding or bruising or clotting. Bleeding, bruising, clotting discussed Nutritional guidance given to hold greens today and to review the food list and have a serving of food that helps raise the INR. Dose: 5mg X 6 days and 2.5mg X 1 day() F/U INR: 4 weeks Patient verbalizes understanding of instructions given Anti-Coag Initial Assessment Social Hx Patient Tobacco Use Status: Never used Tobacco alcohol intake: current Alcohol intake frequency: 3 or more drinks per day Cardiovascular Hx: HTN and Arrhythmias Cancer HX: No Psych. Illness/Depression: No Coding Level of Care Code Est Patient Level 1 Diagnoses Current use of anticoagulant therapy Z79.01 Results AMB INR Fingerstick AMB INR Fingerstick 2.1 Last Edit by Claire Posada RN on 01/22/25 09:34 interface delay Assessment & Plan Assessment & Plan (1) Current use of anticoagulant therapy: Code(s): Z79.01 - intermediate (current) use of anticoagulants Category: Medical
[2025-01-22 09:42] LABS: Prothrombin Time Whole Bld POC 25.7 sec (11.1-13.5); ~PT, ~INR - Anti Coag Clinic 2.1 (0.9-1.1)
== END 2025-01-22 09:55 | disposition home or self-care (01) ==
LOC: HO.ACS 09:29
PROVIDERS: Visit Provider Internal Medicine
DX: Z79.01 Long term (current) use of anticoagulants (principal)

== ENCOUNTER → 2025-01-22 09:29 | Outpatient (BNVA) | payer MEDICARE, SELFPAY | PROVIDERS: Visit Provider Internal Medicine | DX: I48.20 Chronic atrial fibrillation, unspecified (principal); Z79.01 Long term (current) use of anticoagulants; Z51.81 Encounter for therapeutic drug level monitoring | CPT/HCPCS: 85610; 99211 ==

== ENCOUNTER → 2025-02-12 08:52 | Outpatient (REF) | payer MEDICARE, SELFPAY ==
--- NOTE | 2025-02-12 08:55 | CA_ITS ---
Transthoracic Echocardiogram Patient (Last, First, Middle): Paul Grande C Gender: Male Date of : 1940 Age: 84 Procedure Date: 02/12/2025 Procedure Type: Transthoracic Echocardiogram Location: OP Height: 175.26 cm Weight: 88. kg BSA: 2.04 m2 Heart Rate: bpm BP: 100 / 56 mmHg Business Analyst Consultant: TO Referring MD: Gregg Major MD Symptoms: I35.0 - Nonrheumatic aortic (valve) stenosis Study Quality: Adequate ECG Rhythm: Atrial Fibrillation Conclusions: - The left ventricular systolic function is normal. The calculated ejection fraction is 65% by biplane method. - There is severe calcification of the aortic valve. There is moderate to severe aortic valve stenosis. - There is severe mitral annular calcification. - There is moderate dilatation of the ascending aorta measuring 4.60 cm. Findings Left Ventricle Normal left ventricular cavity size. There is mildly increased left ventricular wall thickness. The left ventricular systolic function is normal. The calculated ejection fraction is 65% by biplane method. There is no evidence of regional wall motion abnormalities. Diastolic function is indeterminate on the basis of available data. There is severe septal asymmetric hypertrophy. Right Ventricle Normal right ventricular cavity size. There is moderately decreased right ventricular systolic function. Atria The left atrium is severely dilated. The right atrium is normal in size. Aortic Valve There is severe calcification of the aortic valve. There is moderate to severe aortic valve stenosis. There is mild to moderate aortic valve regurgitation. Mitral Valve There is severe mitral annular calcification. There is no mitral valve regurgitation. There is no mitral valve stenosis. Pulmonic Valve The pulmonic valve is likely normal. Tricuspid Valve There is mild tricuspid valve regurgitation. There is no evidence of pulmonary hypertension. Great Vessels The aortic arch is normal in size. There is moderate dilatation of the ascending aorta measuring 4.60 cm. Venous The inferior vena cava is mildly dilated and collapses less than 50% with inspiration. Pericardium/Pleural There is no evidence of pericardial effusion. Prior Study Comparison No significant change compared to prior study dated: 05/16/2024. Measurements 2D Linear Measurements IVSd: 1.54 0.6-0.9/0.6-1.0 cm LVIDd: 4.30 3.9-5.3/4.2-5.9 cm LVIDd Index: 2.11 2.4-3.2/2.2-3.1 cm/m2 LVIDs: 2.90 2.0-3.6 cm LVPWd: 1.25 0.7-1.1 cm LV Mass: 287.97 67-162/88-224 g LV Mass Index: 141.16 43-95/49-115 g/m2 LVOT Diam: 2.30 3.0+(-)1.3 cm 2D Systolic Function EF 4C: 67.10 >55% EF 2C: 62.20 >55% EF BiP: 64.60 >55% Mitral Valve MV VTI: 0.43 MV Pk Alok: 1.52 MV Mn Alok: 0.80 MV Pk Grad: 9.00 MV Mn Grad: 3.00 MV Pk E: 1.60 MV Decel Time: 258.00 E'Lateral: 4.02 E'Medial: 3.30 E/E' Med: 48.50 E/E' Lat: 39.80 PHT: 76.00 MVA PHT: 2.89 MVA Continuity: 2.44 Decel [place]ier: 6.24 Aortic Valve AoV Pk Alok: 3.81 AoV Mn Alok: 2.93 AoV VTI: 0.93 AoV Pk Grad: 58.00 Aov Mn Grad: 37.00 MALENA Cont.VTI: 1.12 AI Pk Alok: 3.61 AI Glacier: 1.91 LVOT LVOT Pk Alok: 1.06 LVOT Mn Alok: 0.78 LVOT VTI: 0.25 LVOT Pk Grad: 4.00 LVOT Mn Grad: 3.00 LVOT Diam: 2.30 LVOT Area: 4.15 Diastolic Function MV Pk E: 1.60 E'Medial: 3.30 E/E' Med: 48.50 E' Laterial: 4.02 E/E' Lat: 39.80 Right Ventricle TAPSE (mm): 11.00 TVS' Alok: 9.10 Tricuspid Valve TR Pk Alok: 2.55 TR Pk Grad: 26.00 RA Press: 15.00 RVSP: 41.00 Great Vessels Aorta Sinus of Valsalva: 3.80 2.0-3.5 cm Ao Asc: 4.60 2.1-3.4 cm Ao Arch: 3.50 Updated in Other Vendor System with Status of Final Gregg Major MD electronically signed on 02/14/2025 11:12:00 AM with status of Final
== END ==
LOC: HO.CARD 08:52
PROVIDERS: PCP Internal Medicine; Visit Provider Internal Medicine
DX: I35.0 Nonrheumatic aortic (valve) stenosis (principal)
CPT/HCPCS: 93306

== ENCOUNTER → 2025-02-12 08:55 | Outpatient (BNV) | payer MEDICARE, SELFPAY | PROVIDERS: PCP Internal Medicine; Visit Provider Internal Medicine | DX: I35.2 Nonrheumatic aortic (valve) stenosis with insufficiency (principal); I42.2 Other hypertrophic cardiomyopathy; I34.81 Nonrheumatic mitral (valve) annulus calcification; I71.21 Aneurysm of the ascending aorta, without rupture | CPT/HCPCS: 93306 ==

== ENCOUNTER 2025-02-19 09:24 | Outpatient (AMB) | payer MEDICARE, SELFPAY ==
[2025-02-19 09:30] LABS: Prothrombin Time Whole Bld POC 35.5 sec (11.1-13.5)
--- NOTE | 2025-02-19 09:41 | MHC.OFFVISCO ---
Intake Intake Visit Reasons: Anticoagulation Allergies No Known Allergies Allergy (Mild, Verified 02/19/25 09:24) Medication List - Last Reconciled 02/19/25 by Claire Posada RN amlodipine 10 mg PO DAILY atorvastatin 20 mg PO DAILY benazepril 40 mg PO DAILY 90 days cholecalciferol (vitamin D3) 25 mcg PO DAILY colchicine 0.6 mg PO NEEDED PRN cyanocobalamin (vitamin B-12) (Vitamin B-12) 1,000 mcg PO DAILY finasteride (Proscar) 5 mg PO DAILY hydrochlorothiazide 25 mg PO DAILY tamsulosin 0.4 mg PO BEDTIME warfarin 5 mg See Protocol PO DAILY Nursing Note INR: 3.0 in therapeutic range of 2-3 Medications and supplements reviewed No changes in health, diet, medications, or supplements, Denies any signs and symptoms of bleeding or bruising or clotting. Bleeding, bruising, clotting discussed Nutritional guidance given to have a serving of greens today Dose: 5mg X 6 days and 2.5mg X 1 day () F/U INR: 4 weeks Patient verbalizes understanding of instructions given Anti-Coag Initial Assessment Social Hx Patient Tobacco Use Status: Never used Tobacco alcohol intake: current Alcohol intake frequency: 3 or more drinks per day Cardiovascular Hx: HTN and Arrhythmias Cancer HX: No Psych. 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
== END 2025-02-19 09:45 | disposition home or self-care (01) ==
LOC: HO.ACS 09:24
PROVIDERS: PCP Internal Medicine; Visit Provider Internal Medicine Medical Oncology
DX: Z79.01 Long term (current) use of anticoagulants (principal)

== ENCOUNTER → 2025-02-19 09:24 | Outpatient (BNVA) | payer MEDICARE, SELFPAY | PROVIDERS: PCP Internal Medicine; Visit Provider Internal Medicine Medical Oncology | DX: I48.20 Chronic atrial fibrillation, unspecified (principal); Z79.01 Long term (current) use of anticoagulants; Z51.81 Encounter for therapeutic drug level monitoring | CPT/HCPCS: 85610; 99211 ==

== ENCOUNTER 2025-03-19 09:27 | Outpatient (AMB) | payer MEDICARE, SELFPAY ==
[2025-03-19 09:58] LABS: Prothrombin Time Whole Bld POC 37.5 sec (11.1-13.5); ~PT, ~INR - Anti Coag Clinic 3.1 (0.9-1.1)
--- NOTE | 2025-03-19 10:01 | MHC.OFFVISCO ---
Intake Intake Visit Reasons: Anticoagulation Allergies No Known Allergies Allergy (Mild, Verified 03/19/25 09:50) Medication List - Last Reconciled 03/19/25 by Ni Link RN amlodipine 10 mg PO DAILY atorvastatin 20 mg PO DAILY benazepril 40 mg PO DAILY cholecalciferol (vitamin D3) 25 mcg PO DAILY colchicine 0.6 mg PO NEEDED PRN cyanocobalamin (vitamin B-12) (Vitamin B-12) 1,000 mcg PO DAILY finasteride (Proscar) 5 mg PO DAILY hydrochlorothiazide 25 mg PO DAILY tamsulosin 0.4 mg PO BEDTIME warfarin 5 mg See Protocol PO DAILY Nursing Note INR: 3.1 almost therapeutic range Medications and supplements reviewed No changes in health, diet, medications, or supplements, Denies any signs and symptoms of bleeding or bruising or clotting. Bleeding, bruising, clotting discussed Nutritional guidance given - remember to review food list with season changes, eat greens today Dose: keep same 2.5mg x 1 day/ 5mg x 6 days F/U INR: 1 month Patient verbalizes understanding of instructions given Anti-Coag Initial Assessment Social Hx Patient Tobacco Use Status: Never used Tobacco alcohol intake: current Alcohol intake frequency: 3 or more drinks per day Cardiovascular Hx: HTN and Arrhythmias Cancer HX: No Psych. Illness/Depression: No Questionnaires HAS-BLED Does the patient had uncontrolled Hypertension?: No Does the patient have renal disease?: No Does the patient have liver disease?: No Does the patient have a history of stroke?: No Has the patient had major bleeding or predisposition to bleeding?: Yes (ascending aortic aneurysm) Does the patient have labile INRs?: No Is the patient over 65 years of age?: Yes Is the patient on medications that gives them a predisposition to bleeding?: Yes Does the patient use alcohol?: Yes (hx of ) HAS-BLED Score: 4 CHADSVASC Age: 75 or over Gender: Male Does the patient have a history of CHF?: Yes Does the patient have a history of Hypertension?: Yes Does the patient have a history of Stroke/TIA/Thromboembolism?: No Does the patient have a history of Vascular Disease (prior VA, PAD or aortic plaque)?: Yes Does the patient have a history of Diabetes?: No CHADS VACS Score: 5 [place] Prediction Score Rsk VTE Active Cancer: No Previous VTE, excluding superficial vein thrombosis: No Reduced mobility: No Already known Thrombophilic Condition: No With-in last month Trauma and/or Surgery: No Elderly 70 year or older: Yes Heart and/or Respiratory Failure: Yes Acute Myocardial infarction and/or Ischemic Stroke: No Acute Infection and/or Rheumatologic Disorder: No Obesity (BMI 30 or greater): No Ongoing Hormonal Treatment: No Score: 2 Helena Score less than 4; Low Risk of VTE Helena Score 4 or greater; High Risk of VTE Coding Level of Care Code Est Patient Level 1 Diagnoses Current use of anticoagulant therapy Z79.01 Assessment & Plan Assessment & Plan (1) Current use of anticoagulant therapy: Code(s): Z79.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
== END 2025-03-19 10:07 | disposition home or self-care (01) ==
LOC: HO.ACS 09:27
PROVIDERS: PCP Internal Medicine; Visit Provider Internal Medicine Medical Oncology
DX: Z79.01 Long term (current) use of anticoagulants (principal)

== ENCOUNTER → 2025-03-19 09:27 | Outpatient (BNVA) | payer MEDICARE, SELFPAY | PROVIDERS: PCP Internal Medicine; Visit Provider Internal Medicine Medical Oncology | DX: I48.20 Chronic atrial fibrillation, unspecified (principal); Z79.01 Long term (current) use of anticoagulants; Z51.81 Encounter for therapeutic drug level monitoring | CPT/HCPCS: 85610; 99211 ==

== ENCOUNTER 2025-03-26 11:12 | Outpatient (AMB) | payer MEDICARE, SELFPAY ==
--- NOTE | 2025-03-26 11:15 | MHC.OFFVIS ---
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 Required: No Accompanied by: Spouse Allergies No Known Allergies Allergy (Mild, Verified 03/19/25 09:50) Medication List - Last Reconciled 03/26/25 by Gregg Major MD amlodipine 10 mg PO DAILY atorvastatin 20 mg PO DAILY benazepril 40 mg PO DAILY cholecalciferol (vitamin D3) 25 mcg PO DAILY colchicine 0.6 mg PO NEEDED PRN cyanocobalamin (vitamin B-12) (Vitamin B-12) 1,000 mcg PO DAILY finasteride (Proscar) 5 mg PO DAILY hydrochlorothiazide 25 mg PO DAILY tamsulosin 0.4 mg PO BEDTIME warfarin 5 mg See Protocol PO DAILY HPI Comments Details: Paul returns for follow-up regarding various issues including atrial fibrillation, aortic aneurysm as well as aortic stenosis. Since last seen, he states he is feeling good. No concerns like angina or shortness of breath or dizzy spells or syncopal episodes or in fact anything cardiac sounding. [facility] Medical History Urinary frequency Hypercholesterolemia Gout Impaired glucose tolerance Obesity (BMI 30.0-34.9) Chronic atrial fibrillation Hypertension Surgical History History of cardiac cath Family History Father No problems noted. Mother No problems noted. Social History Household Members: Spouse Housing: House Housing Other:: LIVES WITH SPOUSE Alcohol intake: current Alcohol intake frequency: 3 or more drinks per day Alcohol type: beer Comment: 4/day Patient Tobacco Use Status: Never used Tobacco e-Cigarette/Vaping Use: Never Used Second Hand Smoke Exposure: No Advance Directives Date on File: 08/26/20 service: Yes Current occupational status: retired Current occupation: RETIRED Current occupational exposures/hazards: No Cognitive needs: No Hearing needs: No Vision needs: Yes Review of Systems Const Denies chills, Denies fatigue, Denies fever(s), Denies frequent falls, Denies weakness, Denies weight gain and Denies weight loss ENT Denies dizziness Card Denies chest pain, Denies leg edema, Denies lightheadedness, Denies palpitations, Denies dyspnea and Denies dyspnea on exertion Resp Denies cough, Denies dyspnea and Denies dyspnea on exertion GI Denies hematochezia Musc Denies abnormal gait, Denies muscle weakness, Denies numbness, Denies radiating pain into limb and Denies tingling Neuro Denies abnormal gait, Denies dizziness, Denies frequent falls, Denies numbness, Denies tingling and Denies weakness Endo Denies fatigue and Denies palpitations Physical Exam Vital Signs: Last Vital Signs Pulse 61 03/26/25 11:17 BP 120/60 03/26/25 11:17 BMI result Body Mass Index 28.7 Const General: comfortable and no acute distress Orientation/consciousness: patient oriented x3 HEENT Other: Unremarkable Head: Yes normal to inspection Neck Neck: Yes normal visual inspection Chest Chest palpation & inspection: normal inspection of the chest Resp Auscultation: clear to auscultation bilaterally Cardio Palpation: normal PMI Heart sounds: S1 normal heart sound present, S2 abnormal (soft), no gallops, Murmur heart sound present systolic III/ and at the right sternal border and no rubs GI Palpation (GI): Soft to palpation Back/Spine/Pelvis Other: unremarkable Skin General skin exam: no rashes or lesions noted Neuro General: patient oriented x3 Extrem General: Yes normal to inspection Psych Mental Status: mental status grossly normal Office Procedures EKG Details: EKG with atrial fibrillation at a rate of 61/Min; leftward axis; right bundle-branch block; minimal criteria for LVH. [id number], Complete Assessment & Plan Assessment & Plan (1) Chronic atrial fibrillation: Code(s): I48.20 - Chronic atrial fibrillation, unspecified Category: Medical Plan: Stable. Not on any rate or rhythm control medications. Otherwise, continue warfarin. (2) Ascending aorta dilatation: Comment: Code(s): I77.810 - Thoracic aortic ectasia Category: Medical Plan: In the chest CT 06/2024, measurement is 4.7/4.9 cm. In the recent echocardiogram, ascending aortic size 4.6 cm. Will need to be followed. (3) Aortic stenosis: Comment: Echocardiogram September 2022 1.35 sq cm March 2023 1.November 1.35 Code(s): I35.0 - Nonrheumatic aortic (valve) stenosis Category: Medical Qualifiers: Cardiac valve disease etiology: nonrheumatic Qualified Code(s): I35.0 - Nonrheumatic aortic (valve) stenosis Plan: Suspected moderate to severe aortic stenosis. Clinically no symptoms at this time. We will recheck echocardiogram in 6 months. Eventually, TAVR candidate. (4) Hypertension: Code(s): I10 - Essential (primary) hypertension Category: Medical Plan: Stable. On amlodipine and benazepril. (5) Thrombus of left atrial appendage: Code(s): I51.3 - Intracardiac thrombosis, not elsewhere classified Category: Medical Plan: Not clear if it is a chronic thrombus. His INR is mostly therapeutic. No changes. Plan Discussion Notes I discussed with the patient and family that the current management plan involves monitoring the atrial fibrillation, aortic stenosis and aortic aneurysm. Given the absence of symptomatic changes, I recommend continued regular follow-ups. We discussed the presence of a heart murmur and stable valve function which requires careful monitoring. Cognitive impairment was acknowledged, and I advised on the importance of tracking any progression of symptoms. We decided on no immediate intervention changes, but recommended attention to any emerging symptoms such as dizziness or chest pain. There was an agreement on keeping follow-up intervals at every six months unless new symptoms arise. I ensured the family is well-informed of the need to reach out should there be any concerning developments. Patient was informed and verbally consented to the use of an ambient scribe for clinic note documentation during this visit. Patient Instructions: - Keep track of any new symptoms like dizziness, chest pain, or breathing difficulties. - Follow up and monitoring every six months unless symptoms change. - Contact immediately if there are any new or worsening symptoms. - Monitor memory issues and report any significant changes. Coding Level of Care Code Est Pt Level 4 (00433) Complex EM visit Add On G2211 Diagnoses Chronic atrial fibrillation I48.20 Ascending aorta dilatation I77.810 Nonrheumatic aortic valve stenosis I35.0 Cardiac valve disease etiology: nonrheumatic Hypertension I10 Thrombus of left atrial appendage I51.3 CPT Codes EKG - CPT: 72023-[id number], Complete ([id number])
[2025-03-26 11:17] VITALS: BP 120/60; PULSE 61; BMI 28.7
== END 2025-03-26 11:30 | disposition home or self-care (01) ==
LOC: HO.HCS 11:13
PROVIDERS: PCP Internal Medicine; Visit Provider Internal Medicine
DX: I48.20 Chronic atrial fibrillation, unspecified (principal); I77.810 Thoracic aortic ectasia; I35.0 Nonrheumatic aortic (valve) stenosis; I10 Essential (primary) hypertension; I51.3 Intracardiac thrombosis, not elsewhere classified
CPT/HCPCS: 93010; 99214; G2211

== ENCOUNTER → 2025-03-26 11:12 | Outpatient (BNVA) | payer MEDICARE, SELFPAY | PROVIDERS: PCP Internal Medicine; Visit Provider Internal Medicine | DX: I48.20 Chronic atrial fibrillation, unspecified (principal); I77.810 Thoracic aortic ectasia; I35.0 Nonrheumatic aortic (valve) stenosis; I10 Essential (primary) hypertension; I51.3 Intracardiac thrombosis, not elsewhere classified; I45.10 Unspecified right bundle-branch block; R94.31 Abnormal electrocardiogram [ECG] [EKG] | CPT/HCPCS: 93005; 99212 ==

== ENCOUNTER 2025-04-16 09:10 | Outpatient (AMB) | payer MEDICARE, SELFPAY ==
--- NOTE | 2025-04-16 10:01 | MHC.OFFVISCO ---
Intake Intake Visit Reasons: Anticoagulation Allergies No Known Allergies Allergy (Mild, Verified 04/16/25 09:53) Medication List - Last Reconciled 04/16/25 by Claire Posada RN amlodipine 10 mg PO DAILY atorvastatin 20 mg PO DAILY benazepril 40 mg PO DAILY cholecalciferol (vitamin D3) 25 mcg PO DAILY colchicine 0.6 mg PO NEEDED PRN cyanocobalamin (vitamin B-12) (Vitamin B-12) 1,000 mcg PO DAILY finasteride (Proscar) 5 mg PO DAILY hydrochlorothiazide 25 mg PO DAILY tamsulosin 0.4 mg PO BEDTIME warfarin 5 mg See Protocol PO DAILY Nursing Note INR: 2.7 in therapeutic rang of 2-3e Medications and supplements reviewed No changes in health, diet, medications, or supplements, Denies any signs and symptoms of bleeding or bruising or clotting. Bleeding, bruising, clotting discussed Nutritional guidance given Dose: 5mg X 6 days and 2.5mg X 1 day () F/U INR: 4 weeks Patient verbalizes understanding of instructions given Anti-Coag Initial Assessment Social Hx Patient Tobacco Use Status: Never used Tobacco alcohol intake: current Alcohol intake frequency: 3 or more drinks per day Cardiovascular Hx: HTN and Arrhythmias Cancer HX: No Psych. Illness/Depression: No Coding Level of Care Code Est Patient Level 1 Diagnoses Current use of anticoagulant therapy Z79.01 Results AMB INR Fingerstick AMB INR Fingerstick 2.7 Last Edit by Claire Posada RN on 04/16/25 09:59 interface delay Assessment & Plan Assessment & Plan (1) Current use of anticoagulant therapy: Code(s): Z79.01 - [facility] (current) use of anticoagulants Category: Medical
[2025-04-16 10:08] LABS: Prothrombin Time Whole Bld POC 32.9 sec (11.1-13.5); ~PT, ~INR - Anti Coag Clinic 2.7 (0.9-1.1)
== END 2025-04-16 10:03 | disposition home or self-care (01) ==
LOC: HO.ACS 09:10
PROVIDERS: PCP Internal Medicine; Visit Provider Internal Medicine Medical Oncology
DX: Z79.01 Long term (current) use of anticoagulants (principal)

== ENCOUNTER → 2025-04-16 09:10 | Outpatient (BNVA) | payer MEDICARE, SELFPAY | PROVIDERS: PCP Internal Medicine; Visit Provider Internal Medicine Medical Oncology | DX: I48.20 Chronic atrial fibrillation, unspecified (principal); Z79.01 Long term (current) use of anticoagulants; Z51.81 Encounter for therapeutic drug level monitoring | CPT/HCPCS: 85610; 99211 ==

== ENCOUNTER 2025-05-14 09:14 | Outpatient (AMB) | payer MEDICARE, SELFPAY ==
[2025-05-14 09:40] LABS: Prothrombin Time Whole Bld POC 39.9 sec (11.1-13.5); ~PT, ~INR - Anti Coag Clinic 3.3 (0.9-1.1)
--- NOTE | 2025-05-14 09:46 | MHC.OFFVISCO ---
Intake Intake Visit Reasons: Anticoagulation Allergies No Known Allergies Allergy (Mild, Verified 05/14/25 09:34) Medication List - Last Reconciled 05/14/25 by Ni Link RN amlodipine 10 mg PO DAILY atorvastatin 20 mg PO DAILY benazepril 40 mg PO DAILY cholecalciferol (vitamin D3) 25 mcg PO DAILY colchicine 0.6 mg PO NEEDED PRN cyanocobalamin (vitamin B-12) (Vitamin B-12) 1,000 mcg PO DAILY finasteride (Proscar) 5 mg PO DAILY hydrochlorothiazide 25 mg PO DAILY tamsulosin 0.4 mg PO BEDTIME warfarin 5 mg See Protocol PO DAILY Nursing Note INR: 3.3 almost therapeutic range- may be elevated to hot weather eating and diet Medications and supplements reviewed No changes in health, diet, medications, or supplements, Denies any signs and symptoms of bleeding or bruising or clotting. Bleeding, bruising, clotting discussed Nutritional guidance given - greenst deb Dose: same 2.5mg thur/ 5mg x 6 days F/U INR: 1month Patient verbalizes understanding of instructions given Anti-Coag Initial Assessment Social Hx Patient Tobacco Use Status: Never used Tobacco alcohol intake: current Alcohol intake frequency: 3 or more drinks per day Cardiovascular Hx: HTN and Arrhythmias Cancer HX: No Psych. 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
== END 2025-05-14 09:48 | disposition home or self-care (01) ==
LOC: HO.ACS 09:14
PROVIDERS: PCP Internal Medicine; Visit Provider Internal Medicine Medical Oncology
DX: Z79.01 Long term (current) use of anticoagulants (principal)

== ENCOUNTER → 2025-05-14 09:14 | Outpatient (BNVA) | payer MEDICARE, SELFPAY | PROVIDERS: PCP Internal Medicine; Visit Provider Internal Medicine Medical Oncology | DX: I48.20 Chronic atrial fibrillation, unspecified (principal); Z79.01 Long term (current) use of anticoagulants; Z51.81 Encounter for therapeutic drug level monitoring | CPT/HCPCS: 85610; 99211 ==

== ENCOUNTER 2025-06-11 09:14 | Outpatient (AMB) | payer MEDICARE, SELFPAY ==
[2025-06-11 09:56] LABS: Prothrombin Time Whole Bld POC 40.7 sec (11.1-13.5); ~PT, ~INR - Anti Coag Clinic 3.4 (0.9-1.1)
--- NOTE | 2025-06-11 10:01 | MHC.OFFVISCO ---
Intake Intake Visit Reasons: Anticoagulation Allergies No Known Allergies Allergy (Mild, Verified 06/11/25 09:48) Medication List - Last Reconciled 06/11/25 by Ni Link RN amlodipine 10 mg PO DAILY atorvastatin 20 mg PO DAILY benazepril 40 mg PO DAILY cholecalciferol (vitamin D3) 25 mcg PO DAILY colchicine 0.6 mg PO NEEDED PRN cyanocobalamin (vitamin B-12) (Vitamin B-12) 1,000 mcg PO DAILY finasteride (Proscar) 5 mg PO DAILY hydrochlorothiazide 25 mg PO DAILY tamsulosin 0.4 mg PO BEDTIME warfarin 5 mg See Protocol PO DAILY Nursing Note INR 3.4 out of therapeutic range Medications and supplements reviewed Patient status: Well no known changes- may have had diet changes over the summer Medications or supplements: no changes Diet: good Denies any signs and symptoms of bleeding or clotting or unusual bruising Bleeding, bruising, clotting discussed Nutritional guidance given: cooked greens lower the INR more than raw Dose: 2.5mg / 5mg x 6 days F/U INR Date : 06/30/2025 ?? Patient verbalizing understanding of instructions given. Anti-Coag Initial Assessment Social Hx Patient Tobacco Use Status: Never used Tobacco alcohol intake: current Alcohol intake frequency: 3 or more drinks per day Cardiovascular Hx: HTN and Arrhythmias Cancer HX: No Psych. Illness/Depression: No Coding Level of Care Code Est Patient Level 1 Diagnoses Current use of anticoagulant therapy Z79.01 Results AMB INR Fingerstick AMB INR Fingerstick 3.4 Last Edit by Ni Link RN on 06/11/25 09:57 Assessment & Plan Assessment & Plan (1) Current use of anticoagulant therapy: Code(s): Z79.01 - nursing home (current) use of anticoagulants Category: Medical
== END 2025-06-11 10:04 | disposition home or self-care (01) ==
LOC: HO.ACS 09:14
PROVIDERS: PCP Internal Medicine; Visit Provider Internal Medicine Medical Oncology
DX: Z79.01 Long term (current) use of anticoagulants (principal)

== ENCOUNTER → 2025-06-11 09:14 | Outpatient (BNVA) | payer MEDICARE, SELFPAY | PROVIDERS: PCP Internal Medicine; Visit Provider Internal Medicine Medical Oncology | DX: Z51.81 Encounter for therapeutic drug level monitoring (principal); Z79.01 Long term (current) use of anticoagulants | CPT/HCPCS: 85610; 99211 ==

== ENCOUNTER 2025-06-30 13:06 | Outpatient (AMB) | payer MEDICARE, SELFPAY ==
--- OUTSIDE RECORDS SUMMARY | 2025-06-25 05:17 | XMS_ITS | Continuity of Care Document ---
Author Name [facility] Organization [facility] Care Team Providers Care Sales Floor Manager Name Role Phone [facility] Unavailable Unavailable Problems Combined list of problems from Department of Defense and Veterans Affairs facilities. It does not include entries that were removed or entered in error. Problem Status Onset Date Problem Type Date of Resolution Comments Source Atrial fibrillation Active 5 Condition Jun 24, 2025 Entered By: ROCK CHONG Comment: on warfarin [facility] Benign Prostatic Hypertrophy without Outflow Obstruction ([facility] [id number]) Active 5 Condition Jun 24, 2025 Entered By: ROCK CHONG Comment: on medication [facility] Dementia ([facility] [id number]) Active 5 Condition Jun 24, 2025 Entered By: ROCK CHONG Comment: chronic 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 Medications Combined list of outpatient medications from Department of Defense and Veterans Affairs facilities.Medications provided include 1) outpatient medications from the last 15 months, and 2) patient-reported medications. Medication Details Route Status Patient Instructions Prescription Expires Prescription Number Last Dispense Date Ordering Provider Order Date Order Qty Source AMLODIPINE BESYLATE 10MG TAB TAKE ONE TABLET BY MOUTH ONCE DAILY ORAL ACTIVE TRICIA CHONG [address]24 [facility] ATORVASTATI N [place] 40MG TAB TAKE ONE-HALF TABLET BY MOUTH AT BEDTIME ORAL ACTIVE TRICIA CHONG 2024 [facility] BENAZEPRIL HCL 40MG TAB TAKE ONE TABLET BY MOUTH ONCE DAILY ORAL ACTIVE CASTILLO,HOW KERRIE D 2024 [facility] CYANOCOBALA MIN 100MCG TAB TAKE ONE TABLET BY MOUTH ONCE DAILY ORAL ACTIVE CASTILLO,HOW KERRIE D 2024 [facility] FINASTERIDE 5MG TAB TAKE ONE TABLET BY MOUTH ONCE DAILY ORAL ACTIVE CASTILLO,HOW KERRIE D 2024 [facility] HYDROCHLORO THIAZIDE 25MG TAB TAKE ONE TABLET BY MOUTH ONCE DAILY ORAL ACTIVE CASTILLO,HOW KERRIE D 2024 [facility] TAMSULOSIN HCL 0.4MG CAP TAKE 1 CAPSULE BY MOUTH AT BEDTIME ORAL ACTIVE CASTILLO,HOW KERRIE D 2024 [facility] WARFARIN (NON-VA) TAB TAKE 5 MG BY MOUTH ONCE DAILY ORAL ACTIVE CASTILLO,HOW KERRIE D 2024 [facility] Immunizations Combined list of available immunizations from the Department of Defense and Veterans [facility] facilities. Immunization Series Date Given Administered By Site Reaction Lot Number CVX Code Drug Coater Hand Status Comments Source PNEUMOCOCCAL CONJUGATE PCV21, POLYSACCHARID E [id number] CONJUGATE, PF 2024 RAJ LAGOS RIGHT DELTO ID [id number] complet ed Booster for Series, [facility] RSV, RECOMBINANT, PROTEIN SUBUNIT RSVPREF3, ADJUVANT RECONSTITUTED , 0.5 ML, PF 1 2024 RAJ LAGOS RIGHT DELTO ID [id number] 303 complet ed [facility] Vital Signs Combined list of inpatient and outpatient Vital Signs from Department of Defense and Veterans Affairs, ranging from 12 months to all on record, depending upon the facility. Vital Sign Value Date Comments Source SYSTOLIC BLOOD PRESSURE 116 06/24/20 25 14:24:29 [facility] DIASTOLIC BLOOD PRESSURE 70 025 14:24:29 [facility] PULSE OXIMETRY 96 % 06/24/2025 14:24:29 [facility] [place] [facility] WEIGHT 191.3 06/24/2025 14:24:29 [facility] [place] BMI 30 kg/m2 06/24/2025 14:24:29 [facility] PAIN 0 06/24/2025 14:24:29 [facility] HEIGHT 67.5 06/24/2025 14:24:29 [facility] TEMPERATURE 98.8 06/24/2025 14:24:29 [facility] PULSE 68 06/24/2025 14:24:29 [facility] RESPIRATION 16 06/24/2025 14:24:29 [facility] [place] [facility] Encounters Combined list of: 1) Encounters from Department of Veterans Affairs facilities going backup to the last 18 months, not all [place] inpatient encounters are included; 2) Encounters from the Department of [employer] facilities going backup to 280 months. Location Location Details Encounter Type Encounter Number Reason For Visit Attending Provider ADM Date DC Date Status Disposition Source [place] [facility] 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 Social History Type Response Date Comment Sourc e Tobacco smoking status NHIS [facility]-TOBACCO NEVER USED CIGARETTES 06[place]24/2025 [place] [facility] History of tobacco use [place]-TOBACCO NEVER USED OTHER TYPE 06/24/2025 [place] [facility] Advance Directives List of completed, amended, or rescinded Advance Directives on record at Department of [facility] facilities. An actual copy of the Directive is not included. Date Advance Directive Provider Source 06/25/2025 [facility]
[2025-06-30 13:31] LABS: Prothrombin Time Whole Bld POC 35.6 sec (11.1-13.5); ~PT, ~INR - Anti Coag Clinic 3.0 (0.9-1.1)
--- NOTE | 2025-06-30 13:52 | MHC.OFFVISCO ---
Intake Intake Visit Reasons: Anticoagulation Allergies No Known Allergies Allergy (Mild, Verified 06/30/25 13:25) Medication List - Last Reconciled 06/30/25 by Ni Link RN amlodipine 10 mg PO DAILY atorvastatin 20 mg PO DAILY benazepril 40 mg PO DAILY cholecalciferol (vitamin D3) 25 mcg PO DAILY colchicine 0.6 mg PO NEEDED PRN cyanocobalamin (vitamin B-12) (Vitamin B-12) 1,000 mcg PO DAILY finasteride (Proscar) 5 mg PO DAILY hydrochlorothiazide 25 mg PO DAILY tamsulosin 0.4 mg PO BEDTIME warfarin 5 mg See Protocol PO DAILY Nursing Note INR: 3.0 in therapeutic range Medications and supplements reviewed No changes in health, diet, medications, or supplements, Denies any signs and symptoms of bleeding or bruising or clotting. Bleeding, bruising, clotting discussed Nutritional guidance given Dose: 2.5mg x 1 day/ 5mg x 6 days F/U INR: 1 month Patient verbalizes understanding of instructions given Anti-Coag Initial Assessment Social Hx Patient Tobacco Use Status: Never used Tobacco alcohol intake: current Alcohol intake frequency: 3 or more drinks per day Cardiovascular Hx: HTN and Arrhythmias Cancer HX: No Psych. Illness/Depression: No Coding Level of Care Code Est Patient Level 1 Diagnoses Current use of anticoagulant therapy Z79.01 Results AMB INR Fingerstick AMB INR Fingerstick 3.0 Last Edit by Ni Link RN on 06/30/25 13:31 MANAUL ENTRY Assessment & Plan Assessment & Plan (1) Current use of anticoagulant therapy: Code(s): Z79.01 - director long term care (current) use of anticoagulants Category: Medical
== END 2025-06-30 13:54 | disposition home or self-care (01) ==
LOC: HO.ACS 13:06
PROVIDERS: PCP Internal Medicine; Visit Provider Internal Medicine Medical Oncology
DX: Z79.01 Long term (current) use of anticoagulants (principal)

== ENCOUNTER → 2025-06-30 13:06 | Outpatient (BNVA) | payer MEDICARE, SELFPAY | PROVIDERS: PCP Internal Medicine; Visit Provider Internal Medicine Medical Oncology | DX: Z51.81 Encounter for therapeutic drug level monitoring (principal); Z79.01 Long term (current) use of anticoagulants | CPT/HCPCS: 85610; 99211 ==

== ENCOUNTER 2025-07-23 15:28 | Outpatient (AMB) | payer MEDICARE, SELFPAY ==
[2025-07-23 15:30] VITALS: BP 124/62; PULSE 60; TEMP 36.3; O2SAT 99; BMI 27.8
--- NOTE | 2025-07-23 15:30 | A.OFFPC_ITS ---
Vital Signs 07/23/25 15:30 Height 5 ft 9 in Weight 188 lb 8 oz BMI 27.8 BP 124/62 Blood Pressure Location Lt brachial Position Sitting Pulse 60 Pulse Source Pulse Oximeter Temp 97.3 F Temp Source Temporal Artery Scan Pulse Oximetry (%) 99 Oxygen Delivery Method Room Air Intake Visit Reasons: follow up Accompanied by: Spouse Allergies No Known Allergies Allergy (Mild, Verified 07/23/25 15:34) Medication List - Last Reconciled 07/23/25 by Fausto Boogie MD amlodipine 10 mg PO DAILY atorvastatin 20 mg PO DAILY benazepril 40 mg PO DAILY cholecalciferol (vitamin D3) 25 mcg PO DAILY colchicine 0.6 mg PO NEEDED PRN cyanocobalamin (vitamin B-12) (Vitamin B-12) 1,000 mcg PO DAILY finasteride (Proscar) 5 mg PO DAILY hydrochlorothiazide 25 mg PO DAILY tamsulosin 0.4 mg PO BEDTIME warfarin 5 mg See Protocol PO DAILY Tobacco use date assessed: 07/23/25 Fall risk assessment: 2 + Falls in past year Last assessed Fall Risk: 07/23/25 Dental Screening Dental Screen Date: 07/23/25 Did you have a dental visit in the last 12 months?: No Did you have a dental problem in the last 6 months where you did not have access to dental care?: No Was dental information given to patient?: Patient declined [facility] Medical History (Updated 07/23/25 @ 16:01 by Fausto Boogie MD) Ascending aorta dilatation Urinary frequency Hypercholesterolemia Gout Impaired glucose tolerance Obesity (BMI 30.0-34.9) Chronic atrial fibrillation Hypertension Surgical History History of cardiac cath Family History Father No problems noted. Mother No problems noted. Social History Household Members: Spouse Housing: House Housing Other:: LIVES WITH SPOUSE Alcohol intake: current Alcohol intake frequency: 3 or more drinks per day Alcohol type: beer Comment: 4/day Patient Tobacco Use Status: Never used Tobacco e-Cigarette/Vaping Use: Never Used Second Hand Smoke Exposure: No Advance Directives Date on File: 08/26/20 service: Yes Current occupational status: retired Current occupation: RETIRED Current occupational exposures/hazards: No Cognitive needs: No Hearing needs: No Vision needs: Yes Questionnaire PHQ-9 Over the last 2 weeks, how often have you been bothered by any of the following problems? 1. Little interest or pleasure in doing things: not at all 2. Feeling down, depressed, or hopeless: not at all 3. Trouble falling or staying asleep, or sleeping too much: several days 4. Feeling tired or having little energy: more than half the days 5. Poor appetite or overeating: not at all 6. Feeling bad about yourself - or that you are a failure or have let yourself or your family down: not at all 7. Trouble concentrating on things, such as reading the newspaper or watching television: not at all 8. Moving or speaking so slowly that other people could have noticed. Or the opposite - being so fidgety or restless that you have been moving around a lot more than usual: not at all 9. Thoughts that you would be better off or of hurting yourself in some way: not at all Total score: 3 Source: Developed by Drs. Carlos Schwarz, Mary Anne Benson, Bal Duron and colleagues, with an educational aakash from [employer]. Thrive Questionnaire Date Thrive assessed: 07/23/25 I am a: Patient What is your living situation today?: I have a steady place to live Within the past 12 months, did the food you bought not last and you didn't have the money to get more?: Never true Within the past 12 months, did you worry whether your food would run out before you got money to buy more?: Never true Do you have trouble paying for medicines?: No Do you have trouble getting transportation to medical appointments?: No Do you have trouble paying your heating and electricity bill?: No Do you have trouble taking care of your child, family member or friend?: No Do you have trouble with day-to-day activities such as bathing, preparing meals, shopping, managing finances, etc.?: No Are you currently unemployed and looking for a job?: I choose not to answer this question Are you interested in more education?: No Please select the resources that you would like help with: None Currently or been in a relationship where the following occur: No concerns reported THRIVE Score: 0 AUDIT C Alcohol Use Questionnaire (AUDIT-C) 1. How often do you have a drink containing alcohol?: 4 or more times a week 2. How many drinks containing alcohol do you have on a typical day when you are drinking?: 3 or 4 3. How often do you have six or more drinks on one occasion?: Never Total Score: 5 BLAS-7 AMB Questionnaire BLAS-7 Date BLAS - 7 assessed: 07/23/25 Feeling nervous, anxious, or on edge: 0 = Not at all Not being able to stop or control worryin = Not at all Worrying too much about different things: 0 = Not at all Trouble relaxin = Not at all Being so restless that it is hard to sit still: 0 = Not at all Becoming easily annoyed or irritable: 0 = Not at all Feeling afraid as if something awful might happen: 0 = Not at all Total BLAS-7 score (0-4 normal; 5-9 mild; 10-14 moderate; 15-21 severe): 0 Source: Developed by Drs. Carlos Schwarz, Mary Anne Benson, Bal Duron and colleagues, with an educational aakash from [employer]. Physical exam (Primary Care) Vital Signs: Last Vital Signs Temp 97.3 F 07/23/25 15:30 Pulse 60 07/23/25 15:30 BP 124/62 07/23/25 15:30 Pulse Ox 99 07/23/25 15:30 Oxygen Delivery Method Room Air 07/23/25 15:30 BMI result Body Mass Index 27.8 Tobacco/Smoking Status: Tobacco use Status Tobacco use date assessed 07/23/25 07/23/25 15:36 Patient Tobacco Use Status Never used Tobacco 07/23/25 15:36 e-Cigarette/Vaping Use Never Used 07/23/25 15:36 PHQ-9: PHQ-9 Score PHQ-9: Total score 3 07/23/25 15:36 Thrive Assessment: Date of Thrive Assessment Date Thrive assessed 07/23/25 07/23/25 15:36 Currently or been in a relationship where the following occur: No concerns reported Const General: alert; No acute distress Eyes Conjunctivae: conjunctivae normal Resp Auscultation: clear to auscultation bilaterally Cardio Rate: regular rate Rhythm: regular rhythm GI Inspection: Yes normal to inspection Extrem General: Yes normal to inspection and No edema Coding Level of Care Code Est Pt Level 4 (87461) Complex EM visit Add On G2211 Diagnoses Hypertension I10 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 Decrease salt intake and exercise on amlodipine 10 mg once a day benazepril 40 mg once a day hydrochlorothiazide 25 mg once a day (2) Thrombus of left atrial appendage: Code(s): I51.3 - Intracardiac thrombosis, not elsewhere classified Category: Medical Plan: Continuing with anticoagulation with Coumadin (3) Aortic stenosis: Comment: Echocardiogram September 2022 1.35 sq cm March 2023 1.November 1.35 Code(s): I35.0 - Nonrheumatic aortic (valve) stenosis Category: Medical Qualifiers: Cardiac valve disease etiology: nonrheumatic Qualified Code(s): I35.0 - Nonrheumatic aortic (valve) stenosis Plan: This is being monitored has a moderate to severe aortic stenosis. February 2025 last echocardiogram and planned echocardiogram in August 2025 (4) Atherosclerotic cardiovascular disease: Code(s): I25.10 - Atherosclerotic heart disease of [place] coronary artery without angina pectoris Category: Medical Plan: Control the cholesterol, weight, blood pressure, patient on anticoagulation (5) Chronic atrial fibrillation: Code(s): I48.20 - Chronic atrial fibrillation, unspecified Category: Medical Plan: Continue with anticoagulation (6) Ascending aortic aneurysm: Comment: 05/2024 CT angiogram of the aorta which showed known aneurysm of 4.7 cm x 4.9 cm, also showed left atrial appendage thrombus, Code(s): I71.21 - Aneurysm of the ascending aorta, without rupture Category: Medical Plan: Continuing to monitor and was advised to get an echocardiogram in August 2025 (7) Hypercholesterolemia: Code(s): E78.00 - Pure hypercholesterolemia, unspecified Category: Medical Plan: Avoid fried foods, chicken skin, eggs, butter margarine, pastries and meat. Be it pork or beef they have a lot of cholesterol LDL goal of less than 70 and triglyceride of less than 150 on atorvastatin 20 mg once a day (8) Impaired glucose tolerance: Code(s): R73.02 - Impaired glucose tolerance (oral) Category: Medical Plan: Decrease the amount of carbohydrate intake, pasta, bread, rice and potatoes are all sugar and that is aside from all the sweet stuff, remember that fruits are good but they are Sweet also. (9) BPH (benign prostatic hyperplasia): Code(s): N40.0 - Benign prostatic hyperplasia without lower urinary tract symptoms Category: Medical Plan: Patient follows up with urology and has been placed on Proscar and tamsulosin (10) Mild cognitive impairment: Code(s): G31.84 - Mild cognitive impairment of uncertain or unknown etiology Category: Medical Plan: Supportive treatment and the family declined referral to Neurology or further workup Plan History of Present Illness The patient is an 85-year-old male presenting for follow-up of multiple chronic conditions including hypertension, atrial fibrillation, and aortic stenosis. The patient has a history of hypertension, managed with amlodipine, benazepril, and hydrochlorothiazide. Blood pressure control has been good, and the patient has experienced a 6-pound weight loss since the last visit. Atrial fibrillation is managed with anticoagulation therapy using warfarin, with regular monitoring [facility]. The patient has a history of left atrial appendage thrombus, which necessitates continued anticoagulation. The patient has impaired glucose tolerance, with no specific interventions discussed during this visit. The patient has a history of aortic stenosis, with the last echocardiogram in February 2025 showing moderate to severe stenosis and an ejection fraction of 65%. A follow-up echocardiogram is planned for August 2025 to monitor the condition. The patient has a history of atherosclerotic cardiovascular disease and hypercholesterolemia, managed with atorvastatin. The LDL goal is less than 70 mg/dL, with the last recorded LDL being 72 mg/dL in June 2024. The patient has gout, with no specific management details discussed during this visit. The patient has benign prostatic hyperplasia, managed with tamsulosin and finasteride, with regular follow-up with urology. The patient has an ascending aortic aneurysm, with the last chest CT in June 2024 showing a size of 4.7 to 4.9 cm. The condition is being monitored with regular imaging studies. The patient has severe mitral annular calcification and moderate dilation of the descending aorta, with no specific interventions discussed during this visit. The patient has mild anemia, noted in the last blood work done in July. The patient has dementia, with some forgetfulness noted, but no referral to neurology is planned at this time. Preventative care measures include vaccinations for RSV and pneumonia, administered in June 2025. Health Maintenance - Vaccinations: RSV and pneumonia vaccines administered in June 2025 - Blood pressure management: Controlled with amlodipine, benazepril, and hydrochlorothiazide - Cholesterol management: LDL goal of less than 70 mg/dL, managed with atorvastatin - Anticoagulation therapy: Managed with warfarin, regular monitoring [facility] Social History - Housing: Application for [facility] a [facility] in [place] - Functional status: Some forgetfulness noted, related to dementia Review of Systems - Cardiovascular: Denies chest pain - Respiratory: Denies cough - Gastrointestinal: Denies nausea, vomiting, bowel movements are good - Neurological: Reports some forgetfulness Physical Exam - Cardiovascular: Murmur noted during auscultation Results - Echocardiogram (February 2025): Moderate to severe aortic valve stenosis, EF 65% - Chest CT (June 2024): Ascending aorta size 4.7 to 4.9 cm - Blood work (July): Mild anemia, creatinine 1.2 mg/dL - Cholesterol (June 2024): LDL 72 mg/dL Plan Patient was informed and verbally consented to the use of an ambient scribe for clinic note documentation during this visit. 1. Hypertension Hypertension is managed with amlodipine, benazepril, and hydrochlorothiazide, with good blood pressure control noted. 2. Atrial Fibrillation Atrial fibrillation is managed with warfarin, with regular monitoring at the [facility] to ensure therapeutic anticoagulation levels. 3. Aortic Stenosis Aortic stenosis is monitored with echocardiograms, with the last showing moderate to severe stenosis and an EF of 65%. A follow-up echocardiogram is planned for August 2025. 4. Atherosclerotic Cardiovascular Disease Atherosclerotic cardiovascular disease is managed with atorvastatin, with an LDL goal of less than 70 mg/dL. 5. Benign Prostatic Hyperplasia Benign prostatic hyperplasia is managed with tamsulosin and finasteride, with regular follow-up with urology. 6. Ascending Aortic Aneurysm The ascending aortic aneurysm is monitored with imaging studies, with the last chest CT showing a size of 4.7 to 4.9 cm. 7. Dementia Dementia is noted with some forgetfulness, but no referral to neurology is planned at this time. Discussion Notes During the visit, we discussed the management of the patient's chronic conditions, including hypertension, atrial fibrillation, and aortic stenosis. The importance of regular monitoring and follow-up was emphasized, particularly for anticoagulation therapy and echocardiograms. We also reviewed the patient's preventative care measures, including recent vaccinations for RSV and pneumonia. Patient Instructions - Continue taking all prescribed medications as directed. - Attend the [facility] for regular monitoring of anticoagulation therapy. - Schedule and attend the follow-up echocardiogram in August 2025. - Maintain a healthy diet and monitor weight. - Ensure vaccinations are up to date, including flu and COVID-19 vaccines. Orders: Orders Free T4 (Free Thyroxine) Today R73.02 - Impaired glucose tolerance (oral) Lipid Panel Today E78.00 - Pure hypercholesterolemia, unspecified, R73.02 - Impaired glucose tolerance (oral) Thyroid Stimulating Hormone Today R73.02 - Impaired glucose tolerance (oral) Vitamin B12 and Folate Today R73.02 - Impaired glucose tolerance (oral) Complete Blood Count Auto Diff Today R73.02 - Impaired glucose tolerance (oral) Comprehensive Met. Panel Today R73.02 - Impaired glucose tolerance (oral) Hemoglobin A1c Today R73.02 - Impaired glucose tolerance (oral) Magnesium Today R73.02 - Impaired glucose tolerance (oral) Uric Acid Today R73.02 - Impaired glucose tolerance (oral) Medications: Refilled warfarin 5 mg See Protocol PO DAILY 90 tabs 3RF I51.3 - Intracardiac thrombosis, not elsewhere classified
== END 2025-07-23 16:08 | disposition home or self-care (01) ==
LOC: HO.HMCH 15:29
PROVIDERS: PCP Internal Medicine; Visit Provider Internal Medicine
DX: I10 Essential (primary) hypertension (principal); I48.20 Chronic atrial fibrillation, unspecified; I51.3 Intracardiac thrombosis, not elsewhere classified; I35.0 Nonrheumatic aortic (valve) stenosis; I25.10 Atherosclerotic heart disease of native coronary artery without angina pectoris; I71.21 Aneurysm of the ascending aorta, without rupture; E78.00 Pure hypercholesterolemia, unspecified; R73.02 Impaired glucose tolerance (oral); N40.0 Benign prostatic hyperplasia without lower urinary tract symptoms; G31.84 Mild cognitive impairment of uncertain or unknown etiology

== ENCOUNTER → 2025-07-23 15:28 | Outpatient (BNVA) | payer MEDICARE, SELFPAY | PROVIDERS: PCP Internal Medicine; Visit Provider Internal Medicine | DX: I10 Essential (primary) hypertension (principal); I51.3 Intracardiac thrombosis, not elsewhere classified; I25.10 Atherosclerotic heart disease of native coronary artery without angina pectoris; I48.20 Chronic atrial fibrillation, unspecified; I71.21 Aneurysm of the ascending aorta, without rupture; E78.00 Pure hypercholesterolemia, unspecified; R73.02 Impaired glucose tolerance (oral); N40.0 Benign prostatic hyperplasia without lower urinary tract symptoms; G31.84 Mild cognitive impairment of uncertain or unknown etiology | CPT/HCPCS: 99212 ==

== ENCOUNTER 2025-07-30 09:27 | Outpatient (AMB) | payer MEDICARE, SELFPAY ==
[2025-07-30 09:49] LABS: Prothrombin Time Whole Bld POC 44.4 sec (11.1-13.5); ~PT, ~INR - Anti Coag Clinic 3.7 (0.9-1.1)
--- NOTE | 2025-07-30 09:55 | MHC.OFFVISCO ---
Intake Intake Visit Reasons: Anticoagulation Allergies No Known Allergies Allergy (Mild, Verified 07/30/25 09:44) Medication List - Last Reconciled 07/30/25 by Ni Link RN amlodipine 10 mg PO DAILY atorvastatin 20 mg PO DAILY benazepril 40 mg PO DAILY cholecalciferol (vitamin D3) 25 mcg PO DAILY colchicine 0.6 mg PO NEEDED PRN cyanocobalamin (vitamin B-12) (Vitamin B-12) 1,000 mcg PO DAILY finasteride (Proscar) 5 mg PO DAILY hydrochlorothiazide 25 mg PO DAILY tamsulosin 0.4 mg PO BEDTIME warfarin 5 mg See Protocol PO DAILY Nursing Note INR 3.7 out of therapeutic range Medications and supplements reviewed Patient status: eating more tomatoes lately( INR elevated also) Medications or supplements: no changes Diet: good Denies any signs and symptoms of bleeding or clotting or unusual bruising Bleeding, bruising, clotting discussed Nutritional guidance given: increase greens or blueberries when eating more tomatoes Dose: already took today's dose hold tomorrow's dose then resume usual dose 2.5mg thur/ 5mg x 6 days F/U INR Date: 1 week with ?? Patient verbalizing understanding of instructions given. Anti-Coag Initial Assessment Social Hx Patient Tobacco Use Status: Never used Tobacco alcohol intake: current Alcohol intake frequency: 3 or more drinks per day Cardiovascular Hx: HTN and Arrhythmias Cancer HX: No Psych. Illness/Depression: No Coding Level of Care Code Est Patient Level 1 Diagnoses Current use of anticoagulant therapy Z79.01 Assessment & Plan Assessment & Plan (1) Current use of anticoagulant therapy: Code(s): Z79.01 - detention (current) use of anticoagulants Category: Medical
== END 2025-07-30 09:58 | disposition home or self-care (01) ==
LOC: HO.ACS 09:27
PROVIDERS: PCP Internal Medicine; Visit Provider Internal Medicine Medical Oncology
DX: Z79.01 Long term (current) use of anticoagulants (principal)

== ENCOUNTER → 2025-07-30 09:27 | Outpatient (BNVA) | payer MEDICARE, SELFPAY | PROVIDERS: PCP Internal Medicine; Visit Provider Internal Medicine Medical Oncology | DX: Z51.81 Encounter for therapeutic drug level monitoring (principal); Z79.01 Long term (current) use of anticoagulants | CPT/HCPCS: 85610; 99211 ==

== ENCOUNTER 2025-08-07 10:09 | Outpatient (AMB) | payer MEDICARE, SELFPAY ==
[2025-08-07 10:38] LABS: Prothrombin Time Whole Bld POC 25.3 sec (11.1-13.5); ~PT, ~INR - Anti Coag Clinic 2.1 (0.9-1.1)
--- NOTE | 2025-08-07 10:44 | MHC.OFFVISCO ---
Intake Intake Visit Reasons: Anticoagulation Allergies No Known Allergies Allergy (Mild, Verified 07/30/25 09:44) Medication List - Last Reconciled 08/07/25 by Ni Link RN amlodipine 10 mg PO DAILY atorvastatin 20 mg PO DAILY benazepril 40 mg PO DAILY cholecalciferol (vitamin D3) 25 mcg PO DAILY colchicine 0.6 mg PO NEEDED PRN cyanocobalamin (vitamin B-12) (Vitamin B-12) 1,000 mcg PO DAILY finasteride (Proscar) 5 mg PO DAILY hydrochlorothiazide 25 mg PO DAILY tamsulosin 0.4 mg PO BEDTIME warfarin 5 mg See Protocol PO DAILY Nursing Note INR: 2.2 in therapeutic range Medications and supplements reviewed No changes in health, diet, medications, or supplements, Denies any signs and symptoms of bleeding or bruising or clotting. Bleeding, bruising, clotting discussed Nutritional guidance given Dose: 1.5mg x 1 day/ 3mg x 6 days F/U INR: 4 weeks Patient verbalizes understanding of instructions given Anti-Coag Initial Assessment Social Hx Patient Tobacco Use Status: Never used Tobacco alcohol intake: current Alcohol intake frequency: 3 or more drinks per day Cardiovascular Hx: HTN and Arrhythmias Cancer HX: No Psych. Illness/Depression: No Coding Level of Care Code Est Patient Level 1 Diagnoses Current use of anticoagulant therapy Z79.01 Assessment & Plan Assessment & Plan (1) Current use of anticoagulant therapy: Code(s): Z79.01 - superintendent container terminal (current) use of anticoagulants Category: Medical
== END 2025-08-07 10:46 | disposition home or self-care (01) ==
LOC: HO.ACS 10:09
PROVIDERS: PCP Internal Medicine; Visit Provider Internal Medicine Medical Oncology
DX: Z79.01 Long term (current) use of anticoagulants (principal)

== ENCOUNTER → 2025-08-07 10:09 | Outpatient (BNVA) | payer MEDICARE, SELFPAY | PROVIDERS: PCP Internal Medicine; Visit Provider Internal Medicine Medical Oncology | DX: Z51.81 Encounter for therapeutic drug level monitoring (principal); Z79.01 Long term (current) use of anticoagulants | CPT/HCPCS: 85610; 99211 ==

== ENCOUNTER 2025-09-03 08:41 | Outpatient (REF) | payer MEDICARE, SELFPAY ==
[2025-09-03 08:53] LABS: MANUAL DIFF FLAG NO
[2025-09-03 09:13] LABS: Hematocrit 40.4 % (42.0-52.0); Hemoglobin 13.6 g/dl (14.0-18.0); Imm Gran Abs Auto 0.04 X10*3/uL (0.00-0.03); Imm Gran Pct Auto 0.5 % (0.0-0.4); Lymphocytes Absolute Auto 1.8 X10*3/uL (1.2-4.9); Mean Corpuscular HGB Conc 33.7 g/dl (31.0-36.0); Mean Corpuscular Hemoglobin 31.6 pg (27.0-33.0); Mean Corpuscular Volume 93.7 fL (80.0-98.0); NRBC Abs Auto 0.000 X10*3/uL (0.0-0.012); NRBC Pct Auto 0.0 /100WBC (0.0-0.2); Platelet Count 170 X10*3/uL (160-400); Red Blood Count 4.31 X10*6/uL (4.60-5.80); White Blood Count 8.6 X10*3/uL (4.8-10.8)
[2025-09-03 09:37] LABS: Alanine Aminotransferase 23 U/L (0-40); Albumin Level 4.4 g/dL (3.5-5.0); Alkaline Phosphatase 79 U/L (39-117); Anion Gap 12 (12-20); Aspartate Amino Transferase 22 U/L (5-37); Blood Urea Nitrogen 23 mg/dL (9-16); Calcium 9.6 mg/dL (8.4-10.2); Carbon Dioxide 27 mmol/L (22-29); Chloride 104 mmol/L (96-108); Cholesterol 155 mg/dL (<200); Estimated Glomerular Filt Rate > 60; HDL Cholesterol 68 mg/dL (>40); Magnesium 2.1 mg/dL (1.6-2.6); Potassium 4.2 mmol/L (3.3-5.1); Sodium 139 mmol/L (135-145); Total Protein 7.4 g/dL (6.5-8.0); Triglycerides 41 mg/dL (<150)
[2025-09-03 09:54] LABS: Uric Acid 7.9 mg/dL (3.4-7.0)
[2025-09-03 09:57] LABS: Free T4 (Free Thyroxine) 1.19 ng/dL (0.71-1.85); Thyroid Stimulating Hormone 1.44 uIU/mL (0.32-4.0)
[2025-09-03 10:10] LABS: Folate 6.9 ng/mL (> or = 4.0); Vitamin B12 820 pg/mL (200-900)
== END 2025-09-03 08:42 | disposition home or self-care (01) ==
LOC: HO.LAB 08:41
PROVIDERS: PCP Internal Medicine; Visit Provider Internal Medicine
DX: R73.02 Impaired glucose tolerance (oral) (principal); E78.00 Pure hypercholesterolemia, unspecified
CPT/HCPCS: 36415; 80053; 80061; 82607; 82746; 83036; 83735; 84439; 84443; 84550; 85025; 85610; 99211

== ENCOUNTER 2025-09-03 08:47 | Outpatient (AMB) | payer MEDICARE, SELFPAY ==
[2025-09-03 09:01] LABS: Prothrombin Time Whole Bld POC 36.5 sec (11.1-13.5); ~PT, ~INR - Anti Coag Clinic 3.0 (0.9-1.1)
--- NOTE | 2025-09-03 09:17 | MHC.OFFVISCO ---
Intake Intake Visit Reasons: Anticoagulation Allergies No Known Allergies Allergy (Mild, Verified 09/03/25 08:57) Medication List - Last Reconciled 09/03/25 by Claire Posada RN amlodipine 10 mg PO DAILY atorvastatin 20 mg PO DAILY benazepril 40 mg PO DAILY cholecalciferol (vitamin D3) 25 mcg PO DAILY colchicine 0.6 mg PO NEEDED PRN cyanocobalamin (vitamin B-12) (Vitamin B-12) 1,000 mcg PO DAILY finasteride (Proscar) 5 mg PO DAILY hydrochlorothiazide 25 mg PO DAILY tamsulosin 0.4 mg PO BEDTIME warfarin 5 mg See Protocol PO DAILY Nursing Note INR: 3.0 in therapeutic range of 2-3 Medications and supplements reviewed No changes in health, diet, medications, or supplements, Denies any signs and symptoms of bleeding or bruising or clotting. Bleeding, bruising, clotting discussed Nutritional guidance given to have a serving of greens today Dose: 5mg X 6 days and 2.5mg X 1 day () F/U INR: 4 weeks Patient verbalizes understanding of instructions given Anti-Coag Initial Assessment Social Hx Patient Tobacco Use Status: Never used Tobacco alcohol intake: current Alcohol intake frequency: 3 or more drinks per day Cardiovascular Hx: HTN and Arrhythmias Cancer HX: No Psych. Illness/Depression: No Coding Level of Care Code Est Patient Level 1 Diagnoses Current use of anticoagulant therapy Z79.01 Assessment & Plan Assessment & Plan (1) Current use of anticoagulant therapy: Code(s): Z79.01 - longterm (current) use of anticoagulants Category: Medical
== END 2025-09-03 09:30 | disposition home or self-care (01) ==
LOC: HO.ACS 08:47
PROVIDERS: PCP Internal Medicine; Visit Provider Internal Medicine Medical Oncology
DX: Z79.01 Long term (current) use of anticoagulants (principal)

== ENCOUNTER → 2025-09-10 09:02 | Outpatient (REF) | payer MEDICARE, SELFPAY ==
--- NOTE | 2025-09-10 09:05 | CA_ITS ---
Transthoracic Echocardiogram Patient (Last, First, Middle): Paul Grande C Gender: M Date of : 1940 Age: 85 Procedure Date: 09/10/2025 Procedure Type: Transthoracic Echocardiogram Location: OP Height: 175.26 cm Weight: 85.28 kg BSA: 2.01 m2 Heart Rate: bpm BP: 124 / 62 mmHg Duct Cleaner: FLACO Referring MD: Gregg Major MD Symptoms: I35.0 - Nonrheumatic aortic (valve) stenosis Study Quality: Adequate ECG Rhythm: Sinus Conclusions: - The left ventricular systolic function is normal. The calculated ejection fraction is 69% by biplane method. - There is severe aortic valve stenosis. - There is severe mitral annular calcification. - There is mild to moderate tricuspid valve regurgitation. - Mild pulmonary hypertension is present. - There is moderate dilatation of the ascending aorta measuring 4.50 cm. Findings Left Ventricle Normal left ventricular cavity size. There is mildly increased left ventricular wall thickness. The left ventricular systolic function is normal. The calculated ejection fraction is 69% by biplane method. Diastolic function is indeterminate on the basis of available data. There is moderate septal and moderate basal asymmetric hypertrophy. Right Ventricle Normal right ventricular cavity size. There is mildly decreased right ventricular systolic function. Atria The left atrium is severely dilated. The right atrium is mildly dilated. Aortic Valve There is severe calcification of the aortic valve. There is severe aortic valve stenosis. The peak aortic velocity is 4.00 m/s with a calculated peak gradient of 64 mmHg. The mean gradient is 38 mmHg. The aortic valve area is 0.85 cm2. There is mild aortic valve regurgitation. Dimensionless index 0.26. Mitral Valve There is severe mitral annular calcification. There is trace mitral valve regurgitation. There is no mitral valve stenosis. Pulmonic Valve The pulmonic valve is likely normal. Tricuspid Valve There is mild to moderate tricuspid valve regurgitation. Mild pulmonary hypertension is present. Great Vessels There is moderate dilatation of the ascending aorta measuring 4.50 cm. Venous The inferior vena cava is normal in size and collapses greater than 50% with inspiration. Pericardium/Pleural There is no evidence of pericardial effusion. Prior Study Comparison Changes noted compared to prior study dated: 02/12/2025. Slight progression of aortic stenosis. Measurements 2D Linear Measurements IVSd: 1.09 0.6-0.9/0.6-1.0 cm LVIDd: 4.86 3.9-5.3/4.2-5.9 cm LVIDd Index: 2.42 2.4-3.2/2.2-3.1 cm/m2 LVIDs: 3.49 2.0-3.6 cm LVPWd: 1.27 0.7-1.1 cm LA Diam: 5.40 2.7-3.8/3.0-4.0 cm LAIDs Index: 2.69 1.5-2.3 cm/m2 LV Mass: 272.04 67-162/88-224 g LV Mass Index: 135.34 43-95/49-115 g/m2 LVOT Diam: 2.10 3.0+(-)1.3 cm 2D Systolic Function EF 4C: 70.30 >55% EF 2C: 69.30 >55% EF BiP: 69.30 >55% Mitral Valve MV VTI: 0.67 MV Pk Alok: 1.74 MV Mn Alok: 0.98 MV Pk Grad: 12.00 MV Mn Grad: 5.00 MV Pk E: 1.79 MV Decel Time: 276.00 E'Lateral: 3.60 E'Medial: 3.09 E/E' Med: 57.90 E/E' Lat: 49.70 PHT: 81.00 MVA PHT: 2.72 MVA Continuity: 1.32 Decel [place]: 6.50 Aortic Valve AoV Pk Alok: 4.00 AoV Mn Alok: 2.90 AoV VTI: 1.05 AoV Pk Grad: 64.00 Aov Mn Grad: 38.00 MALENA Cont.VTI: 0.85 AI Pk Alok: 3.54 AI [place]: 2.01 LVOT LVOT Pk Alok: 1.05 LVOT Mn Alok: 0.74 LVOT VTI: 0.26 LVOT Pk Grad: 4.00 LVOT Mn Grad: 2.00 LVOT Diam: 2.10 LVOT Area: 3.46 Diastolic Function MV Pk E: 1.79 E'Medial: 3.09 E/E' Med: 57.90 E' Laterial: 3.60 E/E' Lat: 49.70 Right Ventricle TAPSE (mm): 14.60 TVS' Alok: 9.11 Tricuspid Valve TR Pk Alok: 2.99 TR Pk Grad: 36.00 RA Press: 3.00 RVSP: 39.00 Great Vessels Aorta Sinus of Valsalva: 3.99 2.0-3.[address] [place]: 3.33 1.7-3.4 cm Ao Asc: 4.50 2.1-3.4 cm Ao Arch: 3.60 Updated in Other Vendor System with Status of Final Gregg Major MD electronically signed on 09/12/2025 10:53:41 AM with status of Final
== END ==
LOC: HO.CARD 09:02
PROVIDERS: PCP Internal Medicine; Visit Provider Internal Medicine
DX: I35.0 Nonrheumatic aortic (valve) stenosis (principal); I77.810 Thoracic aortic ectasia
CPT/HCPCS: 93306

== ENCOUNTER → 2025-09-10 09:05 | Outpatient (BNV) | payer MEDICARE, SELFPAY | PROVIDERS: PCP Internal Medicine; Visit Provider Internal Medicine | DX: I27.20 Pulmonary hypertension, unspecified (principal); I42.2 Other hypertrophic cardiomyopathy; I35.0 Nonrheumatic aortic (valve) stenosis; I71.21 Aneurysm of the ascending aorta, without rupture; I34.81 Nonrheumatic mitral (valve) annulus calcification; I36.1 Nonrheumatic tricuspid (valve) insufficiency | CPT/HCPCS: 93306 ==

== ENCOUNTER 2025-10-01 08:57 | Outpatient (AMB) | payer MEDICARE, SELFPAY ==
[2025-10-01 09:19] LABS: Prothrombin Time Whole Bld POC 42.2 sec (11.1-13.5); ~PT, ~INR - Anti Coag Clinic 3.5 (0.9-1.1)
--- NOTE | 2025-10-01 09:25 | MHC.OFFVISCO ---
Intake Intake Visit Reasons: Anticoagulation Allergies No Known Allergies Allergy (Mild, Verified 10/01/25 09:13) Medication List - Last Reconciled 10/01/25 by Ni Link RN amlodipine 10 mg PO DAILY atorvastatin 20 mg PO DAILY benazepril 40 mg PO DAILY cholecalciferol (vitamin D3) 25 mcg PO DAILY colchicine 0.6 mg PO NEEDED PRN cyanocobalamin (vitamin B-12) (Vitamin B-12) 1,000 mcg PO DAILY finasteride (Proscar) 5 mg PO DAILY hydrochlorothiazide 25 mg PO DAILY tamsulosin 0.4 mg PO BEDTIME warfarin 5 mg See Protocol PO DAILY Nursing Note INR: 3.5 in therapeutic range Medications and supplements reviewed No changes in diet, medications, or supplements- HAD FLU SHOT LAST WEEK WHICH MAY HAVE RAISED THE INR Denies any signs and symptoms of bleeding or bruising or clotting. Bleeding, bruising, clotting discussed Nutritional guidance given - greens today Dose: already took today's dose then decrease tomorrow 2.5 then resume 2.5mg x 1 day/ 5mg x 6days F/U INR: 2-3 weeks Patient verbalizes understanding of instructions given Anti-Coag Initial Assessment Social Hx Patient Tobacco Use Status: Never used Tobacco alcohol intake: current Alcohol intake frequency: 3 or more drinks per day Cardiovascular Hx: HTN and Arrhythmias Cancer HX: No Psych. 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
== END 2025-10-01 09:43 | disposition home or self-care (01) ==
LOC: HO.ACS 08:57
PROVIDERS: PCP Internal Medicine; Visit Provider Internal Medicine Medical Oncology
DX: Z79.01 Long term (current) use of anticoagulants (principal)

== ENCOUNTER → 2025-10-01 08:57 | Outpatient (BNVA) | payer MEDICARE, SELFPAY | PROVIDERS: PCP Internal Medicine; Visit Provider Internal Medicine Medical Oncology | DX: I48.20 Chronic atrial fibrillation, unspecified (principal); I35.0 Nonrheumatic aortic (valve) stenosis; I77.810 Thoracic aortic ectasia; I10 Essential (primary) hypertension; I51.3 Intracardiac thrombosis, not elsewhere classified; Z51.81 Encounter for therapeutic drug level monitoring; Z79.01 Long term (current) use of anticoagulants | CPT/HCPCS: 85610; 99211; 99212 ==

== ENCOUNTER 2025-10-01 12:35 | Outpatient (AMB) | payer MEDICARE, SELFPAY ==
--- NOTE | 2025-10-01 12:41 | A.OFFVIS_ITS ---
Vital Signs 10/01/25 12:42 Height 5 ft 9 in Weight 189 lb 9.561 oz BMI 28.0 BP 122/62 Blood Pressure Location Lt brachial Position Sitting Pulse 73 Pulse Source Pulse Oximeter Intake Visit Reasons: 6M f/u after echo r/s Allergies No Known Allergies Allergy (Mild, Verified 10/01/25 09:13) Medication List - Last Reconciled 10/01/25 by Gregg Major MD amlodipine 10 mg PO DAILY atorvastatin 20 mg PO DAILY benazepril 40 mg PO DAILY cholecalciferol (vitamin D3) 25 mcg PO DAILY colchicine 0.6 mg PO NEEDED PRN cyanocobalamin (vitamin B-12) (Vitamin B-12) 1,000 mcg PO DAILY finasteride (Proscar) 5 mg PO DAILY hydrochlorothiazide 25 mg PO DAILY tamsulosin 0.4 mg PO BEDTIME warfarin 5 mg See Protocol PO DAILY HPI Comments Details: Paul returns for follow-up regarding various issues including atrial fibrillation, aortic aneurysm as well as aortic stenosis. Overall, doing well. No cardiac complaints like exertional angina, shortness of breath, dizzy spells or syncopal episodes. He still has some memory problems and dementia but able to get around. [facility] Medical History (Updated 10/01/25 @ 13:19 by Gregg Major MD) Ascending aorta dilatation Urinary frequency Hypercholesterolemia Gout Impaired glucose tolerance Obesity (BMI 30.0-34.9) Chronic atrial fibrillation Hypertension Surgical History History of cardiac cath Family History Father No problems noted. Mother No problems noted. Social History Household Members: Spouse Housing: House Housing Other:: LIVES WITH SPOUSE Alcohol intake: current Alcohol intake frequency: 3 or more drinks per day Alcohol type: beer Comment: 4/day Patient Tobacco Use Status: Never used Tobacco e-Cigarette/Vaping Use: Never Used Second Hand Smoke Exposure: No Advance Directives Date on File: 08/26/20 service: Yes Current occupational status: retired Current occupation: RETIRED Current occupational exposures/hazards: No Cognitive needs: No Hearing needs: No Vision needs: Yes Review of Systems Const Denies weakness ENT Denies dizziness Card Denies chest pain, Denies chest pain with activity, Denies syncope, Denies rapid heart rate, Denies pedal edema, Denies edema, Denies leg edema, Denies lightheadedness, Denies palpitations, Denies dyspnea, Denies dyspnea on exertion and Denies orthopnea Resp Denies cough, Denies dyspnea and Denies dyspnea on exertion GI Denies hematochezia and Denies change in stool character Musc Denies abnormal gait, Denies muscle cramps, Denies muscle weakness, Denies numbness, Denies radiating pain into limb and Denies tingling Neuro Denies abnormal gait, Denies dizziness, Denies syncope, Denies numbness, Denies tingling and Denies weakness Endo Denies palpitations Physical Exam Vital Signs: Last Vital Signs Pulse 73 10/01/25 12:42 BP 122/62 10/01/25 12:42 BMI result Body Mass Index 28.0 Const General: comfortable and no acute distress Orientation/consciousness: patient oriented x3 HEENT Other: Unremarkable Head: Yes normal to inspection Neck Neck: Yes normal visual inspection Chest Chest palpation & inspection: normal inspection of the chest Resp Auscultation: clear to auscultation bilaterally Cardio Palpation: normal PMI Heart sounds: S1 normal heart sound present, S2 abnormal (soft), no gallops, Murmur heart sound present systolic III/ and at the right sternal border and no rubs GI Palpation (GI): Soft to palpation Back/Spine/Pelvis Other: unremarkable Skin General skin exam: no rashes or lesions noted Neuro General: patient oriented x3 Extrem General: Yes normal to inspection Psych Mental Status: mental status grossly normal Results AMB INR Fingerstick AMB INR Fingerstick 3.5 Last Edit by Ni Link RN on 10/01/25 09:20 manual entry Assessment & Plan Assessment & Plan (1) Aortic stenosis: Code(s): I35.0 - Nonrheumatic aortic (valve) stenosis Category: Medical Qualifiers: Cardiac valve disease etiology: nonrheumatic Qualified Code(s): I35.0 - Nonrheumatic aortic (valve) stenosis Plan: Echocardiogram suggestive of severe aortic stenosis. Clinically, he has got no symptoms whatsoever. We discussed about referral for TAVR versus watchful observation and we decided on the latter. If in case he develops symptoms like chest pain or shortness of breath or dizziness/syncope then we can proceed accordingly. agrees with this. (2) Chronic atrial fibrillation: Code(s): I48.20 - Chronic atrial fibrillation, unspecified Category: Medical Plan: Stable. Not on any rate or rhythm control medications. Otherwise, continue warfarin. (3) Ascending aorta dilatation: Comment: Code(s): I77.810 - Thoracic aortic ectasia Category: Medical Plan: In the chest CT 06/2024, measurement is 4.7/4.9 cm. In the recent echocardiogram, ascending aortic size 4.5 cm. Will need to be followed. (4) Hypertension: Code(s): I10 - Essential (primary) hypertension Category: Medical Plan: Stable. On amlodipine, benazepril, hydrochlorothiazide. (5) Thrombus of left atrial appendage: Code(s): I51.3 - Intracardiac thrombosis, not elsewhere classified Category: Medical Plan: Not clear if it is a chronic thrombus. His INR is mostly therapeutic. No changes. Plan Discussion Notes I informed the patient and authorization rep that the heart valve has become slightly tighter since the last evaluation. I explained that because the patient is not experiencing symptoms such as dizziness, syncope, chest pain, or shortness of breath, the current recommendation is to continue monitoring rather than proceeding with immediate valve replacement. We discussed that the condition is expected to worsen over time, and a valve replacement will likely be necessary within the next 1-2 years. I advised them on the warning signs that would indicate the need for urgent re-evaluation and intervention. We agreed on a plan to follow up in six months for another echocardiogram and reassessment. Patient was informed and verbally consented to the use of an ambient scribe for clinic note documentation during this visit. Orders: Orders CA echo transthoracic complete 6 Months I35.0 - Nonrheumatic aortic (valve) stenosis Patient Instructions: - Your heart valve has gotten a little tighter, but since you do not have any symptoms, we will continue to watch it closely for now. - You must seek medical attention right away if you develop any of the following symptoms: chest pain, shortness of breath, dizziness, or feeling like you might pass out. - A follow-up appointment has been scheduled in six months, at which time you will have another heart ultrasound (echocardiogram). Coding Level of Care Code Est Pt Level 4 (39230) Complex visit Add On [id number] Diagnoses Nonrheumatic aortic valve stenosis I35.0 Cardiac valve disease etiology: nonrheumatic Chronic atrial fibrillation I48.20 Ascending aorta dilatation I77.810 Hypertension I10 Thrombus of left atrial appendage I51.3
[2025-10-01 12:42] VITALS: BP 122/62; PULSE 73; BMI 28.0
== END 2025-10-01 12:58 | disposition home or self-care (01) ==
LOC: HO.HCS 12:36
PROVIDERS: PCP Internal Medicine; Visit Provider Internal Medicine
DX: I35.0 Nonrheumatic aortic (valve) stenosis (principal); I48.20 Chronic atrial fibrillation, unspecified; I77.810 Thoracic aortic ectasia; I10 Essential (primary) hypertension; I51.3 Intracardiac thrombosis, not elsewhere classified
CPT/HCPCS: 99214; G2211

== ENCOUNTER 2025-10-15 10:11 | Outpatient (AMB) | payer MEDICARE, SELFPAY ==
[2025-10-15 10:18] LABS: Prothrombin Time Whole Bld POC 36.4 sec (11.1-13.5); ~PT, ~INR - Anti Coag Clinic 3.0 (0.9-1.1)
--- NOTE | 2025-10-15 10:31 | MHC.OFFVISCO ---
Intake Intake Visit Reasons: Anticoagulation Allergies No Known Allergies Allergy (Mild, Verified 10/15/25 10:12) Medication List - Last Reconciled 10/15/25 by Ni Link RN amlodipine 10 mg PO DAILY atorvastatin 20 mg PO DAILY benazepril 40 mg PO DAILY cholecalciferol (vitamin D3) 25 mcg PO DAILY colchicine 0.6 mg PO NEEDED PRN cyanocobalamin (vitamin B-12) (Vitamin B-12) 1,000 mcg PO DAILY finasteride (Proscar) 5 mg PO DAILY hydrochlorothiazide 25 mg PO DAILY tamsulosin 0.4 mg PO BEDTIME warfarin 5 mg See Protocol PO DAILY Nursing Note INR: 3.0 in therapeutic range Medications and supplements reviewed No changes in health, diet, medications, or supplements, Denies any signs and symptoms of bleeding or bruising or clotting. Bleeding, bruising, clotting discussed Nutritional guidance given Dose: 2.5MG THURSDAYS/ 5MG X 6 DAYS F/U INR: 1 MONTH Patient verbalizes understanding of instructions given Anti-Coag Initial Assessment Social Hx Patient Tobacco Use Status: Never used Tobacco alcohol intake: current Alcohol intake frequency: 3 or more drinks per day Cardiovascular Hx: HTN and Arrhythmias Cancer HX: No Psych. 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
== END 2025-10-15 10:32 | disposition home or self-care (01) ==
LOC: HO.ACS 10:11
PROVIDERS: PCP Internal Medicine; Visit Provider Internal Medicine Medical Oncology
DX: Z79.01 Long term (current) use of anticoagulants (principal)

== ENCOUNTER → 2025-10-15 10:11 | Outpatient (BNVA) | payer MEDICARE, SELFPAY | PROVIDERS: PCP Internal Medicine; Visit Provider Internal Medicine Medical Oncology | DX: I48.20 Chronic atrial fibrillation, unspecified (principal); Z51.81 Encounter for therapeutic drug level monitoring; Z79.01 Long term (current) use of anticoagulants | CPT/HCPCS: 85610; 99211 ==